=== PATIENT | female | born 1955 | race Caucasian/White ===

== ENCOUNTER 2020-02-10 10:03 | Outpatient (REF) | payer MEDICARE, MEDICAID, SELFPAY ==
--- NOTE | 2020-02-10 10:05 | XR_ITS ---
EXAMINATION: XR SHOULDER, LEFT CLINICAL INFORMATION: Left shoulder pain COMPARISON: None TECHNIQUE: Left shoulder is imaged in 3 views. FINDINGS: There is no fracture or dislocation. The acromioclavicular alignment is normal. No destructive process. Glenohumeral joint shows no narrowing or erosive change. There are small oval calcifications adjacent to the greater tuberosity consistent with calcific tendinosis. XR/XR shoulder LT min 2V IMPRESSION: Calcific tendinosis distal superior rotator cuff.
--- NOTE | 2020-02-10 10:31 | XR_ITS ---
EXAMINATION: XR HAND, LEFT CLINICAL INFORMATION: Injury COMPARISON: None TECHNIQUE: PA, lateral, and oblique views of the left hand. FINDINGS: Bone alignment is normal. No fracture or dislocation is seen. There is arthritis at the IP joints and first SENIOR LIVING joint with joint space narrowing and osteophyte formation. There is ulnar minus variance at the wrist. Soft tissues are unremarkable. XR/XR hand LT min 3V IMPRESSION: Arthritis at the IP joints and first SENIOR LIVING joint.
== END 2020-02-10 10:04 | disposition home or self-care (01) ==
LOC: HO.HOSX 10:03
PROVIDERS: Visit Provider Orthopaedic Surgery
DX: S69.92XA Unspecified injury of left wrist, hand and finger(s), initial encounter (principal); M25.512 Pain in left shoulder; M75.52 Bursitis of left shoulder
CPT/HCPCS: 20610; 73030; 73130; 99212; J1100

== ENCOUNTER → 2020-05-25 10:51 | Outpatient (BNVA) | payer MEDICARE, MEDICAID, SELFPAY | PROVIDERS: Visit Provider Orthopaedic Surgery | DX: Z13.89 Encounter for screening for other disorder (principal) | CPT/HCPCS: 99212 ==

== ENCOUNTER 2020-06-02 09:55 | Outpatient (REF) | payer MEDICARE, MEDICAID, SELFPAY ==
--- NOTE | ~2020-06-02 | MR_ITS ---
EXAMINATION: MRI SHOULDER WITHOUT CONTRAST, LEFT CLINICAL INFORMATION: Pain in left shoulder. Patient reports left shoulder pain radiating down left humerus, decreased range of motion, symptoms for months, history of dislocation 10 years ago. COMPARISON: XR left shoulder 02/10/2020 TECHNIQUE: MRI scanning is performed using a standard protocol on a high-field strength 1.5 Manda magnet. FINDINGS: ROTATOR CUFF: There is a high-grade tear of the mid to distal supraspinatus tendon measuring 17 mm transverse and 12 mm AP which predominantly involves the articular side of the tendon. There is a thin bursal surface remaining. There is a questionable perforation through the bursal surface on the sagittal sequence (series 4, image 20). There is mild distal infraspinatus and subscapularis tendinosis. The teres minor tendon is intact. There is a aewyf-kt-excvktkv subacromial-subdeltoid bursal effusion. No significant muscle atrophy or fatty infiltration. BICEPS: There is mild tendinosis of the intra-articular portion of the long head of the biceps tendon. CORACOACROMIAL ARCH: The undersurface of the acromion is curved with a prominent broad-based subacromial spur. There is mild osteoarthritis of the acromioclavicular joint. LABRUM/CAPSULE: The superior and posterior labrum appear intact. The anterior labrum is attenuated. The capsular structures are unremarkable. GLENOHUMERAL JOINT/MARROW: There are small marginal osteophytes. There are patchy areas of oyzm-lc-bcucidpo cartilage irregularity and thinning in the inferomedial and superior humeral head. There is patchy mild cartilage surface irregularity and some areas of thinning in the glenoid. MR/MR shoulder LT wo con IMPRESSION: 1. High-grade tear of the mid to distal supraspinatus tendon which appears to represent a partial articular surface tear. A tiny perforation through the bursal surface cannot be entirely excluded. 2. Zqqa-dj-tsspoxfu subacromial-subdeltoid bursitis. 3. Mild long head biceps tendinosis. 4. Prominent broad-based subacromial spur and mild osteoarthritis of the acromioclavicular joint. 5. Mbgk-uc-uxymewyl glenohumeral arthrosis.
== END 2020-06-02 09:56 | disposition home or self-care (01) ==
LOC: HO.MRI 09:55
PROVIDERS: PCP Internal Medicine; Visit Provider Orthopaedic Surgery
DX: M25.512 Pain in left shoulder (principal)
CPT/HCPCS: 73221

== ENCOUNTER → 2020-06-04 12:01 | Outpatient (BNVA) | payer MEDICARE, MEDICAID, SELFPAY | PROVIDERS: Visit Provider Orthopaedic Surgery | DX: M75.102 Unspecified rotator cuff tear or rupture of left shoulder, not specified as traumatic (principal) | CPT/HCPCS: 99212 ==

== ENCOUNTER 2020-06-17 08:18 | Day surgery (SDC) | payer MEDICARE, MEDICAID, SELFPAY ==
[2020-06-09 20:02] VITALS: BMI 32.7
--- NOTE | 2020-06-16 09:42 | P.CONAN_ITS ---
Documented by User: Nancy Felder 06/16/20 09:44 HPI - Anesthesia Eval Consult details Narrative: 64yo F for Left Arthroscopic Rotator Cuff Repair Coumadin for PE PMFSH Active Problems Active Problems: All Active Problems (Updated 06/10/20 @ 13:40 by aLshell Olvera) Left shoulder pain (Acute) Finger dislocation (Acute) Bursitis of left shoulder (Acute) Past Medical History Medical History (Updated 06/10/20 @ 13:40 by Lashell Ovlera) Anxiety Arthritis Bursitis of left shoulder COPD (chronic obstructive pulmonary disease) Depression Elevated cholesterol Fatty liver Finger dislocation GERD (gastroesophageal reflux disease) History of pulmonary embolism Lives in assisted living facility Multiple sclerosis Opioid dependence Primary osteoarthritis of hips, bilateral Seizures Family History Family History Father CVD (cardiovascular disease) Mother No problems noted. Surgical History Surgical History (Updated 06/10/20 @ 13:40 by Lashell Olvera) History of toe surgery Hx of colonoscopy Social History Social History Household Members Other:: [facility] Smoking Status: Former smoker Smoked in Last 30 Days: No Smoking Quit Date: 2016 Use of substances other than those prescribed or required for medical reasons: No Advance Directives: No Advance Directives Information Provided: No Advance Directives on File: No Recently lost weight without trying: No Current occupational status: unemployed Current occupation: [employer] Meds Allergies Allergy/AdvReac Type Severity Reaction Status Date / Time Penicillins Allergy Mild RASH Verified 06/04/20 12:12 penicillin V Allergy Unknown rash Verified 06/04/20 12:12 Home Medications Medication Instructions Recorded Confirmed Last Taken Type clonazepam 0.5 mg tablet 1 mg PO TID 02/07/20 06/09/20 06/17/20 History melatonin 3 mg capsule 3 mg PO BEDTIME PRN 02/07/20 06/09/20 Unknown History meloxicam 15 mg PO QPM 05/25/20 06/09/20 Unknown History acetaminophen 1,000 mg PO BID 06/09/20 06/10/20 Unknown History atorvastatin 1 tab PO DAILY 06/09/20 06/09/20 Unknown History citalopram 20 mg PO DAILY 06/09/20 06/10/20 Unknown History clonidine HCl 1 tab PO TID 06/09/20 06/09/20 06/17/20 History dicyclomine 20 mg PO BID 06/09/20 06/09/20 06/17/20 History duloxetine 1 cap PO DAILY 06/09/20 06/09/20 06/17/20 History fluticasone propionate [Flovent 2 puff INHALATION BID 06/09/20 06/09/20 Unknown History HFA] loratadine 1 tab PO DAILY 06/09/20 06/09/20 Unknown History magnesium oxide 1 tab PO DAILY 06/09/20 06/09/20 Unknown History modafinil 1 tab PO BID 06/09/20 06/09/20 06/17/20 History tizanidine 1 tab PO TID 06/09/20 06/09/20 06/17/20 History warfarin 3 mg PO DAILY 06/09/20 06/09/20 06/11/20 History dimethyl fumarate [Tecfidera] 240 mg PO BID 06/10/20 06/10/20 06/17/20 History multivitamin 1 tab PO DAILY 06/10/20 06/10/20 06/17/20 History pantoprazole [Protonix] 20 mg PO DAILY 06/10/20 06/10/20 06/17/20 History quetiapine 1 tab PO BEDTIME 06/10/20 06/10/20 Unknown History warfarin 1 tab PO DAILY 06/10/20 06/10/20 06/10/20 History Exam Exam Date and Time: June 16, 2020 0942 Height,Weight and Vital Signs: Height 5 ft 2 in Weight 81.193 kg Documented by User: Genaro Lara MD 06/17/20 09:58 [facility] Past Medical History Medical History (Updated 06/10/20 @ 13:40 by Lashell Olvera) Anxiety Arthritis Bursitis of left shoulder COPD (chronic obstructive pulmonary disease) Depression Elevated cholesterol Fatty liver Finger dislocation GERD (gastroesophageal reflux disease) History of pulmonary embolism Lives in assisted living facility Multiple sclerosis Opioid dependence Primary osteoarthritis of hips, bilateral Seizures Family History Family History Father CVD (cardiovascular disease) Mother No problems noted. Surgical History Surgical History (Updated 06/10/20 @ 13:40 by Lashell Olvera) History of toe surgery Hx of colonoscopy Social History Social History Household Members Other:: [facility] Smoking Status: Former smoker Smoked in Last 30 Days: No Smoking Quit Date: 2016 Use of substances other than those prescribed or required for medical reasons: No Advance Directives: No Advance Directives Information Provided: No Advance Directives on File: No Recently lost weight without trying: No Current occupational status: unemployed Current occupation: [employer] Meds Allergies Allergy/AdvReac Type Severity Reaction Status Date / Time Penicillins Allergy Mild RASH Verified 06/04/20 12:12 penicillin V Allergy Unknown rash Verified 06/04/20 12:12 Home Medications Medication Instructions Recorded Confirmed Last Taken Type clonazepam 0.5 mg tablet 1 mg PO TID 02/07/20 06/09/20 06/17/20 History melatonin 3 mg capsule 3 mg PO BEDTIME PRN 02/07/20 06/09/20 Unknown History meloxicam 15 mg PO QPM 05/25/20 06/09/20 Unknown History acetaminophen 1,000 mg PO BID 06/09/20 06/10/20 Unknown History atorvastatin 1 tab PO DAILY 06/09/20 06/09/20 Unknown History citalopram 20 mg PO DAILY 06/09/20 06/10/20 Unknown History clonidine HCl 1 tab PO TID 06/09/20 06/09/20 06/17/20 History dicyclomine 20 mg PO BID 06/09/20 06/09/20 06/17/20 History duloxetine 1 cap PO DAILY 06/09/20 06/09/20 06/17/20 History fluticasone propionate [Flovent 2 puff INHALATION BID 06/09/20 06/09/20 Unknown History HFA] loratadine 1 tab PO DAILY 06/09/20 06/09/20 Unknown History magnesium oxide 1 tab PO DAILY 06/09/20 06/09/20 Unknown History modafinil 1 tab PO BID 06/09/20 06/09/20 06/17/20 History tizanidine 1 tab PO TID 06/09/20 06/09/20 06/17/20 History warfarin 3 mg PO DAILY 06/09/20 06/09/20 06/11/20 History dimethyl fumarate [Tecfidera] 240 mg PO BID 06/10/20 06/10/20 06/17/20 History multivitamin 1 tab PO DAILY 06/10/20 06/10/20 06/17/20 History pantoprazole [Protonix] 20 mg PO DAILY 06/10/20 06/10/20 06/17/20 History quetiapine 1 tab PO BEDTIME 06/10/20 06/10/20 Unknown History warfarin 1 tab PO DAILY 06/10/20 06/10/20 06/10/20 History Exam Airway Mallampati Class: III TM Dist: >3cm Denture: Upper and Lower Loose/Missing/Broken Teeth: No Heart: RRR, sinus raúl Assessment and Plan Assessment Anesthesia Assessment: Anesthesia Plan Discussed and Chart Reviewed Final Anesthetic Review NPO: Yes ASA Class: III Final Preanesthetic Review: No Changes in Pt Med Stat, Meds/Allgs Chart Reviewed, Consent Obtained/Reviewed and Anes Risks/Benef Reviewed Patient Risk: Intermediate Procedure Risk: Intermediate Anesthetic Plan Anesthetic Plan: GA and Regional Block Disposition: Standard PACU
[2020-06-17] VITALS (8 sets, daily range): BP systolic 98–138; BP diastolic 38–92; PULSE 56–82; RESP 16–20; TEMP 36.3–36.4; O2SAT 91–98
--- NOTE | 2020-06-17 | ECG_ITS ---
Test Reason : PREOP, COPD Blood Pressure : / mmHG Vent. Rate : 051 BPM Atrial Rate : 051 BPM P-R Int : 170 ms QRS Dur : 090 ms QT Int : 436 ms P-R-T Axes : 043 011 011 degrees QTc Int : 401 ms Sinus bradycardia Otherwise normal ECG When compared with ECG of 03-JUN-2015 22:21, Vent. rate has decreased BY 44 BPM Nonspecific T wave abnormality no longer evident in Anterior leads QT has shortened Referred By: Nancy Felder Electronically Signed By:Paramjit Escamilla
[2020-06-17] MEDS: Lactated Ringers 1,000 ML 100 ML IVCONT (09:13)
--- NOTE | 2020-06-17 09:21 | PC.NURSE ---
Lab draw for patient cancelled per Dr Lara. Patient had INR drawn/resulted 06/16/20. pt 12.1 INR 1.1
--- NOTE | 2020-06-17 09:26 | PC.NURSE ---
Per Dr Lynn, Cefazolin 2 g IV to be given to patient, pt has known PCN allergy w/ rash for rxn. Both Anesthesia & Dr Lynn aware, okay to proceed with Cefazolin 2 g
--- NOTE | 2020-06-18 16:45 | P.BOP_ITS ---
Brief Operative Note Date of Service: 06/17/20 Pre-op diagnosis: left shoulder rtc tear Post-op diagnosis: same Procedure: left shoulder rtc repair Implants: smityh and nephew medial row helacoil doulbe loaded suture anchors and healcoil knotless X2 lateral row Surgeon: Ian Lynn MD Anesthesia: GETA Client Experience Administrator: Rosalie Ramirez Estimated blood loss (mL): 5 IV fluids (mL): 800 Pathology: none sent Condition: stable Disposition: PACU
--- NOTE | 2020-06-18 16:48 | P.OP_ITS ---
Operative Note Operative Note Date of Service: 06/17/20 Narrative: Pre-op diagnosis: left shoulder rtc tear Post-op diagnosis: same Procedure: left shoulder rtc repair Implants: smityh and nephew medial row helacoil doulbe loaded suture anchors and helacoil knotless X2 lateral row Surgeon: Ian Lynn MD Anesthesia: DUANEA Chief Internal Auditor: Rosalie Ramirez Estimated blood loss (mL): 5 IV fluids (mL): 800 Pathology: none sent Condition: stable Disposition: PACU Indications: This is a 64 yo F with at least one year of ongoing left shoulder pain and weakness with a full thickness rtc on MRI consented for operative treatment after extensive conservative management failed Procedure in detail: Patient was brought to the operating room and placed the the beach chair position. All bony prominences were well padded and he was prepped and draped in standard sterile fashion. A time out was called to identify proper site, proper procedure and proper surgeon. IV antibiotics per weight were administered. I began by making a posterolateral stab incision with a 15 blade. A blunt trochar was placed into the glenohumeral joint and insufflated the joint with saline and a 30 degree arthroscope was placed. I established an outside-in anterior portal just distal to the biceps tendon. I then began my inspection of the glenohumeral joint. There was synovitis in the anterior interval. Gutters were clean. Cartilagenous surfaces were intact and subscapularis was intact. Labrum and biceps anchor were intact. I used the ablations wand to remove the synovitis. I then removed the trochar and entered the subacromial space. A direct lateral portal was then established and I performed a bursectomy. The cuff was then examined. There was a full thickness irregular tear of the supraspinatus. There was some intra-substance tearing of the tendon as well. I used a trell to debride the footprint down to bleeding bone. I then placed two medial helacoil and passed one strand from each through the torn cuff. I then brought this to two lateral knotless anchors. Additionally I added one looped suture anteriorly to fully reproduce the footprint and compress the torn cuff. I then removed all instrumentation and took my final pictures. I was satisfied with the repair. The portals were then closed with nylon and the patient was placed in sterile dressing, extubated and brought top the recovery room in stable condition. There were no known complications.
== END 2020-06-17 13:05 | disposition home or self-care (01) ==
PROVIDERS: PCP Internal Medicine; Visit Provider Orthopaedic Surgery
PROC: (CPT 29827; principal; 2020-06-17 10:00)
DX: M75.122 Complete rotator cuff tear or rupture of left shoulder, not specified as traumatic (principal); M65.9 Synovitis and tenosynovitis, unspecified
CPT/HCPCS: 29827; 29826; 93005; C1713; J0171; J0690; J1100; J2250; J2405; J3010

== ENCOUNTER → 2020-06-22 12:18 | Outpatient (BNVA) | payer MEDICARE, MEDICAID, SELFPAY | PROVIDERS: Visit Provider Physician Assistant | DX: Z98.890 Other specified postprocedural states (principal) | CPT/HCPCS: 99212 ==

== ENCOUNTER → 2020-07-02 09:18 | Outpatient (BNVA) | payer MEDICARE, MEDICAID, SELFPAY | PROVIDERS: Visit Provider Physician Assistant | DX: Z98.890 Other specified postprocedural states (principal) | CPT/HCPCS: 99212 ==

== ENCOUNTER → 2020-07-30 09:28 | Outpatient (BNVA) | payer MEDICARE, MEDICAID, SELFPAY | PROVIDERS: Visit Provider Orthopaedic Surgery | DX: Z98.890 Other specified postprocedural states (principal) | CPT/HCPCS: 99212 ==

== ENCOUNTER 2020-08-27 08:34 | Outpatient (REF) | payer MEDICARE, MEDICAID, SELFPAY ==
--- NOTE | ~2020-08-27 | XR_ITS ---
EXAMINATION: XR SHOULDER, LEFT CLINICAL INFORMATION: Left shoulder pain COMPARISON: None TECHNIQUE: AP external rotation, Grashey, scapular Y, and axillary views of the left shoulder. FINDINGS: There is a loss of glenohumeral joint space with periapical spurring. There is evidence of previous left rotator cuff surgery. Loss of left AC joint with inferior acromion spur is noted. No visible acute fracture or dislocation seen. The soft tissues are normal. XR/XR shoulder LT min 2V IMPRESSION: Mild degenerative changes left AC joint and left glenohumeral joint. No visible acute fracture, dislocation or subluxation seen.
== END 2020-08-27 08:35 | disposition home or self-care (01) ==
LOC: HO.HOSX 08:34
PROVIDERS: Visit Provider Orthopaedic Surgery
DX: M25.512 Pain in left shoulder (principal); Z98.890 Other specified postprocedural states
CPT/HCPCS: 73030; 99212

== ENCOUNTER → 2020-10-08 12:34 | Outpatient (BNVA) | payer MEDICARE, MEDICAID, SELFPAY | PROVIDERS: PCP Internal Medicine; Visit Provider Orthopaedic Surgery | DX: Z98.890 Other specified postprocedural states (principal) | CPT/HCPCS: 99212 ==

== ENCOUNTER 2021-01-29 08:58 | Outpatient (REF) | payer MEDICARE, MEDICAID, SELFPAY ==
--- NOTE | ~2021-01-29 | MM_ITS ---
EXAMINATION: MM SCREENING DIGITAL BREAST TOMOSYNTHESIS, BILATERAL CLINICAL INFORMATION: Screening. Asymptomatic. The lifetime risk of breast cancer based on the Tyrer-Cuzick Model is 8%. COMPARISON: Mammography: 10/28/2019, 10/22/2018, 09/16/2016 TECHNIQUE: Digital breast tomosynthesis is performed in both the craniocaudal and mediolateral oblique views along with computer-aided detection (CAD). Synthesized 2D images are generated from the tomosynthesis. FINDINGS: There are scattered areas of fibroglandular density (ACR BI-RADS breast composition Category b). There are no significant masses, abnormal calcifications, or other abnormalities. Parenchymal pattern is similar to prior studies. No developing density. There are some dermal lesions again noted overlying the posterior breasts. MM/MM tomosynthesis screening BI IMPRESSION: No mammographic evidence of malignancy. ASSESSMENT: BI-RADS 2: Benign RECOMMENDATION: Routine annual mammography screening. This patient's information was entered into a reminder system with a target due date for their next mammogram.
== END 2021-01-29 08:59 | disposition home or self-care (01) ==
LOC: HO.MAMMO 08:58
PROVIDERS: Visit Provider Internal Medicine
DX: Z12.31 Encounter for screening mammogram for malignant neoplasm of breast (principal)
CPT/HCPCS: 77063; 77067

== ENCOUNTER 2021-02-23 10:03 | Outpatient (REF) | payer MEDICARE, MEDICAID, SELFPAY ==
--- NOTE | ~2021-02-23 | MR_ITS ---
EXAMINATION: MR BRAIN WITHOUT AND WITH CONTRAST CLINICAL INFORMATION: Follow-up multiple sclerosis. COMPARISON: Multiple prior studies, the most recent from 09/19/2018. TECHNIQUE: Multiplanar, multisequence MRI of the brain was obtained before and after the intravenous administration of 7.5 mL Gadavist. FINDINGS: No diffusion abnormalities are identified to suggest an acute or subacute infarct. No mass effect or midline shift is seen. The ventricles and sulci are slightly commensurately prominent consistent with mild diffuse volume loss. There are a few scattered foci of hyperintense T2 and FLAIR signal in the periventricular subcortical white matter. These appear stable compared to prior imaging and do not demonstrate restricted diffusion or abnormal enhancement to suggest active changes. The corpus callosum is normal volume. The study redemonstrates prominence of the perivascular structures in the basal ganglia and right temporal region. No extra-axial fluid collections are seen. The brainstem appears normal. On postcontrast imaging, there is no abnormal parenchymal or leptomeningeal enhancement. There is a small focus of low gradient signal in the anterior left centrum semiovale body, demonstrated on prior imaging. The cerebellar tonsils have normal contour and position, and the craniocervical junction appears normal. Marrow signal and midline structures are normal. The major intracranial flow-voids at the level of the sleetmute of Childs are preserved. The dural venous sinus flow-voids are maintained. There is trace fluid in the medial left mastoid air cells, unchanged. The paranasal sinuses are well-aerated. MR/MR head/brain wo/w con IMPRESSION: 1. There are no acute bleeds or infarcts. There are no masses or areas of enhancement. 2. There are scattered foci of hyperintense T2 and FLAIR signal as described above, in a distribution consistent with the patient's history of demyelinating disease. None of the foci demonstrate restricted diffusion or enhancement to suggest active plaques.
[2021-02-23 10:37] LABS: Blood Urea Nitrogen 15 mg/dL (9-16); Estimated Glomerular Filt Rate 56
== END 2021-02-23 10:04 | disposition home or self-care (01) ==
LOC: HO.MRI 10:03
PROVIDERS: Visit Provider Physician Assistant Medical
DX: G35 Multiple sclerosis (principal)
CPT/HCPCS: 36415; 70553; 82565; 84520; A9585

== ENCOUNTER → 2021-08-10 09:25 | Outpatient (BNVA) | payer MEDICARE, MEDICAID, SELFPAY | PROVIDERS: PCP Internal Medicine; Visit Provider Nurse Practitioner Family | DX: G35 Multiple sclerosis (principal); M79.18 Myalgia, other site; M47.816 Spondylosis without myelopathy or radiculopathy, lumbar region; M25.551 Pain in right hip; M16.0 Bilateral primary osteoarthritis of hip; G89.29 Other chronic pain | CPT/HCPCS: 99212 ==

== ENCOUNTER → 2021-11-12 10:07 | Outpatient (BNVA) | payer MEDICARE, MEDICAID, SELFPAY | PROVIDERS: PCP Internal Medicine; Visit Provider Orthopaedic Surgery | DX: M75.102 Unspecified rotator cuff tear or rupture of left shoulder, not specified as traumatic (principal); M70.61 Trochanteric bursitis, right hip | CPT/HCPCS: 20610; 99212; J1100 ==

== ENCOUNTER 2022-02-04 07:56 | Outpatient (REF) | payer MEDICARE, MEDICAID, SELFPAY ==
--- NOTE | ~2022-02-04 | MM_ITS ---
EXAMINATION: MM SCREENING DIGITAL BREAST TOMOSYNTHESIS, BILATERAL CLINICAL INFORMATION: Screening. Asymptomatic. The lifetime risk of breast cancer based on the Tyrer-Cuzick Model is 10%. COMPARISON: Mammography: 01/29/2021, 10/28/2019, 10/22/2018 TECHNIQUE: Digital breast tomosynthesis is performed in both the craniocaudal and mediolateral oblique views along with computer-aided detection (CAD). Synthesized 2D images are generated from the tomosynthesis. FINDINGS: There are scattered areas of fibroglandular density (ACR BI-RADS breast composition Category b). There are no significant masses, abnormal calcifications, or other abnormalities. No significant changes in parenchymal pattern. No developing density. There are stable grouped coarse benign calcifications again seen anterior central left breast. Scattered dermal lesions again noted medial breasts. MM/MM tomosynthesis screening BI IMPRESSION: No mammographic evidence of malignancy. ASSESSMENT: BI-RADS 2: Benign RECOMMENDATION: Routine annual mammography screening. This patient's information was entered into a reminder system with a target due date for their next mammogram.
== END 2022-02-04 07:57 | disposition home or self-care (01) ==
LOC: HO.MAMMO 07:56
PROVIDERS: PCP Internal Medicine; Visit Provider Internal Medicine
DX: Z12.31 Encounter for screening mammogram for malignant neoplasm of breast (principal)
CPT/HCPCS: 77063; 77067

== ENCOUNTER → 2022-04-05 09:32 | Outpatient (BNVA) | payer MEDICARE, MEDICAID, SELFPAY | PROVIDERS: PCP Internal Medicine; Visit Provider Nurse Practitioner Family | DX: M16.0 Bilateral primary osteoarthritis of hip (principal); M25.551 Pain in right hip; M47.816 Spondylosis without myelopathy or radiculopathy, lumbar region; M79.18 Myalgia, other site; G89.29 Other chronic pain; Z76.0 Encounter for issue of repeat prescription | CPT/HCPCS: Q3014 ==

== ENCOUNTER 2022-04-22 07:55 | Day surgery (SDC) | payer MEDICARE, MEDICAID, SELFPAY ==
[2022-04-18 11:18] VITALS: BMI 32.0
--- NOTE | ~2022-04-22 | FL_ITS ---
EXAMINATION: XR FLUOROSCOPY WITH IMAGES CLINICAL INFORMATION: Right hip pain. COMPARISON: None. TECHNIQUE: Fluoroscopy Supervised By: Dr. Steven Figueroa. Fluoroscopy Time: 0.1 minute. Cumulative Dose: 7.68 mGy. DAP: 1.32 Gycm2. Images: 2. FINDINGS: There are 2 digital images of right hip revealing needle positioned along the lateral hip joint space with contrast opacifying the hip joint. The joint space is maintained normal. No bony erosive changes or periarticular spurring is seen. FL/FL guidance in OR IMPRESSION: Fluoroscopy was provided to referring physician for pain management.
[2022-04-22 08:01] VITALS: BP 114/52; PULSE 73; RESP 20; TEMP 36.1; O2SAT 96
[2022-04-22] MEDS: Lactated Ringers 1,000 ML 50 ML IVCONT (08:24)
--- NOTE | 2022-04-22 09:28 | MHC.SHP ---
Pre-Procedural Eval Section A Date of Service: 04/22/22 The patient is an INPATIENT: No Changes since office visit: Yes Patient answered all questions The History & Physical has been completed within 30 days and I have reviewed it.: No Section B Chief Complaint: Anjum osteoarthritis of hip,chronic pain right hip Details of Present Illness: as above Relevant Family History (Specify if Yes): No Relevant Social History: None Present Medications: None Medical History: No relevant PMH History of Previous Operations: No relevant previous surgery Allergies: Allergies Allergy/AdvReac Type Severity Reaction Status Date / Time Penicillins Allergy Severe rash,hives Verified 04/18/22 11:09 Review of Systems Sugical H&P ROS: Negative: Constitution, Cardiovascular, Respiratory, Neurological, Psychiatric, Hem-Onc, Allergic/Immunologic, Gastrointestinal, Genitourinary, Integumentary, Endocrine and Eyes/Ears/Nose/Throat and Yes, Specify: Musculoskeletal (generalized osteoarthritis) Exam Surgical H&P Exam: Normal: HEENT, Normal: Heart, Normal: Lungs, Normal: Extremities, Normal: Abdomen, Normal: Skin and Normal: Neurological Plan Diagnosis/Plan: Unchanged I have reviewed the history and physical and performed a pertinent physical examination on my patient. No changes have occurred unless specified. Time Spent With Patient Time: Total time managing care of this patient today ____ minutes.
--- NOTE | 2022-04-22 09:48 | HO.ANESPROP2 ---
HPI - Anesthesia Eval Consult details Narrative: 66 yr olf for right hip IA STRROID UNDER MAC PMFSH Active Problems Active Problems: All Active Problems (Updated 04/18/22 @ 11:25 by Sylvia Joel RN) Left shoulder pain (Acute) Status post left rotator cuff repair (Acute) Lumbar spondylosis (Acute) Myofascial pain (Acute) Chronic right hip pain (Acute) Greater trochanteric bursitis of right hip (Acute) Rotator cuff syndrome of left shoulder (Acute) Primary osteoarthritis of hips, bilateral (Acute) Multiple sclerosis (Acute) Finger dislocation (Acute) Bursitis of left shoulder (Acute) Past Medical History Medical History (Updated 04/18/22 @ 11:25 by Sylvia Joel RN) Anxiety Arthritis Bursitis of left shoulder COPD (chronic obstructive pulmonary disease) Depression Elevated cholesterol Fatty liver Finger dislocation GERD (gastroesophageal reflux disease) History of pulmonary embolism Multiple sclerosis Opioid dependence REBECCA (obstructive sleep apnea) Primary osteoarthritis of hips, bilateral Seizures Wears dentures Family History Family History Father CVD (cardiovascular disease) Mother No problems noted. Family history of problems with anesthesia: No Surgical History Surgical History (Updated 04/18/22 @ 11:09 by Sylvia Joel RN) History of toe surgery Hx of colonoscopy Hx of repair of left rotator cuff History of Problems with Anesthesia: No Social History Social History Household Members Other:: [facility] Are you a primary senior care manager to a significant other at home: No Do you presently have visiting nurse or other home services: No Alcohol intake: never Patient Tobacco Use Status: Former Tobacco user Quit Date: 2016 Tobacco use type: Cigarette Use of substances other than those prescribed or required for medical reasons: No Have you been hit, kicked, punched, or otherwise hurt by someone within the past year? If so, by whom?: No Are you DNR?: No Advance Directives: No Advance Directives Information Provided: Yes Advance Directives on File: No Current occupational status: unemployed Current occupation: Right Handed Meds Allergies Allergy/AdvReac Type Severity Reaction Status Date / Time Penicillins Allergy Severe rash,hives Verified 04/18/22 11:09 Active Medications: Current Medications Lactated Ringer's (Lr) 1,000 mls @ 50 mls/hr IVCONT .Q20H ANGELI Last Admin: 04/22/22 08:24 Dose: 50 mls/hr Home Medications Medication Instructions Recorded Confirmed Last Taken Type melatonin 3 mg capsule 3 mg PO BEDTIME PRN Insomnia 02/07/20 04/18/22 Unknown History acetaminophen 500 mg tablet 1,000 mg PO BID PRN Pain 06/09/20 04/18/22 Unknown History citalopram 20 mg tablet 20 mg PO DAILY 06/09/20 04/18/22 04/22/22 History clonidine HCl 0.1 mg tablet 1 tab PO TID 06/09/20 04/18/22 04/22/22 History duloxetine 60 mg capsule,delayed 1 cap PO DAILY 06/09/20 04/18/22 06/17/20 History release loratadine 10 mg tablet 1 tab PO DAILY 06/09/20 04/18/22 04/22/22 History magnesium oxide 400 mg (241.3 mg 1 tab PO DAILY 06/09/20 04/18/22 Unknown History magnesium) tablet modafinil 200 mg tablet 1 tab PO BID 06/09/20 04/18/22 06/17/20 History tizanidine 2 mg tablet 1 tab PO TID 06/09/20 04/18/22 04/22/22 History dimethyl fumarate 240 mg 240 mg PO BID 06/10/20 04/18/22 06/17/20 History capsule,delayed release (Tecfidera) multivitamin 1 tab PO DAILY 06/10/20 04/18/22 06/17/20 History pantoprazole 20 mg tablet,delayed 20 mg PO DAILY 06/10/20 04/18/22 04/22/22 History release (Protonix) quetiapine 100 mg tablet 1 tab PO BEDTIME 06/10/20 04/18/22 Unknown History clonazepam 1 mg tablet 1 mg PO TID PRN Anxiety 08/27/20 04/18/22 04/22/22 History ergocalciferol (vitamin D2) 1,250 1,250 mcg PO 2XW 08/27/20 04/18/22 Unknown History mcg (50,000 unit) capsule albuterol sulfate 2.5 mg/3 mL mg inhalation PRN Shortness Of 08/10/21 Unknown History (0.083 %) solution for nebulization Breath apixaban 5 mg tablet (Eliquis) 5 mg PO BID 08/10/21 04/18/22 04/19/22 History cholecalciferol (vitamin D3) 50 50 mcg PO DAILY 08/10/21 04/18/22 Unknown History mcg (2,000 unit) tablet amantadine HCl 100 mg capsule 100 mg PO DAILY 04/05/22 04/18/22 Unknown History atorvastatin 20 mg tablet 20 mg PO BEDTIME 04/05/22 04/18/22 Unknown History baclofen 10 mg tablet 10 mg PO TID 04/05/22 04/18/22 Unknown History dicyclomine 20 mg tablet 20 mg PO QID 04/05/22 04/18/22 Unknown History mirabegron 25 mg tablet,extended 25 mg PO DAILY 04/05/22 04/18/22 Unknown History release 24 hr (Myrbetriq) umeclidinium 62.5 mcg-vilanterol 1 ea inhalation DAILY 04/05/22 04/18/22 Unknown History 25 mcg/actuation powdr for inhalation (Anoro Ellipta) Exam Exam Date and Time: April 22, 2022 0948 Height,Weight and Vital Signs: Height 5 ft 2 in Weight 79.379 kg Last Vital Signs Temp 97 F 04/22/22 08:01 Pulse 73 04/22/22 08:01 Resp 20 04/22/22 08:01 BP 114/52 L 04/22/22 08:01 Pulse Ox 96 04/22/22 08:01 O2 Del Method 04/22/22 08:01 Airway Mallampati Class: II TM Dist: >3cm Neck ROM: Full Heart: rrr Lungs: cta Assessment and Plan Assessment Anesthesia Assessment: Anesthesia Plan Discussed and Chart Reviewed Final Anesthetic Review Family History of Problems with Anesthesia: No History of Problems with Anesthesia: No NPO: Yes ASA Class: II Final Preanesthetic Review: No Changes in Pt Med Stat, Meds/Allgs Chart Reviewed and Consent Obtained/Reviewed Patient Risk: Low Procedure Risk: Low Anesthetic Plan Anesthetic Plan: MAC: and Agree w/ Assess. and Plan Disposition: Standard PACU
[2022-04-22 10:00] VITALS: BP 150/81; PULSE 94; RESP 17; TEMP 36.6; O2SAT 100
--- NOTE | 2022-04-22 10:00 | PM.OP ---
Brief Operative Note Date of Service: 04/22/22 Pre-op diagnosis: right hip arthritis Post-op diagnosis: same Procedure: right hip steroid injection Surgeon: Steven Figueroa MD Anesthesia: MAC Was an Account Contact Associate used for this Procedure?: No Estimated blood loss (mL): 1 Pathology: none sent Condition: stable Disposition: PACU
--- NOTE | 2022-04-22 10:03 | W.PM.OPN ---
Operative Note Operative Note Date of Service: 04/22/22 Narrative: Right intra-articular hip steroid injection. ? - Informed consent was explained to the patient. All questions were explained and answered.? The patient was taken inside of the operating room where she was positioned left lateral decubitus on operating table..? ? Time-out was performed delineating patient's name and date of , correct site, side, the nature of the procedure, patient's allergy, preoperative antibiotic if needed, need for VT prophylaxis..? All operating room staff was participating in OR time-out procedure.? ASA monitors were applied and the patient was moderately sedated. ? Right hip area of the patient was prepped with ChloraPrep and draped with sterile towels.? Sterilely draped C-arm was brought over the operating field and picture of left and right lateral views of the bilateral hip joints were delineated on the screen.? The smaller joint silhouette was chosen as the target.? Direction of the femoral neck was noted..? Projection of the right trochanter to the skin was chosen as the initial needle insertion point.? After that the skin and subcutaneous tissues was anesthetized with 2% lidocaine 2.5 mL.? 22 gauge 5 in long needle was inserted through the skin and started to advance to the joint space under anterior posterior view.? When needle entered the capsule of the joint small amount of the contrast was injected delineating intra-articular space.? After that treatment solution containing 4 mls of ropivacaine 0.5% and 40 mg of Kenalog was injected into the joint.? The needle was withdrawn sterile dressing was applied. Patient tolerated the procedure well , taken to PACU for recovery.
[2022-04-22 10:15] VITALS: BP 104/41; PULSE 61; RESP 16; O2SAT 100
[2022-04-22 10:26] VITALS: BP 122/62; PULSE 73; RESP 18; TEMP 36.7; O2SAT 100
== END 2022-04-22 11:00 | disposition home or self-care (01) ==
PROVIDERS: PCP Internal Medicine; Visit Provider Anesthesiology
PROC: (CPT 20610; principal; 2022-04-22 09:10)
DX: M25.551 Pain in right hip (principal); G89.29 Other chronic pain; M16.11 Unilateral primary osteoarthritis, right hip; M47.816 Spondylosis without myelopathy or radiculopathy, lumbar region; M79.18 Myalgia, other site; G35 Multiple sclerosis; G47.33 Obstructive sleep apnea (adult) (pediatric); M75.52 Bursitis of left shoulder; R20.0 Anesthesia of skin; R25.2 Cramp and spasm; F41.1 Generalized anxiety disorder; Z86.711 Personal history of pulmonary embolism; Z79.01 Long term (current) use of anticoagulants; Z79.899 Other long term (current) drug therapy; Z88.0 Allergy status to penicillin; Z79.891 Long term (current) use of opiate analgesic
CPT/HCPCS: 20610; J2795; J3301; Q9965; Q9967

== ENCOUNTER 2022-05-17 16:38 | Outpatient (REF) | payer MEDICARE, MEDICAID, SELFPAY | END 2022-05-17 16:39 | disposition home or self-care (01) | LOC: HO.HOSX 16:38 | PROVIDERS: Visit Provider Physician Assistant | DX: Z13.89 Encounter for screening for other disorder (principal) ==

== ENCOUNTER 2022-05-25 14:17 | Outpatient (REF) | payer MEDICARE, MEDICAID, SELFPAY ==
--- NOTE | ~2022-05-25 | XR_ITS ---
EXAMINATION: XR HAND, LEFT CLINICAL INFORMATION: Pain in left hand. COMPARISON: None TECHNIQUE: PA, lateral, and oblique views of the left hand. FINDINGS: There is loss of PIP and DIP joint space with periarticular spurring. No visible acute fracture, dislocation. The metacarpophalangeal joint is normal. There is moderate periarticular spurring 1st carpometacarpal joint. No visible acute fracture or dislocation. XR/XR hand LT min 3V IMPRESSION: Degenerative arthritic changes PIP and DIP joints. No visible acute fracture or dislocation.
== END 2022-05-25 14:18 | disposition home or self-care (01) ==
LOC: HO.HOSX 14:17
PROVIDERS: Visit Provider Physician Assistant
DX: M19.042 Primary osteoarthritis, left hand (principal)
CPT/HCPCS: 73130; 99202

== ENCOUNTER 2022-06-14 12:22 | Outpatient (REF) | payer MEDICARE, MEDICAID, SELFPAY ==
--- NOTE | ~2022-06-14 | XR_ITS ---
EXAMINATION: XR AP KNEE STANDING, BILATERAL XR KNEE, RIGHT CLINICAL INDICATIONS: Right knee pain. COMPARISON: Right knee 06/28/2015. TECHNIQUE: AP bilateral knee standing 1 view and right knee 2 views. FINDINGS: AP bilateral knee standing reveals the left knee joint is slightly higher than the right knee joint. There is moderate loss of medial compartment joint space both knees. No bony erosive changes seen. There are no loose bodies. No visible acute fracture or dislocation. The soft tissues are normal. XR/XR knee standing BI IMPRESSION: Mild degenerative changes medial compartment both knees. No visible acute fracture, dislocation or subluxation seen. Discrepancy leg length with left knee higher than the right.
--- NOTE | ~2022-06-14 | XR_ITS ---
EXAMINATION: XR AP KNEE STANDING, BILATERAL XR KNEE, RIGHT CLINICAL INDICATIONS: Right knee pain. COMPARISON: Right knee 06/28/2015. TECHNIQUE: AP bilateral knee standing 1 view and right knee 2 views. FINDINGS: AP bilateral knee standing reveals the left knee joint is slightly higher than the right knee joint. There is moderate loss of medial compartment joint space both knees. No bony erosive changes seen. There are no loose bodies. No visible acute fracture or dislocation. The soft tissues are normal. XR/XR knee RT 2V IMPRESSION: Mild degenerative changes medial compartment both knees. No visible acute fracture, dislocation or subluxation seen. Discrepancy leg length with left knee higher than the right.
== END 2022-06-14 12:23 | disposition home or self-care (01) ==
LOC: HO.HOSX 12:22
PROVIDERS: PCP Internal Medicine; Visit Provider Physician Assistant
DX: M17.11 Unilateral primary osteoarthritis, right knee (principal)
CPT/HCPCS: 20610; 73560; 73565; 99212; J1040

== ENCOUNTER 2022-11-01 08:43 | Outpatient (REF) | payer MEDICARE, MEDICAID, SELFPAY ==
--- NOTE | ~2022-11-01 | XR_ITS ---
EXAMINATION: XR HIP, RIGHT CLINICAL INFORMATION: Pain COMPARISON: CT abdomen pelvis December 10, 2018 TECHNIQUE: Two views of the right hip. FINDINGS: Visualized portion of the proximal right femur demonstrate no fracture. Right femoral head is well-seated within the acetabulum. There is only mild narrowing of the right femoral acetabular joint space. Small osteophyte along the superolateral right acetabular margin. Small osteophytes also noted at the right femoral head/neck junction. The pelvic ring is intact. Mild degenerative changes of the left hip. Vascular and soft tissue calcifications noted. XR/XR hip RT w PEL1V IMPRESSION: Mild degenerative changes of the right hip without fracture or dislocation.
== END 2022-11-01 08:44 | disposition home or self-care (01) ==
LOC: HO.HOSX 08:43
PROVIDERS: Visit Provider Physician Assistant
DX: M17.11 Unilateral primary osteoarthritis, right knee (principal); M70.61 Trochanteric bursitis, right hip; M19.042 Primary osteoarthritis, left hand
CPT/HCPCS: 20610; 73502; 99212; J1040

== ENCOUNTER 2022-11-01 12:46 | Outpatient (AMB) | payer MEDICARE, MEDICAID, SELFPAY ==
--- NOTE | 2022-11-01 12:57 | A.OFFVIS_ITS ---
Intake Vital Signs 11/01/22 13:01 Height 5 ft 2 in Weight 170 lb BMI 31.1 Intake Visit Reasons: OV - Rt Hip Pain Intake Note: Kristin is a 67 year old female who presents today for a follow up for her right hip pain. Hx of injections with relief. Patient reports her hip is getting worse when walking. She states that her pain moves down to her leg. Patient has concerns of her right knee is been causing her a lot of pain. Allergies Penicillins Allergy (Severe, Verified 11/01/22 13:01) rash,hives HPI OV - Rt Hip Pain HPI Details 67-year-old female who presents in the office today for a follow up of right hip pain. The patient has a right intra-articular hip steroid injection on 04/22/2022, which gave her relief. She claims her pain increases when she ambulates. She states the pain radiates down her leg. She states is is affecting her daily living. The patient states she has increased pain in the right knee. Patient states she has pain in the fingers and that makes it were she can not wear her rings. Patient denies a history of diabetes mellitus. [facility] Medical History Anxiety Arthritis Bursitis of left shoulder COPD (chronic obstructive pulmonary disease) Depression Elevated cholesterol Fatty liver Finger dislocation GERD (gastroesophageal reflux disease) History of pulmonary embolism Multiple sclerosis Opioid dependence REBECCA (obstructive sleep apnea) Primary osteoarthritis of hips, bilateral Seizures Wears dentures Surgical History History of toe surgery Hx of colonoscopy Hx of repair of left rotator cuff Family History Father CVD (cardiovascular disease) Mother No problems noted. Social History Household Members Other:: [facility] Are you a primary anesthesiologist and critical care to a significant other at home: No Do you presently have visiting nurse or other home services: No Alcohol intake: never Patient Tobacco Use Status: Former Tobacco user Quit Date: 2016 Tobacco use type: Cigarette Current occupational status: unemployed Current occupation: Right Handed Review of Systems Const All systems reviewed & are unremarkable except as noted in HPI and below Physical Exam Vital Signs: BMI result Body Mass Index 31.1 Const General: cooperative, healthy appearing and no acute distress Resp Effort & Inspection: normal respiratory effort and able to speak in complete sentences Cardio Rate: regular rate Peripheral pulses: Peripheral pulses 2+ throughout GI Palpation (GI): Soft to palpation Skin Lesions: no lesions Rashes: no rashes Extrem Other: Right hip: Tenderness to palpation on the lateral aspect of the right hip. Mildly positive impingement. Right knee: Normal to inspection. No ecchymosis, erythema, or joint effusion. No tenderness to palpation to the lateral joint line. Slight tenderness to the medial joint line. Full knee extension and flexion. Negative Sergio's. NVI. Office Procedures Joint Injection/Drain Joint Injection/Drain Primary Site: right knee Prep: site was prepped using aseptic technique, ethochloride spray was applied and injection warnings given Injected: 80 mg of, DepoMedrol, with 8 mL of (2% plain lido ) and in the joint Procedure: The patient tolerated the procedure well, but had some pain with the injection and there was some relief with the local anesthesia Coding 21463 - Large joint Procedure code (CPT) selection complete Assessment & Plan Assessment & Plan (1) Greater trochanteric bursitis of right hip: Code(s): M70.61 - Trochanteric bursitis, right hip (2) Patellofemoral arthritis of right knee: Code(s): M17.11 - Unilateral primary osteoarthritis, right knee (3) Osteoarthritis of left hand: Code(s): M19.042 - Primary osteoarthritis, left hand Plan Ms. Thacker is a 67-year-old female who presents in the office today for a follow up of right hip pain. The patient has a right intra-articular hip steroid injection on 04/22/2022, which gave her relief. She claims her pain increases when she ambulates. She states the pain radiates down her leg. She states is is affecting her daily living. The patient states she has increased pain in the right knee. Patient states she has pain in the fingers and that makes it were she can not wear her rings. Patient denies a history of diabetes mellitus. The patient was offered a cortisone injection in the right knee with 80 mg of DepoMedrol. The patient was explained the risk, benefits, and alternatives to receiving this injection. After receiving consent for the injection, the patient had the procedure done while in office today. The patient tolerated the procedure well with no complications. I educated the patient on non-surgical and surgical intervention. At this the patient is not interested in a right total hip arthroplasty. She would like to move forward with the right intra-articular hip steroid injection. I sent in a refill for diclofenac 75 mg PO BID PRN. Follow up will be PRN, or sooner if needed. X-rays of the right hip which were obtained while in the office today and were reviewed by me, Rosalie Ramirez PA-C, revealed osteoarthritis in the right hip. Orders: Orders XR hip RT w PEL1V Today M25.559 - Pain in unspecified hip FL arthrogram hip RT Today M16.0 - Bilateral primary osteoarthritis of hip Medications: Refilled diclofenac sodium 75 mg PO BID PRN 60 tabs 0RF pain Coding Level of Care Code Est Pt Level 4 (23391) Diagnoses Greater trochanteric bursitis of right hip M70.61 Patellofemoral arthritis of right knee M17.11 Osteoarthritis of left hand M19.042 CPT Codes Coding - 51727 Large joint: 47796 - Large joint ([id number])
[2022-11-01 13:01] VITALS: BMI 31.1
== END 2022-11-01 13:26 | disposition home or self-care (01) ==
PROVIDERS: PCP Internal Medicine; Visit Provider Physician Assistant
DX: M70.61 Trochanteric bursitis, right hip (principal); M17.11 Unilateral primary osteoarthritis, right knee; M19.042 Primary osteoarthritis, left hand
CPT/HCPCS: 20610; 99214

== ENCOUNTER 2023-02-14 14:39 | Outpatient (AMB) | payer MEDICARE, MEDICAID, SELFPAY ==
--- NOTE | 2023-02-14 15:06 | A.OFFVIS_ITS ---
Intake Intake Visit Reasons: ov- osteoarthritis, right knee Intake Note: Kristin is a 67 year old female who presents today for a evaluation of her right knee pain, last injection 06/14/22. Patient reports her last injection gave her a month of relief and she would to try it one more time to see if it gives her relief. Allergies Penicillins Allergy (Severe, Verified 11/01/22 13:01) rash,hives HPI ov- osteoarthritis, right knee HPI Details 67-year-old female who presents in the [facility] today for a follow up of right knee pain. The patient had a cortisone injection in the right knee on 11/01/2022. She reports the injection gave her about one month of relief. She would like to try one more injection to see if it last longer this time. [facility] Medical History Anxiety Arthritis Bursitis of left shoulder COPD (chronic obstructive pulmonary disease) Depression Elevated cholesterol Fatty liver Finger dislocation GERD (gastroesophageal reflux disease) History of pulmonary embolism Multiple sclerosis Opioid dependence REBECCA (obstructive sleep apnea) Primary osteoarthritis of hips, bilateral Seizures Wears dentures Surgical History History of toe surgery Hx of colonoscopy Hx of repair of left rotator cuff Family History Father CVD (cardiovascular disease) Mother No problems noted. Social History Household Members Other:: [facility] Are you a primary critical care specialist to a significant other at home: No Do you presently have visiting nurse or other home services: No Alcohol intake: never Comment: baseline pain Patient Tobacco Use Status: Former Tobacco user Quit Date: 2016 Tobacco use type: Cigarette Current occupational status: unemployed Current occupation: Right Handed Review of Systems Const All systems reviewed & are unremarkable except as noted in HPI and below Physical Exam Const General: cooperative, healthy appearing and no acute distress Resp Effort & Inspection: normal respiratory effort and able to speak in complete sentences Cardio Rate: regular rate Peripheral pulses: Peripheral pulses 2+ throughout GI Palpation (GI): Soft to palpation Skin Lesions: no lesions Rashes: no rashes Extrem Other: Right knee: Normal to inspection. No ecchymosis, erythema, or joint effusion. No tenderness to palpation to the lateral joint line. Slight tenderness to the medial joint line. Full knee extension and flexion. Negative Sergio's. NVI. Office Procedures Joint Injection/Drain Joint Injection/Drain Primary Site: right knee Prep: site was prepped using aseptic technique, ethochloride spray was applied and injection warnings given Injected: 80 mg of, DepoMedrol and with 8 mL of (2% plain lido ) Approach Used: anterolateral Procedure: The patient tolerated the procedure well, but had some pain with the injection and there was some relief with the local anesthesia Coding - Large joint Procedure code (CPT) selection complete Assessment & Plan Assessment & Plan (1) Patellofemoral arthritis of right knee: Code(s): M17.11 - Unilateral primary osteoarthritis, right knee Plan Ms. Thacker is a 67-year-old female who presents in the office today for a follow up of right knee pain. The patient had a cortisone injection in the right knee on 11/01/2022. She reports the injection gave her about one month of relief. She would like to try one more injection to see if it last longer this time. The patient was offered a cortisone injection in the right knee with 80 mg of DepoMedrol. The patient was explained the risk, benefits, and alternatives to receiving this injection. After receiving consent for the injection, the patient had the procedure done while in office today. The patient tolerated the procedure well with no complications. Follow up will be PRN, or sooner if needed. Patient Instructions: Scribed for Rosalie Ramirez PA-C by Reanna Pond family practice medical doctor, on 02/14/2023 at 2:43 pm, EST. Coding Level of Care Code Est Pt Level 4 (43079) Diagnoses Patellofemoral arthritis of right knee M17.11 CPT Codes Coding - Large joint: 87233 - Large joint ([id number])
== END 2023-02-14 16:49 | disposition home or self-care (01) ==
PROVIDERS: PCP Internal Medicine; Visit Provider Physician Assistant
DX: M17.11 Unilateral primary osteoarthritis, right knee (principal)
CPT/HCPCS: 20610; 99213

== ENCOUNTER → 2023-02-14 14:39 | Outpatient (BNVA) | payer MEDICARE, MEDICAID, SELFPAY | PROVIDERS: PCP Internal Medicine; Visit Provider Physician Assistant | DX: M17.11 Unilateral primary osteoarthritis, right knee (principal); M16.0 Bilateral primary osteoarthritis of hip | CPT/HCPCS: 20610; 99212; J1040 ==

== ENCOUNTER 2023-02-17 09:22 | Outpatient (REF) | payer MEDICARE, MEDICAID, SELFPAY ==
--- NOTE | ~2023-02-17 | MM_ITS ---
EXAMINATION: MM SCREENING DIGITAL BREAST TOMOSYNTHESIS, BILATERAL CLINICAL INFORMATION: Screening. Asymptomatic. COMPARISON: Mammography: This study is compared with prior exams dating back to 2017. TECHNIQUE: Digital breast tomosynthesis is performed in both the craniocaudal and mediolateral oblique views along with computer-aided detection (CAD). Synthesized 2D images are generated from the tomosynthesis. FINDINGS: There are scattered areas of fibroglandular density (ACR BI-RADS breast composition Category b). There are no significant masses, abnormal calcifications, or other abnormalities. There are unchanged, benign calcifications retroareolar region left breast. MM/MM tomosynthesis screening BI IMPRESSION: No mammographic evidence of malignancy. ASSESSMENT: BI-RADS BI-RADS 2 - Benign Findings RECOMMENDATION: Routine annual mammography screening. 1 year F/U This examination should not preclude the clinical evaluation of a suspicious palpable abnormality. This patient's information was entered into a reminder system with a target due date for their next mammogram.
== END 2023-02-17 09:23 | disposition home or self-care (01) ==
LOC: HO.MAMMO 09:22
PROVIDERS: PCP Internal Medicine; Visit Provider Internal Medicine
DX: Z12.31 Encounter for screening mammogram for malignant neoplasm of breast (principal)
CPT/HCPCS: 77063; 77067

== ENCOUNTER → 2023-02-17 10:00 | Outpatient (BNV) | payer MEDICARE, MEDICAID, SELFPAY | PROVIDERS: PCP Internal Medicine; Visit Provider Radiology Diagnostic Radiology | DX: Z12.31 Encounter for screening mammogram for malignant neoplasm of breast (principal) | CPT/HCPCS: 77063; 77067 ==

== ENCOUNTER 2023-03-22 12:57 | Outpatient (REF) | payer MEDICARE, MEDICAID, SELFPAY ==
--- NOTE | ~2023-03-22 | FL_ITS ---
Right hip steroid injection Indications: Right hip pain. Orthopedics request intra-articular steroid injection. Procedure: Risks and benefits and possible complications were discussed with the patient and the consent form was signed. The patient was placed supine on the fluoroscopy table. The right hip was prepped and draped in normal sterile fashion. 1% buffered lidocaine was used for anesthesia. A 22-gauge spinal needle was used to access the hip joint. Intra-articular position of the needle within the hip joint was verified using 3 cc of Omnipaque 300. A total of 5 mL of 1% lidocaine and 80 mg Depo-Medrol mixture was then injected into the hip joint. The needle was then removed and a Band-Aid was applied to the injection site. The patient tolerated the procedure well. There were no immediate complications. FL/FL arthrogram hip RT Impression: Fluoroscopic right hip intra-articular steroid injection The procedure was performed by Dirk Ma PA-C, and directly supervised by Dr. Rodriguez.
== END 2023-03-22 12:58 | disposition home or self-care (01) ==
LOC: HO.XRAY 12:57
PROVIDERS: PCP Internal Medicine; Visit Provider Physician Assistant
DX: M16.0 Bilateral primary osteoarthritis of hip (principal)
CPT/HCPCS: 27093; 73525

== ENCOUNTER → 2023-03-22 12:58 | Outpatient (BNV) | payer MEDICARE, MEDICAID, SELFPAY | PROVIDERS: PCP Internal Medicine; Visit Provider Student in an Organized Health Care Education/Training Program | DX: M25.551 Pain in right hip (principal) | CPT/HCPCS: 20610; 77002 ==

== ENCOUNTER 2023-04-11 14:00 | Outpatient (AMB) | payer MEDICARE, MEDICAID, SELFPAY ==
--- NOTE | 2023-04-11 14:08 | A.OFFVIS_ITS ---
Intake Intake Visit Reasons: OV- RT Knee OA f/u Intake Note: Kristin is a 67 year old female who presents today for a follow up of her right knee OA, last injection 02/14/23. Patient reports her last injection didn't kaiako kohanga reo her any relief. She states that she tried and failed 3 + months of c ompound cream. Hx of tried and failed of 3 + months of cortisone injections. Hx of tried and failed 3 + months of NSIADs/Tylenol. Allergies Penicillins Allergy (Severe, Verified 04/11/23 14:15) rash,hives HPI OV- RT Knee OA f/u HPI Details 67-year-old female who presents in the o ice today for a follow up of right knee patellofemoral arthritis. I last saw the patient in the office on 02/14/2023 when she has a cortisone injection in the right knee. The patient reports the last injection did not give her any relief. She states she has also tired compound cream and feels nothing has given her relief from her pain. [facility] Medical History Anxiety Arthritis Bursitis of left shoulder COPD (chronic obstructive pulmonary disease) Depression Elevated cholesterol Fatty liver Finger dislocation GERD (gastroesophageal reflux disease) History of pulmonary embolism Multiple sclerosis Opioid dependence REBECCA (obstructive sleep apnea) Primary osteoarthritis of hips, bilateral Seizures Wears dentures Surgical History History of toe surgery Hx of colonoscopy Hx of repair of left rotator cuff Family History Father CVD (cardiovascular disease) Mother No problems noted. Social History Household Members Other:: [facility] Are you a primary assistant child care teacher to a significant other at home: No Do you presently have visiting nurse or other home services: No Alcohol intake: never Comment: baseline pain Patient Tobacco Use Status: Former Tobacco user Quit Date: 2016 Tobacco use type: Cigarette Current occupational status: unemployed Current occupation: Right Handed Review of Systems Const All systems reviewed & are unremarkable except as noted in HPI and below Physical Exam Const General: cooperative, healthy appearing and no acute distress Resp Effort & Inspection: normal respiratory effort and able to speak in complete sentences Cardio Rate: regular rate Peripheral pulses: Peripheral pulses 2+ throughout GI Palpation (GI): Soft to palpation Skin Lesions: no lesions Rashes: no rashes Extrem Other: Right knee: Normal to inspection. No ecchymosis, erythema, or joint effusion. No tenderness to palpation to the lateral joint line. Slight tenderness to the medial joint line. Full knee extension and flexion. Negative Sergio's. NVI. Assessment & Plan Assessment & Plan (1) Patellofemoral arthritis of right knee: Code(s): M17.11 - Unilateral primary osteoarthritis, right knee Plan Ms. Thacker is a 67-year-old female who presents in the office today for a follow up of right knee patellofemoral arthritis. I last saw the patient in the office on 02/14/2023 when she has a cortisone injection in the right knee. The patient reports the last injection did not give her any relief. She states she has also tired compound cream and feels nothing has given her relief from her pain. We discussed the role of Gel injections, however, the patient would like to defer at this time due to a history of cortisone injections with no relief. We discussed a referral to Pain Management for possible nerve blocks, which she would like to pursue at this time. A referral has been placed for further evaluation of the patient with Pain Management. I have also sent in a prescription for Celebrex 200 mg PO BID for 30 days to the pharmacy. Follow up will be PRN, or sooner if needed. Orders: Referrals Pain Management Referral M17.11 - Unilateral primary osteoarthritis, right knee Medications: New celecoxib (Celebrex) 200 mg PO BID 60 caps 0RF 30 days Discontinued diclofenac sodium Discontinued Reason: Doctor's Order 75 mg PO BID PRN 60 tabs 0RF for pain Patient Instructions: Scribed for Rosalie Ramirez PA-C by Reanna Pond medical records administrator, on 04/11/2023 at 2:02 pm, EST. Coding Level of Care Code Est Pt Level 4 (91529) Diagnoses Patellofemoral arthritis of right knee M17.11
== END 2023-04-11 15:19 | disposition home or self-care (01) ==
PROVIDERS: PCP Internal Medicine; Visit Provider Physician Assistant
DX: M17.11 Unilateral primary osteoarthritis, right knee (principal)
CPT/HCPCS: 99214

== ENCOUNTER → 2023-04-11 14:00 | Outpatient (BNVA) | payer MEDICARE, MEDICAID, SELFPAY | PROVIDERS: PCP Internal Medicine; Visit Provider Physician Assistant | DX: M17.11 Unilateral primary osteoarthritis, right knee (principal) | CPT/HCPCS: 99212 ==

== ENCOUNTER 2023-06-02 14:05 | Outpatient (AMB) | payer MEDICARE, MEDICAID, SELFPAY ==
[2023-06-02 14:21] VITALS: BP 152/67; PULSE 74; RESP 14; O2SAT 93; BMI 32.9
--- NOTE | 2023-06-02 14:21 | A.OFFVIS_ITS ---
Intake Vital Signs 06/02/23 14:21 Height 5 ft 2 in Weight 180 lb BMI 32.9 BP 152/67 H Blood Pressure Location Rt brachial Position Sitting Respiration 14 Pulse 74 Pulse Source Pulse Oximeter Pulse Oximetry (%) 93 Oxygen Delivery Method Room Air Intake Visit Reasons: R Knee Pain Allergies Penicillins Allergy (Severe, Verified 06/02/23 14:23) rash,hives Medication List - Last Reconciled 06/02/23 by Mira Simmons LPN acetaminophen 1,000 mg PO BID PRN albuterol sulfate mg inhalation PRN amantadine HCl 100 mg PO DAILY apixaban (Eliquis) 5 mg PO BID atorvastatin 20 mg PO BEDTIME baclofen 10 mg PO TID celecoxib 200 mg PO BID citalopram 20 mg PO DAILY clonazepam 1 mg PO TID PRN clonidine HCl 1 tab PO TID dicyclomine 20 mg PO QID dimethyl fumarate (Tecfidera) 240 mg PO BID duloxetine 1 cap PO DAILY ergocalciferol (vitamin D2) 1,250 mcg PO 2XW loratadine 1 tab PO DAILY magnesium oxide 1 tab PO DAILY melatonin 3 mg PO BEDTIME PRN mirabegron ER (Myrbetriq) 25 mg PO DAILY modafinil 1 tab PO BID multivitamin 1 tab PO DAILY pantoprazole (Protonix) 20 mg PO DAILY pregabalin 100 mg PO BID 30 days quetiapine 1 tab PO BEDTIME tizanidine 1 tab PO TID HPI HPI Comments History of Present Illness0 Details Patient presents today for follow up for lower back pain with radiation into her right lower extremity. She was referred back to us by Orthopedic prov ider for right knee nerve block. Patient declined any significant right knee pain today and reports back pain has been worsening with most of her daily activities, especially with bending and axial lateral rotations and extends into her right buttock and right lower extremity laterally with paresthesias and intermittent weakness. Back pain is rated at 8/10. She reports chronic right hip pain with temporary pain relief with recent steroid injection. She continues to take Tylenol, NSAIDs, muscle relaxant and pregabalin with continued symptoms. Denies any bladder or bowel dysfunction or saddle anesthesia. Past Procedures: 04/22/23: Right hip intra-articular ster oid injection-moderate but temporary relief PRIOR: Patient presents today via telehealth encounter for follow up regarding right hip pain and refill for Lyrica. She was last seen in this office in Jul, 2021. We were planning right hip steroid injection which patient decided to hold off back then. Patient reports she was following up with orthopedic providers for her shoulder and hip pain and received right greater trochanter and left shoulder steroid injection with minimal pain relief on 11/12/21. Patient is requesting to proceed with right hip steroid injection under sedation. She is not able to tolerate PT due to significant pain or take NSAIDs due to being on Eliquis. Patient reports no side effects with Lyrica and requests refill for it. Patient also reports bilateral anterior knee pain for 3 weeks with swelling due to a fall at [facility]. Patient was advised to make appointment with orthopedic office for urgent evaluation. She denies any fever, malaise, chills, shortness of breaths, knee locking or buckling, abdominal or groin pain, bladder/bowel dysfunction or saddle anesthesia. PRIOR: Patient is a pleasant 66 years old female who presents today for follow up on right hip and lower back pain. She was previously seen in this office by Dr. Figueroa. Patient reports that Lyrica has been working well and she had hard time to obtain refills on it without follow up appointments. She denies any side effects. Patient reports she has chronic right hip pain related to arthritis and has declined right hip replacement surgery. Patient request right hip cortisone injection. She also endorses axial back pain that spreads to her right side with SIJ components but without radiation to her legs. Pain is worsened with any activity, prolong sitting or walking, and weather changes. 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 Kuhn at [facility]. Patient states she has MS and has chronic daily aching, fatigued, spasms with numbness and tingling in her feet. She denies any fever, weight changes, abdominal or groin pain, bladder/bowel dysfunction or saddle anesthesia. Patient reports intermittent weakness, ambulates with mildly antalgic gait without assisting devices. PRIOR Dr. Figueroa 12/09/2019: Kristin returns to the office today for follow-up. I had initially seen her as a referral from for right hip and back pain. Per Dr. Lynn, she has a likely labral tear of the hip. Xray showed mild OA of both hips. She does not want surgery, so there was no clinical reason to obtain an MRI. PT was suggested, however she declined. She was thus referred here for possible contributing factors from her lumbar spine as well as any nonsurgical treatments for her hip pain. Upon evaluation she had positive SI joint testing on the right and also symptoms consistent with a radiculopathy on the right leg. She declined any PT, injections, or SI belt. I started her on gabapentin and over the last few months we titrated dose of this up. Kristin reports she does not notice any significant benefit from gabapentin, and would like to try something different if possible. [facility] Medical History Wears dentures REBECCA (obstructive sleep apnea) Arthritis Seizures Fatty liver GERD (gastroesophageal reflux disease) Anxiety Depression History of pulmonary embolism Elevated cholesterol Finger dislocation Bursitis of left shoulder Opioid dependence COPD (chronic obstructive pulmonary disease) Primary osteoarthritis of hips, bilateral Multiple sclerosis Surgical History Hx of repair of left rotator cuff Hx of colonoscopy History of toe surgery Family History Father CVD (cardiovascular disease) Mother No problems noted. Social History Household Members Other:: [facility] Are you a primary assistant child care teacher to a significant other at home: No Do you presently have visiting nurse or other home services: No Alcohol intake: never Comment: baseline pain Patient Tobacco Use Status: Former Tobacco user Quit Date: 2016 Tobacco use type: Cigarette Current occupational status: unemployed Current occupation: Right Handed Review of Systems Const All systems reviewed & are unremarkable except as noted in HPI and below Physical Exam Vital Signs: Last Vital Signs Pulse 74 06/02/23 14:21 Resp 14 06/02/23 14:21 BP 152/67 H 06/02/23 14:21 Pulse Ox 93 06/02/23 14:21 Oxygen Delivery Method Room Air 06/02/23 14:21 BMI result Body Mass Index 32.9 General: Appears afebrile. Alert and oriented. Mood and affect appropriate. Follows and participates in conversation appropriately. Respiratory effort is unlabored. No cough. No nasal discharge. Able to transition from sit to stand unassisted. Ambulates with bilaterally normal heel strike and toe off, reports imbalance on right. Back/Spine/Pelvis Other: Lumbar flexion, axial lateral rotation and bending down causes moderate to severe pain. Painful facet loading bilaterally. Mild groin pain with right I/E hip rotations. Cervical Spine: cervical ROM normal and No Cervical spine tenderness Thoracic/Lumbar Spine: thoracic and lumbar spine normal to inspection, No T horacic/lumbar spine scar(s), Lasegue's sign negative, straight leg raise negative bilaterally, pain with thoraco-lumbar ROM, paraspinal muscle tenderness, thoraco-lumbar ROM limited, No thoracic spinal tenderness and lumbar spinal tenderness (L3-S1) Pelvis: buttock tenderness on the right and no sciatic notch tenderness Sacroiliac joints: bilaterally (+Nirav's on right) tender to palpation Extrem General: Yes capillary refill normal, Yes no clubbing, cyanosis or edema and Yes no calf tenderness Right lower extremity: knee (Limited ROM due to pain. ) Details: tenderness Location: of the patella, of the medial joint line and of the lateral joint line and crepitus; no swelling, no ecchymosis and no unusual warmth Results Reviewed Results Reviewed: XR PELVIS 03/10/2017 CLINICAL INFORMATION: Right hip pain. FINDINGS: There is mild arthritis at both hip joints with joint space narrowing and osteophyte formation. There is proliferative bone reaction along the iliac crest. Bones of the pelvis are otherwise unremarkable. There is bilateral soft tissue calcification projecting over the inferior medial hip joints bilaterally. When compared with previous CT of the abdomen and pelvis, this corresponds to soft tissue gluteal/buttock calcifications and is unchanged. IMPRESSION: Mild arthritis at both hip joints. XR AP KNEE STANDING, BILATERAL XR KNEE, RIGHT 06/14/22 CLINICAL INDICATIONS: Right knee pain. COMPARISON: Right knee 06/28/2015. FINDINGS: AP bilateral knee standing reveals the left knee joint is slightly higher than the right knee joint. There is moderate loss of medial compartment joint space both knees. No bony erosive changes seen. There are no loose bodies. No visible acute fracture or dislocation. The soft tissues are normal. IMPRESSION: Mild degenerative changes medial compartment both knees. No visible acute fracture, dislocation or subluxation seen. Discrepancy leg length with left knee higher than the right. Assessment & Plan Assessment & Plan (1) Patellofemoral arthritis of right knee: Code(s): M17.11 - Unilateral primary osteoarthritis, right knee (2) Lumbar spondylosis: Code(s): M47.816 - Spondylosis without myelopathy or radiculopathy, lumbar region (3) Chronic right hip pain: Code(s): M25.551 - Pain in right hip; G89.29 - Other chronic pain (4) Myofascial pain: Code(s): M79.18 - Myalgia, other site (5) Lumbar radiculopathy: Code(s): M54.16 - Radiculopathy, lumbar region (6) Vertebrogenic low back pain: Code(s): M54.51 - Vertebrogenic low back pain Plan MRI of the lumbar spine to assess for neural integrity and compression. Oral Ativan will be sent to patient's pharmacy once it's scheduled. Patient declined interventional treatments for right knee pain, which is mild today per patient. Discussed treatments for axial and radicular pain. Continue Tylenol, NSAIDs, gentle stretching, ice and heat therapy, modification and good posture. Patient is aware to call if pain worsens or if she develops any red flag symptoms to seek emergency care. Patient denies any cauda equina syndrome symptoms at this time. All questions and concerns have been answered and patient agreed with the plan. Patient will return to the clinic to discuss results of the MRI findings when it is done and consider interventional therapy as indicated.? Orders: Orders MR lumbar spine wo con Today M54.16 - Radiculopathy, lumbar region, M54.51 - Vertebrogenic low back pain Coding Level of Care Code Est Pt Level 4 (18697) Diagnoses Patellofemoral arthritis of right knee M17.11 Lumbar spondylosis M47.816 Chronic right hip pain M25.551; G89.29 Myofascial pain M79.18 Lumbar radiculopathy M54.16 Vertebrogenic low back pain M54.51
== END 2023-06-02 14:45 | disposition home or self-care (01) ==
PROVIDERS: PCP Internal Medicine; Visit Provider Nurse Practitioner Family
DX: M17.11 Unilateral primary osteoarthritis, right knee (principal); M47.816 Spondylosis without myelopathy or radiculopathy, lumbar region; M25.551 Pain in right hip; G89.29 Other chronic pain; M79.18 Myalgia, other site; M54.16 Radiculopathy, lumbar region; M54.51 Vertebrogenic low back pain
CPT/HCPCS: 99214

== ENCOUNTER → 2023-06-02 14:05 | Outpatient (BNVA) | payer MEDICARE, MEDICAID, SELFPAY | PROVIDERS: PCP Internal Medicine; Visit Provider Nurse Practitioner Family | DX: M54.51 Vertebrogenic low back pain (principal); M47.26 Other spondylosis with radiculopathy, lumbar region; M17.11 Unilateral primary osteoarthritis, right knee; M25.551 Pain in right hip; G89.29 Other chronic pain; M79.18 Myalgia, other site | CPT/HCPCS: 99212 ==

== ENCOUNTER 2023-07-05 15:00 | Outpatient (REF) | payer MEDICARE, MEDICAID, SELFPAY ==
--- NOTE | ~2023-07-05 | MR_ITS ---
EXAMINATION: MR LUMBAR SPINE WITHOUT CONTRAST CLINICAL INFORMATION: Lumbar radiculopathy COMPARISON: None available. TECHNIQUE: MRI of the lumbar spine was obtained using routine sequences without contrast. FINDINGS: Advanced T11-T12 degenerative thoracic disc disease, mild posterior disc protrusion, anterior bridging syndesmophytes are seen. The visualized lumbar vertebrae are intact with normal alignment. No focal bone lesion with abnormal signal can be seen. Evaluation of the intervertebral discs show: T12/L1: Intervertebral disc height is mildly decreased, with mild loss of T2 signal. Mild posterior broad-based disc bulge is seen. Anterior syndesmophytes are present. Bilateral T12/L1 neuroforamina are patent. Bilateral apophyseal joints are intact with normal alignment. L-1/L-2: Intervertebral disc height is normal, with mild loss of T2 signal. No focal disc herniation is seen. Bilateral L1-L2 neuroforamina are patent. Bilateral apophyseal joints are intact with normal alignment. Bilateral apophyseal joints show loss of joint space, sclerosis, facet hypertrophy and osteophytosis. L2/L3: Intervertebral disc height is normal, with mild loss of T2 signal. No focal disc herniation is seen. Bilateral L2-L3 neuroforamina are patent. Bilateral apophyseal joints are intact with normal alignment. Bilateral apophyseal joints show loss of joint space, sclerosis, facet hypertrophy and osteophytosis. L3/L4: Intervertebral disc height is normal, with mild loss of T2 signal. No focal disc herniation is seen. Bilateral L3-L4 neuroforamina are patent. Bilateral apophyseal joints are intact with normal alignment. Bilateral apophyseal joints show loss of joint space, sclerosis, facet hypertrophy and osteophytosis. L4/L5: Intervertebral disc height is normal, with mild loss of T2 signal. No focal disc herniation is seen. Bilateral L4-L5 neuroforamina are patent. Bilateral apophyseal joints are intact with normal alignment. Bilateral apophyseal joints show loss of joint space, sclerosis, facet hypertrophy and osteophytosis. L5/S1: Intervertebral disc height is moderately decreased, with mild loss of T2 signal. Mild posterior and asymmetric left foraminal disc protrusion is seen. There is resulting asymmetric marked left L5-S1 neuroforaminal stenosis. Bilateral apophyseal joints are intact with normal alignment. Bilateral apophyseal joints show loss of joint space, sclerosis, facet hypertrophy and osteophytosis. Conus medullaris is seen normally at L2-L3 junction level. MR/MR lumbar spine wo con IMPRESSION: 1. Mild posterior and asymmetric left foraminal disc protrusion at L5-S1 with resulting asymmetric marked left L5-S1 neuroforaminal stenosis. 2. Mild posterior broad-based disc bulge at T12-L1. 3. Advanced T11-T12 degenerative thoracic disc disease, mild posterior disc protrusion, anterior bridging syndesmophytes.
== END 2023-07-05 15:01 | disposition home or self-care (01) ==
LOC: HO.MRI 15:00
PROVIDERS: PCP Internal Medicine; Visit Provider Nurse Practitioner Family
DX: M54.16 Radiculopathy, lumbar region (principal); M54.51 Vertebrogenic low back pain
CPT/HCPCS: 72148

== ENCOUNTER 2023-07-25 10:56 | Outpatient (AMB) | payer MEDICARE, MEDICAID, SELFPAY ==
--- NOTE | 2023-07-25 11:07 | A.OFFVIS_ITS ---
Vital Signs 07/25/23 11:11 Height 5 ft 2 in Weight 176 lb 6 oz BMI 32.3 BP 130/72 Blood Pressure Location Lt brachial Position Sitting Respiration 16 Pulse 78 Pulse Source Pulse Oximeter Pulse Oximetry (%) 94 Oxygen Delivery Method Room Air Intake Visit Reasons: Discuss MRI Results Allergies Penicillins Allergy (Severe, Verified 07/25/23 11:11) rash,hives HPI Comments Details: Patient presents today to discuss recent lumbar spine MRI results. Patient reports her back pain has been mild for the past few weeks. She does experience increased back pain with prolonged walking. Her main concern today is chronic right knee pain no responsive to Celebrex, previous cortisone injections and i ce/heat therapies. She frequently emphasizes that Celebrex is not working for her. She takes clonazepam 1 mg TID and modafinil 200 mg BID. I have informed patient that most stronger medications, including opioid and non-opioid will cause significant drowsiness and sleepiness. We returned to interventional treatments in greater detail for potential Sprint PNS trial or RFA procedures. Patient reports last seizure activity at age 49. Currently she does not take any anticonvulsants therefore potentially can be candidate for PNS trial. Denies any recent cough, cold, infection, fever, any significant changes in her medical history, medications or recent hospitalizations. PRIOR: Patient presents today for follow up for lower back pain with radiation into her right lower extremity. She was referred back to us by Orthopedic provider for right knee nerve block. Patient declined any significant right knee pain today and reports back pain has been worsening with most of her daily activities, es pecially with bending and axial lateral rotations and extends into her right buttock and right lower extremity laterally with paresthesias and intermittent weakness. Back pain is rated at 8/10. She reports chronic right hip pain with temporary pain relief with recent steroid injection. She continues to take Tylenol, NSAIDs, muscle relaxant and pregabalin with continued symptoms. Denies any bladder or bowel dysfunction or saddle anesthesia. Past Procedures: 04/22/23: Right hip intra-articular steroid injection-moderate but temporary relief PRIOR: Patient presents today via telehealth encounter for follow up regarding right hip pain and refill for Lyrica. She was last seen in this office in Jul, 2021. We were planning right hip steroid injection which patient decided to hold off back then. Patient reports she was following up with orthopedic providers for her shoulder and hip pain and received right greater trochanter and left shoulder steroid injection with minimal pain relief on 11/12/21. Patient is requesting to proceed with right hip steroid injection under sedation. She is not able to tolerate PT due to significant pain or take NSAIDs due to being on Eliquis. Patient reports no side effects with Lyrica and requests refill for it. Patient also reports bilateral anterior knee pain for 3 weeks with swelling due to a fall at [facility]. Patient was advised to make appointment with orthopedic office for urgent evaluation. She denies any fever, malaise, chills, shortness of breaths, knee locking or buckling, abdominal or groin pain, bladder/bowel dysfunction or saddle anesthesia. PRIOR: Patient is a pleasant 66 years old female who presents today for follow up on right hip and lower back pain. She was previously seen in this office by Dr. Nicole caldera. Patient reports that Lyrica has been working well and she had hard time to obtain refills on it without follow up appointments. She denies any side effects. Patient reports she has chronic right hip pain related to arthritis and has declined right hip replacement surgery. Patient request right hip cortisone injection. She also endorses axial back pain that spreads to her right side with SIJ components but without radiation to her legs. Pain is worsened with any activity, prolong sitting or walking, and weather changes. She is on Eliquis with history of PE and sees legal support assistant Dr. Kuhn at [facility]. Patient states she has MS and has chronic daily aching, fatigued, spasms with numbness and tingling in her feet. She denies any fever, weight changes, abdominal or groin pain, bladder/bowel dysfunction or saddle anesthesia. Patient reports intermittent weakness, ambulates with mildly antalgic gait without assisting devices. PRIOR Dr. Figueroa 12/09/2019: Kristin returns to the office today for follow-up. I had initially seen her as a referral from for right hip and back pain. Per Dr. Lynn, she has a likely labral tear of the hip. Xray showed mild OA of both hips. She does not want surgery, so there was no clinical reason to obtain an MRI. PT was suggested, however she declined. She was thus referred here for possible contributing factors from her lumbar spine as well as any nonsurgical treatments for her hip pain. Upon evaluation she had positive SI joint testing on the right and also symptoms consistent with a radiculopathy on the right leg. She declined any PT, injections, or SI belt. I started her on gabapentin and over the last few months we titrated dose of this up. Kristin reports she does not notice any significant benefit from gabapentin, and would like to try something different if possible. REPLACED BY [facility] Medical History Wears dentures REBECCA (obstructive sleep apnea) Arthritis Seizures Fatty liver GERD (gastroesophageal reflux disease) Anxiety Depression History of pulmonary embolism Elevated cholesterol Finger dislocation Bursitis of left shoulder Opioid dependence COPD (chronic obstructive pulmonary disease) Primary osteoarthritis of hips, bilateral Multiple sclerosis Surgical History Hx of repair of left rotator cuff Hx of colonoscopy History of toe surgery Family History Father CVD (cardiovascular disease) Mother No problems noted. Social History Household Members Other:: [facility] Are you a primary patient care provider to a significant other at home: No Do you presently have visiting nurse or other home services: No Alcohol intake: never Comment: baseline pain Patient Tobacco Use Status: Former Tobacco user Quit Date: 2016 Tobacco use type: Cigarette Current occupational status: unemployed Current occupation: Right Handed Review of Systems Const All systems reviewed & are unremarkable except as noted in HPI and below Physical Exam Vital Signs: Last Vital Signs Pulse 78 07/25/23 11:11 Resp 16 07/25/23 11:11 BP 130/72 07/25/23 11:11 Pulse Ox 94 07/25/23 11:11 Oxygen Delivery Method Room Air 07/25/23 11:11 BMI result Body Mass Index 32.3 General: Appears afebrile. Alert and oriented. Mood and affect appropriate. Follows and participates in conversation appropriately. Respiratory effort is unlabored. No cough. No nasal discharge. Able to transition from sit to stand unassisted. Ambulates with bilaterally normal heel strike and toe off, reports imbalance on right. Back/Spine/Pelvis Other: Limited lumbar ROM due to mild pain. Antalgic gait with mild limping, favoring left side. Lumbar flexion, axial lateral rotation and bending down causes mild pain. Positive facet loading bilaterally. Mild groin pain with right I/E hip rotations. TTP to right GTB. Cervical Spine: cervical ROM normal and No Cervical spine tenderness Thoracic/Lumbar Spine: thoracic and lumbar spine normal to inspection, No Thoracic/lumbar spine scar(s), Lasegue's sign negative, straight leg raise nega tive bilaterally, pain with thoraco-lumbar ROM, paraspinal muscle tenderness, thoraco-lumbar ROM limited, No thoracic spinal tenderness and lumbar spinal tenderness (L3-S1) Pelvis: buttock tenderness on the right and no sciatic notch tenderness Sacroiliac joints: bilaterally (+Nirav's on right) tender to palpation Extrem General: Yes capillary refill normal, Yes no clubbing, cyanosis or edema and Yes no calf tenderness Right lower extremity: knee (Limited ROM due to pain. ) Details: tenderness Location: of the medial joint line and of the lateral joint line and crepitus; no swelling, no ecchymosis, no deformity and no unusual warmth Results Reviewed Results Reviewed: XR PELVIS 03/10/2017 CLINICAL INFORMATION: Right hip pain. FINDINGS: There is mild arthritis at both hip joints with joint space narrowing and osteophyte formation. There is proliferative bone reaction along the iliac crest. Bones of the pelvis are otherwise unremarkable. There is bilateral soft tissue calcification projecting over the inferior medial hip joints bilaterally. When compared with previous CT of the abdomen and pelvis, this corresponds to soft tissue gluteal/buttock calcifications and is unchanged. IMPRESSION: Mild arthritis at both hip joints. XR AP KNEE STANDING, BILATERAL XR KNEE, RIGHT 06/14/22 CLINICAL INDICATIONS: Right knee pain. COMPARISON: Right knee 06/28/2015. FINDINGS: AP bilateral knee standing reveals the left knee joint is slightly higher than the right knee joint. There is moderate loss of medial compartment joint space both knees. No bony erosive changes seen. There are no loose bodies. No visible acute fracture or dislocation. The soft tissues are normal. IMPRESSION: Mild degenerative changes medial compartment both knees. No visible acute fracture, dislocation or subluxation seen. Discrepancy leg length with left knee higher than the right. MR LUMBAR SPINE WITHOUT CONTRAST 07/05/23 CLINICAL INFORMATION: Lumbar radiculopathy FINDINGS: Advanced T11-T12 degenerative thoracic disc disease, mild posterior disc protrusion, anterior bridging syndesmophytes are seen. The visualized lumbar vertebrae are intact with normal alignment. No focal bone lesion with abnormal signal can be seen. Evaluation of the intervertebral discs show: T12/L1: Intervertebral disc height is mildly decreased, with mild loss of T2 signal. Mild posterior broad-based disc bulge is seen. Anterior syndesmophytes are present. Bilateral T12/L1 neuroforamina are patent. Bilateral apophyseal joints are intact with normal alignment. L-1/L-2: Intervertebral disc height is normal, with mild loss of T2 signal. No focal disc herniation is seen. Bilateral L1-L2 neuroforamina are patent. Bilateral apophyseal joints are intact with normal alignment. Bilateral apophyseal joints show loss of joint space, sclerosis, facet hypertrophy and osteophytosis. L2/L3: Intervertebral disc height is normal, with mild loss of T2 signal. No focal disc herniation is seen. Bilateral L2-L3 neuroforamina are patent. Bilateral apophyseal joints are intact with normal alignment. Bilateral apophyseal joints show loss of joint space, sclerosis, facet hypertrophy and osteophytosis. L3/L4: Intervertebral disc height is normal, with mild loss of T2 signal. No focal disc herniation is seen. Bilateral L3-L4 neuroforamina are patent. Bilateral apophyseal joints are intact with normal alignment. Bilateral apophyseal joints show loss of joint space, sclerosis, facet hypertrophy and osteophytosis. L4/L5: Intervertebral disc height is normal, with mild loss of T2 signal. No focal disc herniation is seen. Bilateral L4-L5 neuroforamina are patent. Bilateral apophyseal joints are intact with normal alignment. Bilateral apophyseal joints show loss of joint space, sclerosis, facet hypertrophy and osteophytosis. L5/S1: Intervertebral disc height is moderately decreased, with mild loss of T2 signal. Mild posterior and asymmetric left foraminal disc protrusion is seen. There is resulting asymmetric marked left L5-S1 neuroforaminal stenosis. Bilateral apophyseal joints are intact with normal alignment. Bilateral apophyseal joints show loss of joint space, sclerosis, facet hypertrophy and osteophytosis. Conus medullaris is seen normally at L2-L3 junction level. IMPRESSION: 1. Mild posterior and asymmetric left foraminal disc protrusion at L5-S1 with resulting asymmetric marked left L5-S1 neuroforaminal stenosis. 2. Mild posterior broad-based disc bulge at T12-L1. 3. Advanced T11-T12 degenerative thoracic disc disease, mild posterior disc protrusion, anterior bridging syndesmophytes. Assessment & Plan Assessment & Plan (1) Patellofemoral arthritis of right knee: Code(s): M17.11 - Unilateral primary osteoarthritis, right knee Category: Medical (2) Lumbar spondylosis: Code(s): M47.816 - Spondylosis without myelopathy or radiculopathy, lumbar region Category: Medical (3) Lumbar radiculopathy: Code(s): M54.16 - Radiculopathy, lumbar region Category: Medical (4) Vertebrogenic low back pain: Code(s): M54.51 - Vertebrogenic low back pain Category: Medical (5) Sacroiliac joint pain: Code(s): M53.3 - Sacrococcygeal disorders, not elsewhere classified Category: Medical (6) Right knee pain: Code(s): M25.561 - Pain in right knee Category: Medical Plan MRI of the lumbar spine discussed with patient in greater detail. Patient declined interventional treatments for low back pain, which is mild today per patient. Continue Tylenol, NSAIDs, pregabalin, gentle stretching, ice and heat therapy, modification and good posture. Refill provided for pregabalin at patient's request. Schedule Right Diagnostic Saphenous Nerve Block with local and US guidance for potential Sprint PNS trial. We also discussed genicular RFA as back up option. Informational pamphlets were provided to patient. Expectations, risks and benefits were reviewed. Patient is aware she will be contacted to schedule this procedure. All questions and concerns have been answered and patient agreed with the plan. Follow up after injections and sooner as needed. Medications: Refilled pregabalin 100 mg PO BID 30 days 60 caps 1RF pain G35 - Multiple sclerosis, M47.816 - Spondylosis without myelopathy or radiculopathy, lumbar region, M79.18 - Myalgia, other site Coding Level of Care Code Est Pt Level 4 (72004) Diagnoses Patellofemoral arthritis of right knee M17.11 Lumbar spondylosis M47.816 Lumbar radiculopathy M54.16 Vertebrogenic low back pain M54.51 Sacroiliac joint pain M53.3 Right knee pain M25.561
[2023-07-25 11:11] VITALS: BP 130/72; PULSE 78; RESP 16; O2SAT 94; BMI 32.3
== END 2023-07-25 11:39 | disposition home or self-care (01) ==
PROVIDERS: PCP Internal Medicine; Visit Provider Nurse Practitioner Family
DX: M17.11 Unilateral primary osteoarthritis, right knee (principal); M47.816 Spondylosis without myelopathy or radiculopathy, lumbar region; M54.16 Radiculopathy, lumbar region; M54.51 Vertebrogenic low back pain; M53.3 Sacrococcygeal disorders, not elsewhere classified; M25.561 Pain in right knee
CPT/HCPCS: 99214

== ENCOUNTER → 2023-07-25 10:56 | Outpatient (BNVA) | payer MEDICARE, MEDICAID, SELFPAY | PROVIDERS: PCP Internal Medicine; Visit Provider Nurse Practitioner Family | DX: M17.11 Unilateral primary osteoarthritis, right knee (principal); M47.26 Other spondylosis with radiculopathy, lumbar region; M54.51 Vertebrogenic low back pain; M53.3 Sacrococcygeal disorders, not elsewhere classified; G35 Multiple sclerosis | CPT/HCPCS: 99212 ==

== ENCOUNTER 2023-10-23 09:23 | Outpatient (REF) | payer MEDICARE, MEDICAID, SELFPAY ==
--- NOTE | ~2023-10-23 | XR_ITS ---
EXAMINATION: XR HAND, RIGHT CLINICAL INFORMATION: Pain status-post fall. COMPARISON: None available. TECHNIQUE: PA, lateral, and oblique views of the right hand are submitted. FINDINGS: Bony alignment and mineralization are normal. There is a mild ulnar positive variance. There is moderate osteoarthritic change of the interphalangeal joint of the thumb. There is mild osteoarthritic change of the second through fourth distal interphalangeal joints and of the second, third and fifth proximal interphalangeal joints. There is mild osteoarthritic change of the first and second metacarpophalangeal joints and at the first carpometacarpal joint. No fracture or dislocation is seen. There is no abnormal bone erosion. The proximal and distal carpal rows are intact. No focal soft tissue swelling, gas or foreign body is seen. XR/XR hand RT min 3V IMPRESSION: There is multi-level osteoarthritic change of the right hand or wrist. No fracture or dislocation is seen. There is no abnormal bone erosion. Electronically signed by: Aleksey Barrios MD 11/16/2023 02:30 PM EDT
--- NOTE | ~2023-10-23 | XR_ITS ---
EXAMINATION: XR HIP, RIGHT CLINICAL INFORMATION: History of falls. COMPARISON: Radiograph dated 10/23/2023; CT abdomen and pelvis dated 12/10/2018. TECHNIQUE: AP and frog-leg lateral views of the right hip are submitted, together with a frontal view of the pelvis. FINDINGS: There is bony mineralization. The bilateral acetabular joint spaces are symmetric and well-maintained. There is mild subchondral sclerosis and very mild peripheral osteophyte formation of the right acetabular roof. The femoral heads are smooth. There is no fracture or dislocation. The sacroiliac joints are symmetrical and maintained. The pubic synthesis is intact. Pelvic phleboliths and calcified buttock granulomas are again noted. XR/XR hip RT w PEL1V IMPRESSION: There is mild osteoarthritic change of the right hip, and no unusual degenerative change is seen of the left hip. No fracture is seen. Electronically signed by: Aleksey Barrios MD 11/16/2023 02:25 PM EDT
--- NOTE | ~2023-10-23 | XR_ITS ---
EXAMINATION: XR KNEE, RIGHT CLINICAL INFORMATION: Patient status-post fall. COMPARISON: Radiographs dated 06/06/2022. TECHNIQUE: Frontal, lateral and axial views of the right knee are submitted. FINDINGS: Bony alignment and mineralization are normal. The lateral, medial and patellofemoral joint space compartments are well-maintained. There is minimal peripheral osteophyte formation of the upper and lower articular surfaces of the patella. A small enthesophyte arises from the upper pole of the patella at the quadriceps tendon insertion. No fracture or dislocation is seen. There is a moderate joint effusion. No foreign body is seen. XR/XR knee RT 3V IMPRESSION: 1. There is minimal osteoarthritic change of the right patellofemoral compartment. 2. There is a moderate right knee joint effusion. Electronically signed by: Aleksey Barrios MD 11/16/2023 02:21 PM EDT
== END 2023-10-23 09:24 | disposition home or self-care (01) ==
LOC: HO.XRAY 09:23
PROVIDERS: PCP Internal Medicine; Visit Provider Nurse Practitioner Family
DX: M16.0 Bilateral primary osteoarthritis of hip (principal); M17.11 Unilateral primary osteoarthritis, right knee; M79.644 Pain in right finger(s); G89.29 Other chronic pain; Z91.81 History of falling
CPT/HCPCS: 73130; 73502; 73562; 99212

== ENCOUNTER 2023-10-23 09:23 | Outpatient (AMB) | payer MEDICARE, MEDICAID, SELFPAY ==
--- NOTE | 2023-10-23 09:29 | A.OFFVIS_ITS ---
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 She was last seen in our office in July with plans for right diagnostic saphenous nerve block for chronic right knee pain due to osteoarthritis. Patient reports her pain symptoms improved with Lyrica and Tylenol and she postponed interventional treatments. Today patient reports she was recently visiting her son and stayed in her son's house to watch after dogs and fell twice within 2 weeks, last fall on Monday. First time, she reports she missed few steps on concrete steps while going to get mail and last week she fell in the basement on her right side and her back. Patient reports she is not used to her son's house. Denies loss of consciousness or injuring her head. Patient is on Eliquis. Reports bruising to right posterior arm and significant pain in her right knee and right buttock and hip and left thumb. Patient denies going to ER, Urgent Care or notifying her PCP. She has been applying ice packs, taking Tylenol and Lyrica to control symptoms. Denies any fever, chills, chest pain, shortness of breath, abdominal or groin pain, weakness, bleeding, bladder or bowel dysf unction or saddle anesthesia. PRIOR: Patient presents today to discuss recent lumbar spine MRI results. Patient reports her back pain has been mild for the past few weeks. She does experience increased back pain with prolonged walking. Her main concern today is chronic right knee pain no responsive to Celebrex, previous cortisone injections and ice/heat therapies. She frequently emphasizes that Celebrex is not working for her. She takes clonazepam 1 mg TID and modafinil 200 mg BID. I have informed patient that most stronger medications, including opioid and non-opioid will cause significant drowsiness and sleepiness. We returned to interventional treatments in greater detail for potential Sprint PNS trial or RFA procedures. Patient reports last seizure activity at age 49. Currently she does not take any anticonvulsants therefore potentially can be candidate for PNS trial. Denies any recent cough, cold, infection, fever, any significant changes in her medical history, medications or recent hospitalizations. PRIOR: Patient presents today for follow up for lower back pain with radiation into her right lower extremity. She was referred back to us by Orthopedic provider for right knee nerve block. Patient declined any significant right knee pain today and reports back pain has been worsening with most of her daily activities, especially with bending and axial lateral rotations and extends into her right buttock and right lower extremity laterally with paresthesias and intermittent weakness. Back pain is rated at 8/10. She reports chronic right hip pain with temporary pain relief with recent steroid injection. She continues to take Tylenol, NSAIDs, muscle relaxant and pregabalin with continued symptoms. Denies any bladder or bowel dysfunction or saddle anesthesia. Past Procedures: 04/22/23: Right hip intra-articular steroid injection-moderate but temporary relief PRIOR: Patient presents today via telehealth encounter for follow up regarding right hip pain and refill for Lyrica. She was last seen in this office in Jul, 2021. We were planning right hip steroid injection which patient decided to hold off back then. Patient reports she was following up with orthopedic providers for her shoulder and hip pain and received right greater trochanter and left shoulder steroid injection with minimal pain relief on 11/12/21. Patient is requesting to proceed with right hip steroid injection under sedation. She is not able to tolerate PT due to significant pain or take NSAIDs due to being on Eliquis. Patient reports no side effects with Lyrica and requests refill for it. Patient also reports bilateral anterior knee pain for 3 weeks with swelling due to a fall at [facility]. Patient was advised to make appointment with orthopedic office for urgent evaluation. She denies any fever, malaise, chills, shortness of breaths, knee locking or buckling, abdominal or groin pain, bladder/bowel dysfunction or saddle anesthesia. PRIOR: Patient is a pleasant 66 years old female who presents today for follow up on right hip and lower back pain. She was previously seen in this office by Dr. Figueroa. Patient reports that Lyrica has been working well and she had hard time to obtain refills on it without follow up appointments. She denies any side effects. Patient reports she has chronic right hip pain related to arthritis and has declined right hip replacement surgery. Patient request right hip cortisone injection. She also endorses axial back pain that spreads to her right side with SIJ components but without radiation to her legs. Pain is worsened with any activity, prolong sitting or walking, and weather changes. She is on Eliquis with history of PE and sees svp operations Dr. Kuhn at [facility]. Patient states she has MS and has chronic daily aching, fatigued, spasms with numbness and tingling in her feet. She denies any fever, weight changes, abdominal or groin pain, bladder/bowel dysfunction or saddle anesthesia. Patient reports intermittent weakness, ambulates with mildly antalgic gait without assisting devices. PRIOR Dr. Figueroa 12/09/2019: Kristin returns to the office today for follow-up. I had initially seen her as a referral from for right hip and back pain. Per Dr. Lynn, she has a likely labral tear of the hip. Xray showed mild OA of both hips. She does not want surgery, so there was no clinical reason to obtain an MRI. PT was suggested, however she declined. She was thus referred here for possible contributing factors from her lumbar spine as well as any nonsurgical treatments for her hip pain. Upon evaluation she had positive SI joint testing on the right and also symptoms consistent with a radiculopathy on the right leg. She declined any PT, injections, or SI belt. I started her on gabapentin and over the last few months we titrated dose of this up. Kristin reports she does not notice any significant benefit from gabapentin, and would like to try something different if possible. [facility] Medical History Wears dentures REBECCA (obstructive sleep apnea) Arthritis Seizures Fatty liver GERD (gastroesophageal reflux disease) Anxiety Depression History of pulmonary embolism Elevated cholesterol Finger dislocation Bursitis of left shoulder Opioid dependence COPD (chronic obstructive pulmonary disease) Primary osteoarthritis of hips, bilateral Multiple sclerosis Surgical History Hx of repair of left rotator cuff Hx of colonoscopy History of toe surgery Family History Father CVD (cardiovascular disease) Mother No problems noted. Social History Household Members Other:: [facility] Are you a primary health care law specialist to a significant other at home: No Do you presently have visiting nurse or other home services: No Alcohol intake: never Comment: baseline pain Patient Tobacco Use Status: Former Tobacco user Tobacco use type: Cigarette Current occupational status: unemployed Current occupation: Right Handed Review of Systems Const All systems reviewed & are unremarkable except as noted in HPI and below Physical Exam Vital Signs: Last Vital Signs Pulse 79 10/23/23 09:34 BP 137/63 10/23/23 09:34 Pulse Ox 98 10/23/23 09:34 Oxygen Delivery Method Room Air 10/23/23 09:34 BMI result Body Mass Index 31.8 General: Appears afebrile. Alert and oriented. Mood and affect appropriate. Follows and participates in conversation appropriately. Respiratory effort is unlabored. No cough. Able to transition from sit to stand unassisted. No assisting devices utilized today. Reports using a cane at home. Ambulates with bilaterally normal heel strike and toe off, reports imbalance on right. HEENT Head: Yes normal to inspection, Yes No palpable skull fracture present, Yes normocephalic, Yes atraumatic, No occipital foramen tenderness, No raccoon eyes, No scalp tenderness, No Temporal artery tenderness present and No periorbital ecchymosis Eyes General: appearance normal, both eyes and all related structures Resp Effort & Inspection: normal respiratory effort, able to speak in complete sentences, no cough and no respiratory distress General: Yes no CVA tenderness Back/Spine/Pelvis Other: Limited lumbar ROM due to moderate pain. Antalgic gait with mild limping, favoring left side. Lumbar flexion, axial lateral rotation and forward flexion mild pain. Positive facet loading bilaterally. Mild groin pain with right I/E hip rotations. TTP to right GTB. Back: no CVA tenderness Cervical Spine: cervical ROM normal, cervical muscular tenderness and No Cervical spine tenderness Thoracic/Lumbar Spine: thoracic and lumbar spine normal to inspection, No Thoracic/lumbar spine scar(s), Lasegue's sign negative, straight leg raise negative bilaterally, pain with thoraco-lumbar ROM, paraspinal muscle tenderness, thoraco-lumbar ROM limited, No thoracic spinal tenderness and lumbar spinal tenderness (L3-S1) Pelvis: buttock tenderness on the right and no sciatic notch tenderness Sacroiliac joints: bilaterally (+Nirav's on right) tender to palpation Skin General skin exam: no rashes or lesions noted and ecchymosis (healing bruising right posterior forearm) Extrem General: Yes capillary refill normal, Yes no clubbing, cyanosis or edema and Yes no calf tenderness Right upper extremity: Extremity exam: right hand Details: normal to inspection, normal capillary refill, neuromotor exam normal, tenderness Location: of the thumb Location: involving the entire digit and no swelling; no unusual warmth and no ecchymosis Right lower extremity: hip/thigh Details: normal to inspection and tenderness Location: of the hip Location: laterally and over the greater trochanter; no swelling, no abrasions, no ecchymosis and no unusual warmth and knee (Limited ROM due to pain. ) Details: tenderness Location: of the patella, of the po pliteal fossa, of the medial joint line and of the lateral joint line, swelling (global anterior knee) and crepitus; no abrasions, no lacerations, no ecchymosis, no deformity and no unusual warmth Results Reviewed Results Reviewed: XR PELVIS 03/10/2017 CLINICAL INFORMATION: Right hip pain. FINDINGS: There is mild arthritis at both hip joints with joint space narrowing and osteophyte formation. There is proliferative bone reaction along the iliac crest. Bones of the pelvis are otherwise unremarkable. There is bilateral soft tissue calcification projecting over the inferior medial hip joints bilaterally. When compared with previous CT of the abdomen and pelvis, this corresponds to soft tissue gluteal/buttock calcifications and is unchanged. IMPRESSION: Mild arthritis at both hip joints. XR AP KNEE STANDING, BILATERAL XR KNEE, RIGHT 06/14/22 CLINICAL INDICATIONS: Right knee pain. COMPARISON: Right knee 06/28/2015. FINDINGS: AP bilateral knee standing reveals the left knee joint is slightly higher than the right knee joint. There is moderate loss of medial compartment joint space both knees. No bony erosive changes seen. There are no loose bodies. No visible acute fracture or dislocation. The soft tissues are normal. IMPRESSION: Mild degenerative changes medial compartment both knees. No visible acute fracture, dislocation or subluxation seen. Discrepancy leg length with left knee higher than the right. MR LUMBAR SPINE WITHOUT CONTRAST 07/05/23 CLINICAL INFORMATION: Lumbar radiculopathy FINDINGS: Advanced T11-T12 degenerative thoracic disc disease, mild posterior disc protrusion, anterior bridging syndesmophytes are seen. The visualized lumbar vertebrae are intact with normal alignment. No focal bone lesion with abnormal signal can be seen. Evaluation of the intervertebral discs show: T12/L1: Intervertebral disc height is mildly decreased, with mild loss of T2 signal. Mild posterior broad-based disc bulge is seen. Anterior syndesmophytes are present. Bilateral T12/L1 neuroforamina are patent. Bilateral apophyseal joints are intact with normal alignment. L-1/L-2: Intervertebral disc height is normal, with mild loss of T2 signal. No focal disc herniation is seen. Bilateral L1-L2 neuroforamina are patent. Bilateral apophyseal joints are intact with normal alignment. Bilateral apophyseal joints show loss of joint space, sclerosis, facet hypertrophy and osteophytosis. L2/L3: Intervertebral disc height is normal, with mild loss of T2 signal. No focal disc herniation is seen. Bilateral L2-L3 neuroforamina are patent. Bilateral apophyseal joints are intact with normal alignment. Bilateral apophyseal joints show loss of joint space, sclerosis, facet hypertrophy and osteophytosis. L3/L4: Intervertebral disc height is normal, with mild loss of T2 signal. No focal disc herniation is seen. Bilateral L3-L4 neuroforamina are patent. Bilateral apophyseal joints are intact with normal alignment. Bilateral apophyseal joints show loss of joint space, sclerosis, facet hypertrophy and osteophytosis. L4/L5: Intervertebral disc height is normal, with mild loss of T2 signal. No focal disc herniation is seen. Bilateral L4-L5 neuroforamina are patent. Bilateral apophyseal joints are intact with normal alignment. Bilateral apophyseal joints show loss of joint space, sclerosis, facet hypertrophy and osteophytosis. L5/S1: Intervertebral disc height is moderately decreased, with mild loss of T2 signal. Mild posterior and asymmetric left foraminal disc protrusion is seen. There is resulting asymmetric marked left L5-S1 neuroforaminal stenosis. Bilateral apophyseal joints are intact with normal alignment. Bilateral apophyseal joints show loss of joint space, sclerosis, facet hypertrophy and osteophytosis. Conus medullaris is seen normally at L2-L3 junction level. IMPRESSION: 1. Mild posterior and asymmetric left foraminal disc protrusion at L5-S1 with resulting asymmetric marked left L5-S1 neuroforaminal stenosis. 2. Mild posterior broad-based disc bulge at T12-L1. 3. Advanced T11-T12 degenerative thoracic disc disease, mild posterior disc protrusion, anterior bridging syndesmophytes. Assessment & Plan Assessment & Plan (1) Pain of right thumb: Code(s): M79.644 - Pain in right finger(s) Category: Medical (2) History of recent fall: Code(s): Z91.81 - History of falling Category: Medical (3) Primary osteoarthritis of hips, bilateral: Code(s): M16.0 - Bilateral primary osteoarthritis of hip Category: Medical (4) Chronic right hip pain: Code(s): M25.551 - Pain in right hip; G89.29 - Other chronic pain Category: Medical (5) History of recent fall: Code(s): Z91.81 - History of falling Category: Medical (6) Patellofemoral arthritis of right knee: Code(s): M17.11 - Unilateral primary osteoarthritis, right knee Category: Medical (7) Right knee pain: Code(s): M25.561 - Pain in right knee Category: Medical (8) Pain of right thumb: Code(s): M79.644 - Pain in right finger(s) Category: Medical (9) Lumbar spondylosis: Code(s): M47.816 - Spondylosis without myelopathy or radiculopathy, lumbar region Category: Medical Plan Patient is status post mechanical fall x2 vision past 2 weeks. She was recommended to seek medical evaluation in ER and follow up with PCP, patient declined it. We will proceed with obtaining imaging of her acute pain generators as well as refer for Orthopedic evaluation of right thumb pain. Continue Tylenol, pregabalin, gentle stretching, ice and heat therapy, modification and good posture. Previously discussed Right Diagnostic Saphenous Nerve Block with local and US guidance for potential Sprint PNS trial. We also discussed genicular RFA as back up option. Patient stated today she was able to control her right knee pain since last visit but reports increased RLE pain since fall. All questions and concerns have been answered and patient agreed with the plan. Follow up for xrays results and sooner as needed. Orders: Orders XR knee RT 3V Today M17.11 - Unilateral primary osteoarthritis, right knee, M25.561 - Pain in right knee, Z91.81 - History of falling XR hand RT min 3V Today M79.644 - Pain in right finger(s), Z91.81 - History of falling XR hip RT w PEL1V Today G89.29 - Other chronic pain, M16.0 - Bilateral primary osteoarthritis of hip, M25.551 - Pain in right hip, Z91.81 - History of falling Referrals Orthopedics Referral M79.644 - Pain in right finger(s), Z91.81 - History of falling Coding Level of Care Code Est Pt Level 4 (89677) Diagnoses Pain of right thumb M79.644 History of recent fall Z91.81 Primary osteoarthritis of hips, bilateral M16.0 Chronic right hip pain M25.551; G89.29 Patellofemoral arthritis of right knee M17.11 Right knee pain M25.561 Lumbar spondylosis M47.816
[2023-10-23 09:34] VITALS: BP 137/63; PULSE 79; O2SAT 98; BMI 31.8
== END 2023-10-23 09:58 | disposition home or self-care (01) ==
PROVIDERS: PCP Internal Medicine; Visit Provider Nurse Practitioner Family
DX: M79.644 Pain in right finger(s) (principal); Z91.81 History of falling; M16.0 Bilateral primary osteoarthritis of hip; M25.551 Pain in right hip; G89.29 Other chronic pain; M17.11 Unilateral primary osteoarthritis, right knee; M25.561 Pain in right knee; M47.816 Spondylosis without myelopathy or radiculopathy, lumbar region
CPT/HCPCS: 99214

== ENCOUNTER 2023-11-07 12:46 | Outpatient (AMB) | payer MEDICARE, MEDICAID, SELFPAY ==
--- NOTE | 2023-11-07 12:50 | A.OFFVIS_ITS ---
Intake Visit Reasons: Newprob-B/L hand pain TF thumb and pointer Intake Note: Kristin a 68 year old female who presents today for a new problem evaluation of bilateral hand pain. Patient reports having a fall twice in one day, once on the pavement and another in the basement of her sons house. Her pain in her left hand is located at her CMC, as well as her IF, and SF, stating noticeable lump on 5th digit. She has stiffness in bilateral hands in the morning as well as numbness and tingling at night. Finds no relief with icing or Tylenol arthritis strength. States being prescribed celebrex however she is unable to take due to being on eliquis. She also complains of right knee pain, hip pain and left shoulder pain that presented after her fall. Hx of left shoulder surgery. Allergies Penicillins Allergy (Severe, Verified 11/07/23 13:08) rash,hives HPI HPI Newprob-B/L hand pain TF thumb and pointer: Details: 68-year-old female who presents in the office today for an evaluation of bilateral hand pain. The patient was last seen in the office for left hand pain by Luc Ibarra PA-C on 05/25/2022 status post a fall two to three months prior. At that time, she was diagnosis with left hand OA and encouraged to work with occupational therapy. She declined at that time to work on exercises on her own. ? ? While in the office today, the patient reports she fell twice in one day; once hitting pavement and the second time in her son?s basement. She also claims to have pain in other body parts status post the falls. She reports the pain in the left hand is located along the CMC, index, and little fingers. She states she has noticed a lump on the left little digit. ? ? The patient reports stiffness in the bilateral hands in the morning. She also reports bilateral hand numbness and tingling at night. She claims to have no relief with icing or Tylenol (arthritis strength). ? ? Patient has a surgical history of left shoulder surgery.? [facility] Medical History Wears dentures REBECCA (obstructive sleep apnea) Arthritis Seizures Fatty liver GERD (gastroesophageal reflux disease) Anxiety Depression History of pulmonary embolism Elevated cholesterol Finger dislocation Bursitis of left shoulder Opioid dependence COPD (chronic obstructive pulmonary disease) Primary osteoarthritis of hips, bilateral Multiple sclerosis Surgical History Hx of repair of left rotator cuff Hx of colonoscopy History of toe surgery Family History Father CVD (cardiovascular disease) Mother No problems noted. Social History Household Members Other:: [facility] Are you a primary care management assistant to a significant other at home: No Do you presently have visiting nurse or other home services: No Alcohol intake: never Comment: baseline pain Patient Tobacco Use Status: Former Tobacco user Tobacco use type: Cigarette Current occupational status: unemployed Current occupation: Right Handed Review of Systems Const All systems reviewed & are unremarkable except as noted in HPI and below Physical Exam Const General: cooperative, healthy appearing and no acute distress Resp Effort & Inspection: normal respiratory effort and able to speak in complete sentences Cardio Rate: regular rate Peripheral pulses: Peripheral pulses 2+ throughout GI Palpation (GI): Soft to palpation Skin Lesions: no lesions Rashes: no rashes Extrem Other: Bilateral hands: Arthritic deformity in the bilateral hands at the IP joint in all digits. No ecchymosis, erythema, or edema. Able to perform full finger flexion, extension, abduction, adduction, finger cross, okay sign, and thumbs up without deficit. Able to make a closed fist. Sensation intact. Capillary refill is brisk. Radial pulse intact.? Assessment & Plan Assessment & Plan (1) Arthritis of right hand: Code(s): M19.041 - Primary osteoarthritis, right hand Category: Medical (2) Arthritis of hand, left: Code(s): M19.042 - Primary osteoarthritis, left hand Category: Medical Plan Ms. Thacker is a 68-year-old female who presents in the office today for an evaluation of bilateral hand pain. The patient was last seen in the office for left hand pain by Luc Ibarra PA-C on 05/25/2022 status post a fall two to three months prior. At that time, she was diagnosis with left hand OA and encouraged to work with occupational therapy. She declined at that time to work on exercises on her own. ? ? While in the office today, the patient reports she fell twice in one day; once hitting pavement and the second time in her son?s basement. She also claims to have pain in other body parts status post the falls. She reports the pain in the left hand is located along the CMC, index, and little fingers. She states she has noticed a lump on the left little digit. ? ? The patient reports stiffness in the bilateral hands in the morning. She also reports bilateral hand numbness and tingling at night. She claims to have no relief with icing or Tylenol (arthritis strength). ? ? Patient has a surgical history of left shoulder surgery. ? The patient will be referred to Rheumatology for further investigation of the possibility of RA. She is currently taking Eliquis and cannot take any NSAIDs, therefore, I recommended the use of Tylenol PRN. We discussed the role of cortisone injections or possible surgical intervention, and if she wishes to proceed with any of these options, she will be scheduled for evaluation with Dr. Mejia. Follow-up will be PRN, or sooner if needed. ? ? X-rays of the left hand which were obtained while in the office today and were reviewed by me, Rosalie Ramirez PA-C, revealed defuse arthritic changes. ? ? X-rays of the right hand, obtained on 10/23/23, revealed: defuse arthritic changes.? Orders: Orders XR hand LT min 3V Today M79.643 - Pain in unspecified hand Referrals Rheumatology Referral M19.041 - Primary osteoarthritis, right hand, M19.042 - Primary osteoarthritis, left hand Patient Instructions: Scribed by Reanna Pond, medical staff coordinator, for Rosalie Ramirez PA-C on 11/07/2023 at 12:49 pm, EST.? Coding Level of Care Code Est Pt Level 3 (48247) Diagnoses Arthritis of right hand M19.041 Arthritis of hand, left M19.042
== END 2023-11-07 13:48 | disposition home or self-care (01) ==
LOC: HO.HOS 12:46
PROVIDERS: PCP Internal Medicine; Visit Provider Physician Assistant
DX: M19.041 Primary osteoarthritis, right hand (principal); M19.042 Primary osteoarthritis, left hand
CPT/HCPCS: 99213

== ENCOUNTER 2023-11-07 12:46 | Outpatient (REF) | payer MEDICARE, MEDICAID, SELFPAY ==
--- NOTE | ~2023-11-07 | XR_ITS ---
EXAMINATION: XR HAND, LEFT CLINICAL INFORMATION: Pain. COMPARISON: Radiograph left hand 05/25/2022. TECHNIQUE: PA, lateral, and oblique views of the left hand. FINDINGS: No acute fracture or subluxation. Moderate to severe degenerative osteoarthritis of the first carpometacarpal joint with space narrowing, subcortical sclerosis and marginal osteophytes. Moderate multifocal degenerative osteoarthritis of the distal interphalangeal joints with space narrowing and marginal osteophytes. No osseous erosions. No abnormal soft tissue calcifications. XR/XR hand LT min 3V IMPRESSION: 1. No acute fracture or subluxation. 2. Moderate to severe degenerative osteoarthritis of the first carpometacarpal joint and moderate degenerative osteoarthritis of the distal interphalangeal joints. Electronically signed by: Mirta Nance MD 11/14/2023 01:02 PM EDT
== END 2023-11-07 12:47 | disposition home or self-care (01) ==
LOC: HO.HOSX 12:46
PROVIDERS: PCP Internal Medicine; Visit Provider Physician Assistant
DX: M19.041 Primary osteoarthritis, right hand (principal); M19.042 Primary osteoarthritis, left hand
CPT/HCPCS: 73130; 99212

== ENCOUNTER 2023-11-13 09:51 | Outpatient (AMB) | payer MEDICARE, MEDICAID, SELFPAY ==
--- NOTE | 2023-11-13 10:09 | MHC.OFFVIS ---
Vital Signs 11/13/23 10:10 Height 5 ft 2 in Weight 168 lb BMI 30.7 BP 136/62 Blood Pressure Location Rt brachial Position Sitting Pulse 72 Pulse Source Pulse Oximeter Pulse Oximetry (%) 98 Oxygen Delivery Method Room Air Intake Visit Reasons: PROCEDURE DISCUSSION Intake Note: Pain today 10/27. Title Searcher Required: No Accompanied by: Self / Same As Patient Allergies Penicillins Allergy (Severe, Verified 11/13/23 10:10) rash,hives HPI Comments Details: Patient presents today for follow up for chronic right hip and right knee pain. At previous visit, she reported mechanical fall and was advised to seek treatment in ER. Patient reports she did not go to ER but completed hip, left hand and knee xrays on 10/23/23 with pending results. She was recently seen by Orthopedics for bilateral hand pain consistent with diffuse arthritis and has been referred to Rheumatology. Patient reports right knee pain has been most disturbing. She is interested to proceed with right diagnostic genicular nerve blocks for potential RFA procedure as previously discussed and again reviewed today. We also reviewed therapeutic injections and Sprint PNS trial. Denies any fever, chills, chest pain, shortness of breath, abdominal or groin pain, weakness, bladder or bowel dysfunction or saddle anesthesia. PRIOR: Patient presents today to discuss recent lumbar spine MRI results. Patient reports her back pain has been mild for the past few weeks. She does experience increased back pain with prolonged walking. Her main concern today is chronic right knee pain no responsive to Celebrex, previous cortisone injections and ice/heat therapies. She frequently emphasizes that Celebrex is not working for her. She takes clonazepam 1 mg TID and modafinil 200 mg BID. I have informed patient that most stronger medications, including opioid and non-opioid will cause significant drowsiness and sleepiness. We returned to interventional treatments in greater detail for potential Sprint PNS trial or RFA procedures. Patient reports last seizure activity at age 49. Currently she does not take any anticonvulsants therefore potentially can be candidate for PNS trial. Denies any recent cough, cold, infection, fever, any significant changes in her medical history, medications or recent hospitalizations. PRIOR: Patient presents today for follow up for lower back pain with radiation into her right lower extremity. She was referred back to us by Orthopedic provider for right knee nerve block. Patient declined any significant right knee pain today and reports back pain has been worsening with most of her daily activities, especially with bending and axial lateral rotations and extends into her right buttock and right lower extremity laterally with paresthesias and intermittent weakness. Back pain is rated at 8/10. She reports chronic right hip pain with temporary pain relief with recent steroid injection. She continues to take Tylenol, NSAIDs, muscle relaxant and pregabalin with continued symptoms. Denies any bladder or bowel dysfunction or saddle anesthesia. Past Procedures: 04/22/23: Right hip intra-articular steroid injection-moderate but temporary relief PRIOR: Patient presents today via telehealth encounter for follow up regarding right hip pain and refill for Lyrica. She was last seen in this office in Jul, 2021. We were planning right hip steroid injection which patient decided to hold off back then. Patient reports she was following up with orthopedic providers for her shoulder and hip pain and received right greater trochanter and left shoulder steroid injection with minimal pain relief on 11/12/21. Patient is requesting to proceed with right hip steroid injection under sedation. She is not able to tolerate PT due to significant pain or take NSAIDs due to being on Eliquis. Patient reports no side effects with Lyrica and requests refill for it. Patient also reports bilateral anterior knee pain for 3 weeks with swelling due to a fall at [facility]. Patient was advised to make appointment with orthopedic office for urgent evaluation. She denies any fever, malaise, chills, shortness of breaths, knee locking or buckling, abdominal or groin pain, bladder/bowel dysfunction or saddle anesthesia. PRIOR: Patient is a pleasant 66 years old female who presents today for follow up on right hip and lower back pain. She was previously seen in this office by Dr. Figueroa. Patient reports that Lyrica has been working well and she had hard time to obtain refills on it without follow up appointments. She denies any side effects. Patient reports she has chronic right hip pain related to arthritis and has declined right hip replacement surgery. Patient request right hip cortisone injection. She also endorses axial back pain that spreads to her right side with SIJ components but without radiation to her legs. Pain is worsened with any activity, prolong sitting or walking, and weather changes. She is on Eliquis with history of PE and sees sanitation associate Dr. Kuhn at [facility]. Patient states she has MS and has chronic daily aching, fatigued, spasms with numbness and tingling in her feet. She denies any fever, weight changes, abdominal or groin pain, bladder/bowel dysfunction or saddle anesthesia. Patient reports intermittent weakness, ambulates with mildly antalgic gait without assisting devices. PRIOR Dr. Figueroa 12/09/2019: Kristin returns to the office today for follow-up. I had initially seen her as a referral from for right hip and back pain. Per Dr. Lynn, she has a likely labral tear of the hip. Xray showed mild OA of both hips. She does not want surgery, so there was no clinical reason to obtain an MRI. PT was suggested, however she declined. She was thus referred here for possible contributing factors from her lumbar spine as well as any nonsurgical treatments for her hip pain. Upon evaluation she had positive SI joint testing on the right and also symptoms consistent with a radiculopathy on the right leg. She declined any PT, injections, or SI belt. I started her on gabapentin and over the last few months we titrated dose of this up. Kristin reports she does not notice any significant benefit from gabapentin, and would like to try something different if possible. [facility] Medical History Wears dentures REBECCA (obstructive sleep apnea) Arthritis Seizures Fatty liver GERD (gastroesophageal reflux disease) Anxiety Depression History of pulmonary embolism Elevated cholesterol Finger dislocation Bursitis of left shoulder Opioid dependence COPD (chronic obstructive pulmonary disease) Primary osteoarthritis of hips, bilateral Multiple sclerosis Surgical History Hx of repair of left rotator cuff Hx of colonoscopy History of toe surgery Family History Father CVD (cardiovascular disease) Mother No problems noted. Social History Household Members Other:: [facility] Are you a primary customer care manager to a significant other at home: No Do you presently have visiting nurse or other home services: No Alcohol intake: never Comment: baseline pain Patient Tobacco Use Status: Former Tobacco user Tobacco use type: Cigarette Current occupational status: unemployed Current occupation: Right Handed Review of Systems Const All systems reviewed & are unremarkable except as noted in HPI and below Physical Exam Vital Signs: Last Vital Signs Pulse 72 11/13/23 10:10 BP 136/62 11/13/23 10:10 Pulse Ox 98 11/13/23 10:10 Oxygen Delivery Method Room Air 11/13/23 10:10 BMI result Body Mass Index 30.7 General: Appears afebrile. Alert and oriented. Mood and affect appropriate. Follows and participates in conversation appropriately. Respiratory effort is unlabored. No cough. Able to transition from sit to stand unassisted. No assisting devices utilized today. Reports using a cane at home. Ambulates with bilaterally normal heel strike and toe off, reports imbalance on right. General: Yes no CVA tenderness Back/Spine/Pelvis Other: Limited lumbar ROM due to significant pain. Antalgic gait with mild limping, favoring left side. Lumbar flexion, axial lateral rotation and forward flexion mild pain. Positive facet loading bilaterally. Mild groin pain with right I/E hip rotations. TTP to right GTB. Back: no CVA tenderness Cervical Spine: cervical ROM normal, cervical muscular tenderness and No Cervical spine tenderness Thoracic/Lumbar Spine: thoracic and lumbar spine normal to inspection, No Thoracic/lumbar spine scar(s), Lasegue's sign negative, straight leg raise negative bilaterally, pain with thoraco-lumbar ROM, paraspinal muscle tenderness, thoraco-lumbar ROM limited, No thoracic spinal tenderness and lumbar spinal tenderness (L3-S1) Sacroiliac joints: bilaterally tender to palpation Extrem General: Yes capillary refill normal, Yes no clubbing, cyanosis or edema and Yes no calf tenderness Right lower extremity: hip/thigh Details: normal to inspection and tenderness Location: of the hip Location: laterally and over the greater trochanter; no swelling, no ecchymosis and no unusual warmth and knee (Limited ROM due to pain. ) Details: tenderness Location: of the patella, of the popliteal fossa, of the medial joint line and of the lateral joint line and crepitus; no swelling, no ecchymosis, no deformity and no unusual warmth Results Reviewed Results Reviewed: XR PELVIS 03/10/2017 CLINICAL INFORMATION: Right hip pain. FINDINGS: There is mild arthritis at both hip joints with joint space narrowing and osteophyte formation. There is proliferative bone reaction along the iliac crest. Bones of the pelvis are otherwise unremarkable. There is bilateral soft tissue calcification projecting over the inferior medial hip joints bilaterally. When compared with previous CT of the abdomen and pelvis, this corresponds to soft tissue gluteal/buttock calcifications and is unchanged. IMPRESSION: Mild arthritis at both hip joints. XR AP KNEE STANDING, BILATERAL XR KNEE, RIGHT 06/14/22 CLINICAL INDICATIONS: Right knee pain. COMPARISON: Right knee 06/28/2015. FINDINGS: AP bilateral knee standing reveals the left knee joint is slightly higher than the right knee joint. There is moderate loss of medial compartment joint space both knees. No bony erosive changes seen. There are no loose bodies. No visible acute fracture or dislocation. The soft tissues are normal. IMPRESSION: Mild degenerative changes medial compartment both knees. No visible acute fracture, dislocation or subluxation seen. Discrepancy leg length with left knee higher than the right. MR LUMBAR SPINE WITHOUT CONTRAST 07/05/23 CLINICAL INFORMATION: Lumbar radiculopathy FINDINGS: Advanced T11-T12 degenerative thoracic disc disease, mild posterior disc protrusion, anterior bridging syndesmophytes are seen. The visualized lumbar vertebrae are intact with normal alignment. No focal bone lesion with abnormal signal can be seen. Evaluation of the intervertebral discs show: T12/L1: Intervertebral disc height is mildly decreased, with mild loss of T2 signal. Mild posterior broad-based disc bulge is seen. Anterior syndesmophytes are present. Bilateral T12/L1 neuroforamina are patent. Bilateral apophyseal joints are intact with normal alignment. L-1/L-2: Intervertebral disc height is normal, with mild loss of T2 signal. No focal disc herniation is seen. Bilateral L1-L2 neuroforamina are patent. Bilateral apophyseal joints are intact with normal alignment. Bilateral apophyseal joints show loss of joint space, sclerosis, facet hypertrophy and osteophytosis. L2/L3: Intervertebral disc height is normal, with mild loss of T2 signal. No focal disc herniation is seen. Bilateral L2-L3 neuroforamina are patent. Bilateral apophyseal joints are intact with normal alignment. Bilateral apophyseal joints show loss of joint space, sclerosis, facet hypertrophy and osteophytosis. L3/L4: Intervertebral disc height is normal, with mild loss of T2 signal. No focal disc herniation is seen. Bilateral L3-L4 neuroforamina are patent. Bilateral apophyseal joints are intact with normal alignment. Bilateral apophyseal joints show loss of joint space, sclerosis, facet hypertrophy and osteophytosis. L4/L5: Intervertebral disc height is normal, with mild loss of T2 signal. No focal disc herniation is seen. Bilateral L4-L5 neuroforamina are patent. Bilateral apophyseal joints are intact with normal alignment. Bilateral apophyseal joints show loss of joint space, sclerosis, facet hypertrophy and osteophytosis. L5/S1: Intervertebral disc height is moderately decreased, with mild loss of T2 signal. Mild posterior and asymmetric left foraminal disc protrusion is seen. There is resulting asymmetric marked left L5-S1 neuroforaminal stenosis. Bilateral apophyseal joints are intact with normal alignment. Bilateral apophyseal joints show loss of joint space, sclerosis, facet hypertrophy and osteophytosis. Conus medullaris is seen normally at L2-L3 junction level. IMPRESSION: 1. Mild posterior and asymmetric left foraminal disc protrusion at L5-S1 with resulting asymmetric marked left L5-S1 neuroforaminal stenosis. 2. Mild posterior broad-based disc bulge at T12-L1. 3. Advanced T11-T12 degenerative thoracic disc disease, mild posterior disc protrusion, anterior bridging syndesmophytes. Assessment & Plan Assessment & Plan (1) Primary osteoarthritis of hips, bilateral: Code(s): M16.0 - Bilateral primary osteoarthritis of hip Category: Medical (2) Chronic right hip pain: Code(s): M25.551 - Pain in right hip; G89.29 - Other chronic pain Category: Medical (3) Patellofemoral arthritis of right knee: Code(s): M17.11 - Unilateral primary osteoarthritis, right knee Category: Medical (4) Right knee pain: Code(s): M25.561 - Pain in right knee Category: Medical (5) Lumbar spondylosis: Code(s): M47.816 - Spondylosis without myelopathy or radiculopathy, lumbar region Category: Medical Plan Schedule Right Diagnostic Genicular Nerve Block with local and fluoroscopy for potential RFA procedure. Expectations, risks and benefits were reviewed. She is on Eliquis and has been avoiding NSAIDs, including Celebrex. Patient is aware she will be contacted to schedule this procedure. We also reviewed Sprint PNS and therapeutic injections. All questions and concerns have been answered and patient agreed with the plan. Follow up after injections and sooner as needed. Medications: Discontinued celecoxib Discontinued Reason: Patient no longer taking 200 mg PO BID 60 caps 0RF Coding Level of Care Code Est Pt Level 4 (13210) Diagnoses Primary osteoarthritis of hips, bilateral M16.0 Chronic right hip pain M25.551; G89.29 Patellofemoral arthritis of right knee M17.11 Right knee pain M25.561 Lumbar spondylosis M47.816
[2023-11-13 10:10] VITALS: BP 136/62; PULSE 72; O2SAT 98; BMI 30.7
== END 2023-11-13 11:00 | disposition home or self-care (01) ==
PROVIDERS: PCP Internal Medicine; Visit Provider Nurse Practitioner Family
DX: M16.0 Bilateral primary osteoarthritis of hip (principal); M25.551 Pain in right hip; G89.29 Other chronic pain; M17.11 Unilateral primary osteoarthritis, right knee; M25.561 Pain in right knee; M47.816 Spondylosis without myelopathy or radiculopathy, lumbar region
CPT/HCPCS: 99214

== ENCOUNTER → 2023-11-13 09:51 | Outpatient (BNVA) | payer MEDICARE, MEDICAID, SELFPAY | PROVIDERS: PCP Internal Medicine; Visit Provider Nurse Practitioner Family | DX: M16.0 Bilateral primary osteoarthritis of hip (principal); M25.551 Pain in right hip; M17.11 Unilateral primary osteoarthritis, right knee; M25.561 Pain in right knee; M47.816 Spondylosis without myelopathy or radiculopathy, lumbar region; G89.29 Other chronic pain | CPT/HCPCS: 99212 ==

== ENCOUNTER 2023-12-12 13:14 | Outpatient (AMB) | payer MEDICARE, MEDICAID, SELFPAY ==
[2023-12-12 13:13] VITALS: BMI 30.7
--- NOTE | 2023-12-12 13:13 | MHC.OFFVIS ---
Vital Signs 12/12/23 13:13 Height 5 ft 2 in Weight 168 lb BMI 30.7 Intake Visit Reasons: OV - B/L hand pain TF thumb and pointer Intake Note: Kristin a 68 year old right hand dominant female who presents today for evaluation of bilateral hand pain, left worse than the right. 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 Patient reports about 6 years ago she had a left small finger dislocation, treated non-operatively. Patient is scheduled to see [facility] on 12/15/23 for bilateral hand OA. Allergies Penicillins Allergy (Severe, Verified 12/12/23 13:13) rash,hives HPI HPI OV - B/L hand pain TF thumb and pointer: Details: Kristin is a 68 year old right hand dominant woman who presents with complaints of bilateral hand numbness, L>R. She was seen by TRAM Wiggins on 11/07/23 for generalized hand pain & OA, and referred to Rheumatology for assessment of possible RA. Her appointment is on 12/15/23 with Rheumatology. She complains of numbness almost daily in her left hand, and less frequently in her right hand. Symptoms intermittent, but daily, worse at night. She says this causes difficulty with gripping or holding objects. She complains of pain in all of her fingers which causes her difficulty with daily activities. She is frustrated that she cannot open jars or other things at home, and needs to ask for help with this. She has a hx of multiple falls in the past, which causes her increased pain in multiple areas of her body. She denies any prior treatment options. She finds minimal relief from icing & Tylenol. She has a Hx of MS. [facility] Medical History Wears dentures REBECCA (obstructive sleep apnea) Arthritis Seizures Fatty liver GERD (gastroesophageal reflux disease) Anxiety Depression History of pulmonary embolism Elevated cholesterol Finger dislocation Bursitis of left shoulder Opioid dependence COPD (chronic obstructive pulmonary disease) Primary osteoarthritis of hips, bilateral Multiple sclerosis Surgical History Hx of repair of left rotator cuff Hx of colonoscopy History of toe surgery Family History Father CVD (cardiovascular disease) Mother No problems noted. Social History Household Members Other:: [facility] Are you a primary career placement services counselor to a significant other at home: No Do you presently have visiting nurse or other home services: No Alcohol intake: never Comment: baseline pain Patient Tobacco Use Status: Former Tobacco user Tobacco use type: Cigarette Current occupational status: unemployed Current occupation: Right Handed Review of Systems Const All systems reviewed & are unremarkable except as noted in HPI and below Physical Exam Vital Signs: BMI result Body Mass Index 30.7 Const General: cooperative, healthy appearing and no acute distress Orientation/consciousness: patient oriented x3 HEENT Head: Yes normocephalic and Yes atraumatic Eyes EOM: EOMs intact bilaterally Resp Effort & Inspection: normal respiratory effort and able to speak in complete sentences Cardio Jugular venous distension: no JVD Skin General skin exam: turgor normal Rashes: no rashes Neuro General: patient oriented x3 Extrem Other: Evaluation of Bilateral Upper Extremity: The patient is alert, oriented, and in no acute distress Neuro: Median, Ulnar, Radial nerves motor and sensory intact and sensation is normal to the tips of all digits No thenar or intrinsic wasting Good APB muscle belly firing and good finger cross Vascular: Cap refill brisk ROM: With encouragement, she can make a fist and extend all her digits Mild stiffness in her digits Skin: No lacerations or abrasions. General: No Ecchymosis. No Erythema or evidence of infection. Mild tenderness over the left basal joint Patient demonstrated pain in all of her MCP, PIP, and DIP joints bilaterally, L>R. Radiographs: 3 views of the left hand from 11/07/23 were reviewed by me today in clinic. There is some basal joint arthritis , and arthritic changes in multiple DIP & PIP joints. Psych Appearance: grossly normal Affect: normal affect Attitude: cooperative Assessment & Plan Assessment & Plan (1) Numbness and tingling in both hands: Code(s): R20.0 - Anesthesia of skin; R20.2 - Paresthesia of skin Category: Medical (2) Multiple sclerosis: Code(s): G35 - Multiple sclerosis Category: Medical Plan Assessment & Plan: 1. Bilateral hand numbness, L>R Symptoms intermittent, but daily, worse at night I educated her about carpal & cubital tunnel syndrome I ordered a NCS to assess for peripheral nerve compression She will follow up when completed for review. 2. Bilateral hand pain & arthritis In multiple DIP & PIP joints Causing stiffness secondary to disuse Generlized, non-focal I educated her about this condition She is scheduled to be seen by Rheumatology on 12/15/23 to be assess for possible Rheumatologic conditions I discussed activity modification, she should work on gentle ROM exercises at home, 20x daily. She should discontinue using any resistance tools or squeeze balls at home Consider OT in the future Scribed for Chanel Mejia MD by Dung Butler, medical representative, on 12/12/23 at 1:45 PM, EST. Orders: Orders NE nerve conduction velocity Today R20.0 - Anesthesia of skin, R20.2 - Paresthesia of skin Coding Level of Care Code Est Pt Level 3 (93029) Diagnoses Numbness and tingling in both hands R20.0; R20.2 Multiple sclerosis G35
== END 2023-12-12 14:02 | disposition home or self-care (01) ==
LOC: HO.HOS 13:14
PROVIDERS: PCP Internal Medicine; Visit Provider Orthopaedic Surgery
DX: R20.0 Anesthesia of skin (principal); R20.2 Paresthesia of skin; G35 Multiple sclerosis
CPT/HCPCS: 99213

== ENCOUNTER → 2023-12-12 13:14 | Outpatient (BNVA) | payer MEDICARE, MEDICAID, SELFPAY | PROVIDERS: PCP Internal Medicine; Visit Provider Orthopaedic Surgery | DX: R20.0 Anesthesia of skin (principal); R20.2 Paresthesia of skin; G35 Multiple sclerosis | CPT/HCPCS: 99212 ==

== ENCOUNTER 2023-12-15 14:12 | Outpatient (AMB) | payer MEDICARE, MEDICAID, SELFPAY ==
[2023-12-15 14:15] VITALS: BP 140/82; PULSE 91; O2SAT 97; BMI 30.6
--- NOTE | 2023-12-15 14:15 | A.OFFVIS_ITS ---
Vital Signs 12/15/23 14:15 Height 5 ft 2 in Weight 167 lb 8.821 oz BMI 30.6 BP 140/82 H Blood Pressure Location Lt brachial Position Sitting Pulse 91 Pulse Source Pulse Oximeter Pulse Oximetry (%) 97 Oxygen Delivery Method Room Air Intake Visit Reasons: Bl hand OA Allergies Penicillins Allergy (Severe, Verified 12/15/23 14:19) rash,hives Medication List - Last Reconciled 12/15/23 by Navya Sy MD acetaminophen 1,000 mg PO BID PRN albuterol sulfate mg inhalation PRN apixaban (Eliquis) 5 mg PO BID atorvastatin 20 mg PO BEDTIME baclofen 10 mg PO TID citalopram 20 mg PO DAILY clonazepam 1 mg PO TID PRN clonidine HCl 1 tab PO TID dicyclomine 20 mg PO QID dimethyl fumarate (Tecfidera) 240 mg PO BID ergocalciferol (vitamin D2) 1,250 mcg PO 2XW magnesium oxide 1 tab PO DAILY melatonin 3 mg PO BEDTIME PRN modafinil 1 tab PO BID multivitamin 1 tab PO DAILY pantoprazole (Protonix) 20 mg PO DAILY prednisone 10 mg (2 x 5 mg) PO DAILY 14 days quetiapine 1 tab PO BEDTIME tizanidine 1 tab PO TID vibegron (Gemtesa) 75 mg PO DAILY HPI Comments Details: Patient is a 68-year-old female with relapsing and remitting multiple sclerosis who presents for evaluation of bilateral hand pain Patient states that she has multiple locations for her joint pain but she notes that her hands are the most painful. Has morning stiffness that lasts throughout the day but does note that her pain is worse at nights No rashes, oral/nasal ulcers, alopecia. 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 No known workup of her thromboembolic disease COUNTS INCLUDE 234 BEDS AT THE [facility] Medical History Wears dentures REBECCA (obstructive sleep apnea) Arthritis Seizures Fatty liver GERD (gastroesophageal reflux disease) Anxiety Depression History of pulmonary embolism Elevated cholesterol Finger dislocation Bursitis of left shoulder Opioid dependence COPD (chronic obstructive pulmonary disease) Primary osteoarthritis of hips, bilateral Multiple sclerosis Surgical History Hx of repair of left rotator cuff Hx of colonoscopy History of toe surgery Family History Father CVD (cardiovascular disease) Mother No problems noted. Social History Household Members Other:: [facility] Are you a primary long term acute care registered nurse to a significant other at home: No Do you presently have visiting nurse or other home services: No Alcohol intake: never Comment: baseline pain Patient Tobacco Use Status: Former Tobacco user Tobacco use type: Cigarette Current occupational status: unemployed Current occupation: Right Handed Review of Systems Const Details: Review of Systems Constitutional: Denies fever, chills, weight loss ENT: Denies vision changes, eye pain or eye redness, dental caries, dry mouth GI: Denies nausea, vomiting, diarrhea, abdominal pain, change in BM Pulm: Denies SOB, GUY, hemoptysis, wheezing Cards: Denies chest pain, palpitations Skin: Denies Raynaud's, rash, nail changes, photosensitivity, COMMODITY DIRECTOR: Denies headaches, weakness, paresthesias. Positive for recurrent falls MSK: Complains of joint pain and joint stiffness. Denies joint swelling, muscle weakness, bone pain All other systems reviewed and are unremarkable except noted above Physical Exam Vital Signs: Last Vital Signs Pulse 91 12/15/23 14:15 BP 140/82 H 12/15/23 14:15 Pulse Ox 97 12/15/23 14:15 Oxygen Delivery Method Room Air 12/15/23 14:15 BMI result Body Mass Index 30.6 Const Other: Physical Examination Patient well appearing and in no apparent painful distress Able to rise from chair without support. ?Gait normal. Constitutional: ?Mucous membranes pink and moist patient alert and cooperative HEENT: ?Conjunctiva and sclera clear. ?Pupils equal round and reactive to light. ?No lymphadenopathy. ?Normal dentition. Resp: ?Normal respiratory effort and able to speak in complete sentences. ?Clear to auscultation bilaterally. ?No crackles, rales, rhonchi, wheezes heard. Cards: ?Regular rate and rhythm. ?S1 and S2 heard no murmurs. ?Radial pulses intact bilaterally MSK: ?Patient has swelling to her PIP knees and DIPs. With tenderness to palpation of PIPs and DIPs throughout the right and left hand. No tenderness to palpation of the MCPs. No other joints are involved. Able to have full range of motion of her knees, hips, ankles. Results Reviewed Results Reviewed: Imaging personally reviewed. No evidence of involvement of the carpal bones or the MCPs. However patient does have osteoarthritic changes to the DIPs as well as the 1st CMC joints bilaterally. Relevant labs reviewed Assessment & Plan Assessment & Plan (1) Polyarthralgia: Code(s): M25.50 - Pain in unspecified joint Plan: Patient with polyarthralgia but specifically bilateral hand pain. While the involved joints are less likely to be related to rheumatoid arthritis I can not deny that she is having some inflammatory arthritis at this time. There was no evidence of erosive arthritis on her x-rays. We will still check RF and CCP given that she does have a sister with rheumatoid arthritis and she also herself has multiple sclerosis. We will also give her a trial of steroids prednisone 10 mg for 14 days and will review her in 2 weeks (2) Osteoarthritis: Code(s): M19.90 - Unspecified osteoarthritis, unspecified site Plan: Patient has OA involving multiple joints has tried several treatment plans including physical therapy, topical diclofenac gel, gabapentin. Patient is unable to take any NSAIDs since she is on Eliquis. Recommended arthritis cup or gloves for her to wear at night. Plan I spent 45 minutes reviewing the record and labs, seeing the patient, discussing the treatment plan and documenting in the medical record Orders: Orders Rheumatoid Factor Today M19.90 - Unspecified osteoarthritis, unspecified site, M25.50 - Pain in unspecified joint C Reactive Protein Today M19.041 - Primary osteoarthritis, right hand, M19.042 - Primary osteoarthritis, left hand Cyclic Citrullinated Peptide Today M19.90 - Unspecified osteoarthritis, unspecified site, M25.50 - Pain in unspecified joint Erythrocyte Sedimentation Rate Today M19.041 - Primary osteoarthritis, right hand, M19.042 - Primary osteoarthritis, left hand Medications: New prednisone 10 mg (2 x 5 mg) PO DAILY 14 days 28 tabs 0RF Coding Level of Care Code New Pt Level 4 (51494) Diagnoses Polyarthralgia M25.50 Osteoarthritis M19.90
== END 2023-12-15 15:36 | disposition home or self-care (01) ==
PROVIDERS: PCP Internal Medicine; Visit Provider Student in an Organized Health Care Education/Training Program
DX: M25.50 Pain in unspecified joint (principal); M19.90 Unspecified osteoarthritis, unspecified site
CPT/HCPCS: 99204

== ENCOUNTER 2023-12-15 14:12 | Outpatient (REF) | payer MEDICARE, MEDICAID, SELFPAY ==
[2023-12-15 16:23] LABS: C Reactive Protein 0.99 mg/dL (< or = 0.50)
[2023-12-15 16:28] LABS: Rheumatoid Factor < 13.0 IU/mL (<15.0)
[2023-12-15 17:22] LABS: Erythrocyte Sedimentation Rate 5 MM/HR (0-20)
[2023-12-19 13:09] LABS: Cyclic Citrullinated Peptide <16 UNITS
== END 2023-12-15 14:13 | disposition home or self-care (01) ==
LOC: HO.LAB 14:12
PROVIDERS: PCP Internal Medicine; Visit Provider Student in an Organized Health Care Education/Training Program
DX: M25.50 Pain in unspecified joint (principal); M19.90 Unspecified osteoarthritis, unspecified site; M19.042 Primary osteoarthritis, left hand; M19.041 Primary osteoarthritis, right hand
CPT/HCPCS: 36415; 85652; 86140; 86200; 86431; 99202

== ENCOUNTER 2023-12-29 13:49 | Outpatient (REF) | payer MEDICARE, MEDICAID, SELFPAY ==
--- NOTE | 2023-12-29 13:55 | EMG_ITS ---
Chief complaint: History of MS, on Eliquis for pulmonary embolism. Chronic numbness on both hands, specifically 5th digits, left worse than right. Reason for referral: Evaluate for ulnar neuropathy or Carpal Tunnel Syndrome Referred by: Dr. Mejia Procedure done: Bilateral upper extremities NCS/EMG Precautions and/or limitations: On Eliquis The limb temperature was monitored continuously and remained between 32-36 degrees C during the performance of the NCS. Ulnar motor NCS was performed with moderate elbow flexion between 70-90 degrees, with across-elbow distance of 10 cm. Nerve Conduction Studies Anti Sensory Summary Table ?Stim Site NR Onset (ms) Norm Onset (ms) Peak (ms) Norm Peak (ms) O-P Amp (?V) Norm O-P Amp Site1 Site2 Delta-0 (ms) Dist (cm) Shane (m/s) Norm Shane (m/s) Left Median Anti Sensory (2nd Digit) Wrist ? 2.4 3.0 <3.6 43.2 >10 Wrist 2nd Digit 2.4 14.0 58 Right Median Anti Sensory (2nd Digit) Wrist ? 2.6 3.3 <3.6 47.5 >10 Wrist 2nd Digit 2.6 14.0 54 Right Radial Anti Sensory (Thumb) Forearm ? 1.8 2.4 <3.1 60.6 Forearm Thumb 1.8 0.0 Left Ulnar Anti Sensory (5th Digit) Wrist NR <3.7 >15.0 Wrist 5th Digit 14.0 Right Ulnar Anti Sensory (5th Digit) Wrist ? 2.6 3.6 <3.7 10.2 >15.0 Wrist 5th Digit 2.6 14.0 54 Motor Summary Table ?Stim Site NR Onset (ms) Norm Onset (ms) O-P Amp (mV) Norm O-P Amp iAmp (mV) Amp (1st) (%) Site1 Site2 Delta-0 (ms) Dist (cm) Shane (m/s) Norm Shane (m/s) Left Median Motor (Abd Poll Brev) Wrist ? 3.0 <3.9 14.3 >4.5 16.4 100.0 Elbow Wrist 3.5 19.0 54 >45 Elbow ? 6.5 14.6 17.3 102.1 Right Median Motor (Abd Poll Brev) Wrist ? 3.7 <3.9 13.7 >4.5 16.6 100.0 Elbow Wrist 3.2 17.0 53 >45 Elbow ? 6.9 13.6 16.4 99.3 Left Ulnar Motor (Abd Dig Minimi) Wrist ? 2.7 <3.0 11.5 >5 13.0 100.0 B Elbow Wrist 3.1 15.5 50 >45 B Elbow ? 5.8 9.2 10.5 80.0 A Elbow B Elbow 1.7 10.0 59 >45 A Elbow ? 7.5 11.0 12.4 95.7 Right Ulnar Motor (Abd Dig Minimi) Wrist ? 3.4 <3.0 10.1 >5 13.8 100.0 B Elbow Wrist 2.9 17.0 59 >45 B Elbow ? 6.3 10.3 14.1 102.0 A Elbow B Elbow 1.7 10.0 59 >45 A Elbow ? 8.0 10.9 14.9 107.9 EMG ?Side Muscle Nerve Root Ins Act Fibs Psw Amp Dur Poly Recrt Int Pat Comment Right 1stDorInt Ulnar C8-T1 Nml Nml Nml Nml Nml 0 Nml Complete Right FlexCarRad Median C6-7 Nml Nml Nml Nml Nml 0 Nml Complete Right Biceps Musculocut C5-6 Nml Nml Nml Nml Nml 0 Nml Complete Right Triceps Radial C6-7-8 Nml Nml Nml Nml Nml 0 Nml Complete Right Deltoid Axillary C5-6 Nml Nml Nml Nml Nml 0 Nml Complete Left 1stDorInt Ulnar C8-T1 Nml Nml Nml Nml Nml 0 Nml Complete Left FlexCarRad Median C6-7 Nml Nml Nml Nml Nml 0 Nml Complete Left Biceps Musculocut C5-6 Nml Nml Nml Nml Nml 0 Nml Complete Left Triceps Radial C6-7-8 Nml Nml Nml Nml Nml 0 Nml Complete Left Deltoid Axillary C5-6 Nml Nml Nml Nml Nml 0 Nml Complete FINDINGS: Right ulnar motor nerve showed prolonged distal latency, normal amplitude and normal conduction velocity. Right ulnar sensory nerve showed small amplitude. Left ulnar sensory nerve absent response. All other nerves tested were within normal. Concentric needle EMG was performed in selected muscles of the upper extremity. Study did not reveal signs of electric abnormalities as shown in the table above. IMPRESSION: 1. This is an abnormal study. 2. There is electrodiagnostic findings suggestive that she has chronic bilateral ulnar neuropathy, however poorly localizable. 3. There is no electrodiagnostic evidence for median neuropathy, brachial plexopathy, or cervical radiculopathy. Thank you for your kind referral. Linette Cobb MD, HENNY Board Certified, [place] Board of Physical Medicine and Rehabilitation (ABPMR) Board Certified, [place] Board of Electrodiagnostic Medicine (ABEM) CODIN [phone] MTDD
== END 2023-12-29 13:50 | disposition home or self-care (01) ==
LOC: HO.NEURO 13:49
PROVIDERS: PCP Internal Medicine; Visit Provider Orthopaedic Surgery
DX: R20.0 Anesthesia of skin (principal); R20.2 Paresthesia of skin
CPT/HCPCS: 95886; 95911

== ENCOUNTER → 2023-12-29 13:55 | Outpatient (BNV) | payer MEDICARE, MEDICAID, SELFPAY | PROVIDERS: PCP Internal Medicine; Visit Provider Physical Medicine & Rehabilitation | DX: G56.23 Lesion of ulnar nerve, bilateral upper limbs (principal) | CPT/HCPCS: 95886; 95911 ==

== ENCOUNTER 2024-01-02 12:03 | Outpatient (AMB) | payer MEDICARE, MEDICAID, SELFPAY ==
[2024-01-02 12:13] VITALS: BP 138/82; PULSE 79; O2SAT 99; BMI 30.2
--- NOTE | 2024-01-02 12:13 | A.OFFVIS_ITS ---
Vital Signs 01/02/24 12:13 Height 5 ft 2 in Weight 165 lb BMI 30.2 BP 138/82 Blood Pressure Location Lt brachial Position Sitting Pulse 79 Pulse Source Pulse Oximeter Pulse Oximetry (%) 99 Oxygen Delivery Method Room Air Intake Visit Reasons: Labs Follow up Intake Note: Patient presents today for lab review. She was last seen in the office by Dr. Sy for osteoarthritis. Allergies Penicillins Allergy (Severe, Verified 01/02/24 12:17) rash,hives Medication List - Last Reconciled 01/02/24 by Navya Sy MD acetaminophen 1,000 mg PO BID PRN albuterol sulfate mg inhalation PRN apixaban (Eliquis) 5 mg PO BID baclofen 10 mg PO TID citalopram 20 mg PO DAILY clonazepam 1 mg PO TID PRN clonidine HCl 1 tab PO TID dicyclomine 20 mg PO QID dimethyl fumarate (Tecfidera) 240 mg PO BID ergocalciferol (vitamin D2) 1,250 mcg PO 2XW magnesium oxide 1 tab PO DAILY melatonin 3 mg PO BEDTIME PRN modafinil 1 tab PO BID multivitamin 1 tab PO DAILY pantoprazole (Protonix) 20 mg PO DAILY quetiapine 1 tab PO BEDTIME tizanidine 1 tab PO TID vibegron (Gemtesa) 75 mg PO DAILY HPI Comments Details: Patient is a 68-year-old female with relapsing and remitting multiple sclerosis who presents for evaluation of bilateral hand pain Interval History: Patient last seen 12/15/2023 by me. At that time there was concern that patient may be having a component of inflammatory arthritis based on tender to palpation PIPs and DIPs. With some notable swelling. She was given a trial of prednisone and inflammatory markers as well as RF and CCP were checked. RF and CCP negative ESR normal and CRP mildly elevated. Today patient does report that the prednisone did help her pain however she ran out and so she felt that she had rebound pain. Otherwise patient is pretty much the same as she was in the past. Recently had EMG which showed bilateral ulnar neuropathy which she confirms as having medial numbness and tingling to the medial 2 fingers. Rheumatologic History: Establish care 12/15/2023 for evaluation of polyarthralgias OA versus inflammatory arthritis RF and CCP negative, responds to prednisone. Current Rheumatology Medication(s): Prednisone taper (completed) [facility] Medical History (Updated 10/15/24 @ 13:34 by Navya Sy MD) Seronegative rheumatoid arthritis Wears dentures REBECCA (obstructive sleep apnea) Arthritis Seizures Fatty liver GERD (gastroesophageal reflux disease) Anxiety Depression History of pulmonary embolism Elevated cholesterol Finger dislocation Bursitis of left shoulder Opioid dependence COPD (chronic obstructive pulmonary disease) Primary osteoarthritis of hips, bilateral Multiple sclerosis Surgical History Hx of repair of left rotator cuff Hx of colonoscopy History of toe surgery Family History Father CVD (cardiovascular disease) Mother No problems noted. Social History Household Members Other:: [facility] Are you a primary care consultant to a significant other at home: No Do you presently have visiting nurse or other home services: No Alcohol intake: never Comment: baseline pain Patient Tobacco Use Status: Former Tobacco user Tobacco use type: Cigarette Current occupational status: unemployed Current occupation: Right Handed Review of Systems Const Details: Review of Systems Constitutional: Denies fever, chills, weight loss ENT: Denies vision changes, eye pain or eye redness, dental caries, dry mouth GI: Denies nausea, vomiting, diarrhea, abdominal pain, change in BM Pulm: Denies SOB, GUY, hemoptysis, wheezing Cards: Denies chest pain, palpitations Skin: Denies Raynaud's, rash, nail changes, photosensitivity, BANK 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 ?Gait normal. Constitutional: ?Mucous membranes pink and moist patient alert and cooperative HEENT: ?Conjunctiva and sclera clear. ?Pupils equal round and reactive to light. ?No lymphadenopathy. ?Normal dentition. Resp: ?Normal respiratory effort and able to speak in complete sentences. ?Clear to auscultation bilaterally. ?No crackles, rales, rhonchi, wheezes heard. Cards: ?Regular rate and rhythm. ?S1 and S2 heard no murmurs. ?Radial pulses intact bilaterally MSK: ?Improved swelling to her PIP knees and DIPs. Still with tenderness to palpation of PIPs and DIPs throughout the right and left hand. No tenderness to palpation of the MCPs. No other joints are involved. Able to have full range of motion of her knees, hips, ankles. Results Reviewed Results Reviewed: Laboratory Tests 12/15/23 15:50 ESR 5 C-Reactive Protein 0.99 H Rheumatoid Factor < 13.0 Cycl Citrul Peptide IgG <16 Assessment & Plan Assessment & Plan (1) Seronegative rheumatoid arthritis: Code(s): M06.00 - Rheumatoid arthritis without rheumatoid factor, unspecified site Category: Medical Plan: #Seronegative RA Patient with still the typical features of inflammatory arthritis involving the PIPs. Responsive to prednisone. However her RF and CCP are negative. She did have response to prednisone. Ideally I would like to try her on Plaquenil but she is currently on quetiapine which she states this to help her sleep. I had a discussion with her and she is willing to discontinue this. We will check an EKG to ensure no QT prolongation and then trial her on Plaquenil for 90 days. Plan I spent 25 minutes reviewing the record and labs, seeing the patient, discussing the treatment plan and documenting in the medical record Orders: Orders ECG 12 lead EKG Today R94.31 - Abnormal electrocardiogram [ECG] [EKG] Medications: Discontinued prednisone Discontinued Reason: Patient Completed Course 10 mg (2 x 5 mg) PO DAILY 14 days 28 tabs 0RF Coding Level of Care Code Est Pt Level 3 (54188) Diagnoses Seronegative rheumatoid arthritis M06.00
== END 2024-01-02 12:54 | disposition home or self-care (01) ==
PROVIDERS: PCP Internal Medicine; Visit Provider Student in an Organized Health Care Education/Training Program
DX: M06.00 Rheumatoid arthritis without rheumatoid factor, unspecified site (principal)
CPT/HCPCS: 99213

== ENCOUNTER → 2024-01-02 12:03 | Outpatient (REF) | payer MEDICARE, MEDICAID, SELFPAY ==
--- NOTE | 2024-01-02 13:11 | ECG_ITS ---
Test Reason : ABN EKG Blood Pressure : / mmHG Vent. Rate : 076 BPM Atrial Rate : 076 BPM P-R Int : 162 ms QRS Dur : 090 ms QT Int : 378 ms P-R-T Axes : 036 -01 023 degrees QTc Int : 425 ms Normal sinus rhythm Inferior infarct , age undetermined Abnormal ECG When compared with ECG of 17-JUN-2020 08:58, Vent. rate has increased BY 25 BPM Referred By: Navya Sy Electronically Signed By:COLLEEN BORGES
== END ==
LOC: HO.CARD 12:03
PROVIDERS: PCP Internal Medicine; Visit Provider Student in an Organized Health Care Education/Training Program
DX: R94.31 Abnormal electrocardiogram [ECG] [EKG] (principal); M06.00 Rheumatoid arthritis without rheumatoid factor, unspecified site
CPT/HCPCS: 93005; 99212

== ENCOUNTER → 2024-01-02 13:11 | Outpatient (BNV) | payer MEDICARE, MEDICAID, SELFPAY | PROVIDERS: PCP Internal Medicine; Visit Provider Internal Medicine | DX: R94.31 Abnormal electrocardiogram [ECG] [EKG] (principal) | CPT/HCPCS: 93010 ==

== ENCOUNTER 2024-01-11 09:48 | Outpatient (REF) | payer MEDICARE, MEDICAID, SELFPAY | END 2024-01-11 09:49 | disposition home or self-care (01) | LOC: HO.HOSX 09:48 | PROVIDERS: Visit Provider Physician Assistant | DX: M25.512 Pain in left shoulder (principal); M19.012 Primary osteoarthritis, left shoulder; Z79.01 Long term (current) use of anticoagulants; Z98.890 Other specified postprocedural states | CPT/HCPCS: 20610; 73030; 99212; J1010; J2003 ==

== ENCOUNTER 2024-01-11 13:45 | Outpatient (AMB) | payer MEDICARE, MEDICAID, SELFPAY ==
--- NOTE | 2024-01-11 14:04 | MHC.OFFVIS ---
Intake Visit Reasons: OV- Left shoulder pain Intake Note: Kristin a 68 year old right hand dominant female who presents today for a follow up of her left shoulder pain. Hx of Left RTC REPAIR 06/17/20. Patient reports she had a couple falls about 2 - 3 months ago. She feels like her pain starting from her shoulder down to her elbow. Hx of injections with no relief. Allergies Penicillins Allergy (Severe, Verified 01/11/24 14:09) rash,hives HPI HPI OV- Left shoulder pain: Details: 68-year-old right hand dominant female who presents in the office today for a follow-up of the left shoulder pain. I last saw the patient in the office on 11/07/23 for evaluation of bilateral hand pain when she was referred to Rheumatology for further investigation of rheumatoid arthritis. She was seen by Dr. Chanel Mejia on 12/12/23 for bilateral hand pain and numbness, and arthritis. She was educated about her conditions and discussed activity modification, and gentle ROM exercises at home. She was instructed to discontinue using any resistance tools or squeeze balls at home. She is currently following up with Rheumatology. She was prescribed prednisone 10 mg PO daily with benefit. She had rebound pain when she ran out of prednisone. They are planning to have her on a trial of Plaquenil for 90 days. While in the office today, the patient had multiple falls about 2-3 months ago. She mentions that she feels her pain develop from her left shoulder that radiates down to her left elbow. She has received injections in the past without any relief. The patient is currently on Eliquis 5 mg PO BID. She has a surgical history of left RTC repair on 06/17/20. [facility]LY [facility] Medical History (Updated 01/11/24 @ 15:19 by Eileen Lorenzo) Seronegative rheumatoid arthritis Wears dentures REBECCA (obstructive sleep apnea) Arthritis Seizures Fatty liver GERD (gastroesophageal reflux disease) Anxiety Depression History of pulmonary embolism Elevated cholesterol Finger dislocation Bursitis of left shoulder Opioid dependence COPD (chronic obstructive pulmonary disease) Primary osteoarthritis of hips, bilateral Multiple sclerosis Surgical History (Updated 01/11/24 @ 15:21 by Eileen Lorenzo) Hx of repair of left rotator cuff Hx of colonoscopy History of toe surgery Family History Father CVD (cardiovascular disease) Mother No problems noted. Social History Household Members Other:: [facility] Are you a primary child care giver to a significant other at home: No Do you presently have visiting nurse or other home services: No Alcohol intake: never Comment: baseline pain Patient Tobacco Use Status: Former Tobacco user Tobacco use type: Cigarette Current occupational status: unemployed Current occupation: Right Handed Review of Systems Const All systems reviewed & are unremarkable except as noted in HPI and below Physical Exam Const General: cooperative, healthy appearing and no acute distress Resp Effort & Inspection: normal respiratory effort and able to speak in complete sentences Cardio Rate: regular rate Peripheral pulses: Peripheral pulses 2+ throughout GI Palpation (GI): Soft to palpation Skin Lesions: no lesions Rashes: no rashes Extrem Other: Left shoulder: Normal to inspection. No ecchymosis, erythema, or edema. forward flexion and abduction lacking about 30 degrees. External rotation to neutral. 4/5 strength with an empty can. Negative drop arm. NVI. Office Procedures Joint Injection/Aspiration Joint Injection/Aspiration Primary Site: left shoulder Prep: site was prepped using aseptic technique, ethochloride spray was applied and injection warnings given Injected: 80 mg of, DepoMedrol, with 8 mL of (2% plain lido ) and in the subcromial space Approach Used: posterolateral Procedure: The patient tolerated the procedure well, but had some pain with the injection and there was some relief with the local anesthesia Coding 48693 - Large joint Procedure code (CPT) selection complete Assessment & Plan Assessment & Plan (1) Osteoarthritis of left shoulder: Code(s): M19.012 - Primary osteoarthritis, left shoulder Category: Medical (2) Status post left rotator cuff repair: Comment: on 06/17/20 Code(s): Z98.890 - Other specified postprocedural states Category: Surgical Plan Ms. Thacker is a 68-year-old right hand dominant female who presents in the office today for a follow-up of the left shoulder pain. I last saw the patient in the office on 11/07/23 for evaluation of bilateral hand pain when she was referred to Rheumatology for further investigation of rheumatoid arthritis. She was seen by Dr. Chanel Mejia on 09/24/24 for bilateral hand pain and numbness, and arthritis. She was educated about her conditions and discussed activity modification, and gentle ROM exercises at home. She was instructed to discontinue using any resistance tools or squeeze balls at home. She is currently following up with Rheumatology. She was prescribed prednisone 10 mg PO daily with benefit. She had rebound pain when she ran out of prednisone. They are planning to have her on a trial of Plaquenil for 90 days. While in the office today, the patient had multiple falls about 2-3 months ago. She mentions that she feels her pain develop from her left shoulder that radiates down to her left elbow. She has received injections in the past without any relief. The patient is currently on Eliquis 5 mg PO BID. She has a surgical history of left RTC repair on 06/17/20. The patient was offered a cortisone injection in the left shoulder with 80 mg of Depo-Medrol. The patient was explained the risks, benefits, and alternatives to receiving this injection. After receiving consent for the injection, the patient had the procedure done while in the office today. The patient tolerated the procedure well with no complication. Follow up will be PRN, or sooner if needed. X-rays of the left shoulder, which were obtained while in the office today and were reviewed by me, Rosalie Ramirez PA-C, revealed: Prior rotator cuff anchors are located within the humeral head position that appears to be the same in comparison to the x-rays from 08/27/2020. There has been progression in the osteoarthritis of glenohumeral joint and AC joint. Orders: Orders XR shoulder LT min 2V Today M25.519 - Pain in unspecified shoulder Patient Instructions: Scribed by Eileen Lorenzo, adjunct faculty for medical terminology, for Rosalie Ramirez PA-C on 01/11/24 at 2:40 pm EST. Coding Level of Care Code Est Pt Level 3 (02460) Diagnoses Osteoarthritis of left shoulder M19.012 Status post left rotator cuff repair Z98.890 CPT Codes Coding - 54143 Large joint: 43506 - Large joint ([id number])
== END 2024-01-11 15:46 | disposition home or self-care (01) ==
PROVIDERS: PCP Internal Medicine; Visit Provider Physician Assistant
DX: M19.012 Primary osteoarthritis, left shoulder (principal)
CPT/HCPCS: 20610; 99213

== ENCOUNTER 2024-02-12 11:12 | Outpatient (AMB) | payer MEDICARE, MEDICAID, SELFPAY ==
[2024-02-12 11:19] VITALS: BP 182/86; PULSE 94; O2SAT 98; BMI 30.2
--- NOTE | 2024-02-12 11:19 | MHC.OFFVIS ---
Vital Signs 02/12/24 11:19 Height 5 ft 2 in Weight 165 lb BMI 30.2 BP 182/86 H Blood Pressure Location Rt brachial Position Sitting Pulse 94 Pulse Source Pulse Oximeter Pulse Oximetry (%) 98 Oxygen Delivery Method Room Air Intake Visit Reasons: follow up xray results Allergies Penicillins Allergy (Severe, Verified 02/12/24 11:20) rash,hives HPI Comments Details: Patient presents today for follow up and to discuss recent right knee and hip xrays status post mechanical fall in early October. We were also planning to do right diagnostic GNB for potential but patient forgot to pause Eliquis and was cancelled for procedure. She presents today with significant right knee pain with walking, climbing stairs or cold weather changes. Patient underwent cortisone injection through Orthopedic office with no improvement. She requests to reschedule diagnostic right knee injection today. Patient is also concerned about elevated BP lately with intermittent headaches, sweating during the day, and increased pain due to polyarthralgia and OA. She sees Rheumatology for bilateral hand pain with significant diffise OA and has been started on Plaquenil. Her RF and CCP markers were negative. We reviewed her recent EKG which showed normal sinus rhythm and inferior infarct , age undetermined. Patient requests Cardiology referral to further manage her HTN. She denies any fever or chills, visual disturbances, shortness of breath, chest pain at rest or activity, chest pressure, cold, cough or exposure to known sick contacts. Patient reports she is scheduled for brain MRI next week to rule out headaches with pulsating sensations in her head and MS follow up. PRIOR: Patient presents today to discuss recent lumbar spine MRI results. Patient reports her back pain has been mild for the past few weeks. She does experience increased back pain with prolonged walking. Her main concern today is chronic right knee pain no responsive to Celebrex, previous cortisone injections and ice/heat therapies. She frequently emphasizes that Celebrex is not working for her. She takes clonazepam 1 mg TID and modafinil 200 mg BID. I have informed patient that most stronger medications, including opioid and non-opioid will cause significant drowsiness and sleepiness. We returned to interventional treatments in greater detail for potential Sprint PNS trial or RFA procedures. Patient reports last seizure activity at age 49. Currently she does not take any anticonvulsants therefore potentially can be candidate for PNS trial. Denies any recent cough, cold, infection, fever, any significant changes in her medical history, medications or recent hospitalizations. PRIOR: Patient presents today for follow up for lower back pain with radiation into her right lower extremity. She was referred back to us by Orthopedic provider for right knee nerve block. Patient declined any significant right knee pain today and reports back pain has been worsening with most of her daily activities, especially with bending and axial lateral rotations and extends into her right buttock and right lower extremity laterally with paresthesias and intermittent weakness. Back pain is rated at 8/10. She reports chronic right hip pain with temporary pain relief with recent steroid injection. She continues to take Tylenol, NSAIDs, muscle relaxant and pregabalin with continued symptoms. Denies any bladder or bowel dysfunction or saddle anesthesia. Past Procedures: 04/22/23: Right hip intra-articular steroid injection-moderate but temporary relief PRIOR: Patient presents today via telehealth encounter for follow up regarding right hip pain and refill for Lyrica. She was last seen in this office in Jul, 2021. We were planning right hip steroid injection which patient decided to hold off back then. Patient reports she was following up with orthopedic providers for her shoulder and hip pain and received right greater trochanter and left shoulder steroid injection with minimal pain relief on 11/12/21. Patient is requesting to proceed with right hip steroid injection under sedation. She is not able to tolerate PT due to significant pain or take NSAIDs due to being on Eliquis. Patient reports no side effects with Lyrica and requests refill for it. Patient also reports bilateral anterior knee pain for 3 weeks with swelling due to a fall at [facility]. Patient was advised to make appointment with orthopedic office for urgent evaluation. She denies any fever, malaise, chills, shortness of breaths, knee locking or buckling, abdominal or groin pain, bladder/bowel dysfunction or saddle anesthesia. PRIOR: Patient is a pleasant 66 years old female who presents today for follow up on right hip and lower back pain. She was previously seen in this office by Dr. Figueroa. Patient reports that Lyrica has been working well and she had hard time to obtain refills on it without follow up appointments. She denies any side effects. Patient reports she has chronic right hip pain related to arthritis and has declined right hip replacement surgery. Patient request right hip cortisone injection. She also endorses axial back pain that spreads to her right side with SIJ components but without radiation to her legs. Pain is worsened with any activity, prolong sitting or walking, and weather changes. 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 Patient states she has MS and has chronic daily aching, fatigued, spasms with numbness and tingling in her feet. She denies any fever, weight changes, abdominal or groin pain, bladder/bowel dysfunction or saddle anesthesia. Patient reports intermittent weakness, ambulates with mildly antalgic gait without assisting devices. PRIOR Dr. Figueroa 12/09/2019: Kristin returns to the office today for follow-up. I had initially seen her as a referral from for right hip and back pain. Per Dr. Lynn, she has a likely labral tear of the hip. Xray showed mild OA of both hips. She does not want surgery, so there was no clinical reason to obtain an MRI. PT was suggested, however she declined. She was thus referred here for possible contributing factors from her lumbar spine as well as any nonsurgical treatments for her hip pain. Upon evaluation she had positive SI joint testing on the right and also symptoms consistent with a radiculopathy on the right leg. She declined any PT, injections, or SI belt. I started her on gabapentin and over the last few months we titrated dose of this up. Kristin reports she does not notice any significant benefit from gabapentin, and would like to try something different if possible. [facility] Medical History (Updated 02/12/24 @ 11:34 by DEMETRIO Walker) Seronegative rheumatoid arthritis Wears dentures REBECCA (obstructive sleep apnea) Arthritis Seizures Fatty liver GERD (gastroesophageal reflux disease) Anxiety Depression History of pulmonary embolism Elevated cholesterol Finger dislocation Bursitis of left shoulder Opioid dependence COPD (chronic obstructive pulmonary disease) Primary osteoarthritis of hips, bilateral Multiple sclerosis Surgical History (Updated 01/11/24 @ 15:21 by Eileen Lorenzo) Hx of repair of left rotator cuff Hx of colonoscopy History of toe surgery Family History Father CVD (cardiovascular disease) Mother No problems noted. Social History Household Members Other:: [facility] Are you a primary progressive care unit registered nurse to a significant other at home: No Do you presently have visiting nurse or other home services: No Alcohol intake: never Comment: baseline pain Patient Tobacco Use Status: Former Tobacco user Tobacco use type: Cigarette Current occupational status: unemployed Current occupation: Right Handed Review of Systems Const All systems reviewed & are unremarkable except as noted in HPI and below Reports as per HPI, Denies body aches, Denies chills, Reports difficulty sleeping, Reports excessive sweating, Reports fatigue, Denies fever(s), Denies frequent falls, Reports headache(s), Denies malaise, Denies night sweats, Denies weight gain and Denies weight loss ENT Reports headache(s) Card Denies chest pain with activity, Denies irregular heart rhythm, Denies palpitations and Denies dyspnea on exertion Resp Denies dyspnea on exertion Neuro Denies frequent falls and Reports headache(s) Endo Reports excessive sweating, Reports fatigue and Denies palpitations Physical Exam Vital Signs: Last Vital Signs Pulse 94 02/12/24 11:19 BP 182/86 H 02/12/24 11:19 Pulse Ox 98 02/12/24 11:19 Oxygen Delivery Method Room Air 02/12/24 11:19 BMI result Body Mass Index 30.2 General: Appears afebrile. Alert and oriented. Mood and affect appropriate. Follows and participates in conversation appropriately. Respiratory effort is unlabored. No cough. Able to transition from sit to stand unassisted. No assisting devices utilized today. Reports using a cane at home. Ambulates with bilaterally normal heel strike and toe off, reports occasional imbalance on right. General: Yes no CVA tenderness Back/Spine/Pelvis Other: Limited lumbar ROM due to significant pain. Antalgic gait with mild limping, favoring left side. Lumbar flexion, axial lateral rotation and forward flexion mild pain. Positive facet loading bilaterally. Mild groin pain with right I/E hip rotations. TTP to right GTB. Back: no CVA tenderness Cervical Spine: cervical ROM normal, cervical muscular tenderness and No Cervical spine tenderness Thoracic/Lumbar Spine: thoracic and lumbar spine normal to inspection, No Thoracic/lumbar spine scar(s), Lasegue's sign negative, straight leg raise negative bilaterally, pain with thoraco-lumbar ROM, paraspinal muscle tenderness, thoraco-lumbar ROM limited, No thoracic spinal tenderness and lumbar spinal tenderness (L3-S1) Sacroiliac joints: bilaterally tender to palpation Extrem General: Yes capillary refill normal, Yes no clubbing, cyanosis or edema and Yes no calf tenderness Right lower extremity: hip/thigh Details: normal to inspection and tenderness Location: of the hip Location: laterally and over the greater trochanter; no swelling, no ecchymosis and no unusual warmth and knee (Limited ROM due to pain. ) Details: normal to inspection, tenderness Location: of the patella, of the popliteal fossa, of the medial joint line and of the lateral joint line and crepitus Location: at the patella; no swelling, no ecchymosis, no deformity and no unusual warmth Results Reviewed Results Reviewed: XR KNEE, RIGHT 10/23/23 CLINICAL INFORMATION: Patient status-post fall. COMPARISON: Radiographs dated 06/06/2022. FINDINGS: Bony alignment and mineralization are normal. The lateral, medial and patellofemoral joint space compartments are well-maintained. There is minimal peripheral osteophyte formation of the upper and lower articular surfaces of the patella. A small enthesophyte arises from the upper pole of the patella at the quadriceps tendon insertion. No fracture or dislocation is seen. There is a moderate joint effusion. No foreign body is seen. IMPRESSION: 1. There is minimal osteoarthritic change of the right patellofemoral compartment. 2. There is a moderate right knee joint effusion. XR HIP, RIGHT 10/23/23 CLINICAL INFORMATION: History of falls. COMPARISON: Radiograph dated 10/23/2023; CT abdomen and pelvis dated 12/10/2018. FINDINGS: There is bony mineralization. The bilateral acetabular joint spaces are symmetric and well-maintained. There is mild subchondral sclerosis and very mild peripheral osteophyte formation of the right acetabular roof. The femoral heads are smooth. There is no fracture or dislocation. The sacroiliac joints are symmetrical and maintained. The pubic synthesis is intact. Pelvic phleboliths and calcified buttock granulomas are again noted. IMPRESSION: There is mild osteoarthritic change of the right hip, and no unusual degenerative change is seen of the left hip. No fracture is seen. Assessment & Plan Assessment & Plan (1) HTN (hypertension): Code(s): I10 - Essential (primary) hypertension Category: Medical (2) Primary osteoarthritis of hips, bilateral: Code(s): M16.0 - Bilateral primary osteoarthritis of hip Category: Medical (3) Chronic right hip pain: Code(s): M25.551 - Pain in right hip; G89.29 - Other chronic pain Category: Medical (4) Patellofemoral arthritis of right knee: Code(s): M17.11 - Unilateral primary osteoarthritis, right knee Category: Medical (5) Right knee pain: Code(s): M25.561 - Pain in right knee Category: Medical (6) Lumbar spondylosis: Code(s): M47.816 - Spondylosis without myelopathy or radiculopathy, lumbar region Category: Medical Plan Proceed with Right Diagnostic Genicular Nerve Block with local and fluoroscopy for potential RFA procedure as previously planned. Expectations, risks and benefits were reviewed. She is on Eliquis and has been avoiding NSAIDs, including Celebrex. Patient is aware she will be contacted to schedule this procedure. Patient declined Sprint PNS trial and reports no relief with previous cortisone injections. We will obtain permission to hold Eliquis for 3 days from prescribing physician. Right knee and hip xrays results were discussed with patient today and are noted above. Cardiology Referral for further management of HTN. Patient states she has BP machine at home on this encouraged to monitor and record BP readings and notify her PCP provider if it is consistently >140/90. She attributes elevated BP to increased right knee pain and declined ER/Urgent clinic/PCP follow up for this. All questions and concerns have been answered and patient agreed with the plan. Follow up after injections and sooner as needed. Orders: Referrals Cardiology Referral I10 - Essential (primary) hypertension Coding Level of Care Code Est Pt Level 4 (71348) Complex EM visit Add On G2211 Diagnoses HTN (hypertension) I10 Primary osteoarthritis of hips, bilateral M16.0 Chronic right hip pain M25.551; G89.29 Patellofemoral arthritis of right knee M17.11 Right knee pain M25.561 Lumbar spondylosis M47.816
== END 2024-02-12 11:44 | disposition home or self-care (01) ==
PROVIDERS: PCP Internal Medicine; Visit Provider Nurse Practitioner Family
DX: I10 Essential (primary) hypertension (principal); M16.0 Bilateral primary osteoarthritis of hip; M25.551 Pain in right hip; G89.29 Other chronic pain; M17.11 Unilateral primary osteoarthritis, right knee; M25.561 Pain in right knee; M47.816 Spondylosis without myelopathy or radiculopathy, lumbar region
CPT/HCPCS: 99214; G2211

== ENCOUNTER → 2024-02-12 11:12 | Outpatient (BNVA) | payer MEDICARE, MEDICAID, SELFPAY | PROVIDERS: PCP Internal Medicine; Visit Provider Nurse Practitioner Family | DX: M16.0 Bilateral primary osteoarthritis of hip (principal); M25.561 Pain in right knee; M17.11 Unilateral primary osteoarthritis, right knee; M47.816 Spondylosis without myelopathy or radiculopathy, lumbar region; G89.29 Other chronic pain; I10 Essential (primary) hypertension | CPT/HCPCS: 99212 ==

== ENCOUNTER 2024-02-26 12:50 | Outpatient (REF) | payer MEDICARE, MEDICAID, SELFPAY | END 2024-02-26 12:51 | disposition home or self-care (01) | LOC: HO.MRI 12:50 | PROVIDERS: PCP Internal Medicine; Visit Provider Physician Assistant | DX: G35 Multiple sclerosis (principal) | CPT/HCPCS: 70551 ==

== ENCOUNTER 2024-03-07 14:43 | Outpatient (REF) | payer MEDICARE, MEDICAID, SELFPAY | END 2024-03-07 14:44 | disposition home or self-care (01) | LOC: HO.MAMMO 14:43 | PROVIDERS: PCP Internal Medicine; Visit Provider Internal Medicine | DX: Z12.31 Encounter for screening mammogram for malignant neoplasm of breast (principal) | CPT/HCPCS: 77063; 77067 ==

== ENCOUNTER → 2024-03-07 15:00 | Outpatient (BNV) | payer MEDICARE, MEDICAID, SELFPAY | PROVIDERS: PCP Internal Medicine; Visit Provider Internal Medicine | DX: Z12.31 Encounter for screening mammogram for malignant neoplasm of breast (principal) | CPT/HCPCS: 77063; 77067 ==

== ENCOUNTER 2024-04-03 12:00 | Outpatient (AMB) | payer MEDICARE, MEDICAID, SELFPAY ==
--- NOTE | 2024-04-03 12:45 | A.OFFVIS_ITS ---
Vital Signs 04/03/24 12:48 Height 5 ft 2 in Weight 160 lb 7.944 oz BMI 29.4 BP 115/64 Blood Pressure Location Lt brachial Position Sitting Pulse 68 Pulse Source Pulse Oximeter Pulse Oximetry (%) 98 Oxygen Delivery Method Room Air Intake Visit Reasons: follow up Intake Note: Patient for follow up. Allergies Penicillins Allergy (Severe, Verified 04/03/24 12:48) rash,hives Medication List - Last Reconciled 04/03/24 by Navya Sy MD acetaminophen 1,000 mg PO BID PRN albuterol sulfate mg inhalation PRN apixaban (Eliquis) 5 mg PO BID baclofen 10 mg PO TID citalopram 20 mg PO DAILY clonazepam 1 mg PO TID PRN clonidine HCl 1 tab PO TID dicyclomine 20 mg PO QID dimethyl fumarate (Tecfidera) 240 mg PO BID ergocalciferol (vitamin D2) 1,250 mcg PO 2XW hydroxychloroquine 400 mg (2 x 200 mg) PO DAILY magnesium oxide 1 tab PO DAILY melatonin 3 mg PO BEDTIME PRN modafinil 1 tab PO BID multivitamin 1 tab PO DAILY pantoprazole (Protonix) 20 mg PO DAILY tizanidine 1 tab PO TID vibegron (Gemtesa) 75 mg PO DAILY HPI Comments Details: Patient is a 68-year-old female with relapsing and remitting multiple sclerosis who presents for evaluation of bilateral hand pain Interval History: Patient last seen 12/2023 by me. At that time patient reported good response to prednisone and so was started on plaquenil. Today, Feels slightly better on the plaquenil but still notes aching joints and swelling to PIPs (difficult to remove rings) Rheumatologic History: Establish care 12/15/2023 for evaluation of polyarthralgias OA versus inflammatory arthritis RF and CCP negative, responds to prednisone. Plaquenil 12/2023 Current Rheumatology Medication(s): HCQ 200mg bid [facility] Medical History (Updated 04/03/24 @ 13:03 by Navya Sy MD) On methotrexate therapy Long-term use of hydroxychloroquine Seronegative rheumatoid arthritis Wears dentures REBECCA (obstructive sleep apnea) Arthritis Seizures Fatty liver GERD (gastroesophageal reflux disease) Anxiety Depression History of pulmonary embolism Elevated cholesterol Finger dislocation Bursitis of left shoulder Opioid dependence COPD (chronic obstructive pulmonary disease) Primary osteoarthritis of hips, bilateral Multiple sclerosis Surgical History (Updated 01/11/24 @ 15:21 by Eileen Lorenzo) Hx of repair of left rotator cuff Hx of colonoscopy History of toe surgery Family History Father CVD (cardiovascular disease) Mother No problems noted. Social History Household Members Other:: [facility] Are you a primary health care attorney to a significant other at home: No Do you presently have visiting nurse or other home services: No Alcohol intake: never Comment: baseline pain Patient Tobacco Use Status: Former Tobacco user Tobacco use type: Cigarette Current occupational status: unemployed Current occupation: Right Handed Review of Systems Const Details: Review of Systems Constitutional: Denies fever, chills, weight loss ENT: Denies vision changes, eye pain or eye redness, dental caries, dry mouth GI: Denies nausea, vomiting, diarrhea, abdominal pain, change in BM Pulm: Denies SOB, GUY, hemoptysis, wheezing Cards: Denies chest pain, palpitations Skin: Denies Raynaud's, rash, nail changes, photosensitivity, 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 Well appearing and in no apparent painful distress Chronic right sided facial hemiparesis HEENT Conjunctiva and sclera clear. ?Pupils equal round and reactive to light. ?No lymphadenopathy. ? CHEST/RESPIRATORY SYSTEM Normal respiratory effort and able to speak in complete sentences. ?Clear to auscultation bilaterally. ?No crackles, rales, rhonchi, wheezes heard. CARDIAC SYSTEM Regular rate and rhythm. ?S1 and S2 heard no murmurs. 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 Swelling to her PIPs throughout. mild TTP. ring unable to come off the finger Wrists: ?Full range of motion at the wrists without pain. ?No tenderness to palpation or synovitis noted to the wrists. Elbows: Full range of motion without pain. No tenderness, weakness, swelling, increased warmth or erythema. Shoulders: Full range of motion without pain. No tenderness, weakness, swelling, increased warmth or erythema. Hips: Full range of motion without pain. Hip bursa: No tenderness to palpation Knees: ?Full range of motion. ?No tenderness, swelling, increased warmth or erythema.?No effusion or crepitations Ankles: Full range of motion. ?No tenderness, swelling, increased warmth or erythema.? Feet: ?Negative squeeze test. ?No tenderness to palpation or swelling of the MTPs. Tender points:?No tenderness to palpation of the bilateral trapezius, supraspinatus, greater trochanters, anterior costochondral junctions, bilateral gluteal areas, bilateral suboccipital muscle insertions SKIN Skin intact without rashes. Results Reviewed Results Reviewed: Laboratory Tests 12/15/23 15:50 ESR 5 C-Reactive Protein 0.99 H Rheumatoid Factor < 13.0 Cycl Citrul Peptide IgG <16 Assessment & Plan Assessment & Plan (1) Seronegative rheumatoid arthritis: Code(s): M06.00 - Rheumatoid arthritis without rheumatoid factor, unspecified site Category: Medical Plan: #Seronegative RA Patient with still the typical features of inflammatory arthritis involving the PIPs. Responsive to prednisone. However her RF and CCP are negative. Has some efficacy on Plaquenil but still with swelling. We will add methotrexate Plan - CBC, CMP, ESR, CRP, Hepatitis panel, Tb - Plaquenil 200mg bid - Methotrexate 15mg weekly - Folic Acid 1 mg daily - RTC 3 months - Labs before next visit: CBC, CMP, ESR, CRP (2) Long-term use of hydroxychloroquine: Code(s): Z79.899 - Other oil heaterman (current) drug therapy Category: Medical Plan: #Long-term Use of Hydroxychloroquine Discussed with patient the risks and benefits of hydroxychloroquine in managing the rheumatic condition Benefits include: - Reduced pain, reduce mortality, maintenance of remission and reduction of flares Risks include: - GI upset, skin hyperpigmentation, retinal toxicity (especially after more than 5 years of use), myopathy Advised yearly ophthalmology visits (3) On methotrexate therapy: Code(s): Z79.631 - oil heaterman (current) use of antimetabolite agent Category: Medical Plan: #Long-term Current Use of Methotrexate Discussed with patient the benefits and risks of methotrexate for managing their rheumatic condition Benefits include reduced pain, reduced mortality, maintenance of remission and reduction of flares Risks include oral ulcers, photosensitivity, hepatotoxicity, hematologic toxicity, pneumonitis, flu-like symptoms (especially day after administration), nodulosis, lymphomas ? Limit alcohol and avoid Bactrim ? Monitoring: ?CBC, BMP, LFTs every 3-4 months and hepatitis serologies as needed Plan I spent 30 minutes reviewing the record and labs, seeing the patient, discussing the treatment plan and documenting in the medical record Orders: Orders Complete Blood Count Auto Diff 4 Months M06.00 - Rheumatoid arthritis without rheumatoid factor, unspecified site C Reactive Protein Today M06.00 - Rheumatoid arthritis without rheumatoid factor, unspecified site Hepatitis A,B,C Profile Today M06.00 - Rheumatoid arthritis without rheumatoid factor, unspecified site T Spot TB Today M06.00 - Rheumatoid arthritis without rheumatoid factor, unspecified site Vitamin D 25-OH (D2 and D3) Today M06.00 - Rheumatoid arthritis without rheumatoid factor, unspecified site Comprehensive Met. Panel 4 Months M06.00 - Rheumatoid arthritis without rheu matoid factor, unspecified site C Reactive Protein 4 Months M06.00 - Rheumatoid arthritis without rheumatoid factor, unspecified site Erythrocyte Sedimentation Rate 4 Months M06.00 - Rheumatoid arthritis without rheumatoid factor, unspecified site Complete Blood Count Auto Diff Today M06.00 - Rheumatoid arthritis without rheumatoid factor, unspecified site Comprehensive Met. Panel Today M06.00 - Rheumatoid arthritis without rheumatoid factor, unspecified site Erythrocyte Sedimentation Rate Today M06.00 - Rheumatoid arthritis without rheumatoid factor, unspecified site Medications: New methotrexate sodium 15 mg (6 x 2.5 mg) PO QWEEK 90 days 78 tabs 1RF M06.00 - Rheumatoid arthritis without rheumatoid factor, unspecified site folic acid 1 mg PO DAILY 90 tabs 1RF M06.00 - Rheumatoid arthritis without rheumatoid factor, unspecified site, Z79.631 - correction (current) use of antimetabolite agent, Z79.899 - Other chcf (current) drug therapy Changed From hydroxychloroquine 400 mg (2 x 200 mg) PO DAILY 180 tabs 1RF M06.00 - Rheumatoid arthritis without rheumatoid factor, unspecified site To hydroxychloroquine 400 mg (2 x 200 mg) PO DAILY 90 days 180 tabs 1RF M06.00 - Rheumatoid arthritis without rheumatoid factor, unspecified site Coding Level of Care Code Est Pt Level 4 (35480) Complex EM visit Add On G2211 Diagnoses Seronegative rheumatoid arthritis M06.00 Long-term use of hydroxychloroquine Z79.899 On methotrexate therapy Z79.631
[2024-04-03 12:48] VITALS: BP 115/64; PULSE 68; O2SAT 98; BMI 29.4
== END 2024-04-03 13:09 | disposition home or self-care (01) ==
PROVIDERS: PCP Internal Medicine; Visit Provider Student in an Organized Health Care Education/Training Program
DX: M06.00 Rheumatoid arthritis without rheumatoid factor, unspecified site (principal); Z79.899 Other long term (current) drug therapy; Z79.631 Long term (current) use of antimetabolite agent
CPT/HCPCS: 99214; G2211

== ENCOUNTER → 2024-04-03 12:00 | Outpatient (BNVA) | payer MEDICARE, MEDICAID, SELFPAY | PROVIDERS: PCP Internal Medicine; Visit Provider Student in an Organized Health Care Education/Training Program | DX: M06.00 Rheumatoid arthritis without rheumatoid factor, unspecified site (principal); Z79.631 Long term (current) use of antimetabolite agent; Z79.899 Other long term (current) drug therapy | CPT/HCPCS: 99212 ==

== ENCOUNTER 2024-05-21 06:41 | Outpatient (REF) | payer MEDICARE, MEDICAID, SELFPAY ==
--- OUTSIDE RECORDS SUMMARY | 2024-05-21 06:44 | XMS_ITS | Encounter Summary ---
Author Organization [facility] Address [address] [place] [phone] Care Team Providers Care Durable Medical Equipment Technician Name Role Phone Meliton Jones MD Primary Care Provider [phone] Encounter Details Date Type Department Care Team (Late st Contact Info) Description 01/16/2024 11:20 AM EDT Hospital Encounter TH HISTORIC ENCOUNTERS EASTERN CONVERSION ONLY Tatiana Rome PA [address] [place] [address] [place] [address] Social History Tobacco Use Types Packs/Day Years [...] TRAM Oates - 01/16/2024 11:[address] [facility] HPI: Patient [...] to communicate, the services of a qualified sign language interpreter will be provided during the visit. Patients Location: Patient's home ([place]) Total Time: 30 minutes Disease Summary Date [...] Disp: , Rfl: ??? Cholecalciferol 1.25 MG (80585 UT) capsule, , Disp: , Rfl: ??? [...] 30 minutes. The majority of the actual [id number] visit was spent counseling the patient with respect to the current neurological picture. Tatiana Rome PA-C documented in this encounter Plan of Treatment Upcoming Encounters Date Type Department Care Team (Late st Contact Info) Description 07/17/2024 3:00 PM EDT Office Visit [facility] [address] [address] Kasandra Rueda MD [address] [phone] documented as of this encounter Visit Diagnoses Not on filedocumented in this encounter Care Teams Durable Medical Equipment Technician Relationship Specialty Start Date End Date Meliton Jones MD [address] [place] [address] PCP - General 04/26/23 documented as of this encounter
--- OUTSIDE RECORDS SUMMARY | 2024-05-21 06:44 | XMS_ITS | Encounter Summary ---
Author Organization [facility] Address [address] [place] [address] Care Team Providers Care Dado Operator Name Role Phone Meliton Jones MD Primary Care Provider [phone] Reason for Visit * Reason Onset Date Comments MEDICATION PRIOR AUTH 04/26/2024 Encounter Details Date Type Department Care Team (Late st Contact Info) Description 04/26/2024 Telephone [facility] [place] [facility] 175 [facility] [address] [place] [address] Tatiana Rome, TRAM [address] [facility] [place] [address] MEDICATION PRIOR AUTH Social History Tobacco Use Types Packs/Day Years [...] on file documented as of this encounter Progress Notes * Kezia Teague MA - 04/26/2024 4:13 PM EST PA submitted. * Mila Ogden - 04/26/2024 1:39 PM EST Patient called saying she was told by her Insurance company that she needs a Prior Auth done for her TECFIDERA. Patient uses [facility] documented in this encounter Plan of Treatment Upcoming Encounters Date Type Department Care Team (Late st Contact Info) Description 07/17/2024 3:00 PM EDT Office Visit [facility] 175 [facility] [address] [place] [phone] Kasandra Rueda MD 175 [facility] [address] [place] [phone] documented as of this encounter Visit Diagnoses Not on filedocumented in this encounter Care Teams Dado Operator Relationship Specialty Start Date End Date Meliton Jones MD [address] [place] [address] PCP - General 04/26/23 documented as of this encounter
--- OUTSIDE RECORDS SUMMARY | 2024-05-21 06:44 | XMS_ITS | Encounter Summary ---
Author Organization [facility] Address [address] [place] [address] Care Team Providers Care Patient Assistant Name Role Phone Meliton Jones MD Primary Care Provider [phone] Encounter Details Date Type Department Care Team (Late st Contact Info) Description 01/26/2024 Lab Requisition [facility] [address] [facility] [place] [phone] Alice Hemphill, PA [address] [place] [address] Other abnormal findings in urine Social History Tobacco Use Types Packs/Day Years [...] on file documented as of this encounter Plan of Treatment Upcoming Encounters Date Type Department Care Team (Late st Contact Info) Description 07/17/2024 3:00 PM EDT Office Visit [facility] 175 [facility] [address] [place] [address] Kasandra Rueda MD 175 [facility] [address] [place] [address] documented as of this encounter Procedures Procedure Name Priority Date/Time Associated Diagnosis Comments BACTERIAL IDENTIFICATION AND SUSCEPTIBILITY, AEROBIC Routine 01/25/2024 1:59 PM EST Other abnormal findings in urine documented in this encounter Results * (ABNORMAL) Bacterial identification and susceptibility, aerobic (01/25/2024 1:59 PM EST) Culture, Bacterial ID and Sensitivity Escherichia coli(A) MARY JO 01/27/2024 11:03 AM EST [facility] Comment: This is an edited result. Previous organism was Gram negative bacilli on 01/26/2024 at 1503 EST. Other Urine specimen from urethra / Unknown 01/25/2024 1:59 PM EST 01/26/2024 1:59 PM EST Narrative Organism Antibiotic Method Susceptibility Escherichia coli Amoxicillin/Clavulanate MARY JO 8 ug/ml: Susceptible Escherichia coli Ampicillin/Sulbactam MARY JO 8 ug/ml: Susceptible Escherichia coli Piperacillin/Tazobactam MARY JO <=4 ug/ml: Susceptible Escherichia coli Cefazolin (Urine) MARY JO 8 ug/ml: Susceptible Escherichia coli Cefoxitin MARY JO <=4 ug/ml: Susceptible Escherichia coli Ceftazidime MARY JO <=0.5 ug/ml: Susceptible Escherichia coli Ceftriaxone MARY JO <=0.25 ug/ml: Susceptible Escherichia coli Cefepime MARY JO <=0.12 ug/ml: Susceptible Escherichia coli Meropenem MARY JO <=0.25 ug/ml: Susceptible Escherichia coli Amikacin MARY JO 2 ug/ml: Susceptible Escherichia coli Gentamicin MARY JO <=1 ug/ml: Susceptible Escherichia coli Ciprofloxacin MARY JO >=4 ug/ml: Resistant Escherichia coli Levofloxacin MARY JO >=8 ug/ml: Resistant Escherichia coli Nitrofurantoin MARY JO <=16 ug/ml: Susceptible Escherichia coli Trimethoprim/Sulfamethoxazole MARY JO <=20 ug/ml: Susceptible us Alice [facility] MICROBIOLOGY - GENERAL ORDER RAYMUNDO Final Result [facility] [address] [place] [address], documented in this encounter Visit Diagnoses Diagnosis Other abnormal findings in urine documented in this encounter Care Teams Patient Assistant Relationship Specialty Start Date End Date Meliton Jones MD [address] [place] [address] PCP - General 04/26/23 documented as of this encounter
--- OUTSIDE RECORDS SUMMARY | 2024-05-21 06:44 | XMS_ITS | Encounter Summary ---
Author Organization [facility], Address [address] [place] [address] Phone Care Team Providers Care Locomotive Switch Operator Name Role Phone Meliton Jones MD Primary Care Provider [phone] Encounter Details Date Type Department Care Team (Late st Contact Info) Description 12/07/2022 Documentation Only [facility] Stacy [address] [place] [phone] Scottie Hill MD [address] [place] [address] [place] [address] [place] [phone] Social History Tobacco Use Types Packs/Day Years Used Date Smoking Tobacco: Former Cigarettes Comments Unknown Sex and Gender Information Value Date Recorded Sex Assigned at Not on file Legal Sex Female 10:07 AM EDT Gender Identity Not on file Sexual Orientation Not on file documented as of this encounter Plan of Treatment Not on file documented as of this encounter Visit Diagnoses Not on filedocumented in this encounter Care Teams Locomotive Switch Operator Relationship Specialty Start Date End Date Meliton Jones MD [address] [place] [address], [address] [place] [address] PCP - General Internal Medicine 12/05/22 documented as of this encounter
--- OUTSIDE RECORDS SUMMARY | 2024-05-21 06:44 | XMS_ITS | Encounter Summary ---
Author Organization [facility], Address [address] [place] [address] Phone Care Team Providers Care Support Teacher Name Role Phone Meliton Jones MD Primary Care Provider [phone] Encounter Details Date Type Department Care Team (Late st Contact Info) Description 12/07/2022 Documentation Only [facility] [place] [address] [place] [phone] Scottie Hill MD [address] [place] [address] [address] [place] [phone] Social History Tobacco Use Types Packs/Day Years [...] on filedocumented in this encounter Care Teams Support Teacher Relationship Specialty Start Date End Date Meliton Jones MD [address] [place] [address], [address] [place] [address] PCP - General Internal Medicine 12/05/22 documented as of this encounter
--- OUTSIDE RECORDS SUMMARY | 2024-05-21 06:45 | XMS_ITS ---
Author Name [facility] Organization Unknown History of Medication Use Medication Directions Dispensed Refills Start Date End Date Stat us citalopram (CeleXA) 20 MG tablet Take 1 tablet (20 mg total) by mouth. 06/02/2021 active pantoprazole (PROTONIX) 20 MG tablet Take 1 tablet (20 mg total) by mouth. 11/28/2022 active Problems Problem Status Onset Date Problem Type Date of Resoluti on Source Multiple sclerosis (HCC) active EncounterDiagnosisAct CTTHNE MG Vitamin D deficiency active EncounterDiagnosisAct CTTHNE MG
--- OUTSIDE RECORDS SUMMARY | 2024-05-21 06:45 | XMS_ITS | Encounter Summary ---
Author Organization [facility], Address [address] [place] [address] Phone Care Team Providers Care Transport Assistant Name Role Phone Meliton Jones MD Primary Care Provider [phone] Encounter Details Date Type Department Care Team (Late st Contact Info) Description 12/29/2022 Documentation Only [facility], [facility] [place] [address] [place] [phone] Scottie Hill MD [address] [place] [address] [place] [address] [place] [phone] Social History Tobacco Use Types Packs/Day Years [...] on filedocumented in this encounter Care Teams Transport Assistant Relationship Specialty Start Date End Date Meliton Jones MD [address] [place] [address], [address] [place] [address] PCP - General Internal Medicine 12/05/22 documented as of this encounter
--- OUTSIDE RECORDS SUMMARY | 2024-05-21 06:45 | XMS_ITS | Clinical Summary ---
Author Organization [facility], Address [address] [place] [phone] Phone Care Team Providers Care Records Management Director Name Role Phone Meliton Jones MD Primary Care Provider [phone] Allergies Active Allergy Reactions Criticality Noted Date Comments Penicillins 12/07/2022 Medications amantadine (SYMMETREL) 100 MG capsule 11/25/2022 Active Eliquis 5 MG tablet 11/25/2022 Active atorvastatin (LIPITOR) 20 MG tablet 10/07/2022 Active Cholecalciferol (Vitamin D3) 1.25 MG (98884 UT) capsule 11/25/2022 Active citalopram (CeleXA) 20 MG tablet 12/05/2022 Active clonazePAM (KlonoPIN) 1 MG tablet 12/05/2022 Active cloNIDine (CATAPRES) 0.1 MG tablet 12/05/2022 Active dicyclomine (BENTYL) 20 MG tablet 11/29/2022 Active donepezil (ARICEPT) 5 MG tablet 10/14/2022 Active DULoxetine (CYMBALTA) [address] capsule 11/25/2022 Active Trelegy Ellipta 100-62.5-25 MCG/ACT aerosol powder 11/28/2022 Active loratadine (CLARITIN) 10 MG tablet 11/01/2022 Active magnesium oxide 400 (240 Mg) MG tablet 11/25/2022 Active melatonin 3 MG tablet 11/01/2022 Active Myrbetriq 25 MG tablet sustained-releas e 24 hour 10/07/2022 Active modafinil (PROVIGIL) 200 MG tablet 11/10/2022 Active oxybutynin XL (DITROPAN-XL) 10 MG 24 hr tablet Take 10 mg by mouth 02/15/2021 Active pantoprazole (PROTONIX) 20 MG EC tablet 11/28/2022 Active pregabalin (LYRICA) 100 MG capsule 11/25/2022 Active QUEtiapine (SEROquel) 100 MG tablet 12/05/2022 Active tiZANidine (ZANAFLEX) 2 MG tablet 12/01/2022 Active Active Problems Problem Noted Date Diagnosed Date Hyponatremia 12/07/2022 Hypertension 12/07/2022 Hyperlipidemia 12/07/2022 Immunizations Name Administration Dates Next Due Influenza Split High Dose Pr eservative Free IM 11/11/2019 Influenza, Unspecified 12/29/2020,2019,12/04/2017,12/01 Pfizer SARS-COV-2 12/31/2020 Pneumococcal Polysaccharide 05/13/2015, 3 Shingrix 01/08/2021,10/31/2020 Social History Tobacco Use Types Packs/Day Years Used Date Smoking Tobacco: Former Cigarettes Tobacco Cessation:Counseling Given: Not Answered Comments Unknown Sex and Gender Information Value Date Recorded Sex Assigned at Not on file Legal Sex Female 10:07 AM EDT Gender Identity Not on file Sexual Orientation Not on file Plan of Treatment Health Maintenance Due Date Last Done Comments Breast Cancer Screening 1955 Colorectal Cancer Screening: Annual FOBT 06/28/2003 Colorectal Cancer Screening: Colonoscopy 06/28/2003 Colorectal Cancer Screening: Sigmoidoscopy 06/28/2003 Pneumococcal Vaccine: 65+ Years (3 of 3 - PCV) 05/13/2016 05/13/2015, 11/21/2012 Influenza Vaccine (#1) 2023 , 11/11/2019, 11/11/2019, Additional history exists Hepatitis B Vaccine Aged Out No longe r eligible based on patient's age to complete this topic Insurance MEDICARE MEDICAID [place] Care Teams Records Management Director Relationship Specialty Start Date End Date Meliton Jones MD [address] [place] [address], [address] [place] [address] PCP - General Internal Medicine 12/05/22
--- OUTSIDE RECORDS SUMMARY | 2024-05-21 06:45 | XMS_ITS | Encounter Summary ---
Author Organization [facility], Address [address] [place] [address] Phone Care Team Providers Care Engineering Aid Name Role Phone Meliton Jones MD Primary Care Provider [phone] Encounter Details Date Type Department Care Team (Late st Contact Info) Description 12/07/2022 Office Communication [facility], [facility] Huan Aguirre [address] [place] [phone] Scottie Hill MD [address] [place] [address] [place] [address] [place] [phone] Social History Tobacco Use Types Packs/Day Years [...] on filedocumented in this encounter Care Teams Engineering Aid Relationship Specialty Start Date End Date Meliton Jones MD [address] [place] [address], [address] [place] [address] PCP - General Internal Medicine 12/05/22 documented as of this encounter
--- OUTSIDE RECORDS SUMMARY | 2024-05-21 06:45 | XMS_ITS | Encounter Summary ---
Author Organization [facility], Address [address] [place] [address] Phone Care Team Providers Care Compliance Lead Name Role Phone Meliton Jones MD Primary Care Provider [phone] Encounter Details Date Type Department Care Team (Late st Contact Info) Description 12/07/2022 Documentation Only [facility] [place] [address] [place] [phone] Scottie Hill MD [address] [place] [address] [place] [address] [place] [phone] Social History Tobacco Use Types Packs/Day Years [...] on filedocumented in this encounter Care Teams Compliance Lead Relationship Specialty Start Date End Date Meliton Jones MD [address] [place] [address], [address] [place] [address] PCP - General Internal Medicine 12/05/22 documented as of this encounter
--- OUTSIDE RECORDS SUMMARY | 2024-05-21 06:45 | XMS_ITS | Clinical Summary ---
Author Organization [facility] Address [address] [place] [address] Care Team Providers Care Nut Grader Name Role Phone Meliton Jones MD Primary Care Provider [phone] Allergies Active Allergy Reactions Criticality Noted Date Comments Penicillins 07/15/2017 Seasonal 09/15/2023 Other reaction(s): runny nose, itch seasonal allergy-pollen Medications Medication Sig Dispensed Refills Start Date End Date Status Magnesium 100 MG CAPS Take 400 mg by mouth. 0 06/02/2021 Active amantadine (SYMMETREL) 100 MG capsule 0 05/20/2021 Active atorvastatin (LIPITOR) tablet 20 mg 0 05/12/2023 Active Cholecalciferol 1.25 MG (76166 UT) capsule 0 11/25/2022 Active clonazePAM (KlonoPIN) 1 MG tablet Take 1 tablet (1 mg total) by mouth. 0 04/17/2021 Active cloNIDine (CATAPRES) tablet 0.1 mg Take 1 tablet (0.1 mg total) by mouth. 0 04/17/2021 Active dicyclomine (BENTYL) 10 MG capsule Take 2 capsules (20 mg total) by mouth. 0 06/02/2021 Active baclofen (LIORESAL) 20 MG tablet 0 05/12/2023 Active citalopram (CeleXA) 20 MG tablet Take 1 tablet (20 mg total) by mouth. 0 06/02/2021 Active pantoprazole (PROTONIX) 20 MG tablet Take 1 tablet (20 mg total) by mouth. 0 11/28/2022 Active pregabalin (LYRICA) capsule 100 mg Take 1 capsule (100 mg total) by mouth. 0 04/29/2021 Active QUEtiapine (SEROquel) 100 MG tablet Take 1 tablet (100 mg total) by mouth. 0 02/15/2021 Active tiZANidine (ZANAFLEX) 2 MG tablet 0 02/15/2021 Active Dimethyl Fumarate 120 MG CPDR Take 240 mg by mouth 2 (two) times a day. 60 capsule 5 07/27/2023 Active LORazepam (ATIVAN) 0.5 MG tablet 1 p.o. 1 hour prior to MRI, may repeat 1 at time of MRI if needed 5 tablet 0 01/16/2024 Active Social History Tobacco Use Types Packs/Day Years Used Date Smoking Tobacco: Former Cigarettes Smokeless Tobacco: Never Tobacco Cessation:Counseling Given: Not Answered Alcohol Use Standard Drinks/Week Comments Never 0 (1 standard drink = 0.6 oz pur e alcohol) Sex and Gender Information Value Date Recorded Sex Assigned at Female 04/26/2023 2:36 PM EST Gender Identity Female 04/26/2023 2:36 PM EST Sexual Orientation Not on file Job Start Date Occupation Industry Not on file Not on file Not on file Last Filed Vital Signs Vital Sign Reading Time Taken Comments Blood Pressure 117/72 09/15/2023 10:07 AM EDT Pulse 79 09/15/2023 10:07 AM EDT Temperature 35.9 ??C (96.7 ??F) 09/15/2023 10:07 AM E DT Respiratory Rate - - Oxygen Saturation 93% 09/15/2023 10:07 AM EDT Inhaled Oxygen Concentration - - Weight 80.5 kg (177 lb 6.4 oz) 09/15/2023 10:07 AM EDT Height 157.5 cm (5' 2 ) 09/15/2023 10:07 AM EDT Body Mass Index 32.45 09/15/2023 10:07 AM EDT Plan of Treatment Health Maintenance Due Date Last Done Comments Hepatitis C Screening 1955 Depression Screening 1966 BMI Counseling 1972 Preventative Health Evaluation 1972 DTap / Tdap / Td (1 - Tdap) 1973 Colon Cancer Screening (Colonoscopy) 06/28/1999 Breast Cancer Screening (Mammogram) 2004 Fall Risk Assessment 06/28/2019 Osteoporosis Screening (DEXA Scan) 06/28/2019 Pneumococcal Vaccine (2 of 2 - PCV) 06/28/2019 05/13/2015, 11/21/2012 COVID-19 Vaccine ( season) 2023 12/31/2020 Influenza Vaccine (#1) 2023 , 11/11/2019, 11/11/2019, Additional history exists RSV Adult > 60+ Yrs or (1 - 1-dose 75+ series) 2029 Shingrix-Zoster Vaccine Completed 01/08/2021, 10/31 Hepatitis B Vaccines Aged Out No long er eligible based on patient's age to complete this topic RSV Ped < 20 months Aged Out No longe r eligible based on patient's age to complete this topic Care Teams Nut Grader Relationship Specialty Start Date End Date Meliton Jones MD [address] [place] [address] [address] [place] [address] PCP - General Internal Medicine 04/26/23
--- OUTSIDE RECORDS SUMMARY | 2024-05-21 06:45 | XMS_ITS | Clinical Summary ---
Author Organization 175 [facility] Address [address] [place] [address] Phone Care Team Providers Care Application Software Engineer Name Role Phone Meliton Jones MD Primary Care Provider [phone] Allergies Active Allergy Reactions Criticality Noted Date Comments Penicillins Rash 07/15/2017 Medications atorvastatin (LIPITOR) 10 mg tablet Take 1 tablet (10 mg total) by mouth at bedtime. Active cholecalciferol (VITAMIN D-3) 10 mcg (400 unit) tablet Take 1 tablet (400 Units total) by mouth 1 (one) time each day. Active citalopram (CeleXA) 10 mg tablet Take 1 tablet (10 mg total) by mouth 1 (one) time each day. Active clonazePAM (KlonoPIN) 0.5 mg tablet Take 1 tablet (0.5 mg total) by mouth 2 (two) times a day. Max Daily Amount: 1 mg Active cloNIDine (CATAPRES) 0.1 mg tablet Take 1 tablet (0.1 mg total) by mouth 2 (two) times a day. Active dicyclomine (BENTYL) 10 mg capsule Take 1 capsule (10 mg total) by mouth 4 (four) times a day (before meals and nightly). Active DULoxetine (CYMBALTA) [address] capsule Take 1 capsule (20 mg total) by mouth 1 (one) time each day. Do not crush or chew. Active magnesium, amino acid chelate, 133 mg tablet Take 1 tablet (133 mg total) by mouth 2 (two) times a day. Active pantoprazole (PROTONIX) 20 mg EC tablet Take 1 tablet (20 mg total) by mouth 1 (one) time each day before breakfast. Do not crush, chew, or split. Active pregabalin (LYRICA) 25 mg capsule Take 1 capsule (25 mg total) by mouth 2 (two) times a day. Max Daily Amount: 50 mg Active QUEtiapine (SEROquel) 25 mg tablet Take 1 tablet (25 mg total) by mouth at bedtime. Active dimethyl fumarate (Tecfidera) 240 mg capsule,delayed release(DR/EC) Take 240 mg by mouth 2 (two) times a day. 60 capsule 5 4 Active modafiniL (PROVIGIL) 200 mg tabletIndicatio ns:Other fatigue,Multipl e sclerosis (CMS/HCC) Take 1 tablet (200 mg total) by mouth 1 (one) time each day. Max Daily Amount: 200 mg 30 each 4 Active baclofen (LIORESAL) 10 mg tablet Take 1 tablet (10 mg total) by mouth 3 (three) times a day. 90 each 5 4 09/15/19 25 Active tiZANidine (ZANAFLEX) 2 mg capsule Take 1 capsule (2 mg total) by mouth at bedtime. 30 capsule 3 5 Active amantadine (SYMMETREL) 100 mg capsule Take 1 capsule (100 mg total) by mouth 2 (two) times a day. 05/09/19 25 Discontinu ed(Therapy completed) mirabegron (MYRBETRIQ ORAL) Take by mouth. 05/09/19 25 Discontinu ed(Therapy completed) tiZANidine (ZANAFLEX) 2 mg capsule Take 1 capsule (2 mg total) by mouth 3 (three) times a day. 05/09/19 25 Discontinu ed(Reorder ) Tecfidera 240 mg capsule,delayed release(DR/EC) 4 05/09/19 25 Discontinu ed(Duplica te order) Encounters Date Type Department Care Team Description 05/09/2024 10:30 AM EST Office Visit [facility] [address] [address] Kasandra Rueda MD Multiple sclerosis (CMS/HCC) (Primary Dx); Vitamin D deficiency; Fall, sequela; Spasm 04/26/2024 Telephone [facility] [address] [facility] [address] [place] [address] Tatiana Rome PA MEDICATION PRIOR AUTH from Last 3 Months Surgical History Surgery Date Site/Laterality Comments OTHER SURGICAL HISTORY Left Posterior PROCEDURE:left shoulder rotator OTHER SURGICAL HISTORY Anterior PROCEDURE:left toe Medical History Medical History Date Comments MS (multiple sclerosis) (CMS/HCC) DX:MS (multiple sclerosis) (HCC) Bronchitis Social History Tobacco Use Types Packs/Day Years Used Date Smoking Tobacco: Former Smokeless Tobacco: Never Alcohol Use Standard Drinks/Week Comments Never 0 (1 standard drink = 0.6 oz pur e alcohol) Comments Unknown Sex and Gender Information Value Date Recorded Sex Assigned at Not on file Legal Sex Female 10:10 PM EST Gender Identity Not on file Sexual Orientation Not on file Obstetrics History Last Filed Vital Signs Vital Sign Reading Time Taken Comments Blood Pressure 124/73 05/09/2024 10:52 AM EST Pulse 78 05/09/2024 10:52 AM EST Temperature 36.1 ??C (97 ??F) 05/09/2024 10:52 AM EST Respiratory Rate - - Oxygen Saturation 98% 05/09/2024 10:52 AM EST Inhaled Oxygen Concentration - - Weight 68.9 kg (152 lb) 05/09/2024 10:52 AM EST Height 157.5 cm (5' 2 ) 05/09/2024 10:52 AM EST Body Mass Index 27.8 05/09/2024 10:52 AM EST Plan of Treatment Upcoming Encounters Date Type Department Care Team (Late st Contact Info) Description 07/17/2024 3:00 PM EDT Office Visit [facility] [address] [address] Kasandra Rueda MD [address] [id number] Health Maintenance Due Date Last Done Comments Breast Cancer Screening 1955 DTaP,Tdap,and Td Vaccines (1 - Tdap) 1973 RSV Immunization Patients 60+ Years Old (1 - Risk 60-74 years 1-dose series) 2014 Pneumococcal Vaccine: 50+ Years (2 of 2 - PCV) 05/13/2016 05/13/2015, 11/21/2012 Colorectal Cancer Screening: Colonoscopy 02/19/2022 Depression Screening 02/19/2022 Falls Risk Assessment 02/19/2022 Hepatitis C Screening 02/19/2022 Medicare Annual Wellness Visit 02/19/2022 Osteoporosis Screening (Bone Density Screening) 02/19/2022 Social Influencers of Health Screening 02/19/2022 COVID-19 Vaccine (2 - season) 2023 12/31/2020 Influenza Vaccine (#1) 2023 , 11/11/2019, 12/04/2017, Additional history exists Hypertension/CHF/CAD Annual BMP Blood Test 05/09/2025 05/09/2024, 06/01/2021, 10/11/2019 Cholesterol Screening (Lipid Panel) 06/01/2026 06/01/2021 Zoster Vaccines Completed 01/08/2021, 10/31/2020 HIB Vaccines Aged Out No longer eligi ble based on patient's age to complete this topic HPV Vaccines Aged Out No longer eligi ble based on patient's age to complete this topic Hepatitis A Vaccines Aged Out No long er eligible based on patient's age to complete this topic Hepatitis B Vaccines Aged Out No long er eligible based on patient's age to complete this topic IPV Vaccines Aged Out No longer eligi ble based on patient's age to complete this topic MMR Vaccines Aged Out No longer eligi ble based on patient's age to complete this topic Meningococcal ACWY Vaccine Aged Out N o longer eligible based on patient's age to complete this topic Meningococcal B Vacine Aged Out No lo nger eligible based on patient's age to complete this topic RSV Immunization Patients Under 20 months Aged Out No longer eligible based on patient's age to complete this topic Varicella Vaccines Aged Out No longer eligible based on patient's age to complete this topic Procedures Procedure Name Priority Date/Time Associated Diagnosis Comments CBC WITH AUTO DIFFERENTIAL Routine 05/09/2024 12:06 PM EST Multiple sclerosis (CMS/HCC) HEPATIC FUNCTION PANEL Routine 12:06 PM EST Multiple sclerosis (CMS/HCC) CBC AND DIFFERENTIAL Routine 05/09/2024 12:06 PM EST Multiple sclerosis (CMS/HCC) CREATININE, SERUM Routine 05/09/2024 12: 06 PM EST Multiple sclerosis (CMS/HCC) VITAMIN D 25 HYDROXY Routine 05/09/2024 12:06 PM EST Multiple sclerosis (CMS/HCC) Vitamin D deficiency BUN Routine 05/09/2024 12:06 PM EST Multiple sclerosis (CMS/HCC) VITAMIN B12 Routine 05/09/2024 12:06 PM EST Multiple sclerosis (CMS/HCC) SEDIMENTATION RATE Routine 05/09/2024 12 :06 PM EST Multiple sclerosis (CMS/HCC) from Last 3 Months Results * (ABNORMAL) CBC auto differential (05/09/2024 12:06 PM EST) WBC 9.8 4.8 - 10.8 K/mcL LAB HEMETOLOGY METHOD 05/09/2024 2:33 PM [facility] RBC 4.60 3.80 - 4.80 M/mcL LAB HEMETOLOGY METHOD 05/09/2024 2:33 PM [facility] Hemoglobin 13.3 11.5 - 16.0 g/dL LAB HEMETOLOGY METHOD 05/09/2024 2:33 PM [facility] Hematocrit 41.6 35.0 - 47.0 % LAB HEMETOLOGY METHOD 05/09/2024 2:33 PM [facility] MCV 90.0 79.0 - 98.0 FL LAB HEMETOLOGY METHOD 05/09/2024 2:33 PM [facility] MCH 28.8 27.0 - 32.0 pcg LAB HEMETOLOGY METHOD 05/09/2024 2:33 PM [facility] MCHC 32.0 32.0 - 37.0 g/dL LAB HEMETOLOGY METHOD 05/09/2024 2:33 PM [facility] RDW 13.6 11.0 - 15.0 % LAB HEMETOLOGY METHOD 05/09/2024 2:33 PM [facility] Platelets 359 130 - 400 K/mcL LAB HEMETOLOGY METHOD 05/09/2024 2:33 PM [facility] MPV 8.9 7.0 - 11.0 FL LAB HEMETOLOGY METHOD 05/09/2024 2:33 PM [facility] NRBC 0.0 <1.0 % LAB HEMETOLOGY METHOD 05/09/2024 2:33 PM [facility] NRBC Absolute 0.00 <0.10 K/mcL LAB HEMETOLOGY METHOD 05/09/2024 2:33 PM [facility] Neutrophils Relative 59.5 % LAB HEMETOLOGY METHOD 05/09/2024 2:33 PM [facility] Lymphocytes Relative 29.2 % LAB HEMETOLOGY METHOD 05/09/2024 2:33 PM [facility] Monocytes Relative 7.7 % LAB HEMETOLOGY METHOD 05/09/2024 2:33 PM [facility] Eosinophils Relative 2.5 % LAB HEMETOLOGY METHOD 05/09/2024 2:33 PM [facility] Basophils Relative 0.3 % LAB HEMETOLOGY METHOD 05/09/2024 2:33 PM [facility] Immature Granulocytes Relative 0.8 % LAB HEMETOLOGY METHOD 05/09/2024 2:33 PM [facility] Neutrophils Absolute 5.83 1.50 - 7.00 K/mcL LAB HEMETOLOGY METHOD 05/09/2024 2:33 PM [facility] Lymphocytes Absolute 2.86 1.00 - 5.00 K/mcL LAB HEMETOLOGY METHOD 05/09/2024 2:33 PM EST [facility] Monocytes Absolute 0.75 0.20 - 1.00 K/[facility] LAB HEMETOLOGY METHOD 05/09/2024 2:33 PM EST [facility] Eosinophils Absolute 0.24 0.00 - 0.50 K/[facility] LAB HEMETOLOGY METHOD 05/09/2024 2:33 PM EST [facility] Basophils Absolute 0.03 0.00 - 0.20 K/[facility] LAB HEMETOLOGY METHOD 05/09/2024 2:33 PM EST [facility] Immature Granulocytes Absolute 0.08(H) 0.00 - 0.03 K/[facility] LAB HEMETOLOGY METHOD 05/09/2024 2:33 PM EST [facility] Blood Venous blood specimen / Unknown Venipuncture / Unknown 05/09/2024 12:06 PM EST 05/09/2024 12:06 PM EST Kasandra Rueda MD LAB BLOOD ORDERABLES Fin al Result [facility] [address] [place] [address], * Creatinine (05/09/2024 12:06 PM EST) Creatinine 0.69 0.50 - 1.10 mg/dL LAB CHEMISTRY METHOD 05/09/2024 2:55 PM EST [facility] eGFR 94 >=60 mL/min/1. 73m2 LAB CHEMISTRY METHOD 05/09/2024 2:55 PM EST [facility] Comment:Calculation based on the??Chronic Kidney Disease Epidemiology Collaboration (CKD-EPI) equation refit??without adjustment for race. Blood Venous blood specimen / Unknown Venipuncture / Unknown 05/09/2024 12:06 PM EST 05/09/2024 12:06 PM EST us Kasandra Rueda MD LAB BLOOD ORDERABLES Fin al Result Performing Organization Address City/[facility]/ZIP Co de Phone Number [facility] [address] [place] [address], [place] [phone] * Vitamin D 25 hydroxy (05/09/2024 12:06 PM EST) Pathologist [facility] Vit D, 25-Hydroxy 50.9 30.0 - 80.0 ng/mL LAB CHEMISTRY METHOD 05/09/2024 3:01 PM EST [facility] Blood Venous blood specimen / Unknown Venipuncture / Unknown 05/09/2024 12:06 PM EST 05/09/2024 12:06 PM EST us Kasandra Rueda MD LAB BLOOD ORDERABLES Fin al Result Performing Organization Address [facility] Co de Phone Number [facility] [address] [place] [address], [place] [phone] * Sedimentation rate (05/09/2024 12:06 PM EST) [facility] Sed Rate 5 0 - 30 mm/hr LAB HEMETOLOGY METHOD 05/09/2024 2:41 PM EST [facility] Blood Venous blood specimen / Unknown Venipuncture / Unknown 05/09/2024 12:06 PM EST 05/09/2024 12:06 PM EST Kasandra Rueda MD LAB BLOOD ORDERABLES Fin al Result Performing Organization Address City/[facility]/ZIP Co de Phone Number [facility] [address] [place] [address], [place] [phone] * BUN (05/09/2024 12:06 PM EST) [facility] BUN 8 5 - 25 mg/dL LAB CHEMISTRY METHOD 05/09/2024 2:55 PM EST [facility] Blood Venous blood specimen / Unknown Venipuncture / Unknown 05/09/2024 12:06 PM EST 05/09/2024 12:06 PM EST us Kasandra Rueda MD LAB BLOOD ORDERABLES Fin al Result Performing Organization Address City/[facility]/ZIP Co de Phone Number [facility] [address] [place] [address], [place] [phone] * (ABNORMAL) Vitamin B12 (05/09/2024 12:06 PM EST) [facility] Vitamin B-12 955(H) 250 - 900 pcg/mL LAB CHEMISTRY METHOD 05/09/2024 3:37 PM [facility] Blood Venous blood specimen / Unknown Venipuncture / Unknown 05/09/2024 12:06 PM EST 05/09/2024 12:06 PM EST us Kasandra Rueda MD LAB BLOOD ORDERABLES Fin al Result Performing Organization Address City/[facility]/ZIP Co de Phone Number [facility] [address] [place] [address], [place] [phone] * Hepatic function panel (05/09/2024 12:06 PM EST) [facility] Total Protein 7.0 6.0 - 8.0 g/dL LAB CHEMISTRY METHOD 05/09/2024 3:37 PM EST [facility] Albumin 4.0 3.2 - 5.0 g/dL LAB CHEMISTRY METHOD 05/09/2024 3:37 PM EST [facility] Total Bilirubin 0.4 0.0 - 1.4 mg/dL LAB CHEMISTRY METHOD 05/09/2024 3:37 PM [facility] Bilirubin, Direct 0.1 0.0 - 0.3 mg/dL LAB CHEMISTRY METHOD 05/09/2024 3:37 PM EST [facility] Bilirubin, Indirect 0.3 0.0 - 1.1 mg/dL LAB CHEMISTRY METHOD 05/09/2024 3:37 PM EST [facility] ALT (SGPT) 28 10 - 60 unit/L LAB CHEMISTRY METHOD 05/09/2024 3:37 PM EST [facility] AST (SGOT) 19 10 - 42 unit/L LAB CHEMISTRY METHOD 05/09/2024 3:37 PM EST [facility] Alkaline Phosphatase 114 42 - 121 unit/L LAB CHEMISTRY METHOD 05/09/2024 3:37 PM EST [facility] Blood Venous blood specimen / Unknown Venipuncture / Unknown 05/09/2024 12:06 PM EST 05/09/2024 12:06 PM EST Kasandra Rueda MD LAB BLOOD ORDERABLES Fin al Result [facility] [address] [place] [address], [place] [phone] from Last 3 Months Insurance MEDICAID - [place] MEDICARE Care Teams Application Software Engineer Relationship Specialty Start Date End Date Meliton Jones MD [address] [place] [id number] PCP - General 04/26/23
--- OUTSIDE RECORDS SUMMARY | 2024-05-21 06:45 | XMS_ITS | Encounter Summary ---
Author Organization [facility] Address [address] [place] [address] Care Team Providers Care Composition Professor Name Role Phone Meliton Jones MD Primary Care Provider [phone] Reason for Referral * Consultation (Routine) - Authorized Specialty Diagnoses / Procedures Referred By Krystina varghese Referred To Contact Occupational Therapy Diagnoses Multiple sclerosis (CMS/HCC) Kasandra Rueda MD [address] [address] Phone: tel: fax: Referral ID Status Reason Start Date Expiration Date Visits Requested Visits Authorized [id number] Authorized Specialty Services Required 05/09/2024 05/09/2025 1 1 * Consultation (Routine) - Authorized Specialty Diagnoses / Procedures Referred By Krystina varghese Referred To Contact Physical Therapy Diagnoses Multiple sclerosis (CMS/HCC) Kasandra Rueda MD [address] [address] Phone: tel: fax: Referral ID Status Reason Start Date Expiration Date Visits Requested Visits Authorized [id number] Authorized Specialty Services Required 05/09/2024 05/09/2025 1 1 Encounter Details Date Type Department Care Team (Late st Contact Info) Description 05/09/2024 10:30 AM EST Office Visit [facility] for [facility] [address] [address] Kasandra Rueda MD [address] [place] [address] Multiple sclerosis (CMS/HCC) (Primary Dx); Vitamin D deficiency; Fall, sequela; Spasm Social History Tobacco Use Types Packs/Day Years [...] Mass Index 27.8 05/09/2024 10:52 AM EST documented in this encounter Ordered Prescriptions Prescription Sig Dispense Quantity Refills Last Filled Start Date End Date tiZANidine (ZANAFLEX) 2 mg capsule Take 1 capsule (2 mg total) by mouth at bedtime. 30 capsule 3 05/09/2024 documented in this encounter Progress Notes * Kasandra Rueda MD - 05/09/2024 10:30 AM EST 1- stop amantadine 2- decrease Tizanidine to once a night * Kasandra Rueda MD - 05/09/2024 10:[address] [facility] MULTIPLE SCLEROSIS HPI: Patient is a 68 y.o. year old female who presents for telehealth follow-up visit regarding ongoing management of multiple sclerosis. Disease Summary Date of onset/Initial symptom presentation: [...] SSA /SSB negative , Interval history Patient is here for follow up No new neurological symptom concerning for demyelination since last visit Patient still on Tecfidera tolerating it well , Last Since last visit she did have another fall recently she slipped on the ice with her Rt foot drop , she had another fall in yard , she has not been to physical therapy will place a referral She has been feeling hot /warm without a fever She is scheduled to have a She has been having UTI , She is seeing Dr Colvin , she was self catheterizing and was getting UTI , she was evaluated with a different urologist in the practice due to frequent UTIs she was instructedto stop catheterizing, she was gemetsa and stopped it by herself and is urinating better now She had her MRI brain from [facility] will obtain results for review In March 14 she had severe pain on Lt side/flank pain , she went to [facility] was found to have She is still experiencing fatigue she is still taking Modafinil 200mg twice She is on baclofen 10mg x 3 times a day , Tizandine 2 mg 3 times a day discussed with the patient all this medication is needed mainly she is experiencing worsening fatigue will start we can work on weaning b them off as tolerated Neuropathic pain Lyrica 25mg two times a day Last visit history reviewed: Patient presents for telehealth follow-up visit. She [...] got. She denies light or noise sensitivity. Current Outpatient Medications: Current Outpatient Medications on File Prior to Visit Medication Sig Dispense Refill atorvastatin (LIPITOR) 10 mg tablet Take 1 tablet (10 mg total) by mouth at bedtime. baclofen (LIORESAL) 10 mg tablet Take 1 tablet (10 mg total) by mouth 3 (three) times a day. 90 each 5 cholecalciferol (VITAMIN D-3) 10 mcg (400 unit) tablet Take 1 tablet (400 Units total) by mouth 1 (one) time each day. citalopram (CeleXA) 10 mg tablet Take 1 tablet (10 mg total) by mouth 1 (one) time each day. clonazePAM (KlonoPIN) 0.5 mg tablet Take 1 tablet (0.5 mg total) by mouth 2 (two) times a day. Max Daily Amount: 1 mg cloNIDine (CATAPRES) 0.1 mg tablet Take 1 tablet (0.1 mg total) by mouth 2 (two) times a day. dicyclomine (BENTYL) 10 mg capsule Take 1 capsule (10 mg total) by mouth 4 (four) times a day (before meals and nightly). dimethyl fumarate (Tecfidera) 240 mg capsule,delayed release(DR/EC) Take 240 mg by mouth 2 (two) times a day. 60 capsule 5 DULoxetine (CYMBALTA) [address] capsule Take 1 capsule (20 mg total) by mouth 1 (one) time each day.Do not crush or chew. magnesium, amino acid chelate, 133 mg tablet Take 1 tablet (133 mg total) by mouth 2 (two) times a day. modafiniL (PROVIGIL) 200 mg tablet Take 1 tablet (200 mg total) by mouth 1 (one) time each day. MaxDaily Amount: 200 mg 30 each 0 pantoprazole (PROTONIX) 20 mg EC tablet Take 1 tablet (20 mg total) by mouth 1 (one) time each day before breakfast. Do not crush, chew, or split. pregabalin (LYRICA) 25 mg capsule Take 1 capsule (25 mg total) by mouth 2 (two) times a day. Max Daily Amount: 50 mg QUEtiapine (SEROquel) 25 mg tablet Take 1 tablet (25 mg total) by mouth at bedtime. [DISCONTINUED] amantadine (SYMMETREL) 100 mg capsule Take 1 capsule (100 mg total) by mouth 2 (two)times a day. [DISCONTINUED] mirabegron (MYRBETRIQ ORAL) Take by mouth. [DISCONTINUED] Tecfidera 240 mg capsule,delayed release(DR/EC) (Patient not taking: Reported on 05/09/2024) [DISCONTINUED] tiZANidine (ZANAFLEX) 2 mg capsule Take 1 capsule (2 mg total) by mouth 3 (three) times a day. No current facility-administered medications on file prior to visit. Physical Exam: Gen: Well appearing and in no acute distress Vitals: 05/09/24 1052 BP: 124/73 Pulse: 78 Temp: 36.1 ??C (97 ??F) SpO2: 98% MS: AOx3 CN: perrla, V1-3 intact to LT, face symmetric, bilateral SCM/trapezius 5/5, tongue/uvula/palate midline Motor: 5/5 in all extremities Sensation: Intact to light touch, temperature, and vibration in all extremities Reflexes: 2+ in bilateral biceps and patellae, toes downgoing bilaterally Cerebellar: FNF intact bilaterally, FFM intact bilaterally, ROSHAN intact bilaterally, tandem gait normal, romberg negative 25 ft walk 7.2/7.5 A/P: Multiple Sclerosis: Kristin Thacker is a 68 y.o. year old female with presumed relapsing remitting MS currently on Tecfidera. She is due for MRI of brain to assess for radiologic stability and this was ordered last visit we will obtain we will obtain results We had a prolonged discussions about fall precautions refer patient to PT [facility] Trejo. Disease modifying therapy plan: -Continue Tecfidera -Check CBC, LFTs every 6 months -MRI brain without contrast done at [place] will obtain the records MRI cervical spine if not done in [place] will order to ensure stability B symptomatic treatment plan: Fatigue: States that she is taking modafinil 200 mg twice a day will discontinue amantadine incomplete emptying of bladder/frequent UTIs: Continue follow-up with Dr. Colvin- having stopped self-catheterization stop Gemtesa feels better right-sided eye pain/headache: Will obtain ESR with labs for Spasms: Continue baclofen 10mg x3 times , will decrease tizanidine to 2 mg nightly neuropathic pain: Lyrica 25 mg twice a day It abnormality/fall: Referral to PT OT Follow-up in 3 to 4 months or [...] 30 minutes. The majority of the actual [id number] visit was spent counseling the patient with respect to the current neurological picture. documented in this encounter Plan of Treatment Upcoming Encounters Date Type Department Care Team (Late st Contact Info) Description 07/17/2024 3:00 PM EDT Office Visit [facility] 175 [facility] [address] [place] [phone] Kasandra Rueda MD 175 [facility] 150 [place] [phone] Scheduled Referrals Name Type Priority Associated Diagnoses Order Schedule Ambulatory referral to Physical Therapy and Athletic Training Outpatient Referral Routine Multiple sclerosis ([facility]/HCC) 1 Occurrences starting 05/09/2024 until 05/09/2025 Ambulatory referral to Occupational Therapy Outpatient Referral Routine Multiple sclerosis ([facility]/HCC) 1 Occurrences starting 05/09/2024 until 05/09/2025 documented as of this encounter Results * Hepatic function panel (05/09/2024 12:06 PM EST) Total Protein 7.0 6.0 - 8.0 g/dL LAB CHEMISTRY METHOD 05/09/2024 3:37 PM [facility] Albumin 4.0 3.2 - 5.0 g/dL LAB CHEMISTRY METHOD 05/09/2024 3:37 PM [facility] Total Bilirubin 0.4 0.0 - 1.4 mg/dL LAB CHEMISTRY METHOD 05/09/2024 3:37 PM [facility] Bilirubin, Direct 0.1 0.0 - 0.3 mg/dL LAB CHEMISTRY METHOD 05/09/2024 3:37 PM [facility] Bilirubin, Indirect 0.3 0.0 - 1.1 mg/dL LAB CHEMISTRY METHOD 05/09/2024 3:37 PM [facility] ALT (SGPT) 28 10 - 60 unit/L LAB CHEMISTRY METHOD 05/09/2024 3:37 PM [facility] AST (SGOT) 19 10 - 42 unit/L LAB CHEMISTRY METHOD 05/09/2024 3:37 PM [facility] Alkaline Phosphatase 114 42 - 121 unit/L LAB CHEMISTRY METHOD 05/09/2024 3:37 PM [facility] Blood Venous blood specimen / Unknown Venipuncture / Unknown 05/09/2024 12:06 PM EST 05/09/2024 12:06 PM EST Kasandra Rueda MD LAB BLOOD ORDERABLES Fin al Result [facility] [address] [place] [address], * Creatinine (05/09/2024 12:06 PM EST) Creatinine 0.69 0.50 - 1.10 mg/dL LAB CHEMISTRY METHOD 05/09/2024 2:55 PM [facility] eGFR 94 >=60 mL/min/1. 73m2 LAB CHEMISTRY METHOD 05/09/2024 2:55 PM EST [facility] Comment:Calculation based on the??Chronic Kidney Disease Epidemiology Collaboration (CKD-EPI) equation refit??without adjustment for race. Blood Venous blood specimen / Unknown Venipuncture / Unknown 05/09/2024 12:06 PM EST 05/09/2024 12:06 PM EST us Kasandra Rueda MD LAB BLOOD ORDERABLES Fin al Result Performing Organization Address [facility] Co de Phone Number [facility] [address] [place] [address], [place] [phone] * Vitamin D 25 hydroxy (05/09/2024 12:06 PM EST) Vit D, 25-Hydroxy 50.9 30.0 - 80.0 ng/mL LAB CHEMISTRY METHOD 05/09/2024 3:01 PM EST [facility] Blood Venous blood specimen / Unknown Venipuncture / Unknown 05/09/2024 12:06 PM EST 05/09/2024 12:06 PM EST us Kasandra Rueda MD LAB BLOOD ORDERABLES Fin al Result Performing Organization Address [facility] de Phone Number [facility] [address] [place] [address], [place] [phone] * BUN (05/09/2024 12:06 PM EST) BUN 8 5 - 25 mg/dL LAB CHEMISTRY METHOD 05/09/2024 2:55 PM EST [facility] Blood Venous blood specimen / Unknown Venipuncture / Unknown 05/09/2024 12:06 PM EST 05/09/2024 12:06 PM EST us Kasandra Rueda MD LAB BLOOD ORDERABLES Fin al Result [facility] [address] [place] [address], [place] [phone] * (ABNORMAL) Vitamin B12 (05/09/2024 12:06 PM EST) [facility] Vitamin B-12 955(H) 250 - 900 pcg/mL LAB CHEMISTRY METHOD 05/09/2024 3:37 PM EST [facility] Blood Venous blood specimen / Unknown Venipuncture / Unknown 05/09/2024 12:06 PM EST 05/09/2024 12:06 PM EST us Kasandra Rueda MD LAB BLOOD ORDERABLES Fin al Result Performing Organization Address [facility] Co de Phone Number [facility] [address] [place] [address], [place] [phone] * Sedimentation rate (05/09/2024 12:06 PM EST) [facility] Sed Rate 5 0 - 30 mm/hr LAB HEMETOLOGY METHOD 05/09/2024 2:41 PM EST [facility] Blood Venous blood specimen / Unknown Venipuncture / Unknown 05/09/2024 12:06 PM EST 05/09/2024 12:06 PM EST us Kasandra Rueda MD LAB BLOOD ORDERABLES Fin al Result Performing Organization Address City/[facility]/ZIP Co de Phone Number [facility] [address] [place] [address], [place] [phone] documented in this encounter Visit Diagnoses Diagnosis Multiple sclerosis (CMS/HCC)- Primary Multiple sclerosis Vitamin D deficiency Fall, sequela Spasm Abnormal involuntary movements documented in this encounter Discontinued Medications Medication Sig Discontinue Reason Start Date End Da te Tecfidera 240 mg capsule,delayed release(DR/EC) Duplicate order 01/23/2024 05/09/2024 mirabegron (MYRBETRIQ ORAL) Take by mouth. Therapy completed 05/09/2024 amantadine (SYMMETREL) 100 mg capsule Take 1 capsule (100 mg total) by mouth 2 (two) times a day. Therapy completed 05/09/2024 tiZANidine (ZANAFLEX) 2 mg capsule Take 1 capsule (2 mg total) by mouth 3 (three) times a day. Reorder 05/09/2024 documented as of this encounter Care Teams Composition Professor Relationship Specialty Start Date End Date Meliton Jones MD [address] [place] [address] PCP - General 04/26/23 documented as of this encounter
--- OUTSIDE RECORDS SUMMARY | 2024-05-21 06:45 | XMS_ITS | Encounter Summary ---
Author Organization [facility], Address [address] [place] [address] Phone Care Team Providers Care Casing Operator Name Role Phone Meliton Jones MD Primary Care Provider [phone] Encounter Details Date Type Department Care Team (Late st Contact Info) Description 12/29/2022 Documentation Only [facility], [facility] [place] [address] [place] [phone] Scottie Hill MD [address] [place] [address] [place] [address] [place] [phone] Social History Tobacco Use Types Packs/Day Years [...] on filedocumented in this encounter Care Teams Casing Operator Relationship Specialty Start Date End Date Meliton Jones MD [address] [place] [address], [address] [place] [address] PCP - General Internal Medicine 12/05/22 documented as of this encounter
== END 2024-05-21 06:42 | disposition home or self-care (01) ==
LOC: CF 06:41
PROVIDERS: Visit Provider Anesthesiology
DX: Z13.89 Encounter for screening for other disorder (principal)

== ENCOUNTER 2024-05-27 14:42 | Outpatient (AMB) | payer MEDICARE, MEDICAID, SELFPAY ==
[2024-05-27 14:44] VITALS: BP 116/58; PULSE 86; BMI 27.9
--- NOTE | 2024-05-27 14:44 | MHC.OFFVIS ---
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/Hx of minor heart attack,CAD risk Allergies Penicillins Allergy (Severe, Verified 04/03/24 12:48) rash,hives Medication List - Last Reconciled 05/27/24 by Humberto Vaughan MD acetaminophen 1,000 mg PO BID PRN albuterol sulfate mg inhalation PRN apixaban (Eliquis) 5 mg PO BID baclofen 10 mg PO TID citalopram 20 mg PO DAILY clonazepam 1 mg PO TID PRN clonidine HCl 1 tab PO TID dicyclomine 20 mg PO QID dimethyl fumarate (Tecfidera) 240 mg PO BID ergocalciferol (vitamin D2) 1,250 mcg PO 2XW folic acid 1 mg PO DAILY hydroxychloroquine 400 mg (2 x 200 mg) PO DAILY 90 days magnesium oxide 1 tab PO DAILY melatonin 3 mg PO BEDTIME PRN methotrexate sodium 15 mg (6 x 2.5 mg) PO QWEEK 90 days modafinil 1 tab PO BID multivitamin 1 tab PO DAILY pantoprazole (Protonix) 20 mg PO DAILY tizanidine 1 tab PO TID HPI Comments Details: Kristin is here for cardiac consultation. Apparently, she was told that she had heart attack at some point based on EKG. Hence she is concerned. Patient herself does not recall any history of coronary disease or myocardial infarction or cardiomyopathy or in fact any other cardiac issues. Within limits of her activity, she does not get any clear-cut anginal-type symptoms. She has a history of multiple sclerosis as well as rheumatoid arthritis. Many comorbidities. [facility] Medical History (Updated 05/27/24 @ 15:27 by Humberto Vaughan MD) On methotrexate therapy Long-term use of hydroxychloroquine Seronegative rheumatoid arthritis Wears dentures REBECCA (obstructive sleep apnea) Arthritis Seizures Fatty liver GERD (gastroesophageal reflux disease) Anxiety Depression History of pulmonary embolism Elevated cholesterol Finger dislocation Bursitis of left shoulder Opioid dependence COPD (chronic obstructive pulmonary disease) Primary osteoarthritis of hips, bilateral Multiple sclerosis Surgical History Hx of repair of left rotator cuff Hx of colonoscopy History of toe surgery Family History Father CVD (cardiovascular disease) Mother No problems noted. Social History Household Members Other:: [facility] Are you a primary career information specialist to a significant other at home: No Do you presently have visiting nurse or other home services: No Alcohol intake: never Comment: baseline pain Patient Tobacco Use Status: Former Tobacco user Tobacco use type: Cigarette Current occupational status: unemployed Current occupation: Right Handed Review of Systems Const Denies weakness ENT Denies dizziness Card Denies chest pain, Denies chest pain with activity, Denies syncope, Denies rapid heart rate, Denies pedal edema, Denies edema, Denies leg edema, Denies lightheadedness, Denies palpitations, Denies dyspnea, Denies dyspnea on exertion and Denies orthopnea Resp Denies cough, Denies dyspnea and Denies dyspnea on exertion GI Denies hematochezia and Denies change in stool character Musc Denies abnormal gait, Denies muscle cramps, Denies muscle weakness, Denies numbness, Denies radiating pain into limb and Denies tingling Neuro Denies abnormal gait, Denies dizziness, Denies syncope, Denies numbness, Denies tingling and Denies weakness Endo Denies palpitations Physical Exam Vital Signs: Last Vital Signs Pulse 86 05/27/24 14:44 BP 116/58 L 05/27/24 14:44 BMI result Body Mass Index 27.9 Const General: comfortable and no acute distress Orientation/consciousness: patient oriented x3 HEENT Other: Unremarkable Head: Yes normal to inspection Neck Neck: Yes normal visual inspection Chest Chest palpation & inspection: normal inspection of the chest Resp Auscultation: clear to auscultation bilaterally Cardio Palpation: normal PMI Heart sounds: S1 normal heart sound present, S2 normal heart sound present, no gallops, no murmurs and no rubs GI Palpation (GI): Soft to palpation Back/Spine/Pelvis Other: unremarkable Skin General skin exam: no rashes or lesions noted Neuro General: patient oriented x3 Extrem General: Yes normal to inspection Psych Mental Status: mental status grossly normal Office Procedures EKG Details: EKG with underlying sinus rhythm at 86/Min; cannot exclude old inferior infarct or anterior infarct; [place] [address]-[id number], Complete Assessment & Plan Assessment & Plan (1) Abnormal EKG: Code(s): R94.31 - Abnormal electrocardiogram [ECG] [EKG] Category: Medical Plan On review of previous EKGs, the inferior wall findings go back many years. Could be a nonspecific finding and less likely true prior infarct. With regard to anterior wall, seen in today's EKG but not in the prior. Could be related to lead position. Again less likely a prior infarct. Clinically, she has got no overt symptoms. We will get an echocardiogram and stress perfusion imaging study for further evaluation. If able to walk, exercise preferable. If not, Lexiscan. Orders: Orders CA echo transthoracic complete Today R94.31 - Abnormal electrocardiogram [ECG] [EKG] NM cardiolite stress test Today R07.2 - Precordial pain, R94.31 - Abnormal electrocardiogram [ECG] [EKG] CA stress test Today R07.2 - Precordial pain, R94.31 - Abnormal electrocardiogram [ECG] [EKG] Coding Level of Care Code New Pt Level 4 (45909) Diagnoses Abnormal EKG R94.31 CPT Codes EKG - CPT: 46808-[id number], Complete ([id number])
--- OUTSIDE RECORDS SUMMARY | 2024-05-27 16:49 | XMS_ITS | Encounter Summary ---
Author Organization [facility], Address [address] [place] [address] Phone Care Team Providers Care Broomcorn Seeder Name Role Phone Meliton Jones MD Primary Care Provider [phone] Encounter Details Date Type Department Care Team (Late st Contact Info) Description 12/07/2022 Documentation Only [facility] [address] [place] [phone] Scottie Hill MD [address] [place] [address] [place] [id number] Social History Tobacco Use Types Packs/Day Years [...] on filedocumented in this encounter Care Teams Broomcorn Seeder Relationship Specialty Start Date End Date Meliton Jones MD [address] [place] [address], [address] [place] [address] PCP - General Internal Medicine 12/05/22 documented as of this encounter
--- OUTSIDE RECORDS SUMMARY | 2024-05-27 16:49 | XMS_ITS | Clinical Summary ---
Author Organization [facility] Address [address] [place] [address] Care Team Providers Care Coldfusion Name Role Phone Meliton Jones MD Primary Care Provider [phone] Allergies Active Allergy Reactions Criticality Noted Date Comments Penicillins 07/15/2017 Seasonal 09/15/2023 Other reaction(s): runny nose, itch seasonal allergy-pollen Medications Medication Sig Dispensed Refills Start Date End Date Status Magnesium 100 MG CAPS Take 400 mg by mouth. 0 06/02/2021 Active amantadine (SYMMETREL) 100 MG capsule 0 05/20/2021 Active atorvastatin (LIPITOR) tablet 20 mg 0 05/12/2023 Active Cholecalciferol 1.25 MG (78248 UT) capsule 0 11/25/2022 Active clonazePAM (KlonoPIN) [...] age to complete this topic Care Teams Coldfusion Relationship Specialty Start Date End Date Meliton Jones MD [address] [place] [address] [address] [place] [address] PCP - General Internal Medicine 04/26/23
--- OUTSIDE RECORDS SUMMARY | 2024-05-27 16:49 | XMS_ITS | Encounter Summary ---
Author Organization [facility], Address [address] [place] [address] Phone Care Team Providers Care Biofuels Technology Development Manager Name Role Phone Meliton Jones MD Primary Care Provider [phone] Encounter Details Date Type Department Care Team (Late st Contact Info) Description 12/29/2022 Documentation Only [facility], [facility] [address] [place] [phone] Scottie Hill MD [address] [place] [address] [place] [phone] Social History Tobacco Use Types Packs/Day Years [...] on filedocumented in this encounter Care Teams Biofuels Technology Development Manager Relationship Specialty Start Date End Date Meliton Jones MD [address] [place] [address], [address] [place] [address] PCP - General Internal Medicine 12/05/22 documented as of this encounter
--- OUTSIDE RECORDS SUMMARY | 2024-05-27 16:49 | XMS_ITS | Encounter Summary ---
Author Organization [facility], Address [address] [place] [address] Phone Care Team Providers Care Make Ready Worker Name Role Phone Meliton Jones MD Primary Care Provider [phone] Encounter Details Date Type Department Care Team (Late st Contact Info) Description 12/07/2022 Documentation Only [facility] [address] [place] [phone] Scottie Hill MD [address] [place] [address] [place] [address] [place] [phone] Social History Tobacco Use Types Packs/Day Years [...] on filedocumented in this encounter Care Teams Make Ready Worker Relationship Specialty Start Date End Date Meliton Jones MD [address] [place] [address], [address] [place] [address] PCP - General Internal Medicine 12/05/22 documented as of this encounter
--- OUTSIDE RECORDS SUMMARY | 2024-05-27 16:49 | XMS_ITS | Encounter Summary ---
Author Organization [facility] Address [address] [place] [address] Care Team Providers Care Sales Representative Jewelry Name Role Phone Meliton Jones MD Primary Care Provider [phone] Encounter Details Date Type Department Care Team (Late st Contact Info) Description 01/16/2024 11:20 AM EDT Hospital Encounter TH HISTORIC ENCOUNTERS EASTERN CONVERSION ONLY Tatiana Rome PA [address] [place] [address] [place] [address] Social History Tobacco Use Types Packs/Day Years [...] TRAM Oates - 01/16/2024 11:00 AM EDT [facility] FOR MULTIPLE SCLEROSIS HPI: Patient is a [...] to communicate, the services of a qualified record clerk will be provided during the visit. Patients [...] Disp: , Rfl: ??? Cholecalciferol 1.25 MG (51164 UT) capsule, , Disp: , Rfl: ??? [...] 30 minutes. The majority of the actual hxls-up-heag visit was spent counseling the patient with respect to the current neurological picture. Tatiana Rome PA-C documented in this encounter Plan of Treatment Upcoming Encounters Date Type Department Care Team (Late st Contact Info) Description 07/17/2024 3:00 PM EDT Office Visit [facility] [address] [address] Kasandra Rueda MD [address] [phone] documented as of this encounter Visit Diagnoses Not on filedocumented in this encounter Care Teams Sales Representative Jewelry Relationship Specialty Start Date End Date Meliton Jones MD [address] [place] [address] PCP - General 04/26/23 documented as of this encounter
--- OUTSIDE RECORDS SUMMARY | 2024-05-27 16:49 | XMS_ITS | Encounter Summary ---
Author Organization [facility], Address [address] [place] [address] Phone Care Team Providers Care Wall Attendant Name Role Phone Meliton Jones MD Primary Care Provider Encounter Details Date Type Department Care Team (Late st Contact Info) Description 12/29/2022 Documentation Only [facility], [facility] Huan [address] [place] [phone] Scottie Hill MD [address] [place] [address] [place] [address] [place] [phone] Social History Tobacco Use Types Packs/Day Years [...] on filedocumented in this encounter Care Teams Wall Attendant Relationship Specialty Start Date End Date Meliton Jones MD [address] [place] [address], [address] [place] [address] PCP - General Internal Medicine 12/05/22 documented as of this encounter
--- OUTSIDE RECORDS SUMMARY | 2024-05-27 16:49 | XMS_ITS | Encounter Summary ---
Author Organization [facility], Address [address] [place] [address] Phone Care Team Providers Care Front Office Secretary Name Role Phone Meliton Jones MD Primary Care Provider Encounter Details Date Type Department Care Team (Late st Contact Info) Description 12/07/2022 Documentation Only [facility] Huan [address] [place] [phone] Scottie Hill MD [address] [place] [address] [place] [address] [place] [phone] Social History Tobacco Use Types Packs/Day Years [...] on filedocumented in this encounter Care Teams Front Office Secretary Relationship Specialty Start Date End Date Meliton Jones MD [address] [place] [address], [address] [place] [address] PCP - General Internal Medicine 12/05/22 documented as of this encounter
--- OUTSIDE RECORDS SUMMARY | 2024-05-27 16:49 | XMS_ITS | Clinical Summary ---
Author Organization 175 [facility] Address 175 [place] [address] Phone Care Team Providers Care Forensic Economist Name Role Phone Meliton Jones MD Primary Care Provider Allergies Active Allergy Reactions Criticality Noted Date [...] Description 05/09/2024 10:30 AM EST Office Visit [facility] for [place] [address] [address] Kasandra Rueda MD Multiple sclerosis (CMS/HCC) (Primary Dx); Vitamin D deficiency; Fall, sequela; Spasm 04/26/2024 Telephone [facility] 175 [facility] [address] [place] [address] Tatiana Rome PA MEDICATION PRIOR [...] Description 07/17/2024 3:00 PM EDT Office Visit [facility] [address] [address] Kasandra Rueda MD [address] [phone] Health Maintenance Due Date Last Done Comments [...] LAB HEMETOLOGY METHOD 05/09/2024 2:33 PM [facility] RBC 4.60 3.80 - 4.80 M/mcL LAB HEMETOLOGY METHOD 05/09/2024 2:33 PM [facility] Hemoglobin 13.3 11.5 - 16.0 g/dL LAB HEMETOLOGY METHOD 05/09/2024 2:33 PM [facility] Hematocrit 41.6 35.0 - 47.0 % LAB HEMETOLOGY METHOD 05/09/2024 2:33 PM [facility] MCV 90.0 79.0 - 98.0 FL LAB HEMETOLOGY METHOD 05/09/2024 2:33 PM [facility] MCH 28.8 27.0 - 32.0 pcg LAB HEMETOLOGY METHOD 05/09/2024 2:33 PM [facility] MCHC 32.0 32.0 - 37.0 g/dL LAB HEMETOLOGY METHOD 05/09/2024 2:33 PM [facility] RDW 13.6 11.0 - 15.0 % LAB HEMETOLOGY METHOD 05/09/2024 2:33 PM [facility] Platelets 359 130 - 400 K/mcL LAB HEMETOLOGY METHOD 05/09/2024 2:33 PM [facility] MPV 8.9 7.0 - 11.0 FL LAB HEMETOLOGY METHOD 05/09/2024 2:33 PM [facility] NRBC 0.0 <1.0 % LAB HEMETOLOGY METHOD 05/09/2024 2:33 PM [facility] NRBC Absolute 0.00 <0.10 K/mcL LAB HEMETOLOGY METHOD 05/09/2024 2:33 PM [facility] Neutrophils Relative 59.5 % LAB HEMETOLOGY METHOD 05/09/2024 2:33 PM [facility] Lymphocytes Relative 29.2 % LAB HEMETOLOGY METHOD 05/09/2024 2:33 PM [facility] Monocytes Relative 7.7 % LAB HEMETOLOGY METHOD 05/09/2024 2:33 PM [facility] Eosinophils Relative 2.5 % LAB HEMETOLOGY METHOD 05/09/2024 2:33 PM [facility] Basophils Relative 0.3 % LAB HEMETOLOGY METHOD 05/09/2024 2:33 PM [facility] Immature Granulocytes Relative 0.8 % LAB HEMETOLOGY METHOD 05/09/2024 2:33 PM [facility] Neutrophils Absolute 5.83 1.50 - 7.00 K/mcL LAB HEMETOLOGY METHOD 05/09/2024 2:33 PM [facility] Lymphocytes Absolute 2.86 1.00 - 5.00 K/mcL LAB HEMETOLOGY METHOD 05/09/2024 2:[address] [facility] Monocytes Absolute 0.75 0.20 - 1.00 K/[facility] LAB HEMETOLOGY METHOD 05/09/2024 2:[address] [facility] Eosinophils Absolute 0.24 0.00 - 0.50 K/[facility] LAB HEMETOLOGY METHOD 05/09/2024 2:[address] [facility] Basophils Absolute 0.03 0.00 - 0.20 K/[facility] LAB HEMETOLOGY METHOD 05/09/2024 2:[address] [facility] Immature Granulocytes Absolute 0.08(H) 0.00 - 0.03 K/[facility] LAB HEMETOLOGY METHOD 05/09/2024 2:[address] [facility] Blood Venous blood specimen / Unknown Venipuncture / Unknown 05/09/2024 12:06 PM EST 05/09/2024 12:06 PM EST Kasandra Rueda MD LAB BLOOD ORDERABLES Fin al Result [facility] [address] [place] [address], * Creatinine (05/09/2024 12:06 PM EST) Creatinine 0.69 0.50 - 1.10 mg/dL LAB CHEMISTRY METHOD 05/09/2024 2:[address] [facility] eGFR 94 >=60 mL/min/1. 73m2 LAB CHEMISTRY METHOD 05/09/2024 2:[address] [facility] Comment:Calculation based on the??Chronic Kidney Disease Epidemiology Collaboration (CKD-EPI) equation refit??without adjustment for race. Blood Venous blood specimen / Unknown Venipuncture / Unknown 05/09/2024 12:06 PM EST 05/09/2024 12:06 PM EST us Kasandra Rueda MD LAB BLOOD ORDERABLES Fin al Result Performing Organization Address City/[facility]/ZIP Co de Phone Number [facility] [address] [place] [address], [place] [phone] * Vitamin D 25 hydroxy (05/09/2024 12:06 PM EST) Pathologist [facility] Vit D, 25-Hydroxy 50.9 30.0 - 80.0 ng/mL LAB CHEMISTRY METHOD 05/09/2024 3:[address] [facility] Blood Venous blood specimen / Unknown Venipuncture / Unknown 05/09/2024 12:06 PM EST 05/09/2024 12:06 PM EST us Kasandra Rueda MD LAB BLOOD ORDERABLES Fin al Result Performing Organization Address [facility] Co de Phone Number [facility] [address] [place] [address], [place] [phone] * Sedimentation rate (05/09/2024 12:06 PM EST) [facility] Sed Rate 5 0 - 30 mm/hr LAB HEMETOLOGY METHOD 05/09/2024 2:[address] [facility] Blood Venous blood specimen / Unknown Venipuncture / Unknown 05/09/2024 12:06 PM EST 05/09/2024 12:06 PM EST Kasandra Rueda MD LAB BLOOD ORDERABLES Fin al Result Performing Organization Address City/[facility]/ZIP Co de Phone Number [facility] [address] [place] [address], [place] [phone] * BUN (05/09/2024 12:06 PM EST) [facility] BUN 8 5 - 25 mg/dL LAB CHEMISTRY METHOD 05/09/2024 2:[address] [facility] Blood Venous blood specimen / Unknown Venipuncture / Unknown 05/09/2024 12:06 PM EST 05/09/2024 12:06 PM EST us Kasandra Rueda MD LAB BLOOD ORDERABLES Fin al Result Performing Organization Address City/[facility]/ZIP Co de Phone Number [facility] [address] [place] [address], [place] [phone] * (ABNORMAL) Vitamin B12 (05/09/2024 12:06 PM EST) [facility] Vitamin B-12 955(H) 250 - 900 pcg/mL LAB CHEMISTRY METHOD 05/09/2024 3:37 PM [facility] Blood Venous blood specimen / Unknown Venipuncture / Unknown 05/09/2024 12:06 PM EST 05/09/2024 12:06 PM EST us Kasandra Rueda MD LAB BLOOD ORDERABLES Fin al Result Performing Organization Address City/[facility]/ZIP Co de Phone Number [facility] [address] [place] [address], [place] [phone] * Hepatic function panel (05/09/2024 12:06 PM EST) [facility] Total Protein 7.0 6.0 - 8.0 g/dL LAB CHEMISTRY METHOD 05/09/2024 3:[address] [facility] Albumin 4.0 3.2 - 5.0 g/dL LAB CHEMISTRY METHOD 05/09/2024 3:[address] [facility] Total Bilirubin 0.4 0.0 - 1.4 mg/dL LAB CHEMISTRY METHOD 05/09/2024 3:37 PM [facility] Bilirubin, Direct 0.1 0.0 - 0.3 mg/dL LAB CHEMISTRY METHOD 05/09/2024 3:[address] [facility] Bilirubin, Indirect 0.3 0.0 - 1.1 mg/dL LAB CHEMISTRY METHOD 05/09/2024 3:[address] [facility] ALT (SGPT) 28 10 - 60 unit/L LAB CHEMISTRY METHOD 05/09/2024 3:[address] [facility] AST (SGOT) 19 10 - 42 unit/L LAB CHEMISTRY METHOD 05/09/2024 3:[address] [facility] Alkaline Phosphatase 114 42 - 121 unit/L LAB CHEMISTRY METHOD 05/09/2024 3:[address] [facility] Blood Venous blood specimen / Unknown Venipuncture / Unknown 05/09/2024 12:06 PM EST 05/09/2024 12:06 PM EST Kasandra Rueda MD LAB BLOOD ORDERABLES Fin al Result [facility] [address] [place] [address], [place] [phone] from Last 3 Months Insurance MEDICAID - [place] MEDICARE Care Teams Forensic Economist Relationship Specialty Start Date End Date Meliton Jones MD [address] [place] [address] PCP - General 04/26/23
--- OUTSIDE RECORDS SUMMARY | 2024-05-27 16:49 | XMS_ITS | Encounter Summary ---
Author Organization [facility], Address [address] [place] [address] Phone Care Team Providers Care Gamemaster Name Role Phone Meliton Jones MD Primary Care Provider [phone] Encounter Details Date Type Department Care Team (Late st Contact Info) Description 12/07/2022 Office Communication [facility], [facility] [address]uan [address] [place] [phone] Scottie Hill MD [address] [place] [address] [place] [address] [place] [phone] Social History Tobacco Use Types Packs/Day Years [...] on filedocumented in this encounter Care Teams Gamemaster Relationship Specialty Start Date End Date Meliton Jones MD [address] [place] [address], [address] [place] [address] PCP - General Internal Medicine 12/05/22 documented as of this encounter
--- OUTSIDE RECORDS SUMMARY | 2024-05-27 16:49 | XMS_ITS | Encounter Summary ---
Author Organization [facility] Address [address] [place] [address] Care Team Providers Care Steel Fixer Name Role Phone Meliton Jones MD Primary Care Provider [phone] Encounter Details Date Type Department Care Team (Late st Contact Info) Description 01/26/2024 Lab Requisition [facility] - Main Lab [address] [facility] [place] [phone] Alice Hemphill, PA [address] [place] [address] Other abnormal findings in urine Social History [...] Description 07/17/2024 3:00 PM EDT Office Visit [facility] 175 [facility] [address] [place] [phone] Kasandra Rueda MD 175 [facility] [address] [place] [address] documented as of this encounter Procedures Procedure Name Priority Date/Time Associated Diagnosis Comments BACTERIAL IDENTIFICATION AND SUSCEPTIBILITY, AEROBIC Routine 01/25/2024 1:59 PM EST Other abnormal findings in urine documented in this encounter Results * (ABNORMAL) Bacterial identification and susceptibility, aerobic (01/25/2024 1:59 PM EST) Culture, Bacterial ID and Sensitivity Escherichia coli(A) MARY JO 01/27/2024 11:03 AM EST [facility] Comment: This is an edited result. [...] MICROBIOLOGY - GENERAL ORDER RAYMUNDO Final Result [facility] [address] [place] [address], documented in this encounter Visit Diagnoses Diagnosis Other abnormal findings in urine documented in this encounter Care Teams Steel Fixer Relationship Specialty Start Date End Date Meliton Jones MD [address] [place] [address] PCP - General 04/26/23 documented as of this encounter
--- OUTSIDE RECORDS SUMMARY | 2024-05-27 16:49 | XMS_ITS | Clinical Summary ---
Author Organization [facility], Address [address] [place] [phone] Phone Care Team Providers Care Lettuce Trimmer Name Role Phone Meliton Jones MD Primary Care Provider [phone] Allergies Active Allergy Reactions Criticality Noted Date Comments Penicillins 12/07/2022 Medications amantadine (SYMMETREL) 100 MG capsule 11/25/2022 Active Eliquis 5 MG tablet 11/25/2022 Active atorvastatin (LIPITOR) 20 MG tablet 10/07/2022 Active Cholecalciferol (Vitamin D3) 1.25 MG (33632 UT) capsule 11/25/2022 Active citalopram (CeleXA) 20 [...] topic Insurance MEDICARE MEDICAID [place] Care Teams Lettuce Trimmer Relationship Specialty Start Date End Date Meliton Jones MD [address] [place] [address], [address] [place] [address] PCP - General Internal Medicine 12/05/22
--- OUTSIDE RECORDS SUMMARY | 2024-05-27 16:50 | XMS_ITS | Encounter Summary ---
Author Organization [facility] Address [address] [place] [address] Care Team Providers Care Headwaiter/Headwaitress Name Role Phone Meliton Jones MD Primary Care Provider [phone] Reason for Referral * Consultation (Routine) - Authorized Specialty Diagnoses / Procedures Referred By Krystina varghese Referred To Contact Occupational Therapy Diagnoses Multiple sclerosis (CMS/HCC) Kasandra Rueda MD [address] [address] Phone: tel: fax: Referral ID Status Reason Start Date Expiration Date Visits Requested Visits Authorized [id number] Authorized Specialty Services Required 05/09/2024 05/09/2025 1 1 * Consultation (Routine) - Authorized Specialty Diagnoses / Procedures Referred By Krystina varghese Referred To Contact Physical Therapy Diagnoses Multiple sclerosis (CMS/HCC) Kasandra Rueda MD [address] [address] Phone: tel: fax: Referral ID Status Reason Start Date Expiration Date Visits Requested Visits Authorized [id number] Authorized Specialty Services Required 05/09/2024 05/09/2025 1 1 Encounter Details Date Type Department Care Team (Late st Contact Info) Description 05/09/2024 10:30 AM EST Office Visit [facility] for [facility] [address] [address] Kasandra Rueda MD [address] [place] [address] Multiple sclerosis (CMS/HCC) (Primary Dx); [...] Rueda MD - 05/09/2024 10:30 AM EST [facility] MULTIPLE SCLEROSIS HPI: Patient is a 68 [...] now She had her MRI brain from [facility] will obtain results for review In March 14 she had severe pain on Lt side/flank pain , she went to [facility] was found to have She is [...] months -MRI brain without contrast done at [place] will obtain the records MRI cervical spine if not done in [place] will order to ensure stability B symptomatic [...] 30 minutes. The majority of the actual ufhd-id-zbad visit was spent counseling the patient with respect to the current neurological picture. documented in this encounter Plan of Treatment Upcoming Encounters Date Type Department Care Team (Late st Contact Info) Description 07/17/2024 3:00 PM EDT Office Visit [facility] 175 [facility] [address] [place] [phone] Kasandra Rueda MD 175 [facility] [address] [place] [phone] Scheduled Referrals Name Type Priority Associated Diagnoses Order Schedule Ambulatory referral to Physical Therapy and Athletic Training Outpatient Referral Routine Multiple sclerosis ([facility]/HCC) 1 Occurrences starting 05/09/2024 until 05/09/2025 Ambulatory referral to Occupational Therapy Outpatient Referral Routine Multiple sclerosis ([facility]/HCC) 1 Occurrences starting 05/09/2024 until 05/09/2025 documented as of this encounter Results * Hepatic function panel (05/09/2024 12:06 PM EST) Total Protein 7.0 6.0 - 8.0 g/dL LAB CHEMISTRY METHOD 05/09/2024 3:37 PM [facility] Albumin 4.0 3.2 - 5.0 g/dL LAB CHEMISTRY METHOD 05/09/2024 3:37 PM [facility] Total Bilirubin 0.4 0.0 - 1.4 mg/dL LAB CHEMISTRY METHOD 05/09/2024 3:37 PM [facility] Bilirubin, Direct 0.1 0.0 - 0.3 mg/dL LAB CHEMISTRY METHOD 05/09/2024 3:37 PM [facility] Bilirubin, Indirect 0.3 0.0 - 1.1 mg/dL LAB CHEMISTRY METHOD 05/09/2024 3:37 PM [facility] ALT (SGPT) 28 10 - 60 unit/L LAB CHEMISTRY METHOD 05/09/2024 3:37 PM [facility] AST (SGOT) 19 10 - 42 unit/L LAB CHEMISTRY METHOD 05/09/2024 3:37 PM [facility] Alkaline Phosphatase 114 42 - 121 unit/L LAB CHEMISTRY METHOD 05/09/2024 3:37 PM [facility] Blood Venous blood specimen / Unknown Venipuncture / Unknown 05/09/2024 12:06 PM EST 05/09/2024 12:06 PM EST Kasandra Rueda MD LAB BLOOD ORDERABLES Fin al Result [facility] [address] [place] [address], * Creatinine (05/09/2024 12:06 PM EST) Creatinine 0.69 0.50 - 1.10 mg/dL LAB CHEMISTRY METHOD 05/09/2024 2:55 PM [facility] eGFR 94 >=60 mL/min/1. 73m2 LAB CHEMISTRY METHOD 05/09/2024 2:55 PM EST [facility] Comment:Calculation based on the??Chronic Kidney Disease Epidemiology Collaboration (CKD-EPI) equation refit??without adjustment for race. Blood Venous blood specimen / Unknown Venipuncture / Unknown 05/09/2024 12:06 PM EST 05/09/2024 12:06 PM EST us Kasandra Rueda MD LAB BLOOD ORDERABLES Fin al Result Performing Organization Address [facility] Co de Phone Number [facility] [address] [place] [address], [place] [phone] * Vitamin D 25 hydroxy (05/09/2024 12:06 PM EST) Vit D, 25-Hydroxy 50.9 30.0 - 80.0 ng/mL LAB CHEMISTRY METHOD 05/09/2024 3:01 PM EST [facility] Blood Venous blood specimen / Unknown Venipuncture / Unknown 05/09/2024 12:06 PM EST 05/09/2024 12:06 PM EST us Kasandra Rueda MD LAB BLOOD ORDERABLES Fin al Result Performing Organization Address [facility] de Phone Number [facility] [address] [place] [address], [place] [phone] * BUN (05/09/2024 12:06 PM EST) BUN 8 5 - 25 mg/dL LAB CHEMISTRY METHOD 05/09/2024 2:55 PM EST [facility] Blood Venous blood specimen / Unknown Venipuncture / Unknown 05/09/2024 12:06 PM EST 05/09/2024 12:06 PM EST us Kasandra Rueda MD LAB BLOOD ORDERABLES Fin al Result [facility] [address] [place] [address], [place] [phone] * (ABNORMAL) Vitamin B12 (05/09/2024 12:06 PM EST) [facility] Vitamin B-12 955(H) 250 - 900 pcg/mL LAB CHEMISTRY METHOD 05/09/2024 3:37 PM EST [facility] Blood Venous blood specimen / Unknown Venipuncture / Unknown 05/09/2024 12:06 PM EST 05/09/2024 12:06 PM EST us Kasandra Rueda MD LAB BLOOD ORDERABLES Fin al Result Performing Organization Address [facility] Co de Phone Number [facility] [address] [place] [address], [place] [phone] * Sedimentation rate (05/09/2024 12:06 PM EST) [facility] Sed Rate 5 0 - 30 mm/hr LAB HEMETOLOGY METHOD 05/09/2024 2:41 PM EST [facility] Blood Venous blood specimen / Unknown Venipuncture / Unknown 05/09/2024 12:06 PM EST 05/09/2024 12:06 PM EST us Kasandra Rueda MD LAB BLOOD ORDERABLES Fin al Result Performing Organization Address City/[facility]/ZIP Co de Phone Number [facility] [address] [place] [address], [place] [phone] documented in this encounter Visit Diagnoses Diagnosis [...] documented as of this encounter Care Teams Headwaiter/Headwaitress Relationship Specialty Start Date End Date Meliton Jones MD [address] [place] [address] PCP - General 04/26/23 documented as of this encounter
== END 2024-05-27 15:24 | disposition home or self-care (01) ==
PROVIDERS: PCP Internal Medicine; Visit Provider Internal Medicine
DX: R94.31 Abnormal electrocardiogram [ECG] [EKG] (principal)
CPT/HCPCS: 93010; 99214

== ENCOUNTER → 2024-05-27 14:42 | Outpatient (BNVA) | payer MEDICARE, MEDICAID, SELFPAY | PROVIDERS: PCP Internal Medicine; Visit Provider Internal Medicine | DX: R94.31 Abnormal electrocardiogram [ECG] [EKG] (principal) | CPT/HCPCS: 93005; 99212 ==

== ENCOUNTER 2024-06-21 10:07 | Outpatient (AMB) | payer MEDICARE, MEDICAID, SELFPAY ==
--- NOTE | 2024-06-21 10:19 | A.OFFVIS_ITS ---
Vital Signs 06/21/24 10:26 Height 5 ft 2 in Weight 143 lb 1.28 oz BMI 26.2 BP 122/70 Blood Pressure Location Lt brachial Position Sitting Pulse 92 Pulse Source Pulse Oximeter Pulse Oximetry (%) 96 Oxygen Delivery Method Room Air Intake Visit Reasons: finger pain Intake Note: Patient presents today finger pain. Allergies Penicillins Allergy (Severe, Verified 06/21/24 10:24) rash,hives Medication List - Last Reconciled 06/21/24 by Navya Sy MD acetaminophen 1,000 mg PO BID PRN albuterol sulfate mg inhalation PRN apixaban (Eliquis) 5 mg PO BID baclofen 10 mg PO TID citalopram 20 mg PO DAILY clonazepam 1 mg PO TID PRN clonidine HCl 1 tab PO TID dicyclomine 20 mg PO QID dimethyl fumarate (Tecfidera) 240 mg PO BID ergocalciferol (vitamin D2) 1,250 mcg PO 2XW folic acid 1 mg PO DAILY hydroxychloroquine 400 mg (2 x 200 mg) PO DAILY 90 days magnesium oxide 1 tab PO DAILY melatonin 3 mg PO BEDTIME PRN methotrexate sodium 15 mg (6 x 2.5 mg) PO QWEEK 90 days modafinil 1 tab PO BID multivitamin 1 tab PO DAILY pantoprazole (Protonix) 20 mg PO DAILY tizanidine 1 tab PO TID HPI Comments Details: Patient is a 68-year-old female with multiple sclerosis (relapsing and remitting type), hypertension, polyarticular osteoarthritis and seronegative rheumatoid arthritis here today for follow up Interval History: Patient last seen 04/03/2024 with me. At that time she was having some efficacy with the Plaquenil however still with features of inflammatory arthritis involving the PIPs and so methotrexate was added. Today, Started the methotrexate but has noticed improvement Still complaining of hand pain Rheumatologic History: Establish care 12/15/2023 for evaluation of polyarthralgias OA versus inflammatory arthritis RF and CCP negative, responds to prednisone. Plaquenil 12/2023 Methotrexate added to plaquenil 03/2024 Current Rheumatology Medication(s): HCQ 200mg bid Methotrexate 15 mg weekly Folic acid 1 mg daily [facility] Medical History (Updated 06/21/24 @ 10:44 by Navya Sy MD) Polyarticular osteoarthritis Numbness and tingling in both hands Lumbar radiculopathy Rotator cuff syndrome of left shoulder On methotrexate therapy Long-term use of hydroxychloroquine Seronegative rheumatoid arthritis Wears dentures REBECCA (obstructive sleep apnea) Arthritis Seizures Fatty liver GERD (gastroesophageal reflux disease) Anxiety Depression History of pulmonary embolism Elevated cholesterol Finger dislocation Bursitis of left shoulder Opioid dependence COPD (chronic obstructive pulmonary disease) Multiple sclerosis Surgical History Hx of repair of left rotator cuff Hx of colonoscopy History of toe surgery Family History Father CVD (cardiovascular disease) Mother No problems noted. Social History Household Members Other:: [facility] Are you a primary healthcare corporate account director to a significant other at home: No Do you presently have visiting nurse or other home services: No Alcohol intake: never Comment: baseline pain Patient Tobacco Use Status: Former Tobacco user Tobacco use type: Cigarette Current occupational status: unemployed Current occupation: Right Handed Review of Systems Const Details: Review of Systems Constitutional: Denies fever, chills, weight loss ENT: Denies vision changes, eye pain or eye redness, dental caries, dry mouth GI: Denies nausea, vomiting, diarrhea, abdominal pain, change in BM Pulm: Denies SOB, GUY, hemoptysis, wheezing Cards: Denies chest pain, palpitations Skin: Denies Raynaud's, rash, nail changes, photosensitivity, PETROL TANKER DRIVER: Denies headaches, weakness, paresthesias, recurrent falls MSK: as per HPI All other systems reviewed and are unremarkable except noted above Physical Exam Vital signs reviewed Physical Examination CONSTITUITIONAL Patient alert and cooperative. Well appearing and in no apparent painful distress Chronic right sided facial hemiparesis HEENT Conjunctiva and sclera clear. ?Pupils equal round and reactive to light. ?No lymphadenopathy. ? CHEST/RESPIRATORY SYSTEM Normal respiratory effort and able to speak in complete sentences. ?Clear to auscultation bilaterally. ?No crackles, rales, rhonchi, wheezes heard. CARDIAC SYSTEM Regular rate and rhythm. ?S1 and S2 heard no murmurs. ?Radial pulses intact bilaterally MSK Hands: ?Able to make fist. right thumb PIP swollen and tender to palpation. TTP of scattered MCPs Wrists: ?Full range of motion. TTP bilaterally Elbows: Full range of motion without pain. No tenderness, weakness, swelling, increased warmth or erythema. Shoulders: Full range of motion without pain. No tenderness, weakness, swelling, increased warmth or erythema. Hips: Full range of motion without pain. Hip bursa: No tenderness to palpation Knees: ?Full range of motion. ?Right knee with tenderness to palpation of the joint line. Left knee without any tenderness to palpation Ankles: Full range of motion. ?No tenderness, swelling, increased warmth or erythema.? Feet: ?Negative squeeze test. ?No tenderness to palpation or swelling of the MTPs. Tender points:?No tenderness to palpation of the bilateral trapezius, supraspinatus, greater trochanters, anterior costochondral junctions, bilateral gluteal areas, bilateral suboccipital muscle insertions SKIN Skin intact without rashes. Results Reviewed Results Reviewed: Laboratory Tests 12/15/23 15:50 ESR 5 C-Reactive Protein 0.99 H Rheumatoid Factor < 13.0 Cycl Citrul Peptide IgG <16 Assessment & Plan Assessment & Plan (1) Seronegative rheumatoid arthritis: Code(s): M06.00 - Rheumatoid arthritis without rheumatoid factor, unspecified site Category: Medical Plan: #Seronegative RA Patient is a 68-year-old female with seronegative rheumatoid arthritis here today for follow up. Currently on methotrexate and Plaquenil. Her examination to me has gotten better however patient is still complaining of joint pain which seems to be osteoarthritic related. We will try topical diclofenac and continued the Plaquenil and the methotrexate and review her in 3 months to see if this helps. Plan - Methotrexate 15mg weekly - Folic acid 1mg daily - Plaquenil 200mg bid - Topical diclofenac 1% to hands and right knee 4 times a day - Labs today: CBC, CMP, ESR, CRP, hepatitis panel, T spot - RTC 3 months - Labs before visit: CBC, CMP, ESR, CRP (2) Polyarticular osteoarthritis: Code(s): M15.9 - Polyosteoarthritis, unspecified Category: Medical Plan: #Polyarticular OA Patient with polyarticular osteoarthritis complicating her rheumatoid arthritis. We will trial at topical diclofenac to see if we can remove the osteoarthritic pain from the picture. (3) Long-term use of hydroxychloroquine: Code(s): Z79.899 - Other longterm (current) drug therapy Category: Medical Plan: #Long-term Use of Hydroxychloroquine Discussed with patient the risks and benefits of hydroxychloroquine in managing the rheumatic condition Benefits include: - Reduced pain, reduce mortality, maintenance of remission and reduction of flares Risks include: - GI upset, skin hyperpigmentation, retinal toxicity (especially after more than 5 years of use), myopathy Advised yearly ophthalmology visits (4) On methotrexate therapy: Code(s): Z79.631 - retirement (current) use of antimetabolite agent Category: Medical Plan: #Long-term Current Use of Methotrexate Discussed with patient the benefits and risks of methotrexate for managing their rheumatic condition Benefits include reduced pain, reduced mortality, maintenance of remission and reduction of flares Risks include oral ulcers, photosensitivity, hepatotoxicity, hematologic toxicity, pneumonitis, flu-like symptoms (especially day after administration), nodulosis, lymphomas ? Limit alcohol and avoid Bactrim ? Monitoring: ?CBC, BMP, LFTs every 3-4 months and hepatitis serologies as needed Plan I spent 32 minutes reviewing the record and labs, taking a history, examining the patient, discussing the treatment plan, ordering diagnostic work up and documenting in the medical record Orders: Orders Comprehensive Met. Panel Today E55.9 - Vitamin D deficiency, unspecified, M06.00 - Rheumatoid arthritis without rheumatoid factor, unspecified site C Reactive Protein Today E55.9 - Vitamin D deficiency, unspecified, M06.00 - Rheumatoid arthritis without rheumatoid factor, unspecified site Erythrocyte Sedimentation Rate Today E55.9 - Vitamin D deficiency, unspecified, M06.00 - Rheumatoid arthritis without rheumatoid factor, unspecified site T Spot TB Today E55.9 - Vitamin D deficiency, unspecified, M06.00 - Rheumatoid arthritis without rheumatoid factor, unspecified site Complete Blood Count Auto Diff 3 Months M06.00 - Rheumatoid arthritis without rheumatoid factor, unspecified site Comprehensive Met. Panel 3 Months M06.00 - Rheumatoid arthritis without rheumatoid factor, unspecified site Erythrocyte Sedimentation Rate 3 Months M06.00 - Rheumatoid arthritis without rheumatoid factor, unspecified site Complete Blood Count Auto Diff Today E55.9 - Vitamin D deficiency, unspecified, M06.00 - Rheumatoid arthritis without rheumatoid factor, unspecified site Hepatitis A,B,C Profile Today E55.9 - Vitamin D deficiency, unspecified, M06.00 - Rheumatoid arthritis without rheumatoid factor, unspecified site Vitamin D 25-OH (D2 and D3) Today E55.9 - Vitamin D deficiency, unspecified, M06.00 - Rheumatoid arthritis without rheumatoid factor, unspecified site C Reactive Protein 3 Months M06.00 - Rheumatoid arthritis without rheumatoid factor, unspecified site Medications: New diclofenac sodium 1% apply to bilateral hands and right knee 4 times a day 4 grams topical QID 100 grams 4RF M15.9 - Polyosteoarthritis, unspecified Coding Level of Care Code Est Pt Level 4 (23415) Complex EM visit Add On G2211 Diagnoses Seronegative rheumatoid arthritis M06.00 Polyarticular osteoarthritis M15.9 Long-term use of hydroxychloroquine Z79.899 On methotrexate therapy Z79.631
[2024-06-21 10:26] VITALS: BP 122/70; PULSE 92; O2SAT 96; BMI 26.2
--- OUTSIDE RECORDS SUMMARY | 2024-06-21 11:31 | XMS_ITS | Encounter Summary ---
Author Organization [facility], Address [address] [place] [address] Phone Care Team Providers Care Glass Curvature Gauger Name Role Phone Meliton Jones MD Primary Care Provider [phone] Encounter Details Date Type Department Care Team (Late st Contact Info) Description 12/29/2022 Documentation Only [facility], [facility] Orange [address] [place] [phone] Scottie Hill MD [address] [place] [address] [place] [address] [place] [phone] Social History Tobacco Use Types Packs/Day Years [...] on filedocumented in this encounter Care Teams Glass Curvature Gauger Relationship Specialty Start Date End Date Meliton Jones MD [address] [place] [address], [address] [place] [address] PCP - General Internal Medicine 12/05/22 documented as of this encounter
--- OUTSIDE RECORDS SUMMARY | 2024-06-21 11:31 | XMS_ITS | Encounter Summary ---
Author Organization [facility], Address [address] [place] [address] Phone Care Team Providers Care Reinforcing Bar Setter Name Role Phone Meliton Jones MD Primary Care Provider [phone] Encounter Details Date Type Department Care Team (Late st Contact Info) Description 12/07/2022 Documentation Only [facility] Ider [address] [place] [phone] Socttie Hill MD [address] [place] [address] [place] [address] [place] [phone] Social History Tobacco Use Types Packs/Day Years [...] on filedocumented in this encounter Care Teams Reinforcing Bar Setter Relationship Specialty Start Date End Date Meliton Jones MD [address] [place] [address], [address] [place] [address] PCP - General Internal Medicine 12/05/22 documented as of this encounter
--- OUTSIDE RECORDS SUMMARY | 2024-06-21 11:31 | XMS_ITS | Encounter Summary ---
Author Organization [facility], Address [address] [place] [address] Phone Care Team Providers Care Investigations Director Name Role Phone Meliton Jones MD Primary Care Provider [phone] Encounter Details Date Type Department Care Team (Late st Contact Info) Description 12/07/2022 Office Communication [facility], [facility] Huan Aguirre [address] [place] [phone] Scottie Hill MD [address] [place] [address] [place] [address] [place] [phone] Social History Tobacco Use Types Packs/Day Years [...] on filedocumented in this encounter Care Teams Investigations Director Relationship Specialty Start Date End Date Meliton Jones MD [address] [place] [address], [address] [place] [address] PCP - General Internal Medicine 12/05/22 documented as of this encounter
--- OUTSIDE RECORDS SUMMARY | 2024-06-21 11:31 | XMS_ITS | Clinical Summary ---
Author Organization [facility] Address [address] [place] [address] Phone Care Team Providers Care Director Of Field Service Name Role Phone Meliton Jones MD Primary Care Provider [phone] Allergies Active Allergy Reactions Criticality Noted Date [...] (two) times a day. 60 capsule 5 02/28/2024 Active modafiniL (PROVIGIL) 200 mg tabletIndicatio ns:Other fatigue,Multipl e sclerosis (CMS/HCC) Take 1 tablet (200 mg total) by mouth 1 (one) time each day. Max Daily Amount: 200 mg 30 each 03/18/2024 Active baclofen (LIORESAL) 10 mg tablet Take 1 tablet (10 mg total) by mouth 3 (three) times a day. 90 each 5 03/18/2024 Active tiZANidine (ZANAFLEX) 2 mg capsule Take 1 capsule (2 mg total) by mouth at bedtime. 30 capsule 3 05/09/2024 Active Encounters Date Type Department Care Team Description 05/09/2024 10:30 AM EST Office Visit [address] [address] Kasandra Rueda MD Multiple sclerosis (CMS/[facility]) (Primary Dx); Vitamin D deficiency; Fall, sequela; Spasm 04/26/[address] [address] Tatiana Rome PA MEDICATION PRIOR AUTH from Last 3 Months Surgical History Surgery Date Site/Laterality Comments OTHER SURGICAL HISTORY Left Posterior PROCEDURE:left shoulder rotator OTHER SURGICAL HISTORY Anterior PROCEDURE:left toe Medical History Medical History Date Comments MS (multiple sclerosis) (CMS/HCC) DX:MS (multiple sclerosis) ([facility]) Bronchitis Social History Tobacco Use Types Packs/Day [...] Description 07/17/2024 3:00 PM EDT Office Visit [facility] [address] [place] [address] Kasandra Rueda MD [address] [place] [address] Health Maintenance Due Date Last Done Comments Breast Cancer Screening 1955 DTaP,Tdap,and Td Vaccines (1 - Tdap) 1973 RSV Immunization Adult Patients (1 - Risk 60-74 years 1-dose series) [...] K/mcL LAB HEMETOLOGY METHOD 05/09/2024 2:33 PM [facility] RBC 4.60 3.80 - 4.80 M/mcL LAB HEMETOLOGY METHOD 05/09/2024 2:33 PM [facility] Hemoglobin 13.3 11.5 - 16.0 g/dL LAB HEMETOLOGY METHOD 05/09/2024 2:33 PM [facility] Hematocrit 41.6 35.0 - 47.0 % LAB HEMETOLOGY METHOD 05/09/2024 2:33 PM [facility] MCV 90.0 79.0 - 98.0 FL LAB HEMETOLOGY METHOD 05/09/2024 2:33 PM [facility] MCH 28.8 27.0 - 32.0 pcg LAB HEMETOLOGY METHOD 05/09/2024 2:33 PM [facility] MCHC 32.0 32.0 - 37.0 g/dL LAB HEMETOLOGY METHOD 05/09/2024 2:33 PM [facility] RDW 13.6 11.0 - 15.0 % LAB HEMETOLOGY METHOD 05/09/2024 2:33 PM [facility] Platelets 359 130 - 400 K/mcL LAB HEMETOLOGY METHOD 05/09/2024 2:33 PM [facility] MPV 8.9 7.0 - 11.0 FL LAB HEMETOLOGY METHOD 05/09/2024 2:33 PM [facility] NRBC 0.0 <1.0 % LAB HEMETOLOGY METHOD 05/09/2024 2:33 PM [facility] NRBC Absolute 0.00 <0.10 K/mcL LAB HEMETOLOGY METHOD 05/09/2024 2:33 PM [facility] Neutrophils Relative 59.5 % LAB HEMETOLOGY METHOD 05/09/2024 2:33 PM [facility] Lymphocytes Relative 29.2 % LAB HEMETOLOGY METHOD 05/09/2024 2:33 PM [facility] Monocytes Relative 7.7 % LAB HEMETOLOGY METHOD 05/09/2024 2:33 PM [facility] Eosinophils Relative 2.5 % LAB HEMETOLOGY METHOD 05/09/2024 2:33 PM [facility] Basophils Relative 0.3 % LAB HEMETOLOGY METHOD 05/09/2024 2:33 PM [facility] Immature Granulocytes Relative 0.8 % LAB HEMETOLOGY METHOD 05/09/2024 2:33 PM [facility] Neutrophils Absolute 5.83 1.50 - 7.00 K/mcL LAB HEMETOLOGY METHOD 05/09/2024 2:33 PM [facility] Lymphocytes Absolute 2.86 1.00 - 5.00 K/mcL LAB HEMETOLOGY METHOD 05/09/2024 2:33 PM [facility] Monocytes Absolute 0.75 0.20 - 1.00 K/mcL LAB HEMETOLOGY METHOD 05/09/2024 2:33 PM [facility] Eosinophils Absolute 0.24 0.00 - 0.50 K/mcL LAB HEMETOLOGY METHOD 05/09/2024 2:33 PM [facility] Basophils Absolute 0.03 0.00 - 0.20 K/mcL LAB HEMETOLOGY METHOD 05/09/2024 2:33 PM [facility] Immature Granulocytes Absolute 0.08(H) 0.00 - 0.03 K/mcL LAB HEMETOLOGY METHOD 05/09/2024 2:33 PM EST [facility] Blood Venous blood specimen / Unknown Venipuncture / Unknown 05/09/2024 12:06 PM EST 05/09/2024 12:06 PM EST Kasandra Rueda MD LAB BLOOD ORDERABLES Fin al Result Performing Organization Address [facility]/ZIP Co de Phone Number [facility] [address] [place] [address], * Creatinine (05/09/2024 12:06 PM EST) Creatinine 0.69 0.50 - 1.10 mg/dL LAB CHEMISTRY METHOD 05/09/2024 2:55 PM EST [facility] eGFR 94 >=60 [...] al Result [facility] [address] [place] [address], * Vitamin D 25 hydroxy (05/09/2024 12:06 PM EST) Vit D, 25-Hydroxy 50.9 30.0 - 80.0 ng/mL LAB CHEMISTRY METHOD 05/09/2024 3:01 PM EST [facility] Blood Venous blood specimen / Unknown Venipuncture / Unknown 05/09/2024 12:06 PM EST 05/09/2024 12:06 PM EST us Kasandra Rueda MD LAB BLOOD ORDERABLES Fin al Result Performing Organization Address City/[facility]/ZIP Co de Phone Number [facility] [address] [place] [address], [place] [phone] * Sedimentation rate (05/09/2024 12:06 PM EST) [facility] Sed Rate 5 0 - 30 mm/hr LAB HEMETOLOGY METHOD 05/09/2024 2:41 PM EST [facility] Blood Venous blood specimen / Unknown Venipuncture / Unknown 05/09/2024 12:06 PM EST 05/09/2024 12:06 PM EST us Kasandra Rueda MD LAB BLOOD ORDERABLES Fin al Result Performing Organization Address [facility]/ZIP Co de Phone Number [facility] [address] [place] [address], [place] [phone] * BUN (05/09/2024 12:06 PM EST) [facility] BUN 8 5 - 25 mg/dL LAB CHEMISTRY METHOD 05/09/2024 2:55 PM EST [facility] Blood Venous blood specimen / Unknown Venipuncture / Unknown 05/09/2024 12:06 PM EST 05/09/2024 12:06 PM EST us Kasandra Rueda MD LAB BLOOD ORDERABLES Fin al Result [facility] [address] [place] [address], [place] [phone] * (ABNORMAL) Vitamin B12 (05/09/2024 12:06 PM EST) [facility] Vitamin B-12 955(H) 250 - 900 pcg/mL LAB CHEMISTRY METHOD 05/09/2024 3:37 PM [facility] Blood Venous blood specimen / Unknown Venipuncture / Unknown 05/09/2024 12:06 PM EST 05/09/2024 12:06 PM EST Kasandra Rueda MD LAB BLOOD ORDERABLES Fin al Result [facility] [address] [place] [address], [place] [phone] * Hepatic function panel (05/09/2024 12:06 PM EST) [facility] Total Protein 7.0 6.0 - 8.0 g/dL LAB CHEMISTRY METHOD 05/09/2024 3:37 PM [facility] Albumin 4.0 3.2 - 5.0 g/dL LAB CHEMISTRY METHOD 05/09/2024 3:37 PM [facility] Total Bilirubin 0.4 0.0 - 1.4 mg/dL LAB CHEMISTRY METHOD 05/09/2024 3:37 PM [facility] Bilirubin, Direct 0.1 0.0 - 0.3 mg/dL LAB CHEMISTRY METHOD 05/09/2024 3:37 PM [facility] Bilirubin, Indirect 0.3 0.0 - 1.1 mg/dL LAB CHEMISTRY METHOD 05/09/2024 3:37 PM [facility] ALT (SGPT) 28 10 - 60 unit/L LAB CHEMISTRY METHOD 05/09/2024 3:37 PM [facility] AST (SGOT) 19 10 - 42 unit/L LAB CHEMISTRY METHOD 05/09/2024 3:37 PM [facility] Alkaline Phosphatase 114 42 - 121 unit/L LAB CHEMISTRY METHOD 05/09/2024 3:37 PM EST [facility] Blood Venous blood specimen / Unknown Venipuncture / Unknown 05/09/2024 12:06 PM EST 05/09/2024 12:06 PM EST Kasandra Rueda MD LAB BLOOD ORDERABLES Fin al Result [facility] [address] [place] [address], from Last 3 Months Insurance MEDICAID - [place] MEDICARE Care Teams Director Of Field Service Relationship Specialty Start Date End Date Meliton Jones MD [address] [place] [id number] PCP - General 04/26/23
--- OUTSIDE RECORDS SUMMARY | 2024-06-21 11:31 | XMS_ITS | Clinical Summary ---
Author Organization [facility], Address [address] [place] [address] [place] [phone] Phone Care Team Providers Care Maintenance Plumber Name Role Phone Meliton Jones MD Primary Care Provider [phone] Allergies Active Allergy Reactions Criticality Noted Date Comments Penicillins 12/07/2022 Medications amantadine (SYMMETREL) 100 MG capsule 11/25/2022 Active Eliquis 5 MG tablet 11/25/2022 Active atorvastatin (LIPITOR) 20 MG tablet 10/07/2022 Active Cholecalciferol (Vitamin D3) 1.25 MG (36857 UT) capsule 11/25/2022 Active citalopram (CeleXA) 20 [...] - PCV) 05/13/2016 05/13/2015, 11/21/2012 Influenza Vaccine (Season Ended) 2024 12/29/2020, 11/11/2019, 11/11/2019, Additional history exists Hepatitis B Vaccine Aged Out No longe r eligible based on patient's age to complete this topic Insurance MEDICARE MEDICAID [place] Care Teams Maintenance Plumber Relationship Specialty Start Date End Date Meliton Jones MD [address] [place] [address], [address] [place] [address] PCP - General Internal Medicine 12/05/22
--- OUTSIDE RECORDS SUMMARY | 2024-06-21 11:31 | XMS_ITS | Encounter Summary ---
Author Organization [facility], Address [address] [place] [address] Phone Care Team Providers Care Stile Ripsaw Operator Name Role Phone Meliton Jones MD Primary Care Provider [phone] Encounter Details Date Type Department Care Team (Late st Contact Info) Description 12/07/2022 Documentation Only [facility] [place] [address] [place] [phone] Scottie Hill MD [address] [place] [address] [place] [address] [place] [phone] Social History Tobacco Use Types Packs/Day Years [...] on filedocumented in this encounter Care Teams Stile Ripsaw Operator Relationship Specialty Start Date End Date Meliton Jones MD [address] [place] [address], [address] [place] [address] PCP - General Internal Medicine 12/05/22 documented as of this encounter
--- OUTSIDE RECORDS SUMMARY | 2024-06-21 11:31 | XMS_ITS | Encounter Summary ---
Author Organization [facility] Address [address] [place] [address] Care Team Providers Care Line Lead Name Role Phone Meliton Jones MD Primary Care Provider [phone] Encounter Details Date Type Department Care Team (Late st Contact Info) Description 01/16/2024 11:20 AM EDT Hospital Encounter TH HISTORIC ENCOUNTERS [facility] ONLY Tatiana Rome PA 175 [facility] [address] [place] [address] Social History Tobacco Use Types Packs/Day Years [...] TRAM Oates - 01/16/2024 11:00 AM EDT [facility] MULTIPLE SCLEROSIS HPI: Patient is a [...] deductible charges. Additionally, if the patient is Limited Belarusian Proficient, deaf, or hard of hearing, speech impaired, or has another disability which impairs their ability to communicate, the services of a qualified nutrition services aide will be provided during the visit. Patients Location: Patient's home ([place]) Total Time: 30 minutes Disease Summary Date [...] Disp: , Rfl: ??? Cholecalciferol 1.25 MG (08553 UT) capsule, , Disp: , Rfl: ??? [...] 30 minutes. The majority of the actual ljbb-cw-aadb visit was spent counseling the patient with respect to the current neurological picture. Tatiana Rome PA-C documented in this encounter Plan of Treatment Upcoming Encounters Date Type Department Care Team (Late st Contact Info) Description 07/17/2024 3:00 PM EDT Office Visit [facility] [address] [facility] [address] [place] [phone] Kasandra Rueda MD [address] [facility] [address] [phone] documented as of this encounter Visit Diagnoses Not on filedocumented in this encounter Care Teams Line Lead Relationship Specialty Start Date End Date Meliton Jones MD [address] [place] [id number] PCP - General 04/26/23 documented as of this encounter
--- OUTSIDE RECORDS SUMMARY | 2024-06-21 11:31 | XMS_ITS | Encounter Summary ---
Author Organization [facility], Address [address] [place] [address] Phone Care Team Providers Care Supervisor Research Kennel Name Role Phone Meliton Jones MD Primary Care Provider [phone] Encounter Details Date Type Department Care Team (Late st Contact Info) Description 12/29/2022 Documentation Only [facility], [facility] [place] [address] [place] [phone] Scottie Hill MD [address] [place] [address] [place] [address] [place] [phone] Social History Tobacco Use Types Packs/Day Years [...] on filedocumented in this encounter Care Teams Supervisor Research Kennel Relationship Specialty Start Date End Date Meliton Jones MD [address] [place] [address], [address] [place] [address] PCP - General Internal Medicine 12/05/22 documented as of this encounter
--- OUTSIDE RECORDS SUMMARY | 2024-06-21 11:31 | XMS_ITS | Encounter Summary ---
Author Organization [facility] Address [address] [place] [phone] Care Team Providers Care Child Psychologist Name Role Phone Meliton Jones MD Primary Care Provider [phone] Encounter Details Date Type Department Care Team (Late st Contact Info) Description 01/26/2024 Lab Requisition [facility] - Main Lab [address] [facility] [place] [phone] Alice Hemphill, PA [address] [facility] [address] [place] [address] Other abnormal findings in urine Social History [...] Description 07/17/2024 3:00 PM EDT Office Visit [facility] 175 [facility] 150 [place] [address] Kasandra Rueda MD 175 [facility] [address] [place] [address] documented as of this encounter Procedures Procedure Name Priority Date/Time Associated Diagnosis Comments BACTERIAL IDENTIFICATION AND SUSCEPTIBILITY, AEROBIC Routine 01/25/2024 1:59 PM EST Other abnormal findings in urine documented in this encounter Results * (ABNORMAL) Bacterial identification and susceptibility, aerobic (01/25/2024 1:59 PM EST) Culture, Bacterial ID and Sensitivity Escherichia coli(A) MARY JO 01/27/2024 11:03 AM EST [facility] Comment: This is an edited result. [...] Trimethoprim/Sulfamethoxazole MARY JO <=20 ug/ml: Susceptible us Alie[facility] MICROBIOLOGY - GENERAL ORDER RAYMUNDO Final Result [facility] ([facility] [address] [place] [address], documented in this encounter Visit Diagnoses Diagnosis Other abnormal findings in urine documented in this encounter Care Teams Child Psychologist Relationship Specialty Start Date End Date Meliton Jones MD [address] [place] [address] PCP - General 04/26/23 documented as of this encounter
--- OUTSIDE RECORDS SUMMARY | 2024-06-21 11:31 | XMS_ITS | Encounter Summary ---
Author Organization [facility] [place], Address [address] [place] [address] Phone Care Team Providers Care Commercial Credit Lead Name Role Phone Meliton Jones MD Primary Care Provider Encounter Details Date Type Department Care Team (Late st Contact Info) Description 12/07/2022 Documentation Only [facility] [place] [address] [place] [phone] Scottie Hill MD [address] [place] [address] [place] [address] [place] [phone] Social History Tobacco Use Types Packs/Day Years [...] on filedocumented in this encounter Care Teams Commercial Credit Lead Relationship Specialty Start Date End Date Meliton Jones MD [address] [place] [address], [address] [place] [address] PCP - General Internal Medicine 12/05/22 documented as of this encounter
--- OUTSIDE RECORDS SUMMARY | 2024-06-21 11:31 | XMS_ITS | Clinical Summary ---
Author Organization [facility] Address [address] [place] [address] Care Team Providers Care Contracts Analyst Name Role Phone Meliton Jones MD Primary Care Provider [phone] Allergies Active Allergy Reactions Criticality Noted Date Comments Penicillins 07/15/2017 Seasonal 09/15/2023 Other reaction(s): runny nose, itch seasonal allergy-pollen Medications Medication Sig Dispensed Refills Start Date End Date Status Magnesium 100 MG CAPS Take 400 mg by mouth. 0 06/02/2021 Active amantadine (SYMMETREL) 100 MG capsule 0 05/20/2021 Active atorvastatin (LIPITOR) tablet 20 mg 0 05/12/2023 Active Cholecalciferol 1.25 MG (46887 UT) capsule 0 11/25/2022 Active clonazePAM (KlonoPIN) [...] age to complete this topic Care Teams Contracts Analyst Relationship Specialty Start Date End Date Meliton Jones MD [address] [place] [address] 2 [place] [address] PCP - General Internal Medicine 04/26/23
== END 2024-06-21 10:50 | disposition home or self-care (01) ==
LOC: HO.RHE 10:08
PROVIDERS: PCP Internal Medicine; Visit Provider Student in an Organized Health Care Education/Training Program
DX: M06.00 Rheumatoid arthritis without rheumatoid factor, unspecified site (principal); M15.9 Polyosteoarthritis, unspecified; Z79.899 Other long term (current) drug therapy; Z79.631 Long term (current) use of antimetabolite agent
CPT/HCPCS: 99214; G2211

== ENCOUNTER 2024-06-21 10:53 | Outpatient (REF) | payer MEDICARE, MEDICAID, SELFPAY ==
--- OUTSIDE RECORDS SUMMARY | 2024-06-21 12:37 | XMS_ITS | Encounter Summary ---
Author Organization [facility] Address [address] [place] [address] Care Team Providers Care Life Support Technician Name Role Phone Meliton Jones MD Primary Care Provider [phone] Encounter Details Date Type Department Care Team (Late st Contact Info) Description 01/26/2024 Lab Requisition [facility] - Main Lab [address] [facility] [place] [phone] Alice Hemphill, PA [address] [facility] [address] [place] [address] Other abnormal findings in urine Social History [...] Description 07/17/2024 3:00 PM EDT Office Visit [facility] 175 [facility] 150 [place] [address] Kasandra Rueda MD 175 [facility] [address] [place] [address] documented as of this encounter Procedures Procedure Name Priority Date/Time Associated Diagnosis Comments BACTERIAL IDENTIFICATION AND SUSCEPTIBILITY, AEROBIC Routine 01/25/2024 1:59 PM EST Other abnormal findings in urine documented in this encounter Results * (ABNORMAL) Bacterial identification and susceptibility, aerobic (01/25/2024 1:59 PM EST) Culture, Bacterial ID and Sensitivity Escherichia coli(A) MARY JO 01/27/2024 11:03 AM EST [facility] Comment: This is an edited [...] MICROBIOLOGY - GENERAL ORDER RAYMUNDO Final Result [facility] [address] [place] [address], documented in this encounter Visit Diagnoses Diagnosis Other abnormal findings in urine documented in this encounter Care Teams Life Support Technician Relationship Specialty Start Date End Date Meliton Jones MD [address] [place] [address] PCP - General 04/26/23 documented as of this encounter
--- OUTSIDE RECORDS SUMMARY | 2024-06-21 12:37 | XMS_ITS | Clinical Summary ---
Author Organization [facility] Address [address] [place] [address] Care Team Providers Care Utility Arborist Name Role Phone Meliton Jones MD Primary Care Provider [phone] Allergies Active Allergy Reactions Criticality Noted Date Comments Penicillins 07/15/2017 Seasonal 09/15/2023 Other reaction(s): runny nose, itch seasonal allergy-pollen Medications Medication Sig Dispensed Refills Start Date End Date Status Magnesium 100 MG CAPS Take 400 mg by mouth. 0 06/02/2021 Active amantadine (SYMMETREL) 100 MG capsule 0 05/20/2021 Active atorvastatin (LIPITOR) tablet 20 mg 0 05/12/2023 Active Cholecalciferol 1.25 MG (40838 UT) capsule 0 11/25/2022 Active clonazePAM (KlonoPIN) [...] age to complete this topic Care Teams Utility Arborist Relationship Specialty Start Date End Date Meliton Jones MD [address] [place] [address] 2 [place] [address] PCP - General Internal Medicine 04/26/23
--- OUTSIDE RECORDS SUMMARY | 2024-06-21 12:37 | XMS_ITS | Encounter Summary ---
Author Organization [facility], Address [address] [place] [address] Phone Care Team Providers Care Quality Improvement Analyst Name Role Phone Meliton Jones MD Primary Care Provider [phone] Encounter Details Date Type Department Care Team (Late st Contact Info) Description 12/07/2022 Documentation Only [facility] [address] [place] [phone] Scottie Hill MD [address] [place] [address] [place] [address] [place] [phone] Social History Tobacco Use Types Packs/Day Years [...] on filedocumented in this encounter Care Teams Quality Improvement Analyst Relationship Specialty Start Date End Date Meliton Jones MD [address] [place] [address], [address] [place] [address] PCP - General Internal Medicine 12/05/22 documented as of this encounter
--- OUTSIDE RECORDS SUMMARY | 2024-06-21 12:37 | XMS_ITS | Encounter Summary ---
Author Organization [facility] Address [address] [place] [address] Care Team Providers Care Home Companion Name Role Phone Meliton Jones MD Primary Care Provider [phone] Encounter Details Date Type Department Care Team (Late st Contact Info) Description 01/16/2024 11:20 AM EDT Hospital Encounter TH HISTORIC ENCOUNTERS [facility] ONLY Tatiana Rome PA 175 [facility] 150 [place] [address] Social History Tobacco Use Types Packs/Day Years [...] TRAM Oates - 01/16/2024 11:[address] [facility] MULTIPLE SCLEROSIS HPI: Patient is [...] charges. Additionally, if the patient is Limited Sami Proficient, deaf, or hard of hearing, speech impaired, or has another disability which impairs their ability to communicate, the services of a qualified access spec will be provided during the visit. Patients Location: Patient's home ([place]) Total Time: 30 minutes Disease Summary Date [...] Disp: , Rfl: ??? Cholecalciferol 1.25 MG (11482 UT) capsule, , Disp: , Rfl: ??? [...] 30 minutes. The majority of the actual uzfy-ms-isdp visit was spent counseling the patient with respect to the current neurological picture. Tatiana Rome PA-C documented in this encounter Plan of Treatment Upcoming Encounters Date Type Department Care Team (Late st Contact Info) Description 07/17/2024 3:00 PM EDT Office Visit [facility] [address] [facility] [address] [place] [phone] Kasandra Rueda MD [address] [phone] documented as of this encounter Visit Diagnoses Not on filedocumented in this encounter Care Teams Home Companion Relationship Specialty Start Date End Date Meliton Jones MD [address] [place] [address] PCP - General 04/26/23 documented as of this encounter
--- OUTSIDE RECORDS SUMMARY | 2024-06-21 12:37 | XMS_ITS | Encounter Summary ---
Author Organization [facility] [place], Address [address] [place] [address] Phone Care Team Providers Care Operations Assistant Name Role Phone Meliton Jones MD Primary Care Provider [phone] Encounter Details Date Type Department Care Team (Late st Contact Info) Description 12/07/2022 Documentation Only [facility] [place] [address] [place] [phone] Scottie Hill MD [address] [place] [address] [place] [phone] Social History Tobacco Use Types Packs/Day Years [...] on filedocumented in this encounter Care Teams Operations Assistant Relationship Specialty Start Date End Date Meliton Jones MD [address] [place] [address], [address] [place] [address] PCP - General Internal Medicine 12/05/22 documented as of this encounter
--- OUTSIDE RECORDS SUMMARY | 2024-06-21 12:37 | XMS_ITS | Encounter Summary ---
Author Organization [facility] [place], Address [address] [place] [address] Phone Care Team Providers Care Para Professional Name Role Phone Meliton Jones MD Primary Care Provider [phone] Encounter Details Date Type Department Care Team (Late st Contact Info) Description 12/07/2022 Documentation Only [facility] [address] [place] [phone] Scottie Hill MD [address] [place] [address] [place] [phone] Social History Tobacco Use Types Packs/Day Years [...] on filedocumented in this encounter Care Teams Para Professional Relationship Specialty Start Date End Date Meliton Jones MD [address] [place] [address], [address] [place] [address] PCP - General Internal Medicine 12/05/22 documented as of this encounter
--- OUTSIDE RECORDS SUMMARY | 2024-06-21 12:38 | XMS_ITS | Encounter Summary ---
Author Organization [facility] [place], Address [address] [place] [address] Phone Care Team Providers Care Cancer Program Coordinator Name Role Phone Meliton Jones MD Primary Care Provider [phone] Encounter Details Date Type Department Care Team (Late st Contact Info) Description 12/29/2022 Documentation Only [facility], [facility] [place] [address] [place] [phone] Scottie Hill MD [address] [place] [address] [place] [address] [place] [phone] Social History Tobacco Use Types Packs/Day Years [...] on filedocumented in this encounter Care Teams Cancer Program Coordinator Relationship Specialty Start Date End Date Meliton Jones MD [address] [place] [address], [address] [place] [address] PCP - General Internal Medicine 12/05/22 documented as of this encounter
--- OUTSIDE RECORDS SUMMARY | 2024-06-21 12:38 | XMS_ITS | Clinical Summary ---
Author Organization 175 [facility] Address 175 [place] [address] Phone Care Team Providers Care Side Seam Envelope Machine Operator Name Role Phone Meliton Jones MD Primary Care Provider [phone] Allergies Active Allergy Reactions Criticality Noted Date [...] Description 05/09/2024 10:30 AM EST Office Visit [address] [address] Kasandra Rueda MD Multiple sclerosis (CMS/[facility]) (Primary Dx); Vitamin D deficiency; Fall, sequela; Spasm 04/26/[address] [address] Tatiana Rome PA MEDICATION PRIOR AUTH from Last 3 Months Surgical History Surgery Date Site/Laterality Comments OTHER SURGICAL HISTORY Left Posterior PROCEDURE:left shoulder rotator OTHER SURGICAL HISTORY Anterior PROCEDURE:left toe Medical History Medical History Date Comments MS (multiple sclerosis) (CMS/HCC) DX:MS (multiple sclerosis) ([facility]) Bronchitis Social History Tobacco Use [...] Description 07/17/2024 3:00 PM EDT Office Visit [facility] [address] [place] [address] Kasandra Rueda MD [address] [place] [address] Health Maintenance Due Date Last [...] K/mcL LAB HEMETOLOGY METHOD 05/09/2024 2:33 PM [facility] RBC 4.60 3.80 - 4.80 M/mcL LAB HEMETOLOGY METHOD 05/09/2024 2:33 PM [facility] Hemoglobin 13.3 11.5 - 16.0 g/dL LAB HEMETOLOGY METHOD 05/09/2024 2:33 PM [facility] Hematocrit 41.6 35.0 - 47.0 % LAB HEMETOLOGY METHOD 05/09/2024 2:33 PM [facility] MCV 90.0 79.0 - 98.0 [place] LAB HEMETOLOGY METHOD 05/09/2024 2:33 PM [facility] MCH 28.8 27.0 - 32.0 pcg LAB HEMETOLOGY METHOD 05/09/2024 2:33 PM [facility] MCHC 32.0 32.0 - 37.0 g/dL LAB HEMETOLOGY METHOD 05/09/2024 2:33 PM [facility] RDW 13.6 11.0 - 15.0 % LAB HEMETOLOGY METHOD 05/09/2024 2:33 PM [facility] Platelets 359 130 - 400 K/mcL LAB HEMETOLOGY METHOD 05/09/2024 2:33 PM [facility] MPV 8.9 7.0 - 11.0 FL LAB HEMETOLOGY METHOD 05/09/2024 2:33 PM [facility] NRBC 0.0 <1.0 % LAB HEMETOLOGY METHOD 05/09/2024 2:33 PM [facility] NRBC Absolute 0.00 <0.10 K/mcL LAB HEMETOLOGY METHOD 05/09/2024 2:33 PM [facility] Neutrophils Relative 59.5 % LAB HEMETOLOGY METHOD 05/09/2024 2:33 PM [facility] Lymphocytes Relative 29.2 % LAB HEMETOLOGY METHOD 05/09/2024 2:33 PM [facility] Monocytes Relative 7.7 % LAB HEMETOLOGY METHOD 05/09/2024 2:33 PM [facility] Eosinophils Relative 2.5 % LAB HEMETOLOGY METHOD 05/09/2024 2:33 PM [facility] Basophils Relative 0.3 % LAB HEMETOLOGY METHOD 05/09/2024 2:33 PM [facility] Immature Granulocytes Relative 0.8 % LAB HEMETOLOGY METHOD 05/09/2024 2:33 PM [facility] Neutrophils Absolute 5.83 1.50 - 7.00 K/mcL LAB HEMETOLOGY METHOD 05/09/2024 2:33 PM [facility] Lymphocytes Absolute 2.86 1.00 - 5.00 K/mcL LAB HEMETOLOGY METHOD 05/09/2024 2:33 PM [facility] Monocytes Absolute 0.75 0.20 - 1.00 K/mcL LAB HEMETOLOGY METHOD 05/09/2024 2:33 PM [facility] Eosinophils Absolute 0.24 0.00 - 0.50 K/mcL LAB HEMETOLOGY METHOD 05/09/2024 2:33 PM [facility] Basophils Absolute 0.03 0.00 - 0.20 K/mcL LAB HEMETOLOGY METHOD 05/09/2024 2:33 PM [facility] Immature Granulocytes Absolute 0.08(H) 0.00 - 0.03 K/mcL LAB HEMETOLOGY METHOD 05/09/2024 2:33 PM EST [facility] Blood Venous blood specimen / Unknown Venipuncture / Unknown 05/09/2024 12:06 PM EST 05/09/2024 12:06 PM EST Kasandra Rueda MD LAB BLOOD ORDERABLES Fin al Result Performing Organization Address [facility]/ZIP Co de Phone Number [facility] [address] [place] [address], * Creatinine (05/09/2024 12:06 PM EST) Creatinine 0.69 0.50 - 1.10 mg/dL LAB CHEMISTRY METHOD 05/09/2024 2:55 PM EST [facility] eGFR 94 >=60 mL/min/1. 73m2 LAB CHEMISTRY METHOD 05/09/2024 2:55 PM EST [facility] Comment:Calculation based on the??Chronic Kidney Disease Epidemiology Collaboration (CKD-EPI) equation refit??without adjustment for race. Blood Venous blood specimen / Unknown Venipuncture / Unknown 05/09/2024 12:06 PM EST 05/09/2024 12:06 PM EST Kasandra Rueda MD LAB BLOOD ORDERABLES Fin al Result [facility] [address] [place] [address], * Vitamin D 25 hydroxy (05/09/2024 12:06 PM EST) Vit D, 25-Hydroxy 50.9 30.0 - 80.0 ng/mL LAB CHEMISTRY METHOD 05/09/2024 3:01 PM EST [facility] Blood Venous blood specimen / Unknown Venipuncture / Unknown 05/09/2024 12:06 PM EST 05/09/2024 12:06 PM EST us Kasandra Rueda MD LAB BLOOD ORDERABLES Fin al Result Performing Organization Address City/[facility]/ZIP Co de Phone Number [facility] [address] [place] [address], [place] [phone] * Sedimentation rate (05/09/2024 12:06 PM EST) [facility] Sed Rate 5 0 - 30 mm/hr LAB HEMETOLOGY METHOD 05/09/2024 2:41 PM EST [facility] Blood Venous blood specimen / Unknown Venipuncture / Unknown 05/09/2024 12:06 PM EST 05/09/2024 12:06 PM EST us Kasandra Rueda MD LAB BLOOD ORDERABLES Fin al Result Performing Organization Address [facility]/ZIP Co de Phone Number [facility] [address] [place] [address], [place] [phone] * BUN (05/09/2024 12:06 PM EST) [facility] BUN 8 5 - 25 mg/dL LAB CHEMISTRY METHOD 05/09/2024 2:55 PM EST [facility] Blood Venous blood specimen / Unknown Venipuncture / Unknown 05/09/2024 12:06 PM EST 05/09/2024 12:06 PM EST us Kasandra Rueda MD LAB BLOOD ORDERABLES Fin al Result [facility] [address] [place] [address], [place] [phone] * (ABNORMAL) Vitamin B12 (05/09/2024 12:06 PM EST) [facility] Vitamin B-12 955(H) 250 - 900 pcg/mL LAB CHEMISTRY METHOD 05/09/2024 3:37 PM [facility] Blood Venous blood specimen / Unknown Venipuncture / Unknown 05/09/2024 12:06 PM EST 05/09/2024 12:06 PM EST Kasandra Rueda MD LAB BLOOD ORDERABLES Fin al Result [facility] [address] [place] [address], [place] [phone] * Hepatic function panel (05/09/2024 12:06 PM EST) [facility] Total Protein 7.0 6.0 - 8.0 g/dL LAB CHEMISTRY METHOD 05/09/2024 3:37 PM [facility] Albumin 4.0 3.2 - 5.0 g/dL LAB CHEMISTRY METHOD 05/09/2024 3:37 PM [facility] Total Bilirubin 0.4 0.0 - 1.4 mg/dL LAB CHEMISTRY METHOD 05/09/2024 3:37 PM [facility] Bilirubin, Direct 0.1 0.0 - 0.3 mg/dL LAB CHEMISTRY METHOD 05/09/2024 3:37 PM [facility] Bilirubin, Indirect 0.3 0.0 - 1.1 mg/dL LAB CHEMISTRY METHOD 05/09/2024 3:37 PM [facility] ALT (SGPT) 28 10 - 60 unit/L LAB CHEMISTRY METHOD 05/09/2024 3:37 PM [facility] AST (SGOT) 19 10 - 42 unit/L LAB CHEMISTRY METHOD 05/09/2024 3:37 PM [facility] Alkaline Phosphatase 114 42 - 121 unit/L LAB CHEMISTRY METHOD 05/09/2024 3:37 PM EST [facility] Blood Venous blood specimen / Unknown Venipuncture / Unknown 05/09/2024 12:06 PM EST 05/09/2024 12:06 PM EST Kasandra Rueda MD LAB BLOOD ORDERABLES Fin al Result [facility] [address] [place] [address], from Last 3 Months Insurance MEDICAID - [place] MEDICARE Care Teams Side Seam Envelope Machine Operator Relationship Specialty Start Date End Date Meliton Jones MD [address] [place] [id number] PCP - General 04/26/23
--- OUTSIDE RECORDS SUMMARY | 2024-06-21 12:38 | XMS_ITS | Clinical Summary ---
Author Organization [facility], Address [address] [place] [phone] Phone Care Team Providers Care Dip Stand Loader Name Role Phone Meliton Jones MD Primary Care Provider [phone] Allergies Active Allergy Reactions Criticality Noted Date Comments Penicillins 12/07/2022 Medications amantadine (SYMMETREL) 100 MG capsule 11/25/2022 Active Eliquis 5 MG tablet 11/25/2022 Active atorvastatin (LIPITOR) 20 MG tablet 10/07/2022 Active Cholecalciferol (Vitamin D3) 1.25 MG (55216 UT) capsule 11/25/2022 Active citalopram (CeleXA) 20 [...] topic Insurance MEDICARE MEDICAID [place] Care Teams Dip Stand Loader Relationship Specialty Start Date End Date Meliton Jones MD [address] [place] [address], [address] [place] [address] PCP - General Internal Medicine 12/05/22
--- OUTSIDE RECORDS SUMMARY | 2024-06-21 12:38 | XMS_ITS | Encounter Summary ---
Author Organization [facility] [place], Address [address] [place] [address] Phone Care Team Providers Care Cash Van Salesperson Name Role Phone Meliton Jones MD Primary Care Provider [phone] Encounter Details Date Type Department Care Team (Late st Contact Info) Description 12/07/2022 Office Communication [facility], [facility] Huan Aguirre [address] [place] [phone] Scottie Hill MD [address] [place] [address] [place] [address] [place] [phone] Social History Tobacco Use Types Packs/Day Years [...] on filedocumented in this encounter Care Teams Cash Van Salesperson Relationship Specialty Start Date End Date Meliton Jones MD [address] [place] [address], [address] [place] [address] PCP - General Internal Medicine 12/05/22 documented as of this encounter
--- OUTSIDE RECORDS SUMMARY | 2024-06-21 12:38 | XMS_ITS | Encounter Summary ---
Author Organization [facility] [place], Address [address] [place] [address] Phone Care Team Providers Care National Sales Executive Name Role Phone Meliton Jones MD Primary Care Provider Encounter Details Date Type Department Care Team (Late st Contact Info) Description 12/29/2022 Documentation Only [facility] [place], [facility] [place] [address] [place] [phone] Scottie Hill MD [address] [place] [address] [place] [phone] Social History Tobacco Use Types Packs/Day Years [...] on filedocumented in this encounter Care Teams National Sales Executive Relationship Specialty Start Date End Date Meliton Jones MD [address] [place] [address], [address] [place] [address] PCP - General Internal Medicine 12/05/22 documented as of this encounter
[2024-06-21 13:41] LABS: MANUAL DIFF FLAG NO
[2024-06-21 13:45] LABS: Basophils Absolute Auto 0.1 X10*3/uL (0.0-0.2); Basophils Percent Auto 0.7 % (0-2); Eosinophils Absolute Auto 0.1 X10*3/uL (0.0-0.4); Eosinophils Percent Auto 1.2 % (0-4); Hematocrit 41.8 % (37.0-47.0); Hemoglobin 13.6 g/dl (12.0-16.0); Imm Gran Abs Auto 0.03 X10*3/uL (0.00-0.03); Imm Gran Pct Auto 0.4 % (0.0-0.4); Lymphocytes Absolute Auto 1.6 X10*3/uL (1.2-4.9); Lymphocytes Percent Auto 20.1 % (20-40); Mean Corpuscular HGB Conc 32.5 g/dl (31.0-35.0); Mean Corpuscular Hemoglobin 28.5 pg (27.0-33.0); Mean Corpuscular Volume 87.4 fL (80.0-98.0); Mean Platelet Volume 9.9 fL (9.4-12.3); Monocytes Absolute Auto 0.4 X10*3/uL (0.1-1.2); Monocytes Percent Auto 5.1 % (2-11); Neutrophils Absolute Auto 5.8 x10*3/uL (2.0-8.3); Neutrophils Percent Auto 72.5 % (45-73); Platelet Count 303 X10*3/uL (160-400); Red Blood Count 4.78 X10*6/uL (4.20-5.50); Red Cell Distribution Width 13.8 % (11.0-16.0)
[2024-06-21 14:10] LABS: Alanine Aminotransferase 11 U/L (0-31); Anion Gap 13 (12-20); Aspartate Amino Transferase 19 U/L (5-31); Bilirubin Total 0.5 mg/dL (0.0-1.0); Blood Urea Nitrogen 8 mg/dL (9-16); C Reactive Protein 0.86 mg/dL (< or = 0.50); Calcium 9.9 mg/dL (8.4-10.2); Carbon Dioxide 29 mmol/L (22-29); Chloride 103 mmol/L (96-108); Estimated Glomerular Filt Rate > 60; Glucose Random 102 mg/dL (60-115); Potassium 4.1 mmol/L (3.3-5.1); Sodium 141 mmol/L (135-145)
[2024-06-21 14:11] LABS: Albumin Level 4.2 g/dL (3.5-5.0); Alkaline Phosphatase 114 U/L (39-117); Total Protein 7.2 g/dL (6.5-8.0)
[2024-06-21 14:27] LABS: Erythrocyte Sedimentation Rate 9 MM/HR (0-20)
[2024-06-22 07:21] LABS: HBc Num1 0.08 S/CO (0.00-0.79); HBsAGNum1 0.32 S/CO (0.00-0.99); Hepatitis A Antibody IgM 0.12 Index (0-0.79); Hepatitis B Core Antibody Nonreactive (Nonreactive); Hepatitis B Surface Antigen Negative (Negative); ~HepC Num1 0.13 S/CO (0.00-0.79); ~Hepatitis A Antibody IgM Nonreactive (Nonreactive); ~Hepatitis B Surface Antibody NONREACTIVE (Nonreactive); ~Hepatitis C Antibody Nonreactive (Nonreactive)
[2024-06-24 12:59] LABS: TS Negative Control Passed; TS Panel A 0; TS Panel B 0; TS Positive Control Passed; TSpotTB Negative (Negative)
[2024-06-27 13:39] LABS: Vitamin D 25-OH, D2 <4 ng/mL; Vitamin D 25-OH, D3 58 ng/mL; Vitamin D 25-OH, Total 58 ng/mL (30-100)
== END 2024-06-21 10:54 | disposition home or self-care (01) ==
LOC: HO.10HDL 10:53
PROVIDERS: Visit Provider Student in an Organized Health Care Education/Training Program
DX: M06.00 Rheumatoid arthritis without rheumatoid factor, unspecified site (principal); E55.9 Vitamin D deficiency, unspecified
CPT/HCPCS: 36415; 80053; 82306; 85025; 85652; 86140; 86481; 86704; 86706; 86709; 86803; 87340; 99212

== ENCOUNTER → 2024-06-25 09:45 | Outpatient (REF) | payer MEDICARE, MEDICAID, SELFPAY ==
--- NOTE | ~2024-06-25 | NM_ITS ---
EXERCISE MYOCARDIAL PERFUSION STUDY INDICATION: Abnormal EKG TECHNIQUE: The patient was brought in for an exercise perfusion study on 06/25/2024. Patient performed exercise as per [facility] protocol and was injected 25 mCi of sestamibi once target heart rate was achieved. Images were obtained using the SPECT gamma camera interlaced with the gating device. Images were obtained in supine position. Resting perfusion study was performed on 06/26/2024. Patient was administered 25 mCi of sestamibi intravenously at rest. Images were then obtained in supine position. Total DLP 117 mGy-cm. Images were processed with the software and compared side to side in short axis, horizontal long axis and vertical long axis views. FINDINGS: Raw aquisition reviewed. Arms by the patient's side. The stress perfusion study showed decreased tracer uptake in the apical part of inferolateral wall. Some improvement with CT attenuation correction which could indicate components of diaphragmatic attenuation artifact. The gated study shows low normal LV systolic function with calculated LVEF of 51%. LV cavity is normal in size. The gated study shows normal wall thickening and contraction of segments. Resting study shows no significant perfusion abnormality. Gating at rest reveals normal wall motion with ejection fraction at 49%. The findings are consistent with reversible distal inferolateral defect which could be related to diaphragmatic attenuation artifact. Less likely ischemia. NM/NM cardiolite stress test IMPRESSION: 1. Myocardial perfusion imaging study shows probably normal myocardial perfusion. Reversible distal inferolateral defect could be related to diaphragmatic attenuation artifact and less likely to represent true ischemia. 2. Gated LVEF is 51% during stress and 49% during rest. Correlate with echocardiogram. 3. Transient ischemic dilatation not present. EKG component of the test reported separately. Electronically signed by: Humberto Vaughan MD 06/27/2024 04:19 PM EDT
--- NOTE | 2024-06-25 09:48 | CA_ITS ---
Acquisition Time: 2024-06-25 10:15:20 Total Exercise Time: 00:05:30 Test Indications: Abnormal ECG Medications: SEE H&P Protocol: GREY Max HR: 133 BPM 88% of Pred: 151 BPM Max BP: 144/84 mmHG Max Work Load: 7.0 METS Exercise Stress Test with exercise 5 mins 30 secs of Grey Protocol, achieving 88% MPHR, with reports of feeling fatigued, no chest pain, without any arrythmias, with normotensive response to exercise. Without EKG changes meeting criteria for ischemia. In recovery, pt feeling back to baseline. Nuclear images pending. Test reviewed with Dr. Escamilla. Referred By: Humberto Vaughan Electronically Signed By: Rajendra Chaves
--- OUTSIDE RECORDS SUMMARY | 2024-06-25 11:11 | XMS_ITS | Encounter Summary ---
Author Organization [facility] Address [id number] [place] [address] Care Team Providers Care Diamond Cleaver Name Role Phone Meliton Jones MD Primary Care Provider [phone] Encounter Details Date Type Department Care Team (Late st Contact Info) Description 01/26/2024 Lab Requisition [facility] Main Lab [address] [facility] [place] [phone] Alice Hemphill, [place] [address] [place] [address] Other abnormal findings in urine Social History [...] Description 07/17/2024 3:00 PM EDT Office Visit [facility] [address] [facility] [address] [place] [address] Kasandra Rueda MD 175 [facility] [address] [place] [address] documented as of this encounter Procedures Procedure Name Priority Date/Time Associated Diagnosis Comments BACTERIAL IDENTIFICATION AND SUSCEPTIBILITY, AEROBIC Routine 01/25/2024 1:59 PM EST Other abnormal findings in urine documented in this encounter Results * (ABNORMAL) Bacterial identification and susceptibility, aerobic (01/25/2024 1:59 PM EST) Culture, Bacterial ID and Sensitivity Escherichia coli(A) MARY JO 01/27/2024 11:03 AM EST [facility] Comment: This is an edited [...] JO 2 ug/ml: Susceptible Escherichia coli Gentamicin MAYR JO <=1 ug/ml: Susceptible Escherichia coli Ciprofloxacin MARY JO >=4 ug/ml: Resistant Escherichia coli Levofloxacin MARY JO >=8 ug/ml: Resistant Escherichia coli Nitrofurantoin MARY JO <=16 ug/ml: Susceptible Escherichia coli Trimethoprim/Sulfamethoxazole MARY JO <=20 ug/ml: Susceptible us Alice [facility] MICROBIOLOGY - GENERAL ORDER RAYMUNDO Final Result [facility] [address] [place] [address], documented in this encounter Visit Diagnoses Diagnosis Other abnormal findings in urine documented in this encounter Care Teams Diamond Cleaver Relationship Specialty Start Date End Date Meliton Jones MD [address] [place] [address] PCP - General 04/26/23 documented as of this encounter
--- OUTSIDE RECORDS SUMMARY | 2024-06-25 11:11 | XMS_ITS | Clinical Summary ---
Author Organization [facility] [place], Address [address] [place] [phone] Phone Care Team Providers Care Oceanography Teacher Name Role Phone Meliton Jones MD Primary Care Provider Allergies Active Allergy Reactions Criticality Noted Date Comments Penicillins 12/07/2022 Medications amantadine (SYMMETREL) 100 MG capsule 11/25/2022 Active Eliquis 5 MG tablet 11/25/2022 Active atorvastatin (LIPITOR) 20 MG tablet 10/07/2022 Active Cholecalciferol (Vitamin D3) 1.25 MG (38058 UT) capsule 11/25/2022 Active citalopram (CeleXA) 20 [...] topic Insurance MEDICARE MEDICAID [place] Care Teams Oceanography Teacher Relationship Specialty Start Date End Date Meliton Jones MD [address] [place] [address], [address] [place] [address] PCP - General Internal Medicine 12/05/22
--- OUTSIDE RECORDS SUMMARY | 2024-06-25 11:11 | XMS_ITS | Clinical Summary ---
Author Organization [address] [facility] Address [address] [place] [address] Phone Care Team Providers Care Golf Club Weighter Name Role Phone Meliton Jones MD Primary Care Provider [phone] Allergies Active Allergy Reactions Criticality Noted Date [...] Description 05/09/2024 10:30 AM EST Office Visit [address] [address] Kasandra Rueda MD Multiple sclerosis (CMS/[facility]) (Primary Dx); Vitamin D deficiency; Fall, sequela; Spasm 04/26/[address] [address] Tatiana Rome PA MEDICATION PRIOR AUTH from Last 3 Months Surgical History Surgery Date Site/Laterality Comments OTHER SURGICAL HISTORY Left Posterior PROCEDURE:left shoulder rotator OTHER SURGICAL HISTORY Anterior PROCEDURE:left toe Medical History Medical History Date Comments MS (multiple sclerosis) (CMS/HCC) DX:MS (multiple sclerosis) ([facility]) Bronchitis Social History Tobacco Use Types Packs/Day [...] Description 07/17/2024 3:00 PM EDT Office Visit [facility] [address] [place] [address] Kasandra Rueda MD [address] [place] [address] Health Maintenance Due Date Last [...] (2 - season) 2023 12/31/2020 Influenza Vaccine (Season Ended) 2024 12/29/2020, 11/11/2019, 12/04/2017, Additional history exists Hypertension/CHF/CAD Annual [...] age to complete this topic Meningococcal B Vaccine Aged Out No l onger eligible based on patient's age to complete [...] K/mcL LAB HEMETOLOGY METHOD 05/09/2024 2:33 PM [facility] RBC 4.60 3.80 - 4.80 M/mcL LAB HEMETOLOGY METHOD 05/09/2024 2:33 PM [facility] Hemoglobin 13.3 11.5 - 16.0 g/dL LAB HEMETOLOGY METHOD 05/09/2024 2:33 PM [facility] Hematocrit 41.6 35.0 - 47.0 % LAB HEMETOLOGY METHOD 05/09/2024 2:33 PM [facility] MCV 90.0 79.0 - 98.0 FL LAB HEMETOLOGY METHOD 05/09/2024 2:33 PM [facility] MCH 28.8 27.0 - 32.0 pcg LAB HEMETOLOGY METHOD 05/09/2024 2:33 PM [facility] MCHC 32.0 32.0 - 37.0 g/dL LAB HEMETOLOGY METHOD 05/09/2024 2:33 PM [facility] RDW 13.6 11.0 - 15.0 % LAB HEMETOLOGY METHOD 05/09/2024 2:33 PM [facility] Platelets 359 130 - 400 K/mcL LAB HEMETOLOGY METHOD 05/09/2024 2:33 PM [facility] MPV 8.9 7.0 - 11.0 FL LAB HEMETOLOGY METHOD 05/09/2024 2:33 PM [facility] NRBC 0.0 <1.0 % LAB HEMETOLOGY METHOD 05/09/2024 2:33 PM [facility] NRBC Absolute 0.00 <0.10 K/mcL LAB HEMETOLOGY METHOD 05/09/2024 2:33 PM [facility] Neutrophils Relative 59.5 % LAB HEMETOLOGY METHOD 05/09/2024 2:33 PM [facility] Lymphocytes Relative 29.2 % LAB HEMETOLOGY METHOD 05/09/2024 2:33 PM [facility] Monocytes Relative 7.7 % LAB HEMETOLOGY METHOD 05/09/2024 2:33 PM [facility] Eosinophils Relative 2.5 % LAB HEMETOLOGY METHOD 05/09/2024 2:33 PM [facility] Basophils Relative 0.3 % LAB HEMETOLOGY METHOD 05/09/2024 2:33 PM [facility] Immature Granulocytes Relative 0.8 % LAB HEMETOLOGY METHOD 05/09/2024 2:33 PM [facility] Neutrophils Absolute 5.83 1.50 - 7.00 K/mcL LAB HEMETOLOGY METHOD 05/09/2024 2:33 PM [facility] Lymphocytes Absolute 2.86 1.00 - 5.00 K/mcL LAB HEMETOLOGY METHOD 05/09/2024 2:33 PM [facility] Monocytes Absolute 0.75 0.20 - 1.00 K/mcL LAB HEMETOLOGY METHOD 05/09/2024 2:33 PM [facility] Eosinophils Absolute 0.24 0.00 - 0.50 K/mcL LAB HEMETOLOGY METHOD 05/09/2024 2:33 PM [facility] Basophils Absolute 0.03 0.00 - 0.20 K/mcL LAB HEMETOLOGY METHOD 05/09/2024 2:33 PM [facility] Immature Granulocytes Absolute 0.08(H) 0.00 - 0.03 K/mcL LAB HEMETOLOGY METHOD 05/09/2024 2:33 PM EST [facility] Blood Venous blood specimen / Unknown Venipuncture / Unknown 05/09/2024 12:06 PM EST 05/09/2024 12:06 PM EST Kasandra Rueda MD LAB BLOOD ORDERABLES Fin al Result Performing Organization Address [facility]/ZIP Co de Phone Number [facility] [address] [place] [address], * Creatinine (05/09/2024 12:06 PM EST) Creatinine 0.69 0.50 - 1.10 mg/dL LAB CHEMISTRY METHOD 05/09/2024 2:55 PM EST [facility] eGFR 94 >=60 mL/min/1. 73m2 LAB CHEMISTRY METHOD 05/09/2024 2:55 PM EST [facility] Comment:Calculation based on the??Chronic Kidney Disease Epidemiology Collaboration (CKD-EPI) equation refit??without adjustment for race. Blood Venous blood specimen / Unknown Venipuncture / Unknown 05/09/2024 12:06 PM EST 05/09/2024 12:06 PM EST Kasandra Rueda MD LAB BLOOD ORDERABLES Fin al Result Performing Organization Address [facility]/State/ZIP Co de Phone Number [facility] [address] [place] [address], [place] [phone] * Vitamin D 25 hydroxy (05/09/2024 12:06 PM EST) Vit D, 25-Hydroxy 50.9 30.0 - 80.0 ng/mL LAB CHEMISTRY METHOD 05/09/2024 3:01 PM EST [facility] Blood Venous blood specimen / Unknown Venipuncture / Unknown 05/09/2024 12:06 PM EST 05/09/2024 12:06 PM EST us Kasandra Rueda MD LAB BLOOD ORDERABLES Fin al Result Performing Organization Address [facility]/ZIP Co de Phone Number [facility] [address] [place] [address], [place] [phone] * Sedimentation rate (05/09/2024 12:06 PM EST) [facility] Sed Rate 5 0 - 30 mm/hr LAB HEMETOLOGY METHOD 05/09/2024 2:41 PM EST [facility] Blood Venous blood specimen / Unknown Venipuncture / Unknown 05/09/2024 12:06 PM EST 05/09/2024 12:06 PM EST us Kasandra Rueda MD LAB BLOOD ORDERABLES Fin al Result Performing Organization Address [facility]/ZIP Co de Phone Number [facility] [address] [place] [address], [place] [phone] * BUN (05/09/2024 12:06 PM EST) [facility] BUN 8 5 - 25 mg/dL LAB CHEMISTRY METHOD 05/09/2024 2:55 PM EST [facility] Blood Venous blood specimen / Unknown Venipuncture / Unknown 05/09/2024 12:06 PM EST 05/09/2024 12:06 PM EST us Kasandra Rueda MD LAB BLOOD ORDERABLES Fin al Result [facility] [address] [place] [address], [place] [phone] * (ABNORMAL) Vitamin B12 (05/09/2024 12:06 PM EST) [facility] Vitamin B-12 955(H) 250 - 900 pcg/mL LAB CHEMISTRY METHOD 05/09/2024 3:37 PM [facility] Blood Venous blood specimen / Unknown Venipuncture / Unknown 05/09/2024 12:06 PM EST 05/09/2024 12:06 PM EST Kasandra Rueda MD LAB BLOOD ORDERABLES Fin al Result [facility] [address] [place] [address], [place] [phone] * Hepatic function panel (05/09/2024 12:06 PM EST) [facility] Total Protein 7.0 6.0 - 8.0 g/dL LAB CHEMISTRY METHOD 05/09/2024 3:37 PM [facility] Albumin 4.0 3.2 - 5.0 g/dL LAB CHEMISTRY METHOD 05/09/2024 3:37 PM [facility] Total Bilirubin 0.4 0.0 - 1.4 mg/dL LAB CHEMISTRY METHOD 05/09/2024 3:37 PM [facility] Bilirubin, Direct 0.1 0.0 - 0.3 mg/dL LAB CHEMISTRY METHOD 05/09/2024 3:37 PM [facility] Bilirubin, Indirect 0.3 0.0 - 1.1 mg/dL LAB CHEMISTRY METHOD 05/09/2024 3:37 PM [facility] ALT (SGPT) 28 10 - 60 unit/L LAB CHEMISTRY METHOD 05/09/2024 3:37 PM [facility] AST (SGOT) 19 10 - 42 unit/L LAB CHEMISTRY METHOD 05/09/2024 3:37 PM [facility] Alkaline Phosphatase 114 42 - 121 unit/L LAB CHEMISTRY METHOD 05/09/2024 3:37 PM EST [facility] Blood Venous blood specimen / Unknown Venipuncture / Unknown 05/09/2024 12:06 PM EST 05/09/2024 12:06 PM EST Kasandra Rueda MD LAB BLOOD ORDERABLES Fin al Result [facility] HOSPITAL LAB [address] [place] [address], from Last 3 Months Insurance MEDICAID - [place] MEDICARE Care Teams Golf Club Weighter Relationship Specialty Start Date End Date Meliton Jones MD [address] [place] [address] PCP - General 04/26/23
--- OUTSIDE RECORDS SUMMARY | 2024-06-25 11:11 | XMS_ITS | Encounter Summary ---
Author Organization [facility] [place], Address [address] [place] [address] Phone Care Team Providers Care Auxiliary Operator Name Role Phone Meliton Jones MD Primary Care Provider [phone] Encounter Details Date Type Department Care Team (Late st Contact Info) Description 12/07/2022 Documentation Only [facility] [address] [place] [phone] Scottie Hill MD [address] [place] [address] [place] [address] [place] [phone] Social History Tobacco Use Types Packs/Day Years [...] on filedocumented in this encounter Care Teams Auxiliary Operator Relationship Specialty Start Date End Date Meliton Jones MD [address] [place] [address], [address] [place] [address] PCP - General Internal Medicine 12/05/22 documented as of this encounter
--- OUTSIDE RECORDS SUMMARY | 2024-06-25 11:11 | XMS_ITS | Encounter Summary ---
Author Organization [facility] [place], Address [address] [place] [address] Phone Care Team Providers Care Window Shade Cutter Name Role Phone Meliton Jones MD Primary Care Provider [phone] Encounter Details Date Type Department Care Team (Late st Contact Info) Description 12/29/2022 Documentation Only [facility] [place], [facility] [place] [address] [place] [phone] Scottie Hill MD [address] [place] [address] [place] [address] [place] [phone] Social History Tobacco Use Types Packs/Day Years [...] on filedocumented in this encounter Care Teams Window Shade Cutter Relationship Specialty Start Date End Date Meliton Jones MD [address] [place] [address], [address] [place] [address] PCP - General Internal Medicine 12/05/22 documented as of this encounter
--- OUTSIDE RECORDS SUMMARY | 2024-06-25 11:11 | XMS_ITS | Encounter Summary ---
Author Organization [facility] [place], Address [address] [place] [address] Phone Care Team Providers Care Fiberglass Product Tester Name Role Phone Meliton Jones MD Primary Care Provider [phone] Encounter Details Date Type Department Care Team (Late st Contact Info) Description 12/29/2022 Documentation Only [facility] [place], [facility] [place] [address] [place] [phone] Scottie Hill MD [address] [place] [address] [place] [phone] Social History Tobacco Use Types Packs/Day Years [...] on filedocumented in this encounter Care Teams Fiberglass Product Tester Relationship Specialty Start Date End Date Meliton Jones MD [address] [place] [address], [address] [place] [address] PCP - General Internal Medicine 12/05/22 documented as of this encounter
--- OUTSIDE RECORDS SUMMARY | 2024-06-25 11:11 | XMS_ITS | Encounter Summary ---
Author Organization [facility] Address [address] [place] [address] Care Team Providers Care Wireworker Supervisor Name Role Phone Meliton Jones MD Primary Care Provider [phone] Encounter Details Date Type Department Care Team (Late st Contact Info) Description 01/16/2024 11:20 AM EDT Hospital Encounter TH HISTORIC ENCOUNTERS [facility] ONLY Tatiana Rome PA [address] [facility] [address] [place] [address] Social History Tobacco Use Types Packs/Day Years [...] TRAM Oates - 01/16/2024 11:00 AM EDT [facility] HPI: Patient is a [...] to communicate, the services of a qualified healthcare interpreter will be provided during the visit. Patients Location: Patient's home ([place]) Total Time: 30 minutes Disease Summary Date [...] Disp: , Rfl: ??? Cholecalciferol 1.25 MG (63707 UT) capsule, , Disp: , Rfl: ??? [...] 30 minutes. The majority of the actual [id number] visit was spent counseling the patient with respect to the current neurological picture. Tatiana Rome PA-C documented in this encounter Plan of Treatment Upcoming Encounters Date Type Department Care Team (Late st Contact Info) Description 07/17/2024 3:00 PM EDT Office Visit [facility] [address] [address] Kasandra Rueda MD [address] [phone] documented as of this encounter Visit Diagnoses Not on filedocumented in this encounter Care Teams Wireworker Supervisor Relationship Specialty Start Date End Date Meliton Jones MD [address] [place] [address] PCP - General 04/26/23 documented as of this encounter
--- OUTSIDE RECORDS SUMMARY | 2024-06-25 11:11 | XMS_ITS | Encounter Summary ---
Author Organization [facility] [place], Address [address] [place] [address] Phone Care Team Providers Care Slip Dumper Name Role Phone Meliton Jones MD Primary Care Provider [phone] Encounter Details Date Type Department Care Team (Late st Contact Info) Description 12/07/2022 Office Communication [facility], [facility] Huan Aguirre [address] [place] [phone] Scottie Hill MD [address] [place] [address] [place] [address] [place] [phone] Social History Tobacco Use Types Packs/Day Years [...] on filedocumented in this encounter Care Teams Slip Dumper Relationship Specialty Start Date End Date Meliton Jones MD [address] [place] [address], [address] [place] [address] PCP - General Internal Medicine 12/05/22 documented as of this encounter
--- OUTSIDE RECORDS SUMMARY | 2024-06-25 11:11 | XMS_ITS | Clinical Summary ---
Author Organization [facility] Address [address] [place] [address] Care Team Providers Care Claims Analyst Name Role Phone Meliton Jones MD [...] mg 0 05/12/2023 Active Cholecalciferol 1.25 MG (46565 UT) capsule 0 11/25/2022 Active clonazePAM (KlonoPIN) [...] age to complete this topic Care Teams Claims Analyst Relationship Specialty Start Date End Date Meliton Jones MD [address] [place] [address] [address] [place] [address] PCP - General Internal Medicine 04/26/23
--- OUTSIDE RECORDS SUMMARY | 2024-06-25 11:11 | XMS_ITS | Encounter Summary ---
Author Organization [facility] [place], Address [address] [place] [address] Phone Care Team Providers Care Molding Machine Operator Name Role Phone Meliton Jonse MD Primary Care Provider [phone] Encounter Details Date Type Department Care Team (Late st Contact Info) Description 12/07/2022 Documentation Only [facility] [place] [address] [place] [phone] Scottie Hill MD [address] [place] [address] [place] [address] [place] [phone] Social History Tobacco Use Types Packs/Day Years [...] on filedocumented in this encounter Care Teams Molding Machine Operator Relationship Specialty Start Date End Date Meliton Jones MD [address] [place] [address], [address] [place] [address] PCP - General Internal Medicine 12/05/22 documented as of this encounter
--- OUTSIDE RECORDS SUMMARY | 2024-06-25 11:11 | XMS_ITS | Encounter Summary ---
Author Organization [facility] [place], Address [address] [place] [address] Phone Care Team Providers Care Tap And Die Maker Technician Name Role Phone Meliton Jones MD Primary Care Provider [phone] Encounter Details Date Type Department Care Team (Late st Contact Info) Description 12/07/2022 Documentation Only [facility] [place] [address] [place] [phone] Scottie Hill MD [address] [place] [address] [address] [place] [phone] Social History Tobacco Use Types Packs/Day Years [...] on filedocumented in this encounter Care Teams Tap And Die Maker Technician Relationship Specialty Start Date End Date Meliton Jones MD [address] [place] [address], [address] [place] [address] PCP - General Internal Medicine 12/05/22 documented as of this encounter
== END ==
LOC: HO.CARD 09:45
PROVIDERS: PCP Internal Medicine; Visit Provider Internal Medicine
DX: R07.2 Precordial pain (principal); R94.31 Abnormal electrocardiogram [ECG] [EKG]
CPT/HCPCS: 78452; 93017; A9500; J0280; J2785

== ENCOUNTER → 2024-06-25 09:48 | Outpatient (BNV) | payer MEDICARE, MEDICAID, SELFPAY | PROVIDERS: PCP Internal Medicine | DX: R94.31 Abnormal electrocardiogram [ECG] [EKG] (principal) | CPT/HCPCS: 78452; 93016; 93018 ==

== ENCOUNTER 2024-06-27 09:58 | Outpatient (AMB) | payer MEDICARE, MEDICAID, SELFPAY ==
--- NOTE | 2024-06-27 10:12 | MHC.OFFVIS ---
Vital Signs 06/27/24 10:19 Height 5 ft 2 in Weight 151 lb 2 oz BMI 27.6 BP 155/65 H Blood Pressure Location Rt brachial Position Sitting Pulse 63 Pulse Source Pulse Oximeter Pulse Oximetry (%) 97 Oxygen Delivery Method Room Air Intake Visit Reasons: Injection Discussion Intake Note: Pain today 10/27 Kettle Hand Required: No Accompanied by: Self / Same As Patient Allergies Penicillins Allergy (Severe, Verified 06/27/24 10:19) rash,hives HPI Comments Details: The patient is a 69-year-old female presenting with right knee pain related to a recent fall. Approximately two weeks ago, the patient fell at her daughter's residence, impacting her right knee significantly. Since the fall, severe pain has been reported in the knee, with descriptions indicating sensations of potential instability or breakage with knee flexion, having developed immediately post-trauma. She delayed Orthopedic assessment and sought consultation here for management. She also reports ongoing chronic right hip pain and per previous recommendations, the patient sought cortisone injections. However, since recent fall, she would like to address right knee pain. Her insurance issues impeded earlier genicular nerve block interventions for potential RFA which patient declined due to incomplete coverage and high out of pocket costs. Alternatives such as a diagnostic saphenous nerve injection were deemed viable. The patient also discusses arthritis diagnoses, including seronegative rheumatoid arthritis and polyarticular arthritis, impacting her finger joints with recent exacerbations resulting in swelling challenging her wearing rings. She follows with [facility] Rheumatologic care. The patient avoids Voltaren, prescribed for arthritic pain, given her nonalcoholic fatty liver disease and concurrent Eliquis usage, highlighting concern over hepatic effects. - Onset: Acute on chronic right knee pain started approximately two weeks ago following a fall. - Quality: Described as broken-like sensation upon bending the knee. - Location: Primarily localized to the right knee in the medial and anterior aspects. - Radiation: Non-radiating. - Aggravating factors: Weight bearing and flexion of the knee. - Alleviating factors: Rest, ice pack, gabapentin, Tylenol-partial relief - Interference: Impacts functional ability such as bending, walking, or climbing stairs. - Current treatments: Awaiting insurance approval for right diagnostic saphenous nerve block for potential Sprint PNS trial. - Chronic Pain: Persistent hip pain and arthritis-related polyarticular pain, including the fingers. - Affect: Pain impacts functional activities and potentially psychological wellbeing. - Analgesia: Previously considered cortisone and genicular nerve blocks; however, alternatives such as saphenous nerve injections are now contemplated. - Adverse Effects: Noted avoidance of Voltaren due to potential liver side effects actionable with nonalcoholic fatty liver disease. - Activities of Daily Living: Pain reportedly affects normal bending and walking functionality. - Aberrant Drug Related Behaviors: No indications reported or discussed. PRIOR 02/12/24: Patient presents today for follow up and to discuss recent right knee and hip x-rays status post mechanical fall in early October. We were also planning to do right diagnostic GNB for potential but patient forgot to pause Eliquis and was cancelled for procedure. She presents today with significant right knee pain with walking, climbing stairs or cold weather changes. Patient underwent cortisone injection through Orthopedic office with no improvement. She requests to reschedule diagnostic right knee injection today. Patient is also concerned about elevated BP lately with intermittent headaches, sweating during the day, and increased pain due to polyarthralgia and OA. She sees Rheumatology for bilateral hand pain with significant diffuse OA and has been started on Plaquenil. Her RF and CCP markers were negative. We reviewed her recent EKG which showed normal sinus rhythm and inferior infarct , age undetermined. Patient requests Cardiology referral to further manage her HTN. She denies any fever or chills, visual disturbances, shortness of breath, chest pain at rest or activity, chest pressure, cold, cough or exposure to known sick contacts. Patient reports she is scheduled for brain MRI next week to rule out headaches with pulsating sensations in her head and MS follow up. PRIOR: Patient presents today to discuss recent lumbar spine MRI results. Patient reports her back pain has been mild for the past few weeks. She does experience increased back pain with prolonged walking. Her main concern today is chronic right knee pain no responsive to Celebrex, previous cortisone injections and ice/heat therapies. She frequently emphasizes that Celebrex is not working for her. She takes clonazepam 1 mg TID and modafinil 200 mg BID. I have informed patient that most stronger medications, including opioid and non-opioid will cause significant drowsiness and sleepiness. We returned to interventional treatments in greater detail for potential Sprint PNS trial or RFA procedures. Patient reports last seizure activity at age 49. Currently she does not take any anticonvulsants therefore potentially can be candidate for PNS trial. Denies any recent cough, cold, infection, fever, any significant changes in her medical history, medications or recent hospitalizations. PRIOR: Patient presents today for follow up for lower back pain with radiation into her right lower extremity. She was referred back to us by Orthopedic provider for right knee nerve block. Patient declined any significant right knee pain today and reports back pain has been worsening with most of her daily activities, especially with bending and axial lateral rotations and extends into her right buttock and right lower extremity laterally with paresthesias and intermittent weakness. Back pain is rated at 8/10. She reports chronic right hip pain with temporary pain relief with recent steroid injection. She continues to take Tylenol, NSAIDs, muscle relaxant and pregabalin with continued symptoms. Denies any bladder or bowel dysfunction or saddle anesthesia. Past Procedures: 04/22/23: Right hip intra-articular steroid injection-moderate but temporary relief PRIOR: Patient presents today via telehealth encounter for follow up regarding right hip pain and refill for Lyrica. She was last seen in this office in Jul, 2021. We were planning right hip steroid injection which patient decided to hold off back then. Patient reports she was following up with orthopedic providers for her shoulder and hip pain and received right greater trochanter and left shoulder steroid injection with minimal pain relief on 11/12/21. Patient is requesting to proceed with right hip steroid injection under sedation. She is not able to tolerate PT due to significant pain or take NSAIDs due to being on Eliquis. Patient reports no side effects with Lyrica and requests refill for it. Patient also reports bilateral anterior knee pain for 3 weeks with swelling due to a fall at [facility]. Patient was advised to make appointment with orthopedic office for urgent evaluation. She denies any fever, malaise, chills, shortness of breaths, knee locking or buckling, abdominal or groin pain, bladder/bowel dysfunction or saddle anesthesia. PRIOR: Patient is a pleasant 66 years old female who presents today for follow up on right hip and lower back pain. She was previously seen in this office by Dr. Figueroa. Patient reports that Lyrica has been working well and she had hard time to obtain refills on it without follow up appointments. She denies any side effects. Patient reports she has chronic right hip pain related to arthritis and has declined right hip replacement surgery. Patient request right hip cortisone injection. She also endorses axial back pain that spreads to her right side with SIJ components but without radiation to her legs. Pain is worsened with any activity, prolong sitting or walking, and weather changes. She is on Eliquis with history of PE and sees senior private client advisor Dr. Kuhn at [facility]. Patient states she has MS and has chronic daily aching, fatigued, spasms with numbness and tingling in her feet. She denies any fever, weight changes, abdominal or groin pain, bladder/bowel dysfunction or saddle anesthesia. Patient reports intermittent weakness, ambulates with mildly antalgic gait without assisting devices. PRIOR Dr. Figueroa 12/09/2019: Kristin returns to the office today for follow-up. I had initially seen her as a referral from for right hip and back pain. Per Dr. Lynn, she has a likely labral tear of the hip. Xray showed mild OA of both hips. She does not want surgery, so there was no clinical reason to obtain an MRI. PT was suggested, however she declined. She was thus referred here for possible contributing factors from her lumbar spine as well as any nonsurgical treatments for her hip pain. Upon evaluation she had positive SI joint testing on the right and also symptoms consistent with a radiculopathy on the right leg. She declined any PT, injections, or SI belt. I started her on gabapentin and over the last few months we titrated dose of this up. Kristin reports she does not notice any significant benefit from gabapentin, and would like to try something different if possible. [facility] Medical History Polyarticular osteoarthritis Numbness and tingling in both hands Lumbar radiculopathy Rotator cuff syndrome of left shoulder On methotrexate therapy Long-term use of hydroxychloroquine Seronegative rheumatoid arthritis Wears dentures REBECCA (obstructive sleep apnea) Arthritis Seizures Fatty liver GERD (gastroesophageal reflux disease) Anxiety Depression History of pulmonary embolism Elevated cholesterol Finger dislocation Bursitis of left shoulder Opioid dependence COPD (chronic obstructive pulmonary disease) Multiple sclerosis Surgical History Hx of repair of left rotator cuff Hx of colonoscopy History of toe surgery Family History Father CVD (cardiovascular disease) Mother No problems noted. Social History Household Members Other:: [employer] Are you a primary director career to a significant other at home: No Do you presently have visiting nurse or other home services: No Alcohol intake: never Comment: baseline pain Patient Tobacco Use Status: Former Tobacco user Tobacco use type: Cigarette Current occupational status: unemployed Current occupation: Right Handed Review of Systems Const Details: - Musculoskeletal: Reports knee pain, chronic hip pain, polyarticular arthritis, and swollen fingers. - Neurological: Reports multiple sclerosis. - Gastrointestinal: Reports nonalcoholic fatty liver disease. All systems reviewed & are unremarkable except as noted in HPI and below Physical Exam Vital Signs: Last Vital Signs Pulse 63 06/27/24 10:19 BP 155/65 H 06/27/24 10:19 Pulse Ox 97 06/27/24 10:19 Oxygen Delivery Method Room Air 06/27/24 10:19 BMI result Body Mass Index 27.6 General: Appears afebrile. Alert and oriented. Mood and affect appropriate. Follows and participates in conversation appropriately. Respiratory effort is unlabored. No cough. Able to transition from sit to stand unassisted. No assisting devices utilized today. Reports using a cane at home. Ambulates with bilaterally normal heel strike and toe off, reports occasional imbalance on right due to pain. General: Yes no CVA tenderness Back/Spine/Pelvis Other: Limited lumbar ROM due to significant pain. Mildly antalgic gait with mild limping. Lumbar flexion, axial lateral rotation and forward flexion mild to moderate pain. Positive facet loading bilaterally. Mild groin pain with right I/E hip rotations. Mild to moderate TTP to right GTB. Back: no CVA tenderness Cervical Spine: cervical ROM normal, cervical muscular tenderness, pain with cervical ROM and No Cervical spine tenderness Thoracic/Lumbar Spine: thoracic and lumbar spine normal to inspection, No Thoracic/lumbar spine scar(s), Lasegue's sign negative, straight leg raise negative bilaterally, pain with thoraco-lumbar ROM, paraspinal muscle tenderness, thoraco-lumbar ROM limited, No thoracic spinal tenderness and lumbar spinal tenderness (L3-S1) Sacroiliac joints: bilaterally tender to palpation Extrem General: Yes capillary refill normal, Yes no clubbing, cyanosis or edema and Yes no calf tenderness Right lower extremity: knee (Limited ROM due to pain. ) Details: normal to inspection, tenderness Location: of the patella, of the popliteal fossa, of the medial joint line and of the lateral joint line and crepitus Location: at the patella; no swelling, no abrasions, no ecchymosis, no deformity and no unusual warmth Results Reviewed Results Reviewed: XR KNEE, RIGHT 10/23/23 CLINICAL INFORMATION: Patient status-post fall. COMPARISON: Radiographs dated 06/06/2022. FINDINGS: Bony alignment and mineralization are normal. The lateral, medial and patellofemoral joint space compartments are well-maintained. There is minimal peripheral osteophyte formation of the upper and lower articular surfaces of the patella. A small enthesophyte arises from the upper pole of the patella at the quadriceps tendon insertion. No fracture or dislocation is seen. There is a moderate joint effusion. No foreign body is seen. IMPRESSION: 1. There is minimal osteoarthritic change of the right patellofemoral compartment. 2. There is a moderate right knee joint effusion. XR HIP, RIGHT 10/23/23 CLINICAL INFORMATION: History of falls. COMPARISON: Radiograph dated 10/23/2023; CT abdomen and pelvis dated 12/10/2018. FINDINGS: There is bony mineralization. The bilateral acetabular joint spaces are symmetric and well-maintained. There is mild subchondral sclerosis and very mild peripheral osteophyte formation of the right acetabular roof. The femoral heads are smooth. There is no fracture or dislocation. The sacroiliac joints are symmetrical and maintained. The pubic synthesis is intact. Pelvic phleboliths and calcified buttock granulomas are again noted. IMPRESSION: There is mild osteoarthritic change of the right hip, and no unusual degenerative change is seen of the left hip. No fracture is seen. Assessment & Plan Assessment & Plan (1) Right knee pain: Code(s): M25.561 - Pain in right knee Category: Medical (2) Status post fall: Code(s): Z91.81 - History of falling Category: Medical (3) Osteoarthritis of right knee: Code(s): M17.11 - Unilateral primary osteoarthritis, right knee Category: Medical (4) Primary osteoarthritis of hips, bilateral: Code(s): M16.0 - Bilateral primary osteoarthritis of hip Category: Medical (5) Chronic right hip pain: Code(s): M25.551 - Pain in right hip; G89.29 - Other chronic pain Category: Medical (6) Lumbar spondylosis: Code(s): M47.816 - Spondylosis without myelopathy or radiculopathy, lumbar region Category: Medical Plan The patient will first have a knee X-ray to ascertain any structural issues following her recent fall, aiming to confirm the integrity of her knee before considering nerve block interventions. Insurance barriers necessitate substituting the originally planned genicular nerve block with an alternative diagnostic saphenous nerve injection. Coordination with Orthopedic and Rheumatology management will continue given polyarticular involvement, especially concerning her fingers. Proceed with Right Diagnostic Saphenous Nerve Block with local and US guidance for potential Sprint PNS trial. Expectations, risks and benefits were reviewed. She is on Eliquis and has been avoiding NSAIDs, including Celebrex. Patient is aware she will be contacted to schedule this procedure. We will obtain permission to hold Eliquis for 3 days from prescribing physician. All questions and concerns have been answered and patient agreed with the plan. Follow up after injections and sooner as needed. Patient was informed and verbally consented to the use of an ambient scribe for clinic note documentation during this visit. Orders: Orders XR knee RT 3V 06/27/24 M15.9 - Polyosteoarthritis, unspecified, M25.561 - Pain in right knee, Z91.81 - History of falling Coding Level of Care Code Est Pt Level 4 (34645) Complex EM visit Add On G2211 Diagnoses Right knee pain M25.561 Status post fall Z91.81 Osteoarthritis of right knee M17.11 Primary osteoarthritis of hips, bilateral M16.0 Chronic right hip pain M25.551; G89.29 Lumbar spondylosis M47.816
[2024-06-27 10:19] VITALS: BP 155/65; PULSE 63; O2SAT 97; BMI 27.6
--- OUTSIDE RECORDS SUMMARY | 2024-06-27 11:32 | XMS_ITS | Clinical Summary ---
Author Organization [facility], Address [address] [address] [place] [id number] Phone Care Team Providers Care Fusing Line Inspector Name Role Phone Meliton Jones MD Primary Care Provider [phone] Allergies Active Allergy Reactions Criticality Noted Date Comments Penicillins 12/07/2022 Medications amantadine (SYMMETREL) 100 MG capsule 11/25/2022 Active Eliquis 5 MG tablet 11/25/2022 Active atorvastatin (LIPITOR) 20 MG tablet 10/07/2022 Active Cholecalciferol (Vitamin D3) 1.25 MG (35007 UT) capsule 11/25/2022 Active citalopram (CeleXA) 20 [...] Hyponatremia 12/07/2022 Hypertension 12/07/2022 Hyperlipidemia 12/07/2022 Immunizations Immunization Administration Dates Next Due Influenza Split High [...] Colorectal Cancer Screening: Sigmoidoscopy 06/28/2003 Pneumococcal Vaccine: 50+ Years (3 of 3 - PCV) 05/13/2016 05/13/2015, 11/21/2012 Influenza Vaccine (Season Ended) 2024 12/29/2020, 11/11/2019, 11/11/2019, Additional history exists Hepatitis B Vaccine Aged Out No longe r eligible based on patient's age to complete this topic Insurance Medicare Medicaid [place] Care Teams Fusing Line Inspector Relationship Specialty Start Date End Date Meliton Jones MD [address] [place] [address], [address] [place] [address] PCP - General Internal Medicine 12/05/22
--- OUTSIDE RECORDS SUMMARY | 2024-06-27 11:32 | XMS_ITS | Clinical Summary ---
Author Organization [facility] Address [address] [place] [address] Phone Care Team Providers Care Steam Press Operator Name Role Phone Meliton Jones MD Primary Care Provider [phone] Allergies Active Allergy Reactions Criticality Noted Date [...] 200 mg tabletIndicatio ns:Other fatigue,Multipl e sclerosis (CMS/HCC V24, CMS/HCC V28) Take 1 tablet (200 mg total) by [...] Description 05/09/2024 10:30 AM EST Office Visit [address] [address] Kasandra Rueda MD Multiple sclerosis (CMS/HCC V24, CMS/HCC V28) (Primary Dx); Vitamin D deficiency; Fall, sequela; Spasm 04/26/[address] [address] Tatiana Rome PA MEDICATION PRIOR AUTH from Last 3 Months Surgical History Surgery Date Site/Laterality Comments OTHER SURGICAL HISTORY Left Posterior PROCEDURE:left shoulder rotator OTHER SURGICAL HISTORY Anterior PROCEDURE:left toe Medical History Medical History Date Comments MS (multiple sclerosis) (CMS /HCC V24, CMS/HCC V28) DX:MS (multiple sclerosis) ( HCC) Bronchitis Social History Tobacco Use Types Packs/Day [...] Description 07/17/2024 3:00 PM EDT Office Visit [facility] [address] [place] [address] Kasandra Rueda MD [address] [place] [address] Health Maintenance Due Date Last [...] Influencers of Health Screening 02/19/2022 COVID-19 Vaccine ( - season) 2023 12/31/2020 Influenza Vaccine (Season [...] Routine 05/09/2024 12:06 PM EST Multiple sclerosis (CMS/HCC V24, CMS/HCC V28) HEPATIC FUNCTION PANEL Routine 12:06 PM EST Multiple sclerosis (CMS/HCC V24, CMS/HCC V28) CBC AND DIFFERENTIAL Routine 05/09/2024 12:06 PM EST Multiple sclerosis (CMS/HCC V24, CMS/HCC V28) CREATININE, SERUM Routine 05/09/2024 12: 06 PM EST Multiple sclerosis (CMS/HCC V24, CMS/HCC V28) VITAMIN D 25 HYDROXY Routine 05/09/2024 12:06 PM EST Multiple sclerosis (CMS/HCC V24, CMS/HCC V28) Vitamin D deficiency BUN Routine 05/09/2024 12:06 PM EST Multiple sclerosis (CMS/HCC V24, CMS/HCC V28) VITAMIN B12 Routine 05/09/2024 12:06 PM EST Multiple sclerosis (CMS/HCC V24, CMS/HCC V28) SEDIMENTATION RATE Routine 05/09/2024 12 :06 PM EST Multiple sclerosis (CMS/HCC V24, CMS/HCC V28) from Last 3 Months Results * (ABNORMAL) CBC auto differential (05/09/2024 12:06 PM EST) WBC 9.8 4.8 - 10.8 K/mcL LAB HEMETOLOGY METHOD 05/09/2024 2:33 PM [facility] RBC 4.60 3.80 - 4.80 M/mcL LAB HEMETOLOGY METHOD 05/09/2024 2:33 PM [facility] Hemoglobin 13.3 11.5 - 16.0 g/dL LAB HEMETOLOGY METHOD 05/09/2024 2:33 PM [facility] Hematocrit 41.6 35.0 - 47.0 % LAB HEMETOLOGY METHOD 05/09/2024 2:33 PM [facility] MCV 90.0 79.0 - 98.0 FL LAB HEMETOLOGY METHOD 05/09/2024 2:33 PM [facility] MCH 28.8 27.0 - 32.0 pcg LAB HEMETOLOGY METHOD 05/09/2024 2:33 PM [facility] MCHC 32.0 32.0 - 37.0 g/dL LAB HEMETOLOGY METHOD 05/09/2024 2:33 PM [facility] RDW 13.6 11.0 - 15.0 % LAB HEMETOLOGY METHOD 05/09/2024 2:33 PM [facility] Platelets 359 130 - 400 K/mcL LAB HEMETOLOGY METHOD 05/09/2024 2:33 PM [facility] MPV 8.9 7.0 - 11.0 FL LAB HEMETOLOGY METHOD 05/09/2024 2:33 PM [facility] NRBC 0.0 <1.0 % LAB HEMETOLOGY METHOD 05/09/2024 2:33 PM [facility] NRBC Absolute 0.00 <0.10 K/mcL LAB HEMETOLOGY METHOD 05/09/2024 2:33 PM [facility] Neutrophils Relative 59.5 % LAB HEMETOLOGY METHOD 05/09/2024 2:33 PM [facility] Lymphocytes Relative 29.2 % LAB HEMETOLOGY METHOD 05/09/2024 2:33 PM [facility] Monocytes Relative 7.7 % LAB HEMETOLOGY METHOD 05/09/2024 2:33 PM [facility] Eosinophils Relative 2.5 % LAB HEMETOLOGY METHOD 05/09/2024 2:33 PM [facility] Basophils Relative 0.3 % LAB HEMETOLOGY METHOD 05/09/2024 2:33 PM [facility] Immature Granulocytes Relative 0.8 % LAB HEMETOLOGY METHOD 05/09/2024 2:33 PM [facility] Neutrophils Absolute 5.83 1.50 - 7.00 K/mcL LAB HEMETOLOGY METHOD 05/09/2024 2:33 PM [facility] Lymphocytes Absolute 2.86 1.00 - 5.00 K/mcL LAB HEMETOLOGY METHOD 05/09/2024 2:33 PM [facility] Monocytes Absolute 0.75 0.20 - 1.00 K/mcL LAB HEMETOLOGY METHOD 05/09/2024 2:33 PM [facility] Eosinophils Absolute 0.24 0.00 - 0.50 K/mcL LAB HEMETOLOGY METHOD 05/09/2024 2:33 PM EST [facility] Basophils Absolute 0.03 0.00 - 0.20 K/mcL LAB HEMETOLOGY METHOD 05/09/2024 2:33 PM EST [facility] Immature Granulocytes Absolute 0.08(H) 0.00 - 0.03 K/[facility] LAB HEMETOLOGY METHOD 05/09/2024 2:33 PM EST [facility] Blood Venous blood specimen / Unknown Venipuncture / Unknown 05/09/2024 12:06 PM EST 05/09/2024 12:06 PM EST us Kasandra Rueda MD LAB BLOOD ORDERABLES Fin al Result Performing Organization Address [facility]/ZIP Co de Phone Number [facility] [address] [place] [address], [place] [phone] * Creatinine (05/09/2024 12:06 PM EST) Creatinine 0.69 0.50 - 1.10 mg/dL LAB CHEMISTRY METHOD 05/09/2024 2:55 PM EST [facility] eGFR 94 >=60 mL/min/1. 73m2 LAB CHEMISTRY METHOD 05/09/2024 2:55 PM EST [facility] Comment:Calculation based on the??Chronic Kidney Disease Epidemiology Collaboration (CKD-EPI) equation refit??without adjustment for race. Blood Venous blood specimen / Unknown Venipuncture / Unknown 05/09/2024 12:06 PM EST 05/09/2024 12:06 PM EST us Kasandra Rueda MD LAB BLOOD ORDERABLES Fin al Result Performing Organization Address City/[facility]/ZIP Co de Phone Number [facility] [address] [place] [address], [place] [phone] * Vitamin D 25 hydroxy (05/09/2024 12:06 PM EST) Vit D, 25-Hydroxy 50.9 30.0 - 80.0 ng/mL LAB CHEMISTRY METHOD 05/09/2024 3:01 PM EST [facility] Blood Venous blood specimen / Unknown Venipuncture / Unknown 05/09/2024 12:06 PM EST 05/09/2024 12:06 PM EST us Kasandra Rueda MD LAB BLOOD ORDERABLES Fin al Result [facility] [address] [place] [address], [place] [phone] * Sedimentation rate (05/09/2024 12:06 PM EST) Sed Rate 5 0 - 30 mm/hr LAB HEMETOLOGY METHOD 05/09/2024 2:41 PM EST [facility] Blood Venous blood specimen / Unknown Venipuncture / Unknown 05/09/2024 12:06 PM EST 05/09/2024 12:06 PM EST us Kasandra Rueda MD LAB BLOOD ORDERABLES Fin al Result [facility] [address] [place] [address], [place] [phone] * BUN (05/09/2024 12:06 PM EST) BUN 8 5 - 25 mg/dL LAB CHEMISTRY METHOD 05/09/2024 2:55 PM EST [facility] Blood Venous blood specimen / Unknown Venipuncture / Unknown 05/09/2024 12:06 PM EST 05/09/2024 12:06 PM EST us Kasandra Rueda MD LAB BLOOD ORDERABLES Fin al Result Performing Organization Address City/[facility]/ZIP Co de Phone Number [facility] [address] [place] [address], [place] [phone] * (ABNORMAL) Vitamin B12 (05/09/2024 12:06 PM EST) Pathologist [facility] Vitamin B-12 955(H) 250 - 900 pcg/mL LAB CHEMISTRY METHOD 05/09/2024 3:37 PM [facility] Blood Venous blood specimen / Unknown Venipuncture / Unknown 05/09/2024 12:06 PM EST 05/09/2024 12:06 PM EST Kasandra Rueda MD LAB BLOOD ORDERABLES Fin al Result Performing Organization Address [facility]/ZIP Co de Phone Number [facility] [address] [place] [address], [place] [phone] * Hepatic function panel (05/09/2024 12:06 PM EST) [facility] Total Protein 7.0 6.0 - 8.0 g/dL LAB CHEMISTRY METHOD 05/09/2024 3:37 PM [facility] Albumin 4.0 3.2 - 5.0 g/dL LAB CHEMISTRY METHOD 05/09/2024 3:37 PM [facility] Total Bilirubin 0.4 0.0 - 1.4 mg/dL LAB CHEMISTRY METHOD 05/09/2024 3:37 PM [facility] Bilirubin, Direct 0.1 0.0 - 0.3 mg/dL LAB CHEMISTRY METHOD 05/09/2024 3:37 PM [facility] Bilirubin, Indirect 0.3 0.0 - 1.1 mg/dL LAB CHEMISTRY METHOD 05/09/2024 3:37 PM [facility] ALT (SGPT) 28 10 - 60 unit/L LAB CHEMISTRY METHOD 05/09/2024 3:37 PM EST [facility] AST (SGOT) 19 10 - 42 unit/L LAB CHEMISTRY METHOD 05/09/2024 3:37 PM EST [facility] Alkaline Phosphatase 114 42 - 121 unit/L LAB CHEMISTRY METHOD 05/09/2024 3:37 PM EST [facility] Blood Venous blood specimen / Unknown Venipuncture / Unknown 05/09/2024 12:06 PM EST 05/09/2024 12:06 PM EST Kasandra Rueda MD LAB BLOOD ORDERABLES Fin al Result [facility] [address] [place] [address], [place] [phone] from Last 3 Months Insurance MEDICAID - [place] MEDICARE Care Teams Steam Press Operator Relationship Specialty Start Date End Date Meliton Jones MD [address] [place] [phone] [facility] - General 04/26/23
--- OUTSIDE RECORDS SUMMARY | 2024-06-27 11:32 | XMS_ITS | Encounter Summary ---
Author Organization [facility], Address [address] [place] [address] Phone Care Team Providers Care Court Collections Officer Name Role Phone Meliton Jones MD Primary Care Provider [phone] Encounter Details Date Type Department Care Team (Late st Contact Info) Description 12/29/2022 Documentation Only [facility], [facility] [address] [place] [phone] Scottie Hill MD [address] [place] [address] [place] [address] [place] [phone] Social History Tobacco Use Types Packs/Day Years [...] on filedocumented in this encounter Care Teams Court Collections Officer Relationship Specialty Start Date End Date Meliton Jones MD [address] [place] [address], [address] [place] [address] PCP - General Internal Medicine 12/05/22 documented as of this encounter
--- OUTSIDE RECORDS SUMMARY | 2024-06-27 11:32 | XMS_ITS | Encounter Summary ---
Author Organization [facility] Address [address] [place] [address] Care Team Providers Care Molding Press Operator Name Role Phone Meliton Jones MD Primary Care Provider [phone] Encounter Details Date Type Department Care Team (Late st Contact Info) Description 01/26/2024 Lab Requisition [facility] - Main Lab [address] [facility] [place] [phone] Alice Hemphill, [place] [address] [facility] [address] [place] [address] Other abnormal findings in urine Social History [...] 07/17/2024 3:00 PM EDT Office Visit [facility] [address] [facility] [address] [place] [address] Kasandra Rueda MD [address] [facility] [address] [place] [address] documented as of this encounter Procedures Procedure Name Priority Date/Time Associated Diagnosis Comments BACTERIAL IDENTIFICATION AND SUSCEPTIBILITY, AEROBIC Routine 01/25/2024 1:59 PM EST Other abnormal findings in urine documented in this encounter Results * (ABNORMAL) Bacterial identification and susceptibility, aerobic (01/25/2024 1:59 PM EST) Culture, Bacterial ID and Sensitivity Escherichia coli(A) MARY JO 01/27/2024 11:03 AM EST [facility] Comment: This is an edited [...] MICROBIOLOGY - GENERAL ORDER RAYMUNDO Final Result [facility] [address] [place] [address], documented in this encounter Visit Diagnoses Diagnosis Other abnormal findings in urine documented in this encounter Care Teams Molding Press Operator Relationship Specialty Start Date End Date Meliton Jones MD [address] [place] [address] PCP - General 04/26/23 documented as of this encounter
--- OUTSIDE RECORDS SUMMARY | 2024-06-27 11:32 | XMS_ITS | Clinical Summary ---
Author Organization [facility] Address [address] [place] [address] Care Team Providers Care Press Room Supervisor Name Role Phone Meliton Jones MD Primary Care Provider [phone] Allergies Active Allergy Reactions Criticality Noted Date Comments Penicillins 07/15/2017 Seasonal 09/15/2023 Other reaction(s): runny nose, itch seasonal allergy-pollen Medications Medication Sig Dispensed Refills Start Date End Date Status Magnesium 100 MG CAPS Take 400 mg by mouth. 0 06/02/2021 Active amantadine (SYMMETREL) 100 MG capsule 0 05/20/2021 Active atorvastatin (LIPITOR) tablet 20 mg 0 05/12/2023 Active Cholecalciferol 1.25 MG (32863 UT) capsule 0 11/25/2022 Active clonazePAM (KlonoPIN) [...] age to complete this topic Care Teams Press Room Supervisor Relationship Specialty Start Date End Date Meliton Jones MD [address] [place] [address] 2 [place] [address] PCP - General Internal Medicine 04/26/23
--- OUTSIDE RECORDS SUMMARY | 2024-06-27 11:32 | XMS_ITS | Encounter Summary ---
Author Organization [facility], Address [address] [place] [address] Phone Care Team Providers Care Manager Managed Care Name Role Phone Meliton Jones MD Primary Care Provider [phone] Encounter Details Date Type Department Care Team (Late st Contact Info) Description 12/07/2022 Documentation Only [facility] [address] [place] [phone] Scottie Hill MD [address] [place] [address] [address] [place] [phone] Social History Tobacco Use Types Packs/Day Years [...] on filedocumented in this encounter Care Teams Manager Managed Care Relationship Specialty Start Date End Date Meliton Jones MD [address] [place] [address], [address] [place] [address] PCP - General Internal Medicine 12/05/22 documented as of this encounter
--- OUTSIDE RECORDS SUMMARY | 2024-06-27 11:32 | XMS_ITS | Encounter Summary ---
Author Organization [facility], Address [address] [place] [address] Phone Care Team Providers Care High Rigger Name Role Phone Meliton Jones MD Primary Care Provider [phone] Encounter Details Date Type Department Care Team (Late st Contact Info) Description 12/07/2022 Documentation Only [facility] [address] [place] [phone] Scottie Hill MD [address] [place] [address] [place] [address] [place] [phone] Social History Tobacco Use Types Packs/Day Years [...] on filedocumented in this encounter Care Teams High Rigger Relationship Specialty Start Date End Date Meliton Jones MD [address] [place] [address], [address] [place] [address] PCP - General Internal Medicine 12/05/22 documented as of this encounter
--- OUTSIDE RECORDS SUMMARY | 2024-06-27 11:32 | XMS_ITS | Encounter Summary ---
Author Organization [facility], Address [address] [place] [address] Phone Care Team Providers Care Armor Reconnaissance Vehicle Crewman Name Role Phone Meliton Jones MD Primary Care Provider [phone] Encounter Details Date Type Department Care Team (Late st Contact Info) Description 12/07/2022 Documentation Only [facility] [address] [place] [phone] Scottie Hill MD [address] [place] [address] [place] [address] [place] [phone] Social History Tobacco Use Types Packs/Day Years [...] on filedocumented in this encounter Care Teams Armor Reconnaissance Vehicle Crewman Relationship Specialty Start Date End Date Meliton Jones MD [address] [place] [address], [address] [place] [address] PCP - General Internal Medicine 12/05/22 documented as of this encounter
--- OUTSIDE RECORDS SUMMARY | 2024-06-27 11:32 | XMS_ITS | Encounter Summary ---
Author Organization [facility] Address [address] [place] [address] Care Team Providers Care Grease Cup Filler Name Role Phone Meliton Jones MD Primary Care Provider [phone] Encounter Details Date Type Department Care Team (Late st Contact Info) Description 01/16/2024 11:20 AM EDT Hospital Encounter TH HISTORIC ENCOUNTERS [facility] ONLY Tatiana Rome PA [address] [facility] [address] [facility] [address] [place] [address] Social History Tobacco Use Types Packs/Day Years [...] TRAM Oates - 01/16/2024 11:00 AM EDT [facility] HPI: Patient [...] to communicate, the services of a qualified interpreter deaf will be provided during the visit. Patients Location: Patient's home ([place]) Total Time: 30 minutes Disease Summary Date [...] Disp: , Rfl: ??? Cholecalciferol 1.25 MG (68771 UT) capsule, , Disp: , Rfl: ??? [...] 30 minutes. The majority of the actual [id number] visit was spent counseling the patient with respect to the current neurological picture. Tatiana Rome PA-C documented in this encounter Plan of Treatment Upcoming Encounters Date Type Department Care Team (Late st Contact Info) Description 07/17/2024 3:00 PM EDT Office Visit [facility] [address] [address] Kasandra Rueda MD [address] [phone] documented as of this encounter Visit Diagnoses Not on filedocumented in this encounter Care Teams Grease Cup Filler Relationship Specialty Start Date End Date Meliton Jones MD [address] [place] [address] PCP - General 04/26/23 documented as of this encounter
--- OUTSIDE RECORDS SUMMARY | 2024-06-27 11:32 | XMS_ITS | Encounter Summary ---
Author Organization [facility], Address [address] [place] [address] Phone Care Team Providers Care Stonecutter Name Role Phone Meliton Jones MD Primary Care Provider [phone] Encounter Details Date Type Department Care Team (Late st Contact Info) Description 12/29/2022 Documentation Only [facility], [facility] [address] [place] [phone] Scottie Hill MD [address] [place] [address] [place] [address] [place] [phone] Social History Tobacco Use Types Packs/Day Years [...] on filedocumented in this encounter Care Teams Stonecutter Relationship Specialty Start Date End Date Meliton Jones MD [address] [place] [address], [address] [place] [address] PCP - General Internal Medicine 12/05/22 documented as of this encounter
--- OUTSIDE RECORDS SUMMARY | 2024-06-27 11:32 | XMS_ITS | Encounter Summary ---
Author Organization [facility], Address [address] [place] [address] Phone Care Team Providers Care Manager Talent Acquisition Name Role Phone Meliton Jones MD Primary Care Provider [phone] Encounter Details Date Type Department Care Team (Late st Contact Info) Description 12/07/2022 Office Communication [facility], [facility] [address] Agu[address] [place] [phone] Scottie Hill MD [address] [place] [address] [place] [address] [place] [phone] Social History Tobacco Use Types Packs/Day Years [...] filedocumented in this encounter Care Teams Manager Talent Acquisition Relationship Specialty Start Date End Date Meliton Jones MD [address] [place] [address], [address] [place] [address] PCP - General Internal Medicine 12/05/22 documented as of this encounter
== END 2024-06-27 11:01 | disposition home or self-care (01) ==
LOC: HO.PMC 09:59
PROVIDERS: PCP Internal Medicine; Visit Provider Nurse Practitioner Family
DX: M25.561 Pain in right knee (principal); Z91.81 History of falling; M17.11 Unilateral primary osteoarthritis, right knee; M16.0 Bilateral primary osteoarthritis of hip; M25.551 Pain in right hip; G89.29 Other chronic pain; M47.816 Spondylosis without myelopathy or radiculopathy, lumbar region
CPT/HCPCS: 99214; G2211

== ENCOUNTER → 2024-06-27 09:58 | Outpatient (BNVA) | payer MEDICARE, MEDICAID, SELFPAY | PROVIDERS: PCP Internal Medicine; Visit Provider Nurse Practitioner Family | DX: Z13.89 Encounter for screening for other disorder (principal) | CPT/HCPCS: 99212 ==

== ENCOUNTER 2024-06-27 11:10 | Outpatient (REF) | payer MEDICARE, MEDICAID, SELFPAY ==
--- NOTE | ~2024-06-27 | XR_ITS ---
CLINICAL HISTORY: M15.9 - Polyosteoarthritis, unspecified 3 view right knee Comparison: DX/SR - XR KNEE RT 3V - 10/23/23 10:35 EDT Findings: There is patella baja. No significant arthritic change or erosions. No joint effusion. No radiopaque foreign body. IMPRESSION: There is patella baja. No acute abnormalities otherwise noted. This document has been electronically signed by: Judah Hardy MD on 06/28/2024 10:09:46
--- OUTSIDE RECORDS SUMMARY | 2024-06-27 13:32 | XMS_ITS | Encounter Summary ---
Author Organization [facility], Address [address] [place] [address] Phone Care Team Providers Care Dioramist Name Role Phone Meliton Jones MD Primary Care Provider [phone] Encounter Details Date Type Department Care Team (Late st Contact Info) Description 12/07/2022 Documentation Only [facility] [address] [place] [phone] Scottie Hill MD [address] [place] [address] [place] [address] [place] [phone] Social History Tobacco Use Types Packs/Day Years [...] on filedocumented in this encounter Care Teams Dioramist Relationship Specialty Start Date End Date Meliton Jones MD [address] [place] [address], [address] [place] [address] PCP - General Internal Medicine 12/05/22 documented as of this encounter
--- OUTSIDE RECORDS SUMMARY | 2024-06-27 13:32 | XMS_ITS | Encounter Summary ---
Author Organization [facility] Address [address] [place] [address] Care Team Providers Care Sole Blacker Name Role Phone Meliton Jones MD Primary Care Provider [phone] Encounter Details Date Type Department Care Team (Late st Contact Info) Description 01/16/2024 11:20 AM EDT Hospital Encounter TH H[facility]ORIC ENC[facility] ONLY Tatiana Rome PA [address] [facility] [address] [facility] [address] [place] [address] Social History Tobacco Use Types Packs/Day Years [...] TRAM Oates - 01/16/2024 11:00 AM EDT [facility] HPI: Patient is [...] to communicate, the services of a qualified refinery operator alkylation will be provided during the visit. Patients Location: Patient's home ([place]) Total Time: 30 minutes Disease Summary Date [...] Disp: , Rfl: ??? Cholecalciferol 1.25 MG (15211 UT) capsule, , Disp: , Rfl: ??? [...] 30 minutes. The majority of the actual [id number]-gl-[id number] visit was spent counseling the patient with respect to the current neurological picture. Tatiana Rome PA-C documented in this encounter Plan of Treatment Upcoming Encounters Date Type Department Care Team (Late st Contact Info) Description 07/17/2024 3:00 PM EDT Office Visit [facility] [address] [facility] [address] [address] Kasandra Rueda MD [address] [phone] documented as of this encounter Visit Diagnoses Not on filedocumented in this encounter Care Teams Sole Blacker Relationship Specialty Start Date End Date Meliton Jones MD [address] [place] [address] PCP - General 04/26/23 documented as of this encounter
--- OUTSIDE RECORDS SUMMARY | 2024-06-27 13:32 | XMS_ITS | Encounter Summary ---
Author Organization [facility] Address [address] [place] [address] Care Team Providers Care Parts Salesperson Name Role Phone Meliton Jones MD Primary Care Provider [phone] Encounter Details Date Type Department Care Team (Late st Contact Info) Description 01/26/2024 Lab Requisition [facility] - Main Lab [address] [facility] [place] [phone] Alice Hemphill, PA [address] [facility] [address] [place] [address] Other abnormal findings in urine Social History [...] Description 07/17/2024 3:00 PM EDT Office Visit [facility] 175 [facility] 150 [place] [address] Kasandra Rueda MD 175 [facility] [address] [place] [address] documented as of this encounter Procedures Procedure Name Priority Date/Time Associated Diagnosis Comments BACTERIAL IDENTIFICATION AND SUSCEPTIBILITY, AEROBIC Routine 01/25/2024 1:59 PM EST Other abnormal findings in urine documented in this encounter Results * (ABNORMAL) Bacterial identification and susceptibility, aerobic (01/25/2024 1:59 PM EST) Culture, Bacterial ID and Sensitivity Escherichia coli(A) MARY JO 01/27/2024 11:03 AM EST [facility] ([facility] Comment: This is [...] MICROBIOLOGY - GENERAL ORDER RAYMUNDO Final Result [facility] ([facility]) [facility] [address] [place] [address], documented in this encounter Visit Diagnoses Diagnosis Other abnormal findings in urine documented in this encounter Care Teams Parts Salesperson Relationship Specialty Start Date End Date Meliton Jones MD [address] [place] [address] PCP - General 04/26/23 documented as of this encounter
--- OUTSIDE RECORDS SUMMARY | 2024-06-27 13:33 | XMS_ITS | Encounter Summary ---
Author Organization [facility], Address [address] [place] [address] Phone Care Team Providers Care Collection Card Clerk Name Role Phone Meliton Jones MD Primary Care Provider [phone] Encounter Details Date Type Department Care Team (Late st Contact Info) Description 12/07/2022 Documentation Only [facility] [address] [place] [phone] Scottie Hill MD [address] [place] [address] [place] [address] [place] [phone] Social History Tobacco Use Types Packs/Day Years [...] on filedocumented in this encounter Care Teams Collection Card Clerk Relationship Specialty Start Date End Date Meliton Jones MD [address] [place] [address], [address] [place] [address] PCP - General Internal Medicine 12/05/22 documented as of this encounter
--- OUTSIDE RECORDS SUMMARY | 2024-06-27 13:33 | XMS_ITS | Clinical Summary ---
Author Organization [facility] Address [address] [place] [address] Care Team Providers Care Cable Engineer Outside Plant Name Role Phone Meliton Jones MD Primary Care Provider [phone] Allergies Active Allergy Reactions Criticality Noted Date Comments Penicillins 07/15/2017 Seasonal 09/15/2023 Other reaction(s): runny nose, itch seasonal allergy-pollen Medications Medication Sig Dispensed Refills Start Date End Date Status Magnesium 100 MG CAPS Take 400 mg by mouth. 0 06/02/2021 Active amantadine (SYMMETREL) 100 MG capsule 0 05/20/2021 Active atorvastatin (LIPITOR) tablet 20 mg 0 05/12/2023 Active Cholecalciferol 1.25 MG (68339 UT) capsule 0 11/25/2022 Active clonazePAM (KlonoPIN) [...] age to complete this topic Care Teams Cable Engineer Outside Plant Relationship Specialty Start Date End Date Meliton Jones MD [address] [place] [address] 2 [place] [address] PCP - General Internal Medicine 04/26/23
--- OUTSIDE RECORDS SUMMARY | 2024-06-27 13:33 | XMS_ITS | Encounter Summary ---
Author Organization [facility] [place], Address [address] [place] [address] Phone Care Team Providers Care Soc Analyst Name Role Phone Meliton Jones MD Primary Care Provider [phone] Encounter Details Date Type Department Care Team (Late st Contact Info) Description 12/07/2022 Documentation Only [facility] [address] [place] [phone] Scottie Hill MD [address] [place] [address] [place] [address] [place] [phone] Social History Tobacco Use Types Packs/Day Years [...] on filedocumented in this encounter Care Teams Soc Analyst Relationship Specialty Start Date End Date Meliton Jones MD [address] [place] [address], [address] [place] [address] PCP - General Internal Medicine 12/05/22 documented as of this encounter
--- OUTSIDE RECORDS SUMMARY | 2024-06-27 13:33 | XMS_ITS | Encounter Summary ---
Author Organization [facility] [place], Address [address] [place] [address] Phone Care Team Providers Care Engineering Drawings Checker Name Role Phone Meliton Jones MD Primary Care Provider [phone] Encounter Details Date Type Department Care Team (Late st Contact Info) Description 12/29/2022 Documentation Only [facility] [place], [facility] [address] [place] [phone] Scottie Hill MD [address] [place] [address] [address] [place] [phone] Social History Tobacco Use Types Packs/Day Years [...] filedocumented in this encounter Care Teams Engineering Drawings Checker Relationship Specialty Start Date End Date Meliton Jones MD [address] [place] [address], [address] [place] [address] PCP - General Internal Medicine 12/05/22 documented as of this encounter
--- OUTSIDE RECORDS SUMMARY | 2024-06-27 13:33 | XMS_ITS | Encounter Summary ---
Author Organization [facility] [place], Address [address] [place] [address] Phone Care Team Providers Care Tank Operator Name Role Phone Meliton Jones MD Primary Care Provider Encounter Details Date Type Department Care Team (Late st Contact Info) Description 12/07/2022 Office Communication [facility], [facility] Huan Agu[address]re [address] [place] [phone] Scottei Hill MD [address] [place] [address] [place] [phone] Social History Tobacco Use Types Packs/Day Years [...] on filedocumented in this encounter Care Teams Tank Operator Relationship Specialty Start Date End Date Meliton Jones MD [address] [place] [address], [address] [place] [address] PCP - General Internal Medicine 12/05/22 documented as of this encounter
--- OUTSIDE RECORDS SUMMARY | 2024-06-27 13:33 | XMS_ITS | Encounter Summary ---
Author Organization [facility] [place], Address [address] [place] [address] Phone Care Team Providers Care Film Cleaner Name Role Phone Meliton Jones MD Primary Care Provider [phone] Encounter Details Date Type Department Care Team (Late st Contact Info) Description 12/29/2022 Documentation Only [facility] [place], [facility] [address] [place] [phone] Scottie Hill MD [address] [place] [address] [place] [phone] Social History Tobacco Use Types Packs/Day Years [...] on filedocumented in this encounter Care Teams Film Cleaner Relationship Specialty Start Date End Date Melitno Jones MD [address] [place] [address], [address] [place] [address] PCP - General Internal Medicine 12/05/22 documented as of this encounter
--- OUTSIDE RECORDS SUMMARY | 2024-06-27 13:33 | XMS_ITS | Clinical Summary ---
Author Organization [facility] [place], Address [address] [place] [address] Phone Care Team Providers Care Lotus Notes Developer Name Role Phone Meliton Jones MD Primary Care Provider [phone] Allergies Active Allergy Reactions Criticality Noted Date Comments Penicillins 12/07/2022 Medications amantadine (SYMMETREL) 100 MG capsule 11/25/2022 Active Eliquis 5 MG tablet 11/25/2022 Active atorvastatin (LIPITOR) 20 MG tablet 10/07/2022 Active Cholecalciferol (Vitamin D3) 1.25 MG (49301 UT) capsule 11/25/2022 Active citalopram (CeleXA) 20 [...] topic Insurance Medicare Medicaid [place] Care Teams Lotus Notes Developer Relationship Specialty Start Date End Date Meliton Jones MD [address] [place] [address], [address] [place] [address] PCP - General Internal Medicine 12/05/22
--- OUTSIDE RECORDS SUMMARY | 2024-06-27 13:33 | XMS_ITS | Clinical Summary ---
Author Organization 175 [facility] Address [address] [place] [address] Phone Care Team Providers Care Hosting Engineer Name Role Phone Meliton Jones MD Primary Care Provider [phone] Allergies Active Allergy Reactions Criticality Noted Date [...] Description 05/09/2024 10:30 AM EST Office Visit [address] [address] Kasandra Rueda MD Multiple sclerosis (CMS/HCC V24, CMS/HCC V28) (Primary Dx); Vitamin D deficiency; Fall, sequela; Spasm 04/26/[address] [address] Tatiana Rome PA MEDICATION PRIOR [...] 07/17/2024 3:00 PM EDT Office Visit [facility] [address] [place] [address] Kasandra Rueda MD [address] [place] [address] Health Maintenance Due Date Last [...] K/mcL LAB HEMETOLOGY METHOD 05/09/2024 2:33 PM [facility] RBC 4.60 3.80 - 4.80 M/mcL LAB HEMETOLOGY METHOD 05/09/2024 2:33 PM [facility] Hemoglobin 13.3 11.5 - 16.0 g/dL LAB HEMETOLOGY METHOD 05/09/2024 2:33 PM [facility] Hematocrit 41.6 35.0 - 47.0 % LAB HEMETOLOGY METHOD 05/09/2024 2:33 PM [facility] MCV 90.0 79.0 - 98.0 FL LAB HEMETOLOGY METHOD 05/09/2024 2:33 PM [facility] MCH 28.8 27.0 - 32.0 pcg LAB HEMETOLOGY METHOD 05/09/2024 2:33 PM [facility] MCHC 32.0 32.0 - 37.0 g/dL LAB HEMETOLOGY METHOD 05/09/2024 2:33 PM [facility] RDW 13.6 11.0 - 15.0 % LAB HEMETOLOGY METHOD 05/09/2024 2:33 PM [facility] Platelets 359 130 - 400 K/mcL LAB HEMETOLOGY METHOD 05/09/2024 2:33 PM [facility] MPV 8.9 7.0 - 11.0 FL LAB HEMETOLOGY METHOD 05/09/2024 2:33 PM [facility] NRBC 0.0 <1.0 % LAB HEMETOLOGY METHOD 05/09/2024 2:33 PM [facility] NRBC Absolute 0.00 <0.10 K/mcL LAB HEMETOLOGY METHOD 05/09/2024 2:33 PM [facility] Neutrophils Relative 59.5 % LAB HEMETOLOGY METHOD 05/09/2024 2:33 PM [facility] Lymphocytes Relative 29.2 % LAB HEMETOLOGY METHOD 05/09/2024 2:33 PM [facility] Monocytes Relative 7.7 % LAB HEMETOLOGY METHOD 05/09/2024 2:33 PM [facility] Eosinophils Relative 2.5 % LAB HEMETOLOGY METHOD 05/09/2024 2:33 PM [facility] Basophils Relative 0.3 % LAB HEMETOLOGY METHOD 05/09/2024 2:33 PM [facility] Immature Granulocytes Relative 0.8 % LAB HEMETOLOGY METHOD 05/09/2024 2:33 PM [facility] Neutrophils Absolute 5.83 1.50 - 7.00 K/mcL LAB HEMETOLOGY METHOD 05/09/2024 2:33 PM [facility] Lymphocytes Absolute 2.86 1.00 - 5.00 K/mcL LAB HEMETOLOGY METHOD 05/09/2024 2:33 PM [facility] Monocytes Absolute 0.75 0.20 - 1.00 K/mcL LAB HEMETOLOGY METHOD 05/09/2024 2:33 PM [facility] Eosinophils Absolute 0.24 0.00 - 0.50 K/mcL LAB HEMETOLOGY METHOD 05/09/2024 2:[address] [facility] Basophils Absolute 0.03 0.00 - 0.20 K/mcL LAB HEMETOLOGY METHOD 05/09/2024 2:[address] [facility] Immature Granulocytes Absolute 0.08(H) 0.00 - 0.03 K/[facility] LAB HEMETOLOGY METHOD 05/09/2024 2:[address] [facility] Blood Venous blood specimen / Unknown Venipuncture / Unknown 05/09/2024 12:06 PM EST 05/09/2024 12:06 PM EST us Kasandra Rueda MD LAB BLOOD ORDERABLES Fin al Result Performing Organization Address [facility]/ZIP Co de Phone Number [facility] [address] [place] [address], [place] [phone] * Creatinine (05/09/2024 12:06 PM EST) Creatinine [...] ORDERABLES Fin al Result Performing Organization Address City/[facility]/ZIP Co de Phone Number [facility] [address] [place] [address], [place] [phone] * Vitamin D 25 hydroxy (05/09/2024 12:06 PM EST) Vit D, 25-Hydroxy 50.9 30.0 - 80.0 ng/mL LAB CHEMISTRY METHOD 05/09/2024 3:[address] [facility] Blood Venous blood specimen / Unknown Venipuncture / Unknown 05/09/2024 12:06 PM EST 05/09/2024 12:06 PM EST us Kasandra Rueda MD LAB BLOOD ORDERABLES Fin al Result [facility] [address] [place] [address], [place] [phone] * Sedimentation rate (05/09/2024 12:06 PM EST) Sed Rate 5 0 - 30 mm/hr LAB HEMETOLOGY METHOD 05/09/2024 2:[address] [facility] Blood Venous blood specimen / Unknown Venipuncture / Unknown 05/09/2024 12:06 PM EST 05/09/2024 12:06 PM EST us Kasandra Rueda MD LAB BLOOD ORDERABLES Fin al Result [facility] [address] [place] [address], [place] [phone] * BUN (05/09/2024 12:06 PM EST) BUN 8 5 - 25 mg/dL LAB CHEMISTRY METHOD 05/09/2024 2:[address] [facility] Blood Venous blood specimen / Unknown Venipuncture / Unknown 05/09/2024 12:06 PM EST 05/09/2024 12:06 PM EST us Kasandra Rueda MD LAB BLOOD ORDERABLES Fin al Result Performing Organization Address City/[facility]/ZIP Co de Phone Number [facility] [address] [place] [address], [place] [phone] * (ABNORMAL) Vitamin B12 (05/09/2024 12:06 PM EST) Pathologist [facility] Vitamin B-12 955(H) 250 - 900 pcg/mL LAB CHEMISTRY METHOD 05/09/2024 3:37 PM [facility] Blood Venous blood specimen / Unknown Venipuncture / Unknown 05/09/2024 12:06 PM EST 05/09/2024 12:06 PM EST Kasandra Rueda MD LAB BLOOD ORDERABLES Fin al Result Performing Organization Address [facility]/ZIP Co de Phone Number [facility] [address] [place] [address], [place] [phone] * Hepatic function panel (05/09/2024 12:06 PM EST) [facility] Total Protein 7.0 6.0 - 8.0 g/dL LAB CHEMISTRY METHOD 05/09/2024 3:37 PM [facility] Albumin 4.0 3.2 - 5.0 g/dL LAB CHEMISTRY METHOD 05/09/2024 3:37 PM [facility] Total Bilirubin 0.4 0.0 - 1.4 mg/dL LAB CHEMISTRY METHOD 05/09/2024 3:37 PM [facility] Bilirubin, Direct 0.1 0.0 - 0.3 mg/dL LAB CHEMISTRY METHOD 05/09/2024 3:37 PM [facility] Bilirubin, Indirect 0.3 0.0 - 1.1 mg/dL LAB CHEMISTRY METHOD 05/09/2024 3:37 PM [facility] ALT (SGPT) 28 10 [...] MD LAB BLOOD ORDERABLES Fin al Result [facility] ([facility]) [facility] [address] [place] [address], [place] [phone] from Last 3 Months Insurance MEDICAID - [place] MEDICARE Care Teams Hosting Engineer Relationship Specialty Start Date End Date Meliton Jones MD [address] [place] [phone] [facility] - General 04/26/23
== END 2024-06-27 11:11 | disposition home or self-care (01) ==
LOC: HO.XRAY 11:10
PROVIDERS: PCP Internal Medicine; Visit Provider Nurse Practitioner Family
DX: M15.9 Polyosteoarthritis, unspecified (principal); M25.561 Pain in right knee; Z91.81 History of falling
CPT/HCPCS: 73562; 99212

== ENCOUNTER → 2024-06-27 11:12 | Outpatient (BNV) | payer MEDICARE, MEDICAID, SELFPAY | PROVIDERS: PCP Internal Medicine; Visit Provider Radiology Diagnostic Radiology | DX: M22.2X1 Patellofemoral disorders, right knee (principal) | CPT/HCPCS: 73562 ==

== ENCOUNTER → 2024-06-28 09:43 | Outpatient (REF) | payer MEDICARE, MEDICAID, SELFPAY ==
--- NOTE | 2024-06-28 09:50 | CA_ITS ---
Transthoracic Echocardiogram Patient (Last, First, Middle): Kristin Thacker, Gender: Female Date of : 1955 Age: 69 Procedure Date: 06/28/2024 Procedure Type: Transthoracic Echocardiogram Location: OP Height: 157. cm Weight: 65.77 kg BSA: 1.66 m2 Heart Rate: 53 bpm BP: 158 / 80 mmHg Staff Development Manager: ALEXEI Referring MD: Humberto Vaughan MD Symptoms: R94.31 - Abnormal electrocardiogram [ECG] [EKG] Study Quality: Fair ECG Rhythm: Bradycardia Conclusions: - Normal left ventricular size, thickness, systolic function, and wall motion. The visually estimated ejection fraction is between 55-60%. - Elevated filling pressures. - Normal right ventricular cavity size and systolic function. - Significantly elevated right atrial pressure. There is no evidence of pulmonary hypertension. Findings Left Ventricle Normal left ventricular size, thickness, systolic function, and wall motion. The visually estimated ejection fraction is between 55-60%. Abnormal diastolic function is noted. Spectral Doppler is indicative of a pseudonormal filling pattern. Elevated filling pressures. Right Ventricle Normal right ventricular cavity size and systolic function. Atria The left atrium is normal in size. The right atrium is normal in size. Aortic Valve There is a normal trileaflet aortic valve. There is no aortic valve stenosis. There is trace (trivial) aortic valve regurgitation. Mitral Valve The mitral valve appears normal. There is mild mitral annular calcification. There is trace mitral valve regurgitation. There is no mitral valve stenosis. Pulmonic Valve The pulmonic valve is likely normal. Tricuspid Valve Normal tricuspid valve structure. There is no tricuspid valve regurgitation. The right ventricular systolic pressure is 28 mmHg. Significantly elevated right atrial pressure. There is no evidence of pulmonary hypertension. Great Vessels All visible segments of the aorta are normal in size. Venous The inferior vena cava is dilated and collapses less than 50% with inspiration. Pericardium/Pleural There is no evidence of pericardial effusion. Prior Study Comparison No prior study available for comparison. Measurements 2D Linear Measurements IVSd: 0.93 0.6-0.9/0.6-1.0 cm LVIDd: 4.74 3.9-5.3/4.2-5.9 cm LVIDd Index: 2.86 2.4-3.2/2.2-3.1 cm/m2 LVIDs: 3.48 2.0-3.6 cm LVPWd: 0.98 0.7-1.1 cm LA Diam: 4.80 2.7-3.8/3.0-4.0 cm LAIDs Index: 2.89 1.5-2.3 cm/m2 LV Mass: 194.81 67-162/88-224 g LV Mass Index: 117.36 43-95/49-115 g/m2 LVOT Diam: 1.90 3.0+(-)1.3 cm 2D Systolic Function EF 4C: 53.20 >55% EF 2C: 58.30 >55% EF BiP: 55.50 >55% Mitral Valve MV Pk E: 1.15 MV PK A: 0.92 MV Decel Time: 232.00 E/A: 1.30 E'Lateral: 5.98 E'Medial: 5.66 E/E' Med: 20.30 E/E' Lat: 19.20 PHT: 68.00 MVA PHT: 3.24 Decel [place]: 4.94 Aortic Valve AoV Pk Shane: 1.25 AoV Mn Shane: 0.91 AoV VTI: 0.34 AoV Pk Grad: 6.00 Aov Mn Grad: 4.00 KADIE Cont.VTI: 1.83 LVOT LVOT Pk Shane: 0.82 LVOT Mn Shane: 0.62 LVOT VTI: 0.22 LVOT Pk Grad: 3.00 LVOT Mn Grad: 2.00 LVOT Diam: 1.90 LVOT Area: 2.84 Diastolic Function MV Pk E: 1.15 MV Pk A: 0.92 E/A: 1.30 E'Medial: 5.66 E/E' Med: 20.30 E' Laterial: 5.98 E/E' Lat: 19.20 Right Ventricle TAPSE (mm): 23.90 TVS' Shane: 11.30 Tricuspid Valve TR Pk Shane: 1.78 TR Pk Grad: 13.00 RA Press: 15.00 RVSP: 28.00 Great Vessels Aorta Sinus of Valsalva: 3.30 2.0-3.5 cm Ao Asc: 3.30 2.1-3.4 cm Pulmonary Valve PV Pk Shane: 0.72 Peak PV Grad: 2.00 Updated in Other Vendor System with Status of Final Paramjit Escamilla MD electronically signed on 06/30/2024 6:27:06 PM with status of Final
--- OUTSIDE RECORDS SUMMARY | 2024-06-28 10:15 | XMS_ITS | Encounter Summary ---
Author Organization [facility] Address [address] [place] [address] Care Team Providers Care Marketing Program Coordinator Name Role Phone Meliton Jones MD Primary Care Provider [phone] Encounter Details Date Type Department Care Team (Late st Contact Info) Description 01/26/2024 Lab Requisition [facility] - Main Lab [address] [facility] [place] [phone] Alice Hemphill, PA [address] [facility] [address] [place] [address] Other abnormal findings in urine Social History [...] Description 07/17/2024 3:00 PM EDT Office Visit [facility] 175 [facility] 150 [place] [address] Kasandra Rueda MD 175 [facility] [address] [place] [address] documented as of this encounter Procedures Procedure Name Priority Date/Time Associated Diagnosis Comments BACTERIAL IDENTIFICATION AND SUSCEPTIBILITY, AEROBIC Routine 01/25/2024 1:59 PM EST Other abnormal findings in urine documented in this encounter Results * (ABNORMAL) Bacterial identification and susceptibility, aerobic (01/25/2024 1:59 PM EST) Culture, Bacterial ID and Sensitivity Escherichia coli(A) MARY JO 01/27/2024 11:[address] [facility] Comment: This is an edited result. [...] MICROBIOLOGY - GENERAL ORDER RAYMUNDO Final Result [facility]) [facility] [address] [place] [address], documented in this encounter Visit Diagnoses Diagnosis Other abnormal findings in urine documented in this encounter Care Teams Marketing Program Coordinator Relationship Specialty Start Date End Date Meliton Jones MD [address] [place] [address] PCP - General 04/26/23 documented as of this encounter
--- OUTSIDE RECORDS SUMMARY | 2024-06-28 10:15 | XMS_ITS | Clinical Summary ---
Author Organization [facility] Address [address] [place] [address] Care Team Providers Care Nursery Teacher Name Role Phone Meliton Jones MD Primary Care Provider [phone] Allergies Active Allergy Reactions Criticality Noted Date Comments Penicillins 07/15/2017 Seasonal 09/15/2023 Other reaction(s): runny nose, itch seasonal allergy-pollen Medications Medication Sig Dispensed Refills Start Date End Date Status Magnesium 100 MG CAPS Take 400 mg by mouth. 0 06/02/2021 Active amantadine (SYMMETREL) 100 MG capsule 0 05/20/2021 Active atorvastatin (LIPITOR) tablet 20 mg 0 05/12/2023 Active Cholecalciferol 1.25 MG (26157 UT) capsule 0 11/25/2022 Active clonazePAM (KlonoPIN) [...] age to complete this topic Care Teams Nursery Teacher Relationship Specialty Start Date End Date Meliton Jones MD [address] [place] [address] 2 [place] [address] PCP - General Internal Medicine 04/26/23
--- OUTSIDE RECORDS SUMMARY | 2024-06-28 10:15 | XMS_ITS | Encounter Summary ---
Author Organization [facility], Address [address] [place] [address] Phone Care Team Providers Care Package Designer Name Role Phone Meliton Jones MD Primary Care Provider [phone] Encounter Details Date Type Department Care Team (Late st Contact Info) Description 12/07/2022 Documentation Only [facility] [address] [place] [phone] Scottie Hill MD [address] [place] [address] [place] [address] [place] [phone] Social History Tobacco Use Types Packs/Day Years [...] on filedocumented in this encounter Care Teams Package Designer Relationship Specialty Start Date End Date Meliton Jones MD [address] [place] [address], [address] [place] [address] PCP - General Internal Medicine 12/05/22 documented as of this encounter
--- OUTSIDE RECORDS SUMMARY | 2024-06-28 10:15 | XMS_ITS | Encounter Summary ---
Author Organization [facility] Address [address] [place] [address] Care Team Providers Care Tourist Escort Name Role Phone Meliton Jones MD Primary Care Provider [phone] Encounter Details Date Type Department Care Team (Late st Contact Info) Description 01/16/2024 11:20 AM EDT Hospital Encounter TH HISTORIC ENCOUNTERS [facility] ONLY Tatiana Rome PA 175 [facility] 150 [place] [address] Social History Tobacco Use Types Packs/Day Years [...] TRAM Oates - 01/16/2024 11:00 AM EDT [facility] HPI: Patient is [...] to communicate, the services of a qualified salon professional will be provided during the visit. Patients [...] Disp: , Rfl: ??? Cholecalciferol 1.25 MG (34262 UT) capsule, , Disp: , Rfl: ??? [...] 30 minutes. The majority of the actual uajp-re-nggr visit was spent counseling the patient with respect to the current neurological picture. Tatiana Rome PA-C documented in this encounter Plan of Treatment Upcoming Encounters Date Type Department Care Team (Late st Contact Info) Description 07/17/2024 3:00 PM EDT Office Visit [facility] [address] [facility] [address] [address] Kasandra Rueda MD [address] [phone] documented as of this encounter Visit Diagnoses Not on filedocumented in this encounter Care Teams Tourist Escort Relationship Specialty Start Date End Date Meliton Jones MD [address] [place] [address] PCP - General 04/26/23 documented as of this encounter
--- OUTSIDE RECORDS SUMMARY | 2024-06-28 10:15 | XMS_ITS | Encounter Summary ---
Author Organization [facility], Address [address] [place] [address] Phone Care Team Providers Care Supervisor Type Bar And Segment Name Role Phone Meliton Jones MD Primary Care Provider Encounter Details Date Type Department Care Team (Late st Contact Info) Description 12/29/2022 Documentation Only [facility], [facility] Huan [address] [place] [phone] Scottie Hill MD [address] [place] [address] [place] [address] [place] [phone] Social History Tobacco Use Types Packs/Day Years [...] filedocumented in this encounter Care Teams Supervisor Type Bar And Segment Relationship Specialty Start Date End Date Meliton Jones MD [address] [place] [address], [address] [place] [address] PCP - General Internal Medicine 12/05/22 documented as of this encounter
--- OUTSIDE RECORDS SUMMARY | 2024-06-28 10:15 | XMS_ITS | Encounter Summary ---
Author Organization [facility] [place], Address [address] [place] [address] Phone Care Team Providers Care Environmental Monitoring Technician Name Role Phone Meliton Jones MD Primary Care Provider [phone] Encounter Details Date Type Department Care Team (Late st Contact Info) Description 12/07/2022 Documentation Only [facility] Huan [address] [place] [phone] Scottie Hill MD [address] [place] [address] [place] [address] [place] [phone] Social History Tobacco Use Types Packs/Day Years [...] on filedocumented in this encounter Care Teams Environmental Monitoring Technician Relationship Specialty Start Date End Date Meliton Jones MD [address] [place] [address], [address] [place] [address] PCP - General Internal Medicine 12/05/22 documented as of this encounter
--- OUTSIDE RECORDS SUMMARY | 2024-06-28 10:15 | XMS_ITS | Encounter Summary ---
Author Organization [facility] [place], Address [address] [place] [address] Phone Care Team Providers Care Charge Accounts Audit Clerk Name Role Phone Meliton Jones MD Primary Care Provider [phone] Encounter Details Date Type Department Care Team (Late st Contact Info) Description 12/07/2022 Documentation Only [facility] Huan [address] [place] [phone] Scottie Hill MD [address] [place] [address] [place] [address] [place] [phone] Social History Tobacco Use Types Packs/Day Years [...] on filedocumented in this encounter Care Teams Charge Accounts Audit Clerk Relationship Specialty Start Date End Date Meliton Jones MD [address] [place] [address], [address] [place] [address] PCP - General Internal Medicine 12/05/22 documented as of this encounter
--- OUTSIDE RECORDS SUMMARY | 2024-06-28 10:15 | XMS_ITS | Encounter Summary ---
Author Organization [facility] [place], Address [address] [place] [address] Phone Care Team Providers Care Rug Designer Name Role Phone Meliton Jones MD Primary Care Provider Encounter Details Date Type Department Care Team (Late st Contact Info) Description 12/07/2022 Office Communication [facility], [facility] Huan Aguirre [address] [place] [phone] Scottie Hill MD [address] [place] [address] [place] [address] [place] [phone] Social History Tobacco Use Types Packs/Day Years [...] on filedocumented in this encounter Care Teams Rug Designer Relationship Specialty Start Date End Date Meliton Jones MD [address] [place] [address], [address] [place] [address] PCP - General Internal Medicine 12/05/22 documented as of this encounter
--- OUTSIDE RECORDS SUMMARY | 2024-06-28 10:15 | XMS_ITS | Clinical Summary ---
Author Organization 175 [facility] Address 175 [place] [address] Phone Care Team Providers Care Paper Cone Drying Machine Operator Name Role Phone Meliton Jones MD Primary Care Provider [phone] Allergies Active Allergy Reactions Criticality Noted Date [...] Description 05/09/2024 10:30 AM EST Office Visit [address] [address] Kasandra Rueda MD Multiple sclerosis (CMS/HCC V24, CMS/HCC V28) (Primary Dx); Vitamin D deficiency; Fall, sequela; Spasm 04/26/[address] [address] Tatiana Rome PA MEDICATION PRIOR [...] 07/17/2024 3:00 PM EDT Office Visit [facility] [address] [place] [address] Kasandra Rueda MD [address] [place] [address] Health Maintenance Due Date Last [...] LAB HEMETOLOGY METHOD 05/09/2024 2:[address] [facility] Basophils Absolute 0.03 0.00 - 0.20 K/mcL LAB HEMETOLOGY METHOD 05/09/2024 2:[address] [facility] Immature Granulocytes Absolute 0.08(H) 0.00 - 0.03 K/[facility] LAB HEMETOLOGY METHOD 05/09/2024 2:[address] [facility] Blood Venous blood specimen / Unknown Venipuncture / Unknown 05/09/2024 12:06 PM EST 05/09/2024 12:06 PM EST us Kasandra Rueda MD LAB BLOOD ORDERABLES Fin al Result Performing Organization Address [facility]/ZIP Co de Phone Number [facility] [address] [place] [address], [place] [phone] * Creatinine (05/09/2024 12:06 PM EST) Creatinine 0.69 0.50 - 1.10 mg/dL LAB CHEMISTRY METHOD 05/09/2024 2:[address] [facility] eGFR 94 >=60 mL/min/1. 73m2 LAB CHEMISTRY METHOD 05/09/2024 2:[address] [facility] Comment:Calculation based on the??Chronic Kidney Disease Epidemiology Collaboration (CKD-EPI) equation refit??without adjustment for race. Blood Venous blood specimen / Unknown Venipuncture / Unknown 05/09/2024 12:06 PM EST 05/09/2024 12:06 PM EST us Kasandra Rueda MD LAB BLOOD ORDERABLES Fin al Result Performing Organization Address City/[facility]/ZIP Co de Phone Number [facility] [address] [place] [address], [place] [phone] * Vitamin D 25 hydroxy (05/09/2024 12:06 PM EST) Vit D, 25-Hydroxy 50.9 30.0 - 80.0 ng/mL LAB CHEMISTRY METHOD 05/09/2024 3:[address] [facility] Blood Venous blood specimen / Unknown Venipuncture / Unknown 05/09/2024 12:06 PM EST 05/09/2024 12:06 PM EST us Kasandra Rueda MD LAB BLOOD ORDERABLES Fin al Result [facility] [address] [place] [address], [place] [phone] * Sedimentation rate (05/09/2024 12:06 PM EST) Sed Rate 5 0 - 30 mm/hr LAB HEMETOLOGY METHOD 05/09/2024 2:[address] [facility] Blood Venous blood specimen / Unknown Venipuncture / Unknown 05/09/2024 12:06 PM EST 05/09/2024 12:06 PM EST us Kasandra Rueda MD LAB BLOOD ORDERABLES Fin al Result [facility] [address] [place] [address], [place] [phone] * BUN (05/09/2024 12:06 PM EST) BUN 8 5 - 25 mg/dL LAB CHEMISTRY METHOD 05/09/2024 2:[address] [facility] Blood Venous blood specimen / Unknown Venipuncture / Unknown 05/09/2024 12:06 PM EST 05/09/2024 12:06 PM EST us Kasandra Rueda MD LAB BLOOD ORDERABLES Fin al Result Performing Organization Address City/[facility]/ZIP Co de Phone Number [facility] [address] [place] [address], [place] [phone] * (ABNORMAL) Vitamin B12 (05/09/2024 12:06 PM EST) Pathologist [facility] Vitamin B-12 955(H) 250 - 900 pcg/mL LAB CHEMISTRY METHOD 05/09/2024 3:37 PM [facility] Blood Venous blood specimen / Unknown Venipuncture / Unknown 05/09/2024 12:06 PM EST 05/09/2024 12:06 PM EST Kasandra Rueda MD LAB BLOOD ORDERABLES Fin al Result Performing Organization Address [facility]/ZIP Co de Phone Number [facility] [address] [place] [address], [place] [phone] * Hepatic function panel (05/09/2024 12:06 PM EST) [facility] Total Protein 7.0 6.0 - 8.0 g/dL [...] LAB CHEMISTRY METHOD 05/09/2024 3:[address] [facility] AST (SGOT) 19 10 - 42 unit/L LAB CHEMISTRY METHOD 05/09/2024 3:[address] [facility] Alkaline Phosphatase 114 42 - 121 unit/L LAB CHEMISTRY METHOD 05/09/2024 3:[address] [facility] Blood Venous blood specimen / Unknown Venipuncture / Unknown 05/09/2024 12:06 PM EST 05/09/2024 12:06 PM EST Kasandra Rueda MD LAB BLOOD ORDERABLES Fin al Result [facility] [address] [place] [address], [place] [phone] from Last 3 Months Insurance MEDICAID - [place] MEDICARE Care Teams Paper Cone Drying Machine Operator Relationship Specialty Start Date End Date Meliton Jones MD [address] [place] [address] [facility] - General 04/26/23
--- OUTSIDE RECORDS SUMMARY | 2024-06-28 10:16 | XMS_ITS | Clinical Summary ---
Author Organization [facility] [place], Address [address] [place] [phone] Phone Care Team Providers Care Rn Trauma Name Role Phone Meliton Jones MD Primary Care Provider [phone] Allergies Active Allergy Reactions Criticality Noted Date Comments Penicillins 12/07/2022 Medications amantadine (SYMMETREL) 100 MG capsule 11/25/2022 Active Eliquis 5 MG tablet 11/25/2022 Active atorvastatin (LIPITOR) 20 MG tablet 10/07/2022 Active Cholecalciferol (Vitamin D3) 1.25 MG (60595 UT) capsule 11/25/2022 Active citalopram (CeleXA) 20 [...] topic Insurance Medicare Medicaid [place] Care Teams Rn Trauma Relationship Specialty Start Date End Date Meliton Jones MD [address] [place] [address], [address] [place] [address] PCP - General Internal Medicine 12/05/22
--- OUTSIDE RECORDS SUMMARY | 2024-06-28 10:16 | XMS_ITS | Encounter Summary ---
Author Organization [facility] [place], Address [address] [place] [address] Phone Care Team Providers Care Administrative Support Assistant Name Role Phone Meliton Jones MD Primary Care Provider [phone] Encounter Details Date Type Department Care Team (Late st Contact Info) Description 12/29/2022 Documentation Only [facility] [place], [facility] Huan [address] [place] [phone] Scottie Hill MD [address] [place] [address] [place] [phone] Social History Tobacco Use Types Packs/Day Years [...] on filedocumented in this encounter Care Teams Administrative Support Assistant Relationship Specialty Start Date End Date Meliton Jones MD [address] [place] [address], [address] [place] [address] PCP - General Internal Medicine 12/05/22 documented as of this encounter
== END ==
LOC: HO.CARD 09:43
PROVIDERS: Visit Provider Internal Medicine
DX: R94.31 Abnormal electrocardiogram [ECG] [EKG] (principal)
CPT/HCPCS: 93306

== ENCOUNTER → 2024-06-28 09:50 | Outpatient (BNV) | payer MEDICARE, MEDICAID, SELFPAY | PROVIDERS: Visit Provider Internal Medicine Cardiovascular Disease | DX: I35.1 Nonrheumatic aortic (valve) insufficiency (principal); I34.81 Nonrheumatic mitral (valve) annulus calcification; I34.0 Nonrheumatic mitral (valve) insufficiency | CPT/HCPCS: 93306 ==

== ENCOUNTER 2024-07-11 06:27 | Outpatient (REF) | payer MEDICARE, MEDICAID, SELFPAY ==
--- OUTSIDE RECORDS SUMMARY | 2024-07-11 06:32 | XMS_ITS | Clinical Summary ---
Author Organization [facility] [place], Address [address] [place] [address] Phone Care Team Providers Care Director Of Vocational Training Name Role Phone Meliton Jones MD Primary Care Provider [phone] Allergies Active Allergy Reactions Criticality Noted Date Comments Penicillins 12/07/2022 Medications amantadine (SYMMETREL) 100 MG capsule 11/25/2022 Active Eliquis 5 MG tablet 11/25/2022 Active atorvastatin (LIPITOR) 20 MG tablet 10/07/2022 Active Cholecalciferol (Vitamin D3) 1.25 MG (47547 UT) capsule 11/25/2022 Active citalopram (CeleXA) 20 [...] topic Insurance Medicare Medicaid [place] Care Teams Director Of Vocational Training Relationship Specialty Start Date End Date Meliton Jones MD [address] [place] [address], [address] [place] [address] PCP - General Internal Medicine 12/05/22
--- OUTSIDE RECORDS SUMMARY | 2024-07-11 06:32 | XMS_ITS | Encounter Summary ---
Author Organization [facility] [place], Address [address] [place] [address] Phone Care Team Providers Care Sound Controller Name Role Phone Meliton Jones MD Primary Care Provider [phone] Encounter Details Date Type Department Care Team (Late st Contact Info) Description 12/29/2022 Documentation Only [facility] [place], [facility] Huan [address] [place] [phone] Scottie Hill MD [address] [place] [address] [place] [phone] Social History Tobacco Use Types Packs/Day Years [...] on filedocumented in this encounter Care Teams Sound Controller Relationship Specialty Start Date End Date Meliton Jones MD [address] [place] [address], [address] [place] [address] PCP - General Internal Medicine 12/05/22 documented as of this encounter
--- OUTSIDE RECORDS SUMMARY | 2024-07-11 06:32 | XMS_ITS | Encounter Summary ---
Author Organization [facility] Address [address] [place] [address] Care Team Providers Care Technical Support Technician Name Role Phone Meliton Jones MD Primary Care Provider [phone] Encounter Details Date Type Department Care Team (Late st Contact Info) Description 01/16/2024 11:20 AM EDT Hospital Encounter TH HISTORIC ENCOUNTERS [facility] ONLY Tatiana Rome PA [address] [facility] [address] [facility] [address] [place] [address] Social History Tobacco Use Types Packs/Day Years [...] TRAM Oates - 01/16/2024 11:00 AM EDT [facility] HPI: Patient [...] to communicate, the services of a qualified manufacturing maintenance technician will be provided during the visit. Patients [...] Disp: , Rfl: ??? Cholecalciferol 1.25 MG (81226 UT) capsule, , Disp: , Rfl: ??? [...] 30 minutes. The majority of the actual jawo-fv-fibt visit was spent counseling the patient with respect to the current neurological picture. Tatiana Rome PA-C documented in this encounter Plan of Treatment Upcoming Encounters Date Type Department Care Team (Late st Contact Info) Description 07/17/2024 3:00 PM EDT Office Visit [facility] [address] [facility] [address] [address] Kasandra Rueda MD [address] [phone] documented as of this encounter Visit Diagnoses Not on filedocumented in this encounter Care Teams Technical Support Technician Relationship Specialty Start Date End Date Meliton Jones MD [address] [place] [address] PCP - General 04/26/23 documented as of this encounter
--- OUTSIDE RECORDS SUMMARY | 2024-07-11 06:32 | XMS_ITS | Encounter Summary ---
Author Organization [facility] Address [id number] [place] [address] Care Team Providers Care Fishing Vessel Deckhand Name Role Phone Meliton Jones MD Primary Care Provider [phone] Encounter Details Date Type Department Care Team (Late st Contact Info) Description 01/26/2024 Lab Requisition [facility] [address] [facility] [place] [phone] Alice Hemphill, PA [address] [facility] [address] [place] [address] Other abnormal findings in urine Social History [...] Visit [facility] 175 [facility] 150 [place] [address] Kasandra Rueda MD 175 [facility] [address] [place] [address] documented as of this encounter Procedures Procedure Name Priority Date/Time Associated Diagnosis Comments BACTERIAL IDENTIFICATION AND SUSCEPTIBILITY, AEROBIC Routine 01/25/2024 1:59 PM EST Other abnormal findings in urine documented in this encounter Results * (ABNORMAL) Bacterial identification and susceptibility, aerobic (01/25/2024 1:59 PM EST) Culture, Bacterial ID and Sensitivity Escherichia coli(A) MARY JO 01/27/2024 11:03 AM EST [facility] Comment: This is an edited [...] MICROBIOLOGY - GENERAL ORDER RAYMUNDO Final Result [facility] [address] [place] [address], documented in this encounter Visit Diagnoses Diagnosis Other abnormal findings in urine documented in this encounter Care Teams Fishing Vessel Deckhand Relationship Specialty Start Date End Date Meliton Jones MD [address] [place] [address] PCP - General 04/26/23 documented as of this encounter
--- OUTSIDE RECORDS SUMMARY | 2024-07-11 06:32 | XMS_ITS | Encounter Summary ---
Author Organization [facility] [place], Address [address] [place] [address] Phone Care Team Providers Care Rn Medical Surgical Name Role Phone Meliton Jones MD Primary Care Provider [phone] Encounter Details Date Type Department Care Team (Late st Contact Info) Description 12/07/2022 Documentation Only [facility] Huan [address] [place] [phone] Scottie Hill MD [address] [place] [address] [place] [address] [place] [phone] Social History Tobacco Use Types Packs/Day Years [...] on filedocumented in this encounter Care Teams Rn Medical Surgical Relationship Specialty Start Date End Date Meliton Jones MD [address] [place] [address], [address] [place] [address] PCP - General Internal Medicine 12/05/22 documented as of this encounter
--- OUTSIDE RECORDS SUMMARY | 2024-07-11 06:32 | XMS_ITS | Encounter Summary ---
Author Organization [facility] [place], Address [address] [place] [address] Phone Care Team Providers Care Vamp Seamer Name Role Phone Meliton Jones MD Primary Care Provider [phone] Encounter Details Date Type Department Care Team (Late st Contact Info) Description 12/07/2022 Office Communication [facility], [facility] Huan Aguirre [address] [place] [phone] Scottie Hill MD [address] [place] [address] [place] [phone] Social History Tobacco Use Types Packs/Day Years [...] on filedocumented in this encounter Care Teams Vamp Seamer Relationship Specialty Start Date End Date Meliton Jones MD [address] [place] [address], [address] [place] [address] PCP - General Internal Medicine 12/05/22 documented as of this encounter
--- OUTSIDE RECORDS SUMMARY | 2024-07-11 06:32 | XMS_ITS | Clinical Summary ---
Author Organization 175 [facility] Address 175 [place] [address] Phone Care Team Providers Care Automotive Service Director Name Role Phone Meliton Jones MD [...] Description 05/09/2024 10:30 AM EST Office Visit [address] [address] Kasandra Rueda MD Multiple sclerosis (CMS/HCC V24, CMS/HCC V28) (Primary Dx); Vitamin D deficiency; Fall, sequela; Spasm 04/26/[address] [address] Tatiana Rome PA MEDICATION PRIOR [...] 07/17/2024 3:00 PM EDT Office Visit [facility] [address] [place] [address] Kasandra Rueda MD [address] [place] [address] Health Maintenance Due Date Last [...] LAB HEMETOLOGY METHOD 05/09/2024 2:33 PM EST [facility] Basophils Absolute 0.03 0.00 - 0.20 K/mcL LAB HEMETOLOGY METHOD 05/09/2024 2:33 PM EST [facility] Immature Granulocytes Absolute 0.08(H) 0.00 - 0.03 K/[facility] LAB HEMETOLOGY METHOD 05/09/2024 2:33 PM EST [facility] Blood Venous blood specimen / Unknown Venipuncture / Unknown 05/09/2024 12:06 PM EST 05/09/2024 12:06 PM EST us Kasandra Rueda MD LAB BLOOD ORDERABLES Fin al Result Performing Organization Address [facility]/ZIP Co de Phone Number [facility] [address] [place] [address], [place] [phone] * Creatinine (05/09/2024 12:06 PM EST) Creatinine 0.69 0.50 - 1.10 mg/dL LAB CHEMISTRY METHOD 05/09/2024 2:55 PM EST [facility] eGFR 94 >=60 mL/min/1. 73m2 LAB CHEMISTRY METHOD 05/09/2024 2:55 PM EST [facility] Comment:Calculation based on the??Chronic Kidney Disease Epidemiology Collaboration (CKD-EPI) equation refit??without adjustment for race. Blood Venous blood specimen / Unknown Venipuncture / Unknown 05/09/2024 12:06 PM EST 05/09/2024 12:06 PM EST us Kasandra Rueda MD LAB BLOOD ORDERABLES Fin al Result Performing Organization Address City/[facility]/ZIP Co de Phone Number [facility] [address] [place] [address], [place] [phone] * Vitamin D 25 hydroxy (05/09/2024 12:06 PM EST) Vit D, 25-Hydroxy 50.9 30.0 - 80.0 ng/mL LAB CHEMISTRY METHOD 05/09/2024 3:01 PM EST [facility] Blood Venous blood specimen / Unknown Venipuncture / Unknown 05/09/2024 12:06 PM EST 05/09/2024 12:06 PM EST us Kasandra Rueda MD LAB BLOOD ORDERABLES Fin al Result [facility] [address] [place] [address], [place] [phone] * Sedimentation rate (05/09/2024 12:06 PM EST) Sed Rate 5 0 - 30 mm/hr LAB HEMETOLOGY METHOD 05/09/2024 2:41 PM EST [facility] Blood Venous blood specimen / Unknown Venipuncture / Unknown 05/09/2024 12:06 PM EST 05/09/2024 12:06 PM EST us Kasandra Rueda MD LAB BLOOD ORDERABLES Fin al Result [facility] [address] [place] [address], [place] [phone] * BUN (05/09/2024 12:06 PM EST) BUN 8 5 - 25 mg/dL LAB CHEMISTRY METHOD 05/09/2024 2:55 PM EST [facility] Blood Venous blood specimen / Unknown Venipuncture / Unknown 05/09/2024 12:06 PM EST 05/09/2024 12:06 PM EST us Kasandra Rueda MD LAB BLOOD ORDERABLES Fin al Result Performing Organization Address City/[facility]/ZIP Co de Phone Number [facility] [address] [place] [address], [place] [phone] * (ABNORMAL) Vitamin B12 (05/09/2024 12:06 PM EST) Pathologist [facility] Vitamin B-12 955(H) 250 - 900 pcg/mL LAB CHEMISTRY METHOD 05/09/2024 3:37 PM [facility] Blood Venous blood specimen / Unknown Venipuncture / Unknown 05/09/2024 12:06 PM EST 05/09/2024 12:06 PM EST Kasandra Rueda MD LAB BLOOD ORDERABLES Fin al Result Performing Organization Address [facility]/ZIP Co de Phone Number [facility] [address] [place] [address], [place] [phone] * Hepatic function panel (05/09/2024 12:06 PM EST) [facility] Total Protein 7.0 6.0 - 8.0 [...] LAB CHEMISTRY METHOD 05/09/2024 3:37 PM EST [facility] AST (SGOT) 19 10 - 42 unit/L LAB CHEMISTRY METHOD 05/09/2024 3:37 PM EST [facility] Alkaline Phosphatase 114 42 - 121 unit/L LAB CHEMISTRY METHOD 05/09/2024 3:37 PM EST [facility] Blood Venous blood specimen / Unknown Venipuncture / Unknown 05/09/2024 12:06 PM EST 05/09/2024 12:06 PM EST Kasandra Rueda MD LAB BLOOD ORDERABLES Fin al Result [facility] [address] [place] [address], [place] [phone] from Last 3 Months Insurance MEDICAID - [place] MEDICARE Care Teams Automotive Service Director Relationship Specialty Start Date End Date Meliton Jones MD [address] [place] [id number] [facility] - General 04/26/23
--- OUTSIDE RECORDS SUMMARY | 2024-07-11 06:32 | XMS_ITS | Encounter Summary ---
Author Organization [facility], Address [address] [place] [address] Phone Care Team Providers Care Vacuum Pan Operator Name Role Phone Meliton Jones MD Primary Care Provider [phone] Encounter Details Date Type Department Care Team (Late st Contact Info) Description 12/07/2022 Documentation Only [facility] [address] [place] [phone] Scottie Hill MD [address] [place] [address] [place] [address] [place] [phone] Social History Tobacco Use Types Packs/Day Years [...] on filedocumented in this encounter Care Teams Vacuum Pan Operator Relationship Specialty Start Date End Date Meliton Jones MD [address] [place] [address], [address] [place] [address] PCP - General Internal Medicine 12/05/22 documented as of this encounter
--- OUTSIDE RECORDS SUMMARY | 2024-07-11 06:32 | XMS_ITS | Clinical Summary ---
Author Organization [facility] Address [address] [place] [address] Care Team Providers Care Table Tender Name Role Phone Meliton Jones MD Primary Care Provider [phone] Allergies Active Allergy Reactions Criticality Noted Date Comments Penicillins 07/15/2017 Seasonal 09/15/2023 Other reaction(s): runny nose, itch seasonal allergy-pollen Medications Medication Sig Dispensed Refills Start Date End Date Status Magnesium 100 MG CAPS Take 400 mg by mouth. 0 06/02/2021 Active amantadine (SYMMETREL) 100 MG capsule 0 05/20/2021 Active atorvastatin (LIPITOR) tablet 20 mg 0 05/12/2023 Active Cholecalciferol 1.25 MG (23080 UT) capsule 0 11/25/2022 Active clonazePAM (KlonoPIN) [...] age to complete this topic Care Teams Table Tender Relationship Specialty Start Date End Date Meliton Jones MD [address] [place] [address] [address] [place] [address] PCP - General Internal Medicine 04/26/23
--- OUTSIDE RECORDS SUMMARY | 2024-07-11 06:32 | XMS_ITS | Encounter Summary ---
Author Organization [facility], Address [address] [place] [address] Phone Care Team Providers Care Accountant Certified Public Name Role Phone Meliton Jones MD Primary Care Provider [phone] Encounter Details Date Type Department Care Team (Late st Contact Info) Description 12/29/2022 Documentation Only [facility], [facility] [address] [place] [phone] Scottie Hill MD [address] [place] [address] [place] [address] [place] [phone] Social History Tobacco Use Types Packs/Day Years [...] on filedocumented in this encounter Care Teams Accountant Certified Public Relationship Specialty Start Date End Date Meliton Jones MD [address] [place] [address], [address] [place] [address] PCP - General Internal Medicine 12/05/22 documented as of this encounter
--- OUTSIDE RECORDS SUMMARY | 2024-07-11 06:32 | XMS_ITS | Encounter Summary ---
Author Organization [facility], Address [address] [place] [address] Phone Care Team Providers Care Account Underwriter Name Role Phone Meliton Jones MD Primary Care Provider [phone] Encounter Details Date Type Department Care Team (Late st Contact Info) Description 12/07/2022 Documentation Only [facility] [address] [place] [phone] Scottie Hill MD [address] [place] [address] [place] [address] [place] [phone] Social History Tobacco Use Types Packs/Day Years [...] on filedocumented in this encounter Care Teams Account Underwriter Relationship Specialty Start Date End Date Meliton Jones MD [address] [place] [address], [address] [place] [address] PCP - General Internal Medicine 12/05/22 documented as of this encounter
== END 2024-07-11 06:28 | disposition home or self-care (01) ==
LOC: CF 06:27
PROVIDERS: Visit Provider Internal Medicine
DX: M17.11 Unilateral primary osteoarthritis, right knee (principal)
CPT/HCPCS: 64447; J2003

== ENCOUNTER 2024-07-11 12:47 | Outpatient (AMB) | payer MEDICARE, MEDICAID, SELFPAY ==
[2024-07-11 12:56] VITALS: BP 140/78; PULSE 91; RESP 16; O2SAT 98
--- NOTE | 2024-07-11 12:56 | MHC.OFFVIS ---
Vital Signs 07/11/24 12:56 07/11/24 13:23 BP 140/78 H 104/76 Blood Pressure Location Lt brachial Lt brachial Position Sitting Sitting Respiration 16 16 Pulse 91 80 Pulse Source Pulse Oximeter Pulse Oximeter Pulse Oximetry (%) 98 98 Oxygen Delivery Method Room Air Room Air Intake Visit Reasons: Right SNB Exercise Specialist Required: No Allergies Penicillins Allergy (Severe, Verified 07/23/24 10:31) rash,hives Medication List - Last Reconciled 07/11/24 by Mira Simmons LPN acetaminophen 1,000 mg PO BID PRN albuterol sulfate mg inhalation PRN amantadine HCl mg PO apixaban (Eliquis) 5 mg PO BID atorvastatin 20 mg PO DAILY baclofen 20 mg PO TID cholecalciferol (vitamin D3) PO citalopram 20 mg PO DAILY clonazepam 1 mg PO TID PRN diclofenac sodium 1% 4 grams topical QID dicyclomine 20 mg PO QID dimethyl fumarate (Tecfidera) 240 mg PO BID donepezil 5 mg PO DAILY duloxetine 60 mg PO DAILY folic acid 1 mg PO DAILY gabapentin mg PO hydroxychloroquine 400 mg (2 x 200 mg) PO DAILY 90 days magnesium oxide 1 tab PO DAILY melatonin 3 mg PO BEDTIME PRN methotrexate sodium 15 mg (6 x 2.5 mg) PO QWEEK 90 days modafinil 1 tab PO BID multivitamin 1 tab PO DAILY pantoprazole (Protonix) 20 mg PO DAILY peg-electrolyte soln 420 gram mL PO quetiapine 100 mg PO BEDTIME tizanidine 1 tab PO TID HPI HPI Right SNB: Details: Patient presents for scheduled procedure. Denies any recent cough, cold, infection, fever or other significant changes in medical history since last office visit. [facility] Medical History Polyarticular osteoarthritis Numbness and tingling in both hands Lumbar radiculopathy Rotator cuff syndrome of left shoulder On methotrexate therapy Long-term use of hydroxychloroquine Seronegative rheumatoid arthritis Wears dentures REBECCA (obstructive sleep apnea) Arthritis Seizures Fatty liver GERD (gastroesophageal reflux disease) Anxiety Depression History of pulmonary embolism Elevated cholesterol Finger dislocation Bursitis of left shoulder Opioid dependence COPD (chronic obstructive pulmonary disease) Multiple sclerosis Surgical History Hx of repair of left rotator cuff Hx of colonoscopy History of toe surgery Family History Father CVD (cardiovascular disease) Mother No problems noted. Social History Household Members Other:: [facility] Are you a primary associate director career services to a significant other at home: No Do you presently have visiting nurse or other home services: No Alcohol intake: never Comment: baseline pain Patient Tobacco Use Status: Former Tobacco user Tobacco use type: Cigarette Current occupational status: unemployed Current occupation: Right Handed Physical Exam Vital Signs: Last Vital Signs Pulse 80 07/11/24 13:23 Resp 16 07/11/24 13:23 BP 104/76 07/11/24 13:23 Pulse Ox 98 07/11/24 13:23 Oxygen Delivery Method Room Air 07/11/24 13:23 Office Procedures Nerve Block Details: RIGHT adductor canal saphenous nerve block, ultrasound-guided After obtaining written consent, pre-procedure blood pressure and heart rate were stable and recorded in the nursing record. The patient was placed supine on the table. The medial thigh area overlying the adductor canal was widely prepped with chloraprep, allowed to dry and sterilely draped. Using ultrasound, the appropriate landmarks including the femoral artery and saphenous nerve were identified. The skin overlying the target was anesthetized with 0.5% lidocaine. A 21 gauge 80 mm echostim needle was advanced under sonographic guidance to the adductor canal. Aspiration was negative for heme and synovial fluid. 10 cc of lidocaine 1% was injected around the saphenous nerve. The needles were removed, skin cleansed and a sterile bandage was applied. The patient tolerated the procedure well and no complications were encountered. Following the procedure the patient's vital signs and knee strength were stable. The patient was discharged home in good condition with post-procedural instructions. Time Out: Immediately prior to the procedure, the following was verbally confirmed that there is a signed consent form and that the correct patient, planned procedure, site and side are consistent with documentation and that necessary equipment and/or blood products are available prior to the start of the case. Complications: none EBL: <1 cc 05361 - Femoral (adductor injection) Procedure code (CPT) selection complete Assessment & Plan Assessment & Plan (1) Right knee pain: Code(s): M25.561 - Pain in right knee Category: Medical Plan: Patient is status post right SNB. Patient tolerated procedure well and was discharged home in stable condition with discharge instructions. All questions were answered. We will follow-up via telephone or in clinic to assess response to therapy. A follow-up appointment was made during today's visit. Orders: Orders US guide needle placement 07/11/24 M17.11 - Unilateral primary osteoarthritis, right knee Coding Level of Care Code Procedure Only Diagnoses Right knee pain M25.561 CPT Codes Nerve Block - Nerve Block 7: 04948 - Femoral (adductor injection) ([id number])
[2024-07-11 13:23] VITALS: BP 104/76; PULSE 80; RESP 16; O2SAT 98
--- OUTSIDE RECORDS SUMMARY | 2024-07-11 15:06 | XMS_ITS | Encounter Summary ---
Author Organization [facility], Address [address] [place] [address] Phone Care Team Providers Care Motorcycle Riding Instructor Name Role Phone Meliton Jones MD Primary Care Provider [phone] Encounter Details Date Type Department Care Team (Late st Contact Info) Description 12/07/2022 Documentation Only [facility] [address] [place] [phone] Scottie Hill MD [address] [place] [address] [place] [address] [place] [phone] Social History Tobacco Use Types Packs/Day Years [...] on filedocumented in this encounter Care Teams Motorcycle Riding Instructor Relationship Specialty Start Date End Date Meliton Jones MD [address] [place] [address], [address] [place] [address] PCP - General Internal Medicine 12/05/22 documented as of this encounter
--- OUTSIDE RECORDS SUMMARY | 2024-07-11 15:06 | XMS_ITS | Encounter Summary ---
Author Organization [facility] Address [address] [place] [address] Care Team Providers Care Toggle Press Folder And Feeder Name Role Phone Meliton Jones MD Primary Care Provider [phone] Encounter Details Date Type Department Care Team (Late st Contact Info) Description 01/16/2024 11:20 AM EDT Hospital Encounter TH HISTORIC ENCOUNTERS [facility] ONLY Tatiana Rome PA [address] [facility] [address] [facility] [address] [place] [address] Social History Tobacco Use Types Packs/Day Years [...] TRAM Oates - 01/16/2024 11:00 AM EDT [facility] HPI: Patient [...] to communicate, the services of a qualified administration intern will be provided during the visit. Patients Location: Patient's home ([place]) Total Time: 30 minutes Disease Summary Date [...] Disp: , Rfl: ??? Cholecalciferol 1.25 MG (59285 UT) capsule, , Disp: , Rfl: ??? [...] 30 minutes. The majority of the actual [id number] visit was spent counseling the patient with respect to the current neurological picture. Tatiana Rome PA-C documented in this encounter Plan of Treatment Upcoming Encounters Date Type Department Care Team (Late st Contact Info) Description 07/17/2024 3:00 PM EDT Office Visit [facility] [address] [address] [address] Kasandra Rueda MD [address] [phone] documented as of this encounter Visit Diagnoses Not on filedocumented in this encounter Care Teams Toggle Press Folder And Feeder Relationship Specialty Start Date End Date Meliton Jones MD [address] [place] [address] PCP - General 04/26/23 documented as of this encounter
--- OUTSIDE RECORDS SUMMARY | 2024-07-11 15:06 | XMS_ITS | Encounter Summary ---
Author Organization [facility], Address [address] [place] [address] Phone Care Team Providers Care Adjuster Arbitrator Name Role Phone Meliton Jones MD Primary Care Provider [phone] Encounter Details Date Type Department Care Team (Late st Contact Info) Description 12/07/2022 Office Communication [facility], [facility] [address] [place] [phone] Scottie Hill MD [address] [place] [address] [place] [address] [place] [phone] Social History Tobacco Use Types Packs/Day Years [...] on filedocumented in this encounter Care Teams Adjuster Arbitrator Relationship Specialty Start Date End Date Meliton Jones MD [address] [place] [address], [address] [place] [address] PCP - General Internal Medicine 12/05/22 documented as of this encounter
--- OUTSIDE RECORDS SUMMARY | 2024-07-11 15:06 | XMS_ITS | Clinical Summary ---
Author Organization [facility] Address [address] [place] [address] Care Team Providers Care Medical Office Receptionist Name Role Phone Meliton Jones MD Primary Care Provider [phone] Allergies Active Allergy Reactions Criticality Noted Date Comments Penicillins 07/15/2017 Seasonal 09/15/2023 Other reaction(s): runny nose, itch seasonal allergy-pollen Medications Medication Sig Dispensed Refills Start Date End Date Status Magnesium 100 MG CAPS Take 400 mg by mouth. 0 06/02/2021 Active amantadine (SYMMETREL) 100 MG capsule 0 05/20/2021 Active atorvastatin (LIPITOR) tablet 20 mg 0 05/12/2023 Active Cholecalciferol 1.25 MG (20319 UT) capsule 0 11/25/2022 Active clonazePAM (KlonoPIN) [...] age to complete this topic Care Teams Medical Office Receptionist Relationship Specialty Start Date End Date Meliton Jones MD [address] [place] [address] 2 [place] [address] PCP - General Internal Medicine 04/26/23
--- OUTSIDE RECORDS SUMMARY | 2024-07-11 15:06 | XMS_ITS | Encounter Summary ---
Author Organization [facility], Address [address] [place] [address] Phone Care Team Providers Care Audit Lead Name Role Phone Meliton Jones MD Primary Care Provider [phone] Encounter Details Date Type Department Care Team (Late st Contact Info) Description 12/07/2022 Documentation Only [facility] [address] [place] [phone] Scottie Hill MD [address] [place] [address] [place] [address] [place] [phone] Social History Tobacco Use Types Packs/Day Years [...] on filedocumented in this encounter Care Teams Audit Lead Relationship Specialty Start Date End Date Meliton Jones MD [address] [place] [address], [address] [place] [address] PCP - General Internal Medicine 12/05/22 documented as of this encounter
--- OUTSIDE RECORDS SUMMARY | 2024-07-11 15:06 | XMS_ITS | Encounter Summary ---
Author Organization [facility], Address [address] [place] [address] Phone Care Team Providers Care Pail Tester Name Role Phone Meliton Jones MD Primary Care Provider [phone] Encounter Details Date Type Department Care Team (Late st Contact Info) Description 12/29/2022 Documentation Only [facility], [facility] [address] [place] [phone] Scottie Hill MD [address] [place] [address] [place] [address] [place] [phone] Social History Tobacco Use Types Packs/Day Years [...] on filedocumented in this encounter Care Teams Pail Tester Relationship Specialty Start Date End Date Meliton Jones MD [address] [place] [address], [address] [place] [address] PCP - General Internal Medicine 12/05/22 documented as of this encounter
--- OUTSIDE RECORDS SUMMARY | 2024-07-11 15:06 | XMS_ITS | Clinical Summary ---
Author Organization [facility] Address [address] [place] [address] Phone Care Team Providers Care Hot Cell Technician Name Role Phone Meliton Jones MD Primary Care Provider [phone] Allergies Active Allergy Reactions Criticality Noted Date [...] Description 05/09/2024 10:30 AM EST Office Visit [address] [address] Kasandra Rueda MD Multiple sclerosis (CMS/HCC V24, CMS/HCC V28) (Primary Dx); Vitamin D deficiency; Fall, sequela; Spasm 04/26/[address] [address] Tatiana Rome PA MEDICATION PRIOR [...] Description 07/17/2024 3:00 PM EDT Office Visit [facility] [address] [place] [address] Kasandra Rueda MD [address] [place] [address] Health Maintenance Due Date Last [...] 2:33 PM EST [facility] Basophils Absolute 0.03 0.00 - 0.20 K/mcL LAB HEMETOLOGY METHOD 05/09/2024 2:33 PM EST [facility] Immature Granulocytes Absolute 0.08(H) 0.00 - 0.03 K/[facility] LAB HEMETOLOGY METHOD 05/09/2024 2:33 PM EST [facility] Blood Venous blood specimen / Unknown Venipuncture / Unknown 05/09/2024 12:06 PM EST 05/09/2024 12:06 PM EST us Kasandra Rueda MD LAB BLOOD ORDERABLES Fin al Result Performing Organization Address [facility]/ZIP Co de Phone Number [facility] [address] [place] [address], [place] [phone] * Creatinine (05/09/2024 12:06 PM EST) Creatinine [...] ORDERABLES Fin al Result Performing Organization Address City/[facility]/ZIP Co de Phone Number [facility] [address] [place] [address], [place] [phone] * Vitamin D 25 hydroxy (05/09/2024 12:06 PM EST) Vit D, 25-Hydroxy 50.9 30.0 - 80.0 ng/mL LAB CHEMISTRY METHOD 05/09/2024 3:01 PM EST [facility] Blood Venous blood specimen / Unknown Venipuncture / Unknown 05/09/2024 12:06 PM EST 05/09/2024 12:06 PM EST us Kasandra Rueda MD LAB BLOOD ORDERABLES Fin al Result [facility] [address] [place] [address], [place] [phone] * Sedimentation rate (05/09/2024 12:06 PM EST) Sed Rate 5 0 - 30 mm/hr LAB HEMETOLOGY METHOD 05/09/2024 2:41 PM EST [facility] Blood Venous blood specimen / Unknown Venipuncture / Unknown 05/09/2024 12:06 PM EST 05/09/2024 12:06 PM EST us Kasandra Rueda MD LAB BLOOD ORDERABLES Fin al Result [facility] [address] [place] [address], [place] [phone] * BUN (05/09/2024 12:06 PM EST) BUN 8 5 - 25 mg/dL LAB CHEMISTRY METHOD 05/09/2024 2:55 PM EST [facility] Blood Venous blood specimen / Unknown Venipuncture / Unknown 05/09/2024 12:06 PM EST 05/09/2024 12:06 PM EST us Kasandra Rueda MD LAB BLOOD ORDERABLES Fin al Result Performing Organization Address City/[facility]/ZIP Co de Phone Number [facility] [address] [place] [address], [place] [phone] * (ABNORMAL) Vitamin B12 (05/09/2024 12:06 PM EST) Pathologist [facility] Vitamin B-12 955(H) 250 - 900 pcg/mL LAB CHEMISTRY METHOD 05/09/2024 3:37 PM [facility] Blood Venous blood specimen / Unknown Venipuncture / Unknown 05/09/2024 12:06 PM EST 05/09/2024 12:06 PM EST Kasandra Rueda MD LAB BLOOD ORDERABLES Fin al Result Performing Organization Address [facility]/ZIP Co de Phone Number [facility] [address] [place] [address], [place] [phone] * Hepatic function panel (05/09/2024 12:06 PM EST) [facility] Total Protein 7.0 6.0 - 8.0 g/dL [...] 3:37 PM EST [facility] AST (SGOT) 19 10 - 42 unit/L LAB CHEMISTRY METHOD 05/09/2024 3:37 PM EST [facility] Alkaline Phosphatase 114 42 - 121 unit/L LAB CHEMISTRY METHOD 05/09/2024 3:37 PM EST [facility] Blood Venous blood specimen / Unknown Venipuncture / Unknown 05/09/2024 12:06 PM EST 05/09/2024 12:06 PM EST Kasandra Rueda MD LAB BLOOD ORDERABLES Fin al Result [facility] ([facility]) [facility] [address] [place] [address], [place] [phone] from Last 3 Months Insurance MEDICAID - [place] MEDICARE Care Teams Hot Cell Technician Relationship Specialty Start Date End Date Meliton Jones MD [address] [place] [id number] [facility] - General 04/26/23
--- OUTSIDE RECORDS SUMMARY | 2024-07-11 15:06 | XMS_ITS | Encounter Summary ---
Author Organization [facility], Address [address] [place] [address] Phone Care Team Providers Care Assessment Coordinator Name Role Phone Meilton Jones MD Primary Care Provider [phone] Encounter Details Date Type Department Care Team (Late st Contact Info) Description 12/07/2022 Documentation Only [facility] [address] [place] [phone] Scottie Hill MD [address] [place] [address] [place] [address] [place] [phone] Social History Tobacco Use Types Packs/Day Years [...] on filedocumented in this encounter Care Teams Assessment Coordinator Relationship Specialty Start Date End Date Meliton Jones MD [address] [place] [address], [address] [place] [address] PCP - General Internal Medicine 12/05/22 documented as of this encounter
--- OUTSIDE RECORDS SUMMARY | 2024-07-11 15:06 | XMS_ITS | Encounter Summary ---
Author Organization [facility] Address [address] [place] [address] Care Team Providers Care Platform Consultant Name Role Phone Meliton Jones MD Primary Care Provider [phone] Encounter Details Date Type Department Care Team (Late st Contact Info) Description 01/26/2024 Lab Requisition [facility] - Main Lab [address] [facility] [place] [phone] Alice Hemphill, PA [address] [facility] [address] [place] [address] Other abnormal findings in urine Social History [...] Description 07/17/2024 3:00 PM EDT Office Visit [facility] [address] [place] [address] Kasandra Rueda MD [address] [facility] [address] [place] [address] documented as of this encounter Procedures Procedure Name Priority Date/Time Associated Diagnosis Comments BACTERIAL IDENTIFICATION AND SUSCEPTIBILITY, AEROBIC Routine 01/25/2024 1:59 PM EST Other abnormal findings in urine documented in this encounter Results * (ABNORMAL) Bacterial identification and susceptibility, aerobic (01/25/2024 1:59 PM EST) Culture, Bacterial ID and Sensitivity Escherichia coli(A) MARY JO 01/27/2024 11:03 AM EST [facility] ([facility]) [facility] Comment: This is an [...] MICROBIOLOGY - GENERAL ORDER RAYMUNDO Final Result [facility] ([facility]) [facility] [address] [place] [address], documented in this encounter Visit Diagnoses Diagnosis Other abnormal findings in urine documented in this encounter Care Teams Platform Consultant Relationship Specialty Start Date End Date Meliton Jones MD [address] [place] [address] PCP - General 04/26/23 documented as of this encounter
--- OUTSIDE RECORDS SUMMARY | 2024-07-11 15:07 | XMS_ITS | Clinical Summary ---
Author Organization [facility], Address [address] [place] [phone] Phone Care Team Providers Care Securities Attorney Name Role Phone Meliton Jones MD Primary Care Provider [phone] Allergies Active Allergy Reactions Criticality Noted Date Comments Penicillins 12/07/2022 Medications amantadine (SYMMETREL) 100 MG capsule 11/25/2022 Active Eliquis 5 MG tablet 11/25/2022 Active atorvastatin (LIPITOR) 20 MG tablet 10/07/2022 Active Cholecalciferol (Vitamin D3) 1.25 MG (29643 UT) capsule 11/25/2022 Active citalopram (CeleXA) 20 [...] topic Insurance Medicare Medicaid [place] Care Teams Securities Attorney Relationship Specialty Start Date End Date Meliton Jones MD [address] [place] [address], [address] [place] [address] PCP - General Internal Medicine 12/05/22
--- OUTSIDE RECORDS SUMMARY | 2024-07-11 15:07 | XMS_ITS | Encounter Summary ---
Author Organization [facility], Address [address] [place] [address] Phone Care Team Providers Care Drafting Detailer Name Role Phone Meliton Jones MD Primary Care Provider [phone] Encounter Details Date Type Department Care Team (Late st Contact Info) Description 12/29/2022 Documentation Only [facility], [facility] [address] [place] [phone] Scottie Hill MD [address] [place] [address] [place] [address] [place] [phone] Social History Tobacco Use Types Packs/Day Years [...] on filedocumented in this encounter Care Teams Drafting Detailer Relationship Specialty Start Date End Date Meliton Jones MD [address] [place] [address], [address] [place] [address] PCP - General Internal Medicine 12/05/22 documented as of this encounter
== END 2024-07-11 13:24 | disposition home or self-care (01) ==
LOC: HO.PMCPRC 12:47
PROVIDERS: PCP Internal Medicine; Visit Provider Internal Medicine
DX: M25.561 Pain in right knee (principal)
CPT/HCPCS: 64447

== ENCOUNTER 2024-07-23 10:24 | Outpatient (AMB) | payer MEDICARE, MEDICAID, SELFPAY ==
--- NOTE | 2024-07-23 10:27 | MHC.OFFVIS ---
Vital Signs 07/23/24 10:30 Height 5 ft 2 in Weight 142 lb BMI 26.0 BP 145/63 H Blood Pressure Location Rt brachial Position Sitting Pulse 70 Pulse Source Pulse Oximeter Pulse Oximetry (%) 98 Oxygen Delivery Method Room Air Intake Visit Reasons: s/p right Dx SNB Intake Note: Pain today 11/27 Energy Director Required: No Accompanied by: Self / Same As Patient Allergies Penicillins Allergy (Severe, Verified 07/23/24 10:31) rash,hives HPI Comments Details: Patient presents today to assess response to Right Diagnostic Saphenous Nerve Block on 07/11/[address] Lara. Patient reports that prior to the procedure, she experienced a mechanical fall, resulting in an x-ray which showed a patella baja. No acute abnormalities otherwise noted, but deemed non-surgical by Orthopedics. Post-injection, the patient experienced 3 full days of relief from knee pain, during which her walking improved significantly. She also manages a foot drop condition, contributing to her balance issues, with an ankle brace recommended for support. The patient plans to use the ankle brace more consistently to aid stability. Her episodes of leg wobbliness underscore the importance of ongoing support and monitoring. - Onset: Knee pain was reportedly addressed with a nerve block on 07/11/24. - Quality and character: Intense knee pain relieved by the nerve block. - Location: Primary in the right knee. - Relief: Complete relief for 3 days following the nerve block. - Exacerbating factors: Frequent falls likely contributing to knee pain and instability due to foot drop. - Interferences: Interferes with walking and stability, requiring ankle support for assistance. - Affect: Improved mood with temporary pain relief; concern about stability due to wobbliness. - Analgesia: Successfully managed with right diagnostic saphenous nerve block leading to 3 days of total pain relief. - Adverse Effects: No adverse effects reported following the nerve block. - Activities of Daily Living: Temporary improvement in mobility; affected by falls and foot drop. - Aberrant Drug Related Behaviors: No behaviors indicating misuse or abuse of medications reported. Past Procedures: 07/11/24: Right Diagnostic SNB: 100% pain relief for 3 days 04/22/23: Right hip intra-articular steroid injection-moderate but temporary relief [facility] Medical History Polyarticular osteoarthritis Numbness and tingling in both hands Lumbar radiculopathy Rotator cuff syndrome of left shoulder On methotrexate therapy Long-term use of hydroxychloroquine Seronegative rheumatoid arthritis Wears dentures REBECCA (obstructive sleep apnea) Arthritis Seizures Fatty liver GERD (gastroesophageal reflux disease) Anxiety Depression History of pulmonary embolism Elevated cholesterol Finger dislocation Bursitis of left shoulder Opioid dependence COPD (chronic obstructive pulmonary disease) Multiple sclerosis Surgical History Hx of repair of left rotator cuff Hx of colonoscopy History of toe surgery Family History Father CVD (cardiovascular disease) Mother No problems noted. Social History Household Members Other:: [facility] Are you a primary nurse care manager to a significant other at home: No Do you presently have visiting nurse or other home services: No Alcohol intake: never Comment: baseline pain Patient Tobacco Use Status: Former Tobacco user Tobacco use type: Cigarette Current occupational status: unemployed Current occupation: Right Handed Review of Systems Const Details: - Musculoskeletal: Reports knee pain relief post-injection for 3 days and expects wobbliness; denies any additional persistent pain. - Neurological: Reports chronic right foot drop; denies other neurological deficits. All systems reviewed & are unremarkable except as noted in HPI and below Physical Exam Vital Signs: Last Vital Signs Pulse 70 07/23/24 10:30 BP 145/63 H 07/23/24 10:30 Pulse Ox 98 07/23/24 10:30 Oxygen Delivery Method Room Air 07/23/24 10:30 BMI result Body Mass Index 26.0 General: Appears afebrile. Alert and oriented. Mood and affect appropriate. Follows and participates in conversation appropriately. Respiratory effort is unlabored. No cough. Able to transition from sit to stand unassisted. No assisting devices utilized today. Reports using a cane at home, also has ankle support insert but forgetful to wear it. Ambulates with bilaterally normal heel strike and toe off, reports occasional imbalance on right due to pain. Extrem General: Yes capillary refill normal, Yes no clubbing, cyanosis or edema and Yes no calf tenderness Right lower extremity: knee (Limited ROM due to pain. ) Details: normal to inspection, tenderness Location: of the patella, of the popliteal fossa, of the medial joint line and of the lateral joint line and crepitus Location: at the patella; no swelling, no abrasions, no ecchymosis, no deformity and no unusual warmth Results Reviewed Results Reviewed: XR KNEE, RIGHT 10/23/23 CLINICAL INFORMATION: Patient status-post fall. COMPARISON: Radiographs dated 06/06/2022. FINDINGS: Bony alignment and mineralization are normal. The lateral, medial and patellofemoral joint space compartments are well-maintained. There is minimal peripheral osteophyte formation of the upper and lower articular surfaces of the patella. A small enthesophyte arises from the upper pole of the patella at the quadriceps tendon insertion. No fracture or dislocation is seen. There is a moderate joint effusion. No foreign body is seen. IMPRESSION: 1. There is minimal osteoarthritic change of the right patellofemoral compartment. 2. There is a moderate right knee joint effusion. XR HIP, RIGHT 10/23/23 CLINICAL INFORMATION: History of falls. COMPARISON: Radiograph dated 10/23/2023; CT abdomen and pelvis dated 12/10/2018. FINDINGS: There is bony mineralization. The bilateral acetabular joint spaces are symmetric and well-maintained. There is mild subchondral sclerosis and very mild peripheral osteophyte formation of the right acetabular roof. The femoral heads are smooth. There is no fracture or dislocation. The sacroiliac joints are symmetrical and maintained. The pubic synthesis is intact. Pelvic phleboliths and calcified buttock granulomas are again noted. IMPRESSION: There is mild osteoarthritic change of the right hip, and no unusual degenerative change is seen of the left hip. No fracture is seen. XR KNEE RT 3V 06/28/24 Findings: There is patella baja. No significant arthritic change or erosions. No joint effusion. No radiopaque foreign body. IMPRESSION: There is patella baja. No acute abnormalities otherwise noted. Assessment & Plan Assessment & Plan (1) Right knee pain: Code(s): M25.561 - Pain in right knee Category: Medical (2) Osteoarthritis of right knee: Code(s): M17.11 - Unilateral primary osteoarthritis, right knee Category: Medical Plan We will move forward with the Sprint peripheral nerve stimulation following the successful right diagnostic saphenous nerve block. The patient has been instructed on the device management and maintenance post-insertion, ensuring comprehensive support at home or schedule dressing changes at clinic. Continued use of her ankle brace is emphasized to reduce the risk around the foot drop concern. Schedule with Right Saphenous Nerve Sprint PNS trial with local and fluoroscopy. Expectations, risks and benefits were reviewed. She is on Eliquis and has been avoiding NSAIDs, including Celebrex. Patient is aware she will be contacted to schedule this procedure. We will obtain permission to hold Eliquis for 3 days from prescribing physician. All questions and concerns have been answered and patient agreed with the plan. Follow up after Sprint placement and sooner as needed. Patient was informed and verbally consented to the use of an ambient scribe for clinic note documentation during this visit. Coding Level of Care Code Est Pt Level 3 (58042) Complex EM visit Add On G2211 Diagnoses Right knee pain M25.561 Osteoarthritis of right knee M17.11
[2024-07-23 10:30] VITALS: BP 145/63; PULSE 70; O2SAT 98; BMI 26.0
--- OUTSIDE RECORDS SUMMARY | 2024-07-23 11:55 | XMS_ITS | Encounter Summary ---
Author Organization [facility] Address [address] [place] [address] Care Team Providers Care Hot Stone Setter Name Role Phone Meliton Jones MD Primary Care Provider [phone] Encounter Details Date Type Department Care Team (Late st Contact Info) Description 01/26/2024 Lab Requisition [facility] - Main Lab [address] [facility] [place] [phone] Alice Hemphill PA [address] [place] [address] Other abnormal findings in urine Social History [...] Care Team (Late st Contact Info) Description 11/19/2024 3:30 PM EDT Office Visit [facility] [address] [place] [phone] Tatiana Rome PA [address] [place], [place] [phone] documented as of this encounter Procedures Procedure Name Priority Date/Time Associated Diagnosis Comments BACTERIAL IDENTIFICATION AND SUSCEPTIBILITY, AEROBIC Routine 01/25/2024 1:59 PM EST Other abnormal findings in urine documented in this encounter Results * (ABNORMAL) Bacterial identification and susceptibility, aerobic (01/25/2024 1:59 PM EST) Culture, Bacterial ID and Sensitivity Escherichia coli(A) MARY JO 01/27/2024 11:03 AM EST [facility] ([facility] Comment: This is an edited [...] GENERAL ORDER RAYMUNDO Final Result [facility] ([facility]) [facility] [address] [place] [address], documented in this encounter Visit Diagnoses Diagnosis Other abnormal findings in urine documented in this encounter Care Teams Hot Stone Setter Relationship Specialty Start Date End Date Meliton Jones MD [address] [place] [address] PCP - General 04/26/23 documented as of this encounter
--- OUTSIDE RECORDS SUMMARY | 2024-07-23 11:55 | XMS_ITS | Encounter Summary ---
Author Organization [facility], Address [address] [place] [address] Phone Care Team Providers Care De Icer Name Role Phone Meliton Jones MD Primary Care Provider [phone] Encounter Details Date Type Department Care Team (Late st Contact Info) Description 12/07/2022 Documentation Only [facility] [place] [address] [place] [phone] Scottie Hill MD [address] [place] [address] [place] [address] [place] [phone] Social History Tobacco Use Types Packs/Day Years [...] on filedocumented in this encounter Care Teams De Icer Relationship Specialty Start Date End Date Meliton Jones MD [address] [place] [address], [address] [place] [address] PCP - General Internal Medicine 12/05/22 documented as of this encounter
--- OUTSIDE RECORDS SUMMARY | 2024-07-23 11:55 | XMS_ITS | Encounter Summary ---
Author Organization [facility], Address [address] [place] [address] Phone Care Team Providers Care Planting Material Carrier Name Role Phone Meliton Jones MD Primary Care Provider [phone] Encounter Details Date Type Department Care Team (Late st Contact Info) Description 12/07/2022 Documentation Only [facility] [place] [address] [place] [phone] Scottie Hill MD [address] [place] [address] [place] [address] [place] [phone] Social History Tobacco Use Types Packs/Day Years [...] on filedocumented in this encounter Care Teams Planting Material Carrier Relationship Specialty Start Date End Date Meliton Jones MD [address] [place] [address], [address] [place] [address] PCP - General Internal Medicine 12/05/22 documented as of this encounter
--- OUTSIDE RECORDS SUMMARY | 2024-07-23 11:55 | XMS_ITS | Encounter Summary ---
Author Organization [facility] Address [address] [place] [address] Care Team Providers Care Radiator Cleaner Name Role Phone Meliton Jones MD Primary Care Provider [phone] Encounter Details Date Type Department Care Team (Late st Contact Info) Description 01/16/2024 11:20 AM EDT Hospital Encounter TH HISTORIC ENCOUNTERS [facility] ONLY Tatiana Rome PA [address] [facility] [address] [facility] [address] [place] [address] Social History Tobacco Use Types Packs/Day Years [...] TRAM Oates - 01/16/2024 11:00 AM EDT [facility] HPI: Patient is a [...] to communicate, the services of a qualified foreign language interpreter will be provided during the visit. Patients Location: Patient's home ([place]) Total Time: 30 minutes Disease Summary Date [...] Disp: , Rfl: ??? Cholecalciferol 1.25 MG (31610 UT) capsule, , Disp: , Rfl: ??? [...] 30 minutes. The majority of the actual ptgh-hg-lbvh visit was spent counseling the patient with respect to the current neurological picture. Tatiana Rome PA-C documented in this encounter Plan of Treatment Upcoming Encounters Date Type Department Care Team (Late st Contact Info) Description 11/19/2024 3:30 PM EDT Office Visit [facility] [address] [facility] [address] [facility] [address] [place] [address] Tatiana Rome PA 175 [facility] [address] [place] [address] documented as of this encounter Visit Diagnoses Not on filedocumented in this encounter Care Teams Radiator Cleaner Relationship Specialty Start Date End Date Meliton Jones MD [address] [place] [address] PCP - General 04/26/23 documented as of this encounter
--- OUTSIDE RECORDS SUMMARY | 2024-07-23 11:55 | XMS_ITS | Clinical Summary ---
Author Organization 175 [facility] Address [address] [place] [address] Phone Care Team Providers Care Upkeep Mechanic Name Role Phone Meliton Jones MD Primary Care Provider [phone] Allergies Active Allergy Reactions Criticality Noted Date [...] mouth 2 (two) times a day. Active cloNIDine (CATAPRES) 0.1 mg tablet Take [...] mouth 2 (two) times a day. Active QUEtiapine (SEROquel) 25 mg tablet Take 1 tablet (25 mg total) by mouth at bedtime. Active dimethyl fumarate (Tecfidera) 240 mg capsule,delayed release(DR/EC) Take 240 mg by mouth 2 (two) times a day. 60 capsule 5 02/28/2024 Active modafiniL (PROVIGIL) 200 mg tabletIndicatio ns:Other fatigue,Multipl e sclerosis ([facility] V24, [facility] V28) Take 1 tablet (200 mg total) [...] at bedtime. 30 capsule 3 05/09/2024 Active amantadine (SYMMETREL) 100 mg capsule Take 1 capsule (100 mg total) by mouth 1 (one) time each day. 05/20/2021 Active Eliquis 5 mg tablet Take 1 tablet (5 mg total) by mouth 2 times daily. 02/15/2021 Active donepeziL (ARICEPT) 5 mg tablet Take 1 tablet (5 mg total) by mouth at bedtime. 07/13/2022 Active folic acid (FOLVITE) 1 mg tablet Take 1 tablet (1 mg total) by mouth 1 (one) time each day. Active gabapentin (NEURONTIN) 300 mg capsule Take 1 capsule (300 mg total) by mouth at bedtime. Active hydroxychloroqu ine (PLAQUENIL) 200 mg tablet Take 1 tablet (200 mg total) by mouth 1 (one) time each day. Active Encounters Date Type Department Care Team Description 07/17/2024 3:00 PM EDT Office Visit [facility] [place] [address] [address] Kasandra Rueda MD Multiple sclerosis ([facility] V24, [facility] V28) (Primary Dx); Incontinence of feces, unspecified fecal incontinence type; Urinary frequency 05/09/2024 10:30 AM EST Office Visit [facility] 175 [facility] [address] [place] [address] Kasandra Rueda MD Multiple sclerosis ([facility] V24, [facility] V28) (Primary Dx); Vitamin D deficiency; Fall, sequela; Spasm 04/26/2024 Telephone [facility] 175 [facility] [address] [place] [address] Tatiana Rome PA MEDICATION PRIOR AUTH from Last 3 Months Surgical History Surgery Date Site/Laterality Comments OTHER SURGICAL HISTORY Left Posterior PROCEDURE:left shoulder rotator OTHER SURGICAL HISTORY Anterior PROCEDURE:left toe Medical History Medical History Date Comments MS (multiple sclerosis) ([facility] V24, [facility] V28) DX:MS (multiple sclerosis) ( [facility]) Bronchitis Social History Tobacco Use Types Packs/Day [...] Sign Reading Time Taken Comments Blood Pressure 94/63 07/17/2024 2:32 PM EDT Pulse 73 07/17/2024 2:32 PM EDT Temperature 36.1 ??C (97 ??F) 05/09/2024 10:52 AM EST Respiratory Rate - - Oxygen Saturation 97% 07/17/2024 2:32 PM EDT Inhaled Oxygen Concentration - - Weight 64.9 kg (143 lb) 07/17/2024 2:32 PM EDT Height 157.5 cm (5' 2 ) 07/17/2024 2:32 PM EDT Body Mass Index 26.16 07/17/2024 2:32 PM EDT Plan of Treatment Upcoming Encounters Date Type Department Care Team (Late st Contact Info) Description 11/19/2024 3:30 PM EDT Office Visit [facility] [address] [place] [phone] Tatiana Rome PA [address] [place] [address] Health Maintenance Due Date Last Done Comments Breast Cancer Screening 1955 DTaP,Tdap,and Td Vaccines (1 - Tdap) 1973 RSV Immunization Adult Patients (1 - Risk 60-74 years 1-dose series) 2014 Pneumococcal Vaccine: 50+ Years (3 of 3 - PCV) 05/13/2016 05/13/2015, 11/21/2012 COVID-19 Vaccine (2 - Pfizer risk series) 01/21/2021 12/31/2020 Colorectal Cancer Screening: Colonoscopy 02/19/2022 Depression Screening 02/19/2022 Falls Risk Assessment 02/19/2022 Hepatitis C Screening 02/19/2022 Medicare Annual Wellness Visit 02/19/2022 Osteoporosis Screening (Bone Density Screening) 02/19/2022 Social Influencers of Health Screening 02/19/2022 Influenza Vaccine (Season Ended) 2024 12/29/2020, 11/11/2019, [...] Routine 05/09/2024 12:06 PM EST Multiple sclerosis ([facility]/HCC V24, [facility]/HCC V28) HEPATIC FUNCTION PANEL Routine 12:06 PM EST Multiple sclerosis (CMS/HCC V24, CMS/HCC V28) CBC AND DIFFERENTIAL Routine 05/09/2024 12:06 PM EST Multiple sclerosis ([facility]/HCC V24, CMS/HCC V28) CREATININE, SERUM Routine 05/09/2024 12: 06 PM EST Multiple sclerosis ([facility]/HCC V24, CMS/HCC V28) VITAMIN D 25 HYDROXY Routine 05/09/2024 12:06 PM EST Multiple sclerosis (CMS/HCC V24, CMS/HCC V28) Vitamin D deficiency BUN Routine 05/09/2024 12:06 PM EST Multiple sclerosis ([facility]/HCC V24, CMS/HCC V28) VITAMIN B12 Routine 05/09/2024 12:06 PM EST Multiple sclerosis ([facility]/HCC V24, CMS/HCC V28) SEDIMENTATION RATE Routine 05/09/2024 12 :06 PM EST Multiple sclerosis (CMS/HCC V24, CMS/HCC V28) from Last 3 Months Results * (ABNORMAL) CBC auto differential (05/09/2024 12:06 PM EST) WBC 9.8 4.8 - 10.8 K/[facility] LAB HEMETOLOGY METHOD 05/09/2024 2:33 PM EST [facility] RBC 4.60 3.80 - 4.80 M/[facility] LAB HEMETOLOGY METHOD 05/09/2024 2:33 PM [facility] Hemoglobin 13.3 11.5 - 16.0 g/dL LAB HEMETOLOGY METHOD 05/09/2024 2:33 PM [facility] Hematocrit 41.6 35.0 - 47.0 % LAB HEMETOLOGY METHOD 05/09/2024 2:33 PM [facility] MCV 90.0 79.0 - 98.0 FL LAB HEMETOLOGY METHOD 05/09/2024 2:33 PM [facility] MCH 28.8 27.0 - 32.0 pcg LAB HEMETOLOGY METHOD 05/09/2024 2:33 PM [facility] MCHC 32.0 32.0 - 37.0 g/dL LAB HEMETOLOGY METHOD 05/09/2024 2:33 PM [facility] RDW 13.6 11.0 - 15.0 % LAB HEMETOLOGY METHOD 05/09/2024 2:33 PM [facility] Platelets 359 130 - 400 K/mcL LAB HEMETOLOGY METHOD 05/09/2024 2:33 PM [facility] MPV 8.9 7.0 - 11.0 FL LAB HEMETOLOGY METHOD 05/09/2024 2:33 PM [facility] NRBC 0.0 <1.0 % LAB HEMETOLOGY METHOD 05/09/2024 2:33 PM [facility] NRBC Absolute 0.00 <0.10 K/mcL LAB HEMETOLOGY METHOD 05/09/2024 2:33 PM [facility] Neutrophils Relative 59.5 % LAB HEMETOLOGY METHOD 05/09/2024 2:33 PM [facility] Lymphocytes Relative 29.2 % LAB HEMETOLOGY METHOD 05/09/2024 2:33 PM [facility] Monocytes Relative 7.7 % LAB HEMETOLOGY METHOD 05/09/2024 2:33 PM EST [facility] Eosinophils Relative 2.5 % LAB HEMETOLOGY METHOD 05/09/2024 2:33 PM [facility] Basophils Relative 0.3 % LAB HEMETOLOGY METHOD 05/09/2024 2:33 PM [facility] Immature Granulocytes Relative 0.8 % LAB HEMETOLOGY METHOD 05/09/2024 2:33 PM [facility] Neutrophils Absolute 5.83 1.50 - 7.00 K/mcL LAB HEMETOLOGY METHOD 05/09/2024 2:33 PM [facility] Lymphocytes Absolute 2.86 1.00 - 5.00 K/mcL LAB HEMETOLOGY METHOD 05/09/2024 2:33 PM [facility] Monocytes Absolute 0.75 0.20 - 1.00 K/mcL LAB HEMETOLOGY METHOD 05/09/2024 2:33 PM EST [facility] Eosinophils Absolute 0.24 0.00 - 0.50 K/mcL LAB HEMETOLOGY METHOD 05/09/2024 2:33 PM EST [facility] Basophils Absolute 0.03 0.00 - 0.20 K/mcL LAB HEMETOLOGY METHOD 05/09/2024 2:33 PM [facility] Immature Granulocytes Absolute 0.08(H) 0.00 - 0.03 K/mcL LAB HEMETOLOGY METHOD 05/09/2024 2:33 PM [facility] Blood Venous blood specimen / Unknown Venipuncture / Unknown 05/09/2024 12:06 PM EST 05/09/2024 12:06 PM EST Kasandra Rueda MD LAB BLOOD ORDERABLES Fin al Result [facility] [address] [place] [address], * Creatinine (05/09/2024 12:06 PM EST) Creatinine 0.69 0.50 - 1.10 mg/dL LAB CHEMISTRY METHOD 05/09/2024 2:55 PM EST [facility] eGFR 94 >=60 mL/min/1. 73m2 LAB CHEMISTRY METHOD 05/09/2024 2:55 PM EST [facility] Comment:Calculation based on the??Chronic Kidney Disease Epidemiology Collaboration (CKD-EPI) equation refit??without adjustment for race. Blood Venous blood specimen / Unknown Venipuncture / Unknown 05/09/2024 12:06 PM EST 05/09/2024 12:06 PM EST us Kasandra Rueda MD LAB BLOOD ORDERABLES Fin al Result Performing Organization Address City/[facility]/ZIP Co de Phone Number [facility] [address] [place] [address], * Vitamin D 25 hydroxy (05/09/2024 12:06 PM EST) Pathologist [facility] Vit D, 25-Hydroxy 50.9 30.0 - 80.0 ng/mL LAB CHEMISTRY METHOD 05/09/2024 3:01 PM EST [facility] Blood Venous blood specimen / Unknown Venipuncture / Unknown 05/09/2024 12:06 PM EST 05/09/2024 12:06 PM EST us Kasandra Rueda MD LAB BLOOD ORDERABLES Fin al Result [facility] [address] [place] [address], [place] [phone] * Sedimentation rate (05/09/2024 12:06 PM EST) Sed Rate 5 0 - 30 mm/hr LAB HEMETOLOGY METHOD 05/09/2024 2:41 PM EST [facility] Blood Venous blood specimen / Unknown Venipuncture / Unknown 05/09/2024 12:06 PM EST 05/09/2024 12:06 PM EST us Kasandra Rueda MD LAB BLOOD ORDERABLES Fin al Result Performing Organization Address City/[facility]/ZIP Co de Phone Number [facility] [address] [place] [address], [place] [phone] * BUN (05/09/2024 12:06 PM EST) BUN 8 5 - 25 mg/dL LAB CHEMISTRY METHOD 05/09/2024 2:55 PM EST [facility] Blood Venous blood specimen / Unknown Venipuncture / Unknown 05/09/2024 12:06 PM EST 05/09/2024 12:06 PM EST us Kasandra Rueda MD LAB BLOOD ORDERABLES Fin al Result Performing Organization Address [facility]/ZIP Co de Phone Number [facility] [address] [place] [address], [place] [phone] * (ABNORMAL) Vitamin B12 (05/09/2024 12:06 PM EST) Vitamin B-12 955(H) 250 - 900 pcg/mL LAB CHEMISTRY METHOD 05/09/2024 3:37 PM EST [facility] Blood Venous blood specimen / Unknown Venipuncture / Unknown 05/09/2024 12:06 PM EST 05/09/2024 12:06 PM EST us Kasandra Rueda MD LAB BLOOD ORDERABLES Fin al Result Performing Organization Address City/[facility]/ZIP Co de Phone Number [facility] [address] [place] [address], [place] [phone] * Hepatic function panel (05/09/2024 12:06 PM EST) Total Protein 7.0 6.0 - 8.0 g/dL LAB CHEMISTRY METHOD 05/09/2024 3:37 PM [facility] Albumin 4.0 3.2 - 5.0 g/dL LAB CHEMISTRY METHOD 05/09/2024 3:37 PM [facility] Total Bilirubin 0.4 0.0 - 1.4 mg/dL LAB CHEMISTRY METHOD 05/09/2024 3:37 PM [facility] Bilirubin, Direct 0.1 0.0 - 0.3 mg/dL LAB CHEMISTRY METHOD 05/09/2024 3:37 PM [facility] Bilirubin, Indirect 0.3 0.0 - 1.1 mg/dL LAB CHEMISTRY METHOD 05/09/2024 3:37 PM [facility] ALT (SGPT) 28 10 - 60 unit/L LAB CHEMISTRY METHOD 05/09/2024 3:37 PM [facility] AST (SGOT) 19 10 - 42 unit/L LAB CHEMISTRY METHOD 05/09/2024 3:37 PM [facility] Alkaline Phosphatase 114 42 - 121 unit/L LAB CHEMISTRY METHOD 05/09/2024 3:37 PM [facility] Blood Venous blood specimen / Unknown Venipuncture / Unknown 05/09/2024 12:06 PM EST 05/09/2024 12:06 PM EST us Kasandra Rueda MD LAB BLOOD ORDERABLES Fin al Result [facility] [address] [place] [address], from Last 3 Months Insurance MEDICA[place] - [place] MEDICARE Care Teams Upkeep Mechanic Relationship Specialty Start Date End Date Meliton Jones MD [address] [place] [id number] PCP - General 04/26/23
--- OUTSIDE RECORDS SUMMARY | 2024-07-23 11:55 | XMS_ITS | Encounter Summary ---
Author Organization [facility], Address [address] [place] [address] Phone Care Team Providers Care Specialties Operator Name Role Phone Meliton Jones MD Primary Care Provider [phone] Encounter Details Date Type Department Care Team (Late st Contact Info) Description 12/07/2022 Office Communication [facility], [facility] Huan Aguirre [address] [place] [phone] Scottie Hill MD [address] [place] [address] [place] [address] [place] [phone] Social History Tobacco Use Types Packs/Day Years [...] on filedocumented in this encounter Care Teams Specialties Operator Relationship Specialty Start Date End Date Meliton Jones MD [address] [place] [address], [address] [place] [address] PCP - General Internal Medicine 12/05/22 documented as of this encounter
--- OUTSIDE RECORDS SUMMARY | 2024-07-23 11:55 | XMS_ITS | Encounter Summary ---
Author Organization [facility], Address [address] [place] [address] Phone Care Team Providers Care Power Plant Mechanic Name Role Phone Meliton Jones MD Primary Care Provider Encounter Details Date Type Department Care Team (Late st Contact Info) Description 12/29/2022 Documentation Only [facility], [facility] [place] [address] [place] [phone] Scottie Hill MD [address] [place] [address] [place] [phone] Social History Tobacco Use Types Packs/Day Years [...] on filedocumented in this encounter Care Teams Power Plant Mechanic Relationship Specialty Start Date End Date Meliton Jones MD [address] [place] [address], [address] [place] [address] PCP - General Internal Medicine 12/05/22 documented as of this encounter
--- OUTSIDE RECORDS SUMMARY | 2024-07-23 11:55 | XMS_ITS | Encounter Summary ---
Author Organization [facility], Address [address] [place] [address] Phone Care Team Providers Care Shuttle Filler Name Role Phone Meliton Jones MD Primary Care Provider [phone] Encounter Details Date Type Department Care Team (Late st Contact Info) Description 12/29/2022 Documentation Only [facility], [facility] [place] [address] [place] [phone] Scottie Hill MD [address] [place] [address] [place] [phone] Social History Tobacco Use Types Packs/Day Years [...] on filedocumented in this encounter Care Teams Shuttle Filler Relationship Specialty Start Date End Date Meliton Jones MD [address] [place] [address], [address] [place] [address] PCP - General Internal Medicine 12/05/22 documented as of this encounter
--- OUTSIDE RECORDS SUMMARY | 2024-07-23 11:55 | XMS_ITS | Clinical Summary ---
Author Organization [facility] Address [address] [place] [address] Care Team Providers Care Press Offbearer Name Role Phone Meliton Jones MD Primary Care Provider [phone] Allergies Active Allergy Reactions Criticality Noted Date Comments Penicillins 07/15/2017 Seasonal 09/15/2023 Other reaction(s): runny nose, itch seasonal allergy-pollen Medications Medication Sig Dispensed Refills Start Date End Date Status Magnesium 100 MG CAPS Take 400 mg by mouth. 0 06/02/2021 Active amantadine (SYMMETREL) 100 MG capsule 0 05/20/2021 Active atorvastatin (LIPITOR) tablet 20 mg 0 05/12/2023 Active Cholecalciferol 1.25 MG (87614 UT) capsule 0 11/25/2022 Active clonazePAM (KlonoPIN) [...] to complete this topic Care Teams Press Offbearer Relationship Specialty Start Date End Date Meliton Jones MD [address] [place] [address] [address] [place] [address] PCP - General Internal Medicine 04/26/23
--- OUTSIDE RECORDS SUMMARY | 2024-07-23 11:55 | XMS_ITS | Clinical Summary ---
Author Organization [facility], Address [address] [place] [address] Phone Care Team Providers Care Utility Porter Name Role Phone Meliton Jones MD Primary Care Provider [phone] Allergies Active Allergy Reactions Criticality Noted Date Comments Penicillins 12/07/2022 Medications amantadine (SYMMETREL) 100 MG capsule 11/25/2022 Active Eliquis 5 MG tablet 11/25/2022 Active atorvastatin (LIPITOR) 20 MG tablet 10/07/2022 Active Cholecalciferol (Vitamin D3) 1.25 MG (82291 UT) capsule 11/25/2022 Active citalopram (CeleXA) 20 [...] topic Insurance Medicare Medicaid [place] Care Teams Utility Porter Relationship Specialty Start Date End Date Meliton Jones MD [address] [place] [address], [address] [place] [address] PCP - General Internal Medicine 12/05/22
--- OUTSIDE RECORDS SUMMARY | 2024-07-23 11:55 | XMS_ITS | Encounter Summary ---
Author Organization [facility], Address [address] [place] [address] Phone Care Team Providers Care Welding Machine Feeder Name Role Phone Meliton Jones MD Primary Care Provider [phone] Encounter Details Date Type Department Care Team (Late st Contact Info) Description 12/07/2022 Documentation Only [facility] [place] [address] [place] [phone] Scottie Hill MD [address] [place] [address] [place] [address] [place] [phone] Social History Tobacco Use Types Packs/Day Years [...] on filedocumented in this encounter Care Teams Welding Machine Feeder Relationship Specialty Start Date End Date Meliton Jones MD [address] [place] [address], [address] [place] [address] PCP - General Internal Medicine 12/05/22 documented as of this encounter
== END 2024-07-23 10:48 | disposition home or self-care (01) ==
LOC: HO.PMC 10:25
PROVIDERS: PCP Internal Medicine; Visit Provider Nurse Practitioner Family
DX: M25.561 Pain in right knee (principal); M17.11 Unilateral primary osteoarthritis, right knee
CPT/HCPCS: 99213; G2211

== ENCOUNTER → 2024-07-23 10:24 | Outpatient (BNVA) | payer MEDICARE, MEDICAID, SELFPAY | PROVIDERS: PCP Internal Medicine; Visit Provider Nurse Practitioner Family | DX: M25.561 Pain in right knee (principal); M17.11 Unilateral primary osteoarthritis, right knee | CPT/HCPCS: 99212 ==

== ENCOUNTER 2024-08-08 06:14 | Outpatient (REF) | payer MEDICARE, MEDICAID, SELFPAY ==
--- OUTSIDE RECORDS SUMMARY | 2024-08-08 06:17 | XMS_ITS | Clinical Summary ---
Author Organization 175 [facility] Address [address] [place] [address] Phone Care Team Providers Care Head Of Digital Advertising & Integration Name Role Phone Meliton Jones MD Primary Care Provider [phone] Allergies Active Allergy Reactions Criticality Noted Date [...] 200 mg tabletIndicatio ns:Other fatigue,Multipl e sclerosis ([facility] V24, [facility] V28) Take 1 tablet (200 mg total) [...] Description 07/17/2024 3:00 PM EDT Office Visit [facility] MS [address] [address] Kasandra Rueda MD Multiple sclerosis ([facility] V24, [facility] V28) (Primary Dx); Incontinence of feces, unspecified fecal incontinence type; Urinary frequency from Last 3 Months Surgical History Surgery Date Site/Laterality Comments OTHER SURGICAL HISTORY Left Posterior PROCEDURE:left shoulder rotator OTHER SURGICAL HISTORY Anterior PROCEDURE:left toe Medical History Medical History Date Comments MS (multiple sclerosis) ([facility] V24, [facility] V28) DX:MS (multiple sclerosis) ( [facility]) Bronchitis Social History Tobacco Use [...] Description 11/19/2024 3:30 PM EDT Office Visit [facility] 175 [facility] [address] [place] [phone] Tatiana Rome PA [address] [facility] [address] [place] [address] Health Maintenance Due Date Last Done Comments [...] Procedure Name Priority Date/Time Associated Diagnosis Comments CREATININE, SERUM Routine 05/09/2024 12: 06 PM EST Multiple sclerosis ([facility] V24, [facility] V28) from Last 3 Months or Most Recently Relevant to Health Maintenance Results * Creatinine (05/09/2024 12:06 PM EST) Creatinine 0.69 0.50 - 1.10 mg/dL LAB CHEMISTRY METHOD 05/09/2024 2:55 PM EST [facility] eGFR 94 >=60 mL/min/1. 73m2 LAB CHEMISTRY METHOD 05/09/2024 2:55 PM EST [facility] Comment:Calculation based on the??Chronic Kidney Disease Epidemiology Collaboration (CKD-EPI) equation refit??without adjustment for race. Blood Venous blood specimen / Unknown Venipuncture / Unknown 05/09/2024 12:06 PM EST 05/09/2024 12:06 PM EST Kasandra Rueda MD LAB BLOOD ORDERABLES Fin al Result [facility] [address] [place] [address], from Last 3 Months or Most Recently Relevant to Health Maintenance Insurance [place] - [place]ARE Care Teams Head Of Digital Advertising & Integration Relationship Specialty Start Date End Date Meliton Jones MD [address] [place] [address] PCP - General 04/26/23
--- OUTSIDE RECORDS SUMMARY | 2024-08-08 06:17 | XMS_ITS | Encounter Summary ---
Author Organization [facility] [place], Address [address] [place] [address] Phone Care Team Providers Care Event Coordinator Name Role Phone Meliton Jones MD Primary Care Provider [phone] Encounter Details Date Type Department Care Team (Late st Contact Info) Description 12/07/2022 Documentation Only [facility] [place] [address] [place] [phone] Scottie Hill MD [address] [place] [address] [address] [place] [phone] Social History Tobacco Use Types Packs/Day Years [...] on filedocumented in this encounter Care Teams Event Coordinator Relationship Specialty Start Date End Date Meliton Jones MD [address] [place] [address], [address] [place] [address] PCP - General Internal Medicine 12/05/22 documented as of this encounter
--- OUTSIDE RECORDS SUMMARY | 2024-08-08 06:17 | XMS_ITS | Encounter Summary ---
Author Organization [facility] [place], Address [address] [place] [address] Phone Care Team Providers Care Cold Press Loader Name Role Phone Meliton Jones MD Primary Care Provider [phone] Encounter Details Date Type Department Care Team (Late st Contact Info) Description 12/29/2022 Documentation Only [facility] [place], [facility] [address] [place] [phone] Scottie Hill MD [address] [place] [address] [place] [address] [place] [phone] Social History Tobacco Use Types Packs/Day Years [...] on filedocumented in this encounter Care Teams Cold Press Loader Relationship Specialty Start Date End Date Meliton Jones MD [address] [place] [address], [address] [place] [address] PCP - General Internal Medicine 12/05/22 documented as of this encounter
--- OUTSIDE RECORDS SUMMARY | 2024-08-08 06:17 | XMS_ITS | Encounter Summary ---
Author Organization [facility], Address [address] [place] [address] Phone Care Team Providers Care Stove Bottom Worker Name Role Phone Meliton Jones MD Primary Care Provider [phone] Encounter Details Date Type Department Care Team (Late st Contact Info) Description 12/07/2022 Office Communication [facility], [facility] Huan Aguirre [address] [place] [phone] Scottie Hill MD [address] [place] [address] [place] [address] [place] [phone] Social History Tobacco Use Types Packs/Day Years [...] on filedocumented in this encounter Care Teams Stove Bottom Worker Relationship Specialty Start Date End Date Meliton Jones MD [address] [place] [address], [address] [place] [address] PCP - General Internal Medicine 12/05/22 documented as of this encounter
--- OUTSIDE RECORDS SUMMARY | 2024-08-08 06:17 | XMS_ITS | Encounter Summary ---
Author Organization [facility] [place], Address [address] [place] [address] Phone Care Team Providers Care Septic Tank Service Technician Name Role Phone Meliton Jones MD Primary Care Provider [phone] Encounter Details Date Type Department Care Team (Late st Contact Info) Description 12/29/2022 Documentation Only [facility] [place], [facility] Huan [address] [place] [phone] Scottie Hill MD [address] [place] [address] [place] [address] [place] [phone] Social History Tobacco Use Types Packs/Day Years [...] on filedocumented in this encounter Care Teams Septic Tank Service Technician Relationship Specialty Start Date End Date Meliton Jones MD [address] [place] [address], [address] [place] [address] PCP - General Internal Medicine 12/05/22 documented as of this encounter
--- OUTSIDE RECORDS SUMMARY | 2024-08-08 06:17 | XMS_ITS | Encounter Summary ---
Author Organization [facility] [place], Address [address] [place] [address] Phone Care Team Providers Care Hand Printed Circuit Board Assembler Name Role Phone Meliton Jones MD Primary Care Provider [phone] Encounter Details Date Type Department Care Team (Late st Contact Info) Description 12/07/2022 Documentation Only [facility] Huan [address] [place] [phone] Scottie Hill MD [address] [place] [address] [place] [address] [place] [phone] Social History Tobacco Use Types Packs/Day Years [...] on filedocumented in this encounter Care Teams Hand Printed Circuit Board Assembler Relationship Specialty Start Date End Date Meliton Jones MD [address] [place] [address], [address] [place] [address] PCP - General Internal Medicine 12/05/22 documented as of this encounter
--- OUTSIDE RECORDS SUMMARY | 2024-08-08 06:17 | XMS_ITS | Encounter Summary ---
Author Organization [facility] [place], Address [address] [place] [address] Phone Care Team Providers Care Correctional Program Specialist Name Role Phone Meliton Jones MD Primary Care Provider [phone] Encounter Details Date Type Department Care Team (Late st Contact Info) Description 12/07/2022 Documentation Only [facility] Huan [address] [place] [phone] Scottie Hill MD [address] [place] [address] [place] [address] [place] [phone] Social History Tobacco Use Types Packs/Day Years [...] on filedocumented in this encounter Care Teams Correctional Program Specialist Relationship Specialty Start Date End Date Meliton Jones MD [address] [place] [address], [address] [place] [address] PCP - General Internal Medicine 12/05/22 documented as of this encounter
--- OUTSIDE RECORDS SUMMARY | 2024-08-08 06:17 | XMS_ITS | Clinical Summary ---
Author Organization [facility] Address [address] [place] [address] Care Team Providers Care Hand Worker Name Role Phone Meliton Jones MD Primary Care Provider [phone] Allergies Active Allergy Reactions Criticality Noted Date Comments Penicillins 07/15/2017 Seasonal 09/15/2023 Other reaction(s): runny nose, itch seasonal allergy-pollen Medications Medication Sig Dispensed Refills Start Date End Date Status Magnesium 100 MG CAPS Take 400 mg by mouth. 0 06/02/2021 Active amantadine (SYMMETREL) 100 MG capsule 0 05/20/2021 Active atorvastatin (LIPITOR) tablet 20 mg 0 05/12/2023 Active Cholecalciferol 1.25 MG (87195 UT) capsule 0 11/25/2022 Active clonazePAM (KlonoPIN) [...] age to complete this topic Care Teams Hand Worker Relationship Specialty Start Date End Date Meliton Jones MD [address] [place] [address] 2 [place] [address] PCP - General Internal Medicine 04/26/23
--- OUTSIDE RECORDS SUMMARY | 2024-08-08 06:17 | XMS_ITS | Encounter Summary ---
Author Organization [facility] Address [address] [place] [address] Care Team Providers Care Drill Hand Name Role Phone Meliton Jones MD Primary Care Provider [phone] Encounter Details Date Type Department Care Team (Late st Contact Info) Description 01/26/2024 Lab Requisition [facility] - Main Lab [address] [facility] [place] [phone] Alice Hemphill PA [address] [place] [address] Other abnormal findings in urine Social History [...] Description 11/19/2024 3:30 PM EDT Office Visit [facility] [address] [place] [phone] Tatiana Rome PA [address] [place], [place] [phone] documented as of this encounter Procedures Procedure Name Priority Date/Time Associated Diagnosis Comments BACTERIAL IDENTIFICATION AND SUSCEPTIBILITY, AEROBIC Routine 01/25/2024 1:59 PM EST Other abnormal findings in urine documented in this encounter Results * (ABNORMAL) Bacterial identification and susceptibility, aerobic (01/25/2024 1:59 PM EST) Culture, Bacterial ID and Sensitivity Escherichia coli(A) MARY JO 01/27/2024 11:03 AM EST [facility] Comment: This is an edited [...] MICROBIOLOGY - GENERAL ORDER RAYMUNDO Final Result [facility] ([facility]) [facility] [address] [place] [address], documented in this encounter Visit Diagnoses Diagnosis Other abnormal findings in urine documented in this encounter Care Teams Drill Hand Relationship Specialty Start Date End Date Meliton Jones MD [address] [place] [address] PCP - General 04/26/23 documented as of this encounter
--- OUTSIDE RECORDS SUMMARY | 2024-08-08 06:17 | XMS_ITS | Encounter Summary ---
Author Organization [facility] Address [address] [place] [address] Care Team Providers Care Direct Sales Consultant Name Role Phone Meliton Jones MD Primary Care Provider [phone] Encounter Details Date Type Department Care Team (Late st Contact Info) Description 01/16/2024 11:20 AM EDT Hospital Encounter TH HISTORIC ENCOUNTERS [facility] ONLY Tatiana Rome PA [address] [facility] [address] [place] [address] Social History Tobacco Use Types Packs/Day Years [...] [place] - 01/16/2024 11:00 AM EDT [facility] HPI: Patient is [...] to communicate, the services of a qualified slip sheeter will be provided during the visit. Patients [...] Disp: , Rfl: ??? Cholecalciferol 1.25 MG (17766 UT) capsule, , Disp: , Rfl: ??? [...] 30 minutes. The majority of the actual [id number] visit was spent counseling the patient with respect to the current neurological picture. Tatiana Rome PA-C documented in this encounter Plan of Treatment Upcoming Encounters Date Type Department Care Team (Late st Contact Info) Description 11/19/2024 3:30 PM EDT Office Visit [facility] [address] [facility] [address] [place] [address] Tatiana Rome PA [address] [facility] [address] [place] [address] documented as of this encounter Visit Diagnoses Not on filedocumented in this encounter Care Teams Direct Sales Consultant Relationship Specialty Start Date End Date Meliton Jones MD [address] [place] [address] PCP - General 04/26/23 documented as of this encounter
--- OUTSIDE RECORDS SUMMARY | 2024-08-08 06:17 | XMS_ITS | Clinical Summary ---
Author Organization [facility] [place], Address [address] [place] [address] Phone Care Team Providers Care Fire Engineer Name Role Phone Meliton Jones MD Primary Care Provider [phone] Allergies Active Allergy Reactions Criticality Noted Date Comments Penicillins 12/07/2022 Medications amantadine (SYMMETREL) 100 MG capsule 11/25/2022 Active Eliquis 5 MG tablet 11/25/2022 Active atorvastatin (LIPITOR) 20 MG tablet 10/07/2022 Active Cholecalciferol (Vitamin D3) 1.25 MG (90654 UT) capsule 11/25/2022 Active citalopram (CeleXA) 20 [...] topic Insurance Medicare Medicaid [place] Care Teams Fire Engineer Relationship Specialty Start Date End Date Meliton Jones MD [address] [place] [address], [address] [place] [address] PCP - General Internal Medicine 12/05/22
== END 2024-08-08 06:15 | disposition home or self-care (01) ==
LOC: CF 06:14
PROVIDERS: Visit Provider Internal Medicine
DX: M17.11 Unilateral primary osteoarthritis, right knee (principal)
CPT/HCPCS: 64555; C1778; J2003

== ENCOUNTER 2024-08-08 10:21 | Outpatient (AMB) | payer MEDICARE, MEDICAID, SELFPAY ==
[2024-08-08 10:36] VITALS: BP 133/68; PULSE 89; RESP 16; O2SAT 96
--- NOTE | 2024-08-08 10:36 | A.OFFVIS_ITS ---
Vital Signs 08/08/24 10:36 08/08/24 11:29 BP 133/68 100/48 L Blood Pressure Location Lt brachial Lt brachial Position Sitting Semi Elmore's Respiration 16 16 Pulse 89 66 Pulse Source Pulse Oximeter Pulse Oximeter Pulse Oximetry (%) 96 Intake Visit Reasons: Right saphenous Sprint Cook Helper Required: No Allergies Penicillins Allergy (Severe, Verified 08/08/24 10:37) rash,hives HPI HPI Right saphenous Sprint: Details: Patient presents for scheduled procedure. Denies any recent cough, cold, infection, fever or other significant changes in medical history since last office visit. [facility] Medical History Polyarticular osteoarthritis Numbness and tingling in both hands Lumbar radiculopathy Rotator cuff syndrome of left shoulder On methotrexate therapy Long-term use of hydroxychloroquine Seronegative rheumatoid arthritis Wears dentures REBECCA (obstructive sleep apnea) Arthritis Seizures Fatty liver GERD (gastroesophageal reflux disease) Anxiety Depression History of pulmonary embolism Elevated cholesterol Finger dislocation Bursitis of left shoulder Opioid dependence COPD (chronic obstructive pulmonary disease) Multiple sclerosis Surgical History Hx of repair of left rotator cuff Hx of colonoscopy History of toe surgery Family History Father CVD (cardiovascular disease) Mother No problems noted. Social History Household Members Other:: [employer] Are you a primary animal caretaker to a significant other at home: No Do you presently have visiting nurse or other home services: No Alcohol intake: never Comment: baseline pain Patient Tobacco Use Status: Former Tobacco user Tobacco use type: Cigarette Current occupational status: unemployed Current occupation: Right Handed Physical Exam Vital Signs: Last Vital Signs Pulse 66 08/08/24 11:29 Resp 16 08/08/24 11:29 BP 100/48 L 08/08/24 11:29 Pulse Ox 96 08/08/24 10:36 Office Procedures Details: Peripheral Nerve Stimulation Temporary Lead Placement, Ultrasound-Guided, Saphenous Nerve, RIGHT ? After the risks, benefits and alternatives were discussed with the patient and informed consentwas obtained, patient was placed in the supine position and padded to foster comfort. Appropriate skin and bony landmarks were identified, and pertinent vascular structures were located. The skin overlying the needle entry site was prepped and draped in sterile fashion. Ultrasound was used to identify the femoral artery, the femoral vein and the saphenous nerve. After identifying and marking the intended target along the course of the saphenous nerve, the skin around the planned entry point and the subcutaneous tissues were injected with local anesthetic. An introducer needle and stimulating probe were assembled, inserted and advanced along the intended course of the saphenous nerve, taking care to maintain the proper depth of insertion as the introducer was advanced under ultrasound guidance. The introducer needle was delivered to a location in proximity to the nerve taking care not to puncture the femoral artery or the vein. Multiple stimulation parameters were used to deliver stimulation to the saphenous nerve in concert with stimulating at multiple positions around the nerve. Nerve target acquisition was confirmed noting generation of sensory and mild motor effects (paresthesia, muscle tension, etc) in the medial knee, leg and ankle; corresponding to the distribution of the saphenous nerve. Various electrical parameter combinations were tested, and the lead location was adjusted (physically relocated under ultrasound guidance) until the patient indicated m edial knee paresthesia and tension overlapping the distribution of the patient?s typical region of pain. The stimulating probe was removed from the introducer and a percutaneous lead was guided through the needle and delivered to a location in similar proximity to the nerve. Final location was verified with electrical stimulation and documented. The introducer needle was removed, and the exposed end of the percutaneous lead was attached to an external stimulator unit. Various electrical parameter combinations were again tested until the patient indicated paresthesia and muscle tension overlapping the distribution of the patient?s typical region of pain. After confirming that lead impedance was in the normal range, the external unit was detached, the needle was removed, and the lead was anchored at the skin. The lead was threaded into the connector block and electrical continuity and desired patient response was confirmed. The connector block was attached to the external stimulator unit. The site was covered with a sterile occlusive dressing. A final ultrasound image was taken to document final placement. The patient was observed for stability of vital signs and comfort. Sprint PNS Device: Sprint PNS Device [id number] Percutaneous Peripheral Neuroelectrode Procedure: 71367 - Percutaneous Peripheral Neuroelectrode Procedure code (CPT) selection complete Office Meds lidocaine HCl 10 mg/mL (1 %) injection solution Performing Provider: Celena Roberto APRN, EDITORIAL PROJECT MANAGER Performing Location: [facility] Administered by: Mira Simmons LPN on 08/08/24 11:16 Dose Route Admin Location Dispensed Lot Number Expiration Date NDC Housing Project Manager 5 mL subcut 5 mL Assessment & Plan Assessment & Plan (1) Osteoarthritis of right knee: Code(s): M17.11 - Unilateral primary osteoarthritis, right knee Category: Medical (2) Right knee pain: Code(s): M25.561 - Pain in right knee Category: Medical Plan Patient is status post temporary right saphenous nerve stimulator placement. Patient tolerated procedure well and was discharged home in stable condition with discharge instructions. All questions were answered. We will follow-up via telephone or in clinic to assess response to therapy. A follow-up appointment was made during today's visit. Orders: Orders US guide needle placement Today M17.11 - Unilateral primary osteoarthritis, right knee AMB Sprint PNS Today M25.561 - Pain in right knee Medications: New lidocaine HCl 5 mL subcut ONCE 5 mL 0RF M25.561 - Pain in right knee Coding Level of Care Code Procedure Only Diagnoses Osteoarthritis of right knee M17.11 Right knee pain M25.561 CPT Codes Sprint PNS - Sprint PNS Device: Sprint PNS Device ([id number]) Sprint PNS - SPRINT: 15043 - Percutaneous Peripheral Neuroelectrode ([id number]) Implantable Device Implantable Device Implantable Devices Qty Housing Project Manager Implant Date Expiration Date ANCHOR 5.0 HEALICOIL KNOTLESS 2 06/17/20 12/08/22 Analgesic PENS system 1 [employer] 08/08/24 10/08/25 IMPLANT LOOP KNOTILUS 1 06/17/20 11/29/22 Polyolefin suture, multifilament 1 [employer] 06/17/20 02/25/23 SUT ANCHOR ULTRATAPE 1 06/17/20 04/01/23
--- OUTSIDE RECORDS SUMMARY | 2024-08-08 10:49 | XMS_ITS | Encounter Summary ---
Author Organization [facility] [place], Address [address] [place] [address] Phone Care Team Providers Care Transmission Rebuilder Name Role Phone Meliton Jones MD Primary Care Provider [phone] Encounter Details Date Type Department Care Team (Late st Contact Info) Description 12/07/2022 Documentation Only [facility] Huan [address] [place] [phone] Scottie Hill MD [address] [place] [address] [place] [address] [place] [phone] Social History Tobacco Use Types Packs/Day Years [...] on filedocumented in this encounter Care Teams Transmission Rebuilder Relationship Specialty Start Date End Date Meliton Jones MD [address] [place] [address], [address] [place] [address] PCP - General Internal Medicine 12/05/22 documented as of this encounter
--- OUTSIDE RECORDS SUMMARY | 2024-08-08 10:49 | XMS_ITS | Clinical Summary ---
Author Organization [facility] Address [address] [place] [address] Phone Care Team Providers Care Supervisor Gate Services Name Role Phone Meliton Jones MD Primary Care Provider [phone] Allergies Active Allergy Reactions Criticality Noted Date [...] 200 mg tabletIndicatio ns:Other fatigue,Multipl e sclerosis ([facility] V24, [facility] V28) Take 1 tablet (200 mg total) [...] 07/17/2024 3:00 PM EDT Office Visit [facility] [place] [address] [address] Kasandra Rueda MD Multiple sclerosis ([facility] V24, [facility] V28) (Primary Dx); Incontinence of feces, unspecified fecal incontinence type; Urinary frequency from Last 3 Months Surgical History Surgery Date Site/Laterality Comments OTHER SURGICAL HISTORY Left Posterior PROCEDURE:left shoulder rotator OTHER SURGICAL HISTORY Anterior PROCEDURE:left toe Medical History Medical History Date Comments MS (multiple sclerosis) ([facility] V24, [facility] V28) DX:MS (multiple sclerosis) ( [facility]) Bronchitis Social History Tobacco Use Types Packs/Day [...] Description 11/19/2024 3:30 PM EDT Office Visit [facility] [address] [facility] [address] [place] [phone] Tatiana Rome PA [address] [facility] [address] [place] [address] Health Maintenance Due Date Last Done Comments [...] 05/09/2024 12: 06 PM EST Multiple sclerosis ([facility] V24, [facility] V28) from Last 3 Months or Most Recently Relevant to Health Maintenance Results * Creatinine (05/09/2024 12:06 PM EST) Creatinine 0.69 0.50 - 1.10 mg/dL LAB CHEMISTRY METHOD 05/09/2024 2:55 PM EST [facility] eGFR 94 >=60 mL/min/1. 73m2 LAB CHEMISTRY METHOD 05/09/2024 2:55 PM EST [facility] Comment:Calculation based on the??Chronic Kidney Disease Epidemiology Collaboration (CKD-EPI) equation refit??without adjustment for race. Blood Venous blood specimen / Unknown Venipuncture / Unknown 05/09/2024 12:06 PM EST 05/09/2024 12:06 PM EST Kasandra Rueda MD LAB BLOOD ORDERABLES Fin al Result [facility] [address] [place] [address], from Last 3 Months or Most Recently Relevant to Health Maintenance Insurance MEDICAID - [place] MEDICARE Care Teams Supervisor Gate Services Relationship Specialty Start Date End Date Meliton Jones MD [address] [place] [address] PCP - General 04/26/23
--- OUTSIDE RECORDS SUMMARY | 2024-08-08 10:49 | XMS_ITS | Encounter Summary ---
Author Organization [facility] [place], Address [address] [place] [address] Phone Care Team Providers Care Commercial Escrow Officer Name Role Phone Meliton Jones MD Primary Care Provider Encounter Details Date Type Department Care Team (Late st Contact Info) Description 12/07/2022 Office Communication [facility] Huan Aguirre [address] [place] [phone] Scottie Hill MD [address] [place] [address] [place] [address] [place] [phone] Social History Tobacco Use Types Packs/Day Years [...] filedocumented in this encounter Care Teams Commercial Escrow Officer Relationship Specialty Start Date End Date Meliton Jones MD [address] [place] [address], [address] [place] [address] PCP - General Internal Medicine 12/05/22 documented as of this encounter
--- OUTSIDE RECORDS SUMMARY | 2024-08-08 10:49 | XMS_ITS | Clinical Summary ---
Author Organization [facility] Address [address] [place] [address] Care Team Providers Care Keyboarding Teacher Name Role Phone Meliton Jones MD Primary Care Provider [phone] Allergies Active Allergy Reactions Criticality Noted Date Comments Penicillins 07/15/2017 Seasonal 09/15/2023 Other reaction(s): runny nose, itch seasonal allergy-pollen Medications Medication Sig Dispensed Refills Start Date End Date Status Magnesium 100 MG CAPS Take 400 mg by mouth. 0 06/02/2021 Active amantadine (SYMMETREL) 100 MG capsule 0 05/20/2021 Active atorvastatin (LIPITOR) tablet 20 mg 0 05/12/2023 Active Cholecalciferol 1.25 MG (36913 UT) capsule 0 11/25/2022 Active clonazePAM (KlonoPIN) [...] age to complete this topic Care Teams Keyboarding Teacher Relationship Specialty Start Date End Date Meliton Jones MD [address] [place] [address] 2 [place] [address] PCP - General Internal Medicine 04/26/23
--- OUTSIDE RECORDS SUMMARY | 2024-08-08 10:49 | XMS_ITS | Encounter Summary ---
Author Organization [facility] [place], Address [address] [place] [address] Phone Care Team Providers Care Differential Repairer Name Role Phone Meliton Jones MD Primary Care Provider [phone] Encounter Details Date Type Department Care Team (Late st Contact Info) Description 12/07/2022 Documentation Only [facility] Huan [address] [place] [phone] Scottie Hill MD [address] [place] [address] [place] [address] [place] [phone] Social History Tobacco Use Types Packs/Day Years [...] on filedocumented in this encounter Care Teams Differential Repairer Relationship Specialty Start Date End Date Meliton Jones MD [address] [place] [address], [address] [place] [address] PCP - General Internal Medicine 12/05/22 documented as of this encounter
--- OUTSIDE RECORDS SUMMARY | 2024-08-08 10:49 | XMS_ITS | Encounter Summary ---
Author Organization [facility], Address [address] [place] [address] Phone Care Team Providers Care Field Crop I Farmworker Name Role Phone Meliton Jones MD Primary Care Provider [phone] Encounter Details Date Type Department Care Team (Late st Contact Info) Description 12/29/2022 Documentation Only [facility], [facility] [address] [place] [phone] Scottie Hill MD [address] [place] [address] [place] [address] [place] [phone] Social History Tobacco Use Types Packs/Day Years [...] on filedocumented in this encounter Care Teams Field Crop I Farmworker Relationship Specialty Start Date End Date Meliton Jones MD [address] [place] [address], [address] [place] [address] PCP - General Internal Medicine 12/05/22 documented as of this encounter
--- OUTSIDE RECORDS SUMMARY | 2024-08-08 10:49 | XMS_ITS | Encounter Summary ---
Author Organization [facility], Address [address] [place] [address] Phone Care Team Providers Care Brush Head Maker Name Role Phone Meliton Jones MD Primary Care Provider [phone] Encounter Details Date Type Department Care Team (Late st Contact Info) Description 12/07/2022 Documentation Only [facility] [address] [place] [phone] Scottie Hill MD [address] [place] [address] [place] [address] [place] [phone] Social History Tobacco Use Types Packs/Day Years [...] on filedocumented in this encounter Care Teams Brush Head Maker Relationship Specialty Start Date End Date Meliton Jones MD [address] [place] [address], [address] [place] [address] PCP - General Internal Medicine 12/05/22 documented as of this encounter
--- OUTSIDE RECORDS SUMMARY | 2024-08-08 10:49 | XMS_ITS | Encounter Summary ---
Author Organization [facility], Address [address] [place] [address] Phone Care Team Providers Care Silk Top Hat Body Maker Name Role Phone Meliton Jones MD Primary Care Provider [phone] Encounter Details Date Type Department Care Team (Late st Contact Info) Description 12/29/2022 Documentation Only [facility], [facility] [address] [place] [phone] Scottie Hill MD [address] [place] [address] [place] [address] [place] [phone] Social History Tobacco Use Types Packs/Day Years [...] on filedocumented in this encounter Care Teams Silk Top Hat Body Maker Relationship Specialty Start Date End Date Meliton Jones MD [address] [place] [address], [address] [place] [address] PCP - General Internal Medicine 12/05/22 documented as of this encounter
--- OUTSIDE RECORDS SUMMARY | 2024-08-08 10:49 | XMS_ITS | Clinical Summary ---
Author Organization [facility], Address [address] [place] [address] [place] [phone] Phone Care Team Providers Care Sterilizer Operator Name Role Phone Meliton Jones MD Primary Care Provider [phone] Allergies Active Allergy Reactions Criticality Noted Date Comments Penicillins 12/07/2022 Medications amantadine (SYMMETREL) 100 MG capsule 11/25/2022 Active Eliquis 5 MG tablet 11/25/2022 Active atorvastatin (LIPITOR) 20 MG tablet 10/07/2022 Active Cholecalciferol (Vitamin D3) 1.25 MG (93514 UT) capsule 11/25/2022 Active citalopram (CeleXA) 20 [...] topic Insurance Medicare Medicaid [place] Care Teams Sterilizer Operator Relationship Specialty Start Date End Date Meliton Jones MD [address] [place] [address], [address] [place] [address] PCP - General Internal Medicine 12/05/22
--- OUTSIDE RECORDS SUMMARY | 2024-08-08 10:49 | XMS_ITS | Encounter Summary ---
Author Organization [facility] Address [address] [place] [address] Care Team Providers Care Channel Sales Manager Name Role Phone Meliton Jones MD Primary Care Provider Encounter Details Date Type Department Care Team (Late st Contact Info) Description 01/16/2024 11:20 AM EDT Hospital Encounter TH HISTORIC ENCOUNTERS [facility] ONLY Tatiana Rome PA [address] [facility] [address] [place] [address] Social History Tobacco Use Types Packs/Day Years [...] TRAM Oates - 01/16/2024 11:00 AM EDT [facility] HPI: Patient is [...] to communicate, the services of a qualified stock parts inspector will be provided during the visit. Patients Location: Patient's home ([place]) Total Time: 30 minutes Disease Summary Date [...] Disp: , Rfl: ??? Cholecalciferol 1.25 MG (06500 UT) capsule, , Disp: , Rfl: ??? [...] 30 minutes. The majority of the actual drch-ao-wzng visit was spent counseling the patient with respect to the current neurological picture. Tatiana Rome PA-C documented in this encounter Plan of Treatment Upcoming Encounters Date Type Department Care Team (Late st Contact Info) Description 11/19/2024 3:30 PM EDT Office Visit [facility] [address] [facility] [address] [place] [address] Tatiana Rome PA [address] [facility] [address] [place] [address] documented as of this encounter Visit Diagnoses Not on filedocumented in this encounter Care Teams Channel Sales Manager Relationship Specialty Start Date End Date Meliton Jones MD [address] [place] [address] PCP - General 04/26/23 documented as of this encounter
--- OUTSIDE RECORDS SUMMARY | 2024-08-08 10:49 | XMS_ITS | Encounter Summary ---
Author Organization [facility] Address [address] [place] [phone] Care Team Providers Care Material Damage Adjuster Name Role Phone Meliton Jones MD Primary Care Provider [phone] Encounter Details Date Type Department Care Team (Late st Contact Info) Description 01/26/2024 Lab Requisition [facility] - Main Lab [address] [facility] [place] [phone] Alice Hemphill PA [address] [place] [address] Other abnormal findings in urine Social History [...] Description 11/19/2024 3:30 PM EDT Office Visit [facility] [address] [facility] [address] [place] [phone] Tatiana Rome PA [address] [facility] [address] [place], [place] [phone] documented as of this encounter Procedures Procedure Name Priority Date/Time Associated Diagnosis Comments BACTERIAL IDENTIFICATION AND SUSCEPTIBILITY, AEROBIC Routine 01/25/2024 1:59 PM EST Other abnormal findings in urine documented in this encounter Results * (ABNORMAL) Bacterial identification and susceptibility, aerobic (01/25/2024 1:59 PM EST) Culture, Bacterial ID and Sensitivity Escherichia coli(A) MARY JO 01/27/2024 11:03 AM EST [facility] Comment: This is an edited [...] RAYMUNDO Final Result [facility] ([email or web address] [address] [place] [address], documented in this encounter Visit Diagnoses Diagnosis Other abnormal findings in urine documented in this encounter Care Teams Material Damage Adjuster Relationship Specialty Start Date End Date Meliton Jones MD [address] [place] [address] PCP - General 04/26/23 documented as of this encounter
[2024-08-08 11:29] VITALS: BP 100/48; PULSE 66; RESP 16
== END 2024-08-08 11:40 | disposition home or self-care (01) ==
LOC: HO.PMCPRC 10:21
PROVIDERS: PCP Internal Medicine; Visit Provider Internal Medicine
DX: M17.11 Unilateral primary osteoarthritis, right knee (principal); M25.561 Pain in right knee
CPT/HCPCS: 64555

== ENCOUNTER 2024-08-15 12:52 | Outpatient (AMB) | payer MEDICARE, MEDICAID, SELFPAY ==
--- OUTSIDE RECORDS SUMMARY | 2024-08-15 12:55 | XMS_ITS | Encounter Summary ---
Author Organization [facility] Address [address] [place] [address] Care Team Providers Care Airways Operations Specialist Name Role Phone Meliton Jones MD Primary Care Provider [phone] Encounter Details Date Type Department Care Team (Late st Contact Info) Description 01/26/2024 Lab Requisition [facility] - Main Lab [address] [facility] [place] [phone] Alice Hemphill PA [address] [place] [address] Other abnormal findings in urine Social History [...] 11/19/2024 3:30 PM EDT Office Visit [facility] [address] [place] [phone] Tatiana Rome PA [address] [place], [place] [phone] documented as of this encounter Procedures Procedure Name Priority Date/Time Associated Diagnosis Comments BACTERIAL IDENTIFICATION AND SUSCEPTIBILITY, AEROBIC Routine 01/25/2024 1:59 PM EST Other abnormal findings in urine documented in this encounter Results * (ABNORMAL) Bacterial identification and susceptibility, aerobic (01/25/2024 1:59 PM EST) Culture, Bacterial ID and Sensitivity Escherichia coli(A) MARY JO 01/27/2024 11:03 AM EST [facility] Comment: This is an edited result. Previous organism was Gram negative bacilli on 01/26/2024 at 1503 EST. Other Urine specimen from urethra / Unknown 01/25/2024 1:59 PM EST 01/26/2024 1:59 PM EST Narrative Organism Antibiotic Method Susceptibility Escherichia coli Amoxicillin/Clavulanate MARY JO 8 ug/ml: Susceptible Escherichia coli Ampicillin/Sulbactam MARY JO 8 ug/ml: Susceptible Escherichia coli Piperacillin/Tazobactam MAYR JO <=4 ug/ml: Susceptible Escherichia coli Cefazolin [...] MICROBIOLOGY - GENERAL ORDER RAYMUNDO Final Result [facility] ([facility]) [facility] [address] [place] [address], documented in this encounter Visit Diagnoses Diagnosis Other abnormal findings in urine documented in this encounter Care Teams Airways Operations Specialist Relationship Specialty Start Date End Date Meliton Jones MD [address] [place] [address] PCP - General 04/26/23 documented as of this encounter
--- NOTE | 2024-08-15 12:58 | A.OFFVIS_ITS ---
Vital Signs 08/15/24 13:04 Height 5 ft 2 in Weight 142 lb BMI 26.0 BP 144/66 H Blood Pressure Location Rt brachial Position Sitting Pulse 72 Pulse Source Pulse Oximeter Pulse Oximetry (%) 98 Oxygen Delivery Method Room Air Intake Visit Reasons: s/p right saphenous Sprint Intake Note: Pain today 04/29 Dry House Tender Required: No Accompanied by: Self / Same As Patient Allergies Penicillins Allergy (Severe, Verified 08/15/24 13:04) rash,hives HPI Comments Details: The patient is a 69-year-old female presenting with follow-up care for her right saphenous nerve peripheral nerve stimulator placement on 08/08/[address] Christine taylor. She reports the procedure was conducted last week, and while managing her dressing changes, she initially experienced a spongy feeling after showers, which resolved with diligent care and dressing change. The stimulator is set at 34, providing adequate pain relief. She mentions persistent hip pain, worsened by sleeping in bed, prompting her to use a recliner for comfort. She discusses the use of rubbing alcohol for dressing changes and strategies for safe bathing without submerging the device. Denies any recent cough, cold, infection, fever or other significant changes in medical history since last office visit. The dressing was removed today. Lead insertion site is clean, dry, intact, no redness or swelling, no pathological discharge. Area was cleansed with Chloraprep and covered with Bacitracin and tegaderm dressing. Patient reports since Sprint placement, her daily functioning, mobility and sleep have significantly improved. Denies any untoward effects with PNS therapy. Past Procedures: 08/08/24: Right saphenous nerve Sprint PNS-80% ongoing pain relief at 34 stimulation 07/11/24: Right Diagnostic SNB: 100% pain relief for 3 days 04/22/23: Right hip intra-articular steroid injection-moderate but temporary relief PRIOR: Patient presents today to assess response to Right Diagnostic Saphenous Nerve Block on 07/11/[address] Lara. Patient reports that prior to the procedure, she experienced a mechanical fall, resulting in an x-ray which showed a patella baja. No acute abnormalities otherwise noted, but deemed non-surgical by Orthopedics. Post-injection, the patient experienced 3 full days of relief from knee pain, during which her walking improved significantly. She also manages a foot drop condition, contributing to her balance issues, with an ankle brace recommended for support. The patient plans to use the ankle brace more consistently to aid stability. Her episodes of leg wobbliness underscore the importance of ongoing support and monitoring. - Onset: Knee pain was reportedly addressed with a nerve block on 07/11/24. - Quality and character: Intense knee pain relieved by the nerve block. - Location: Primary in the right knee. - Relief: Complete relief for 3 days following the nerve block. - Exacerbating factors: Frequent falls likely contributing to knee pain and instability due to foot drop. - Interferences: Interferes with walking and stability, requiring ankle support for assistance. - Affect: Improved mood with temporary pain relief; concern about stability due to wobbliness. - Analgesia: Successfully managed with right diagnostic saphenous nerve block leading to 3 days of total pain relief. - Adverse Effects: No adverse effects reported following the nerve block. - Activities of Daily Living: Temporary improvement in mobility; affected by falls and foot drop. - Aberrant Drug Related Behaviors: No behaviors indicating misuse or abuse of medications reported. Past Procedures: 07/11/24: Right Diagnostic SNB: 100% pain relief for 3 days 04/22/23: Right hip intra-articular steroid injection-moderate but temporary relief [facility] Medical History Polyarticular osteoarthritis Numbness and tingling in both hands Lumbar radiculopathy Rotator cuff syndrome of left shoulder On methotrexate therapy Long-term use of hydroxychloroquine Seronegative rheumatoid arthritis Wears dentures REBECCA (obstructive sleep apnea) Arthritis Seizures Fatty liver GERD (gastroesophageal reflux disease) Anxiety Depression History of pulmonary embolism Elevated cholesterol Finger dislocation Bursitis of left shoulder Opioid dependence COPD (chronic obstructive pulmonary disease) Multiple sclerosis Surgical History Hx of repair of left rotator cuff Hx of colonoscopy History of toe surgery Family History Father CVD (cardiovascular disease) Mother No problems noted. Social History Household Members Other:: [employer] Are you a primary career development associate to a significant other at home: No Do you presently have visiting nurse or other home services: No Alcohol intake: never Comment: baseline pain Patient Tobacco Use Status: Former Tobacco user Tobacco use type: Cigarette Current occupational status: unemployed Current occupation: Right Handed Review of Systems Const All systems reviewed & are unremarkable except as noted in HPI and below Physical Exam General: Appears afebrile. Alert and oriented. Mood and affect appropriate. Follows and participates in conversation appropriately. Respiratory effort is unlabored. No cough. Able to transition from sit to stand unassisted. No assisting devices utilized today. Reports using a cane at home. Ambulates with bilaterally normal heel strike and toe off, reports occasional imbalance on right due to pain. Lead Insertion Site: Lead insertion site looks clean, dry, intact. No pathological discharge, no swelling and no erythema. Lead site dressing were changed today in the clinic. Positive paresthesia at 34 on the right. Assessment & Plan Assessment & Plan (1) Right knee pain: Code(s): M25.561 - Pain in right knee Category: Medical (2) Osteoarthritis of right knee: Code(s): M17.11 - Unilateral primary osteoarthritis, right knee Category: Medical Plan The patient is advised to continue using right saphenous nerve Sprint stimulator at the current setting of 34, which has been effective in managing her pain. She will adjust stimulation settings as needed. Proper dressing care is emphasized, including the use of waterproof film during showers. The patient is aware she should avoid submerging the device in water. The patient is provided with comprehensive instructions and supply materials for ongoing management. Patient reports she will continue dressing changes at home and notify our office of any concerns with device care or dressing changes. She is also in regular contact with Sprint account retention representative. All questions and concerns have been answered and patient agreed with the plan. Follow up for Sprint removal and sooner as needed. Patient was informed and verbally consented to the use of an ambient scribe for clinic note documentation during this visit. Coding Level of Care Code Est Pt Level 3 (65058) Complex EM visit Add On G2211 Diagnoses Right knee pain M25.561 Osteoarthritis of right knee M17.11
[2024-08-15 13:04] VITALS: BP 144/66; PULSE 72; O2SAT 98; BMI 26.0
== END 2024-08-15 13:43 | disposition home or self-care (01) ==
LOC: HO.PMC 12:53
PROVIDERS: PCP Internal Medicine; Visit Provider Nurse Practitioner Family
DX: M25.561 Pain in right knee (principal); M17.11 Unilateral primary osteoarthritis, right knee
CPT/HCPCS: 99024

== ENCOUNTER → 2024-08-15 12:52 | Outpatient (BNVA) | payer MEDICARE, MEDICAID, SELFPAY | PROVIDERS: PCP Internal Medicine; Visit Provider Nurse Practitioner Family | DX: M25.561 Pain in right knee (principal); M17.11 Unilateral primary osteoarthritis, right knee | CPT/HCPCS: 99212 ==

== ENCOUNTER 2024-08-27 12:55 | Outpatient (AMB) | payer MEDICARE, MEDICAID, SELFPAY ==
--- NOTE | 2024-08-27 13:17 | A.OFFVIS_ITS ---
Vital Signs 08/27/24 13:19 Height 5 ft 2 in Weight 151 lb 10.848 oz BMI 27.7 BP 132/62 Blood Pressure Location Lt brachial Position Sitting Pulse 70 Pulse Source Pulse Oximeter Intake Visit Reasons: f/up echo/ mibi Intake Note: f/up-echo/mibi Digital Engineer Required: No Accompanied by: Self / Same As Patient Allergies Penicillins Allergy (Severe, Verified 08/15/24 13:04) rash,hives Medication List - Last Reconciled 08/27/24 by Rajendra Chaves NP acetaminophen 1,000 mg PO BID PRN albuterol sulfate mg inhalation PRN albuterol sulfate 90 mcg/actuation inhalation amantadine HCl mg PO apixaban (Eliquis) 5 mg PO BID atorvastatin 20 mg PO DAILY baclofen 20 mg PO TID cholecalciferol (vitamin D3) PO citalopram 20 mg PO DAILY clonazepam 1 mg PO TID PRN clonidine HCl 0.1 mg PO TID diclofenac sodium 1% 4 grams topical QID dicyclomine 20 mg PO QID dimethyl fumarate (Tecfidera) 240 mg PO BID donepezil 5 mg PO DAILY duloxetine 60 mg PO DAILY ezbosceqibc-vajqtwiat-bpgjnmlp 100-62.5-25 mcg (Trelegy Ellipta) 1 ea inhalation DAILY folic acid 1 mg PO DAILY gabapentin mg PO hydroxychloroquine 400 mg (2 x 200 mg) PO DAILY 90 days magnesium oxide 1 tab PO DAILY melatonin 3 mg PO BEDTIME PRN methotrexate sodium 15 mg (6 x 2.5 mg) PO QWEEK 90 days modafinil 1 tab PO BID multivitamin 1 tab PO DAILY pantoprazole (Protonix) 20 mg PO DAILY peg-electrolyte soln 420 gram mL PO quetiapine 100 mg PO BEDTIME tizanidine 1 tab PO TID HPI Comments Details: This is a 69-year-old female patient coming in for a follow-up visit. Patient was evaluated in the past for question of abnormal EKG suggesting old heart attack. Subsequently patient underwent an echocardiogram and a myocardial perfusion study. Patient notes that she has had shortness of breath in the past, has a history of COPD managed with trelegy, followed by pulmonology. Patient also reports intermittent leg swelling mostly noted at the end of the day that improves with elevation. Patient is on long-term Eliquis therapy for history of PEs. Patient is otherwise denying any current cardiac symptoms including exertional chest pain, shortness of breath, palpitations, dizziness, orthopnea, PND, presyncope, or syncope. Patient affirms her compliance with all her medications. [facility] Medical History Polyarticular osteoarthritis Numbness and tingling in both hands Lumbar radiculopathy Rotator cuff syndrome of left shoulder On methotrexate therapy Long-term use of hydroxychloroquine Seronegative rheumatoid arthritis Wears dentures REBECCA (obstructive sleep apnea) Arthritis Seizures Fatty liver GERD (gastroesophageal reflux disease) Anxiety Depression History of pulmonary embolism Elevated cholesterol Finger dislocation Bursitis of left shoulder Opioid dependence COPD (chronic obstructive pulmonary disease) Multiple sclerosis Surgical History Hx of repair of left rotator cuff Hx of colonoscopy History of toe surgery Family History Father CVD (cardiovascular disease) Mother No problems noted. Social History Household Members Other:: [facility] Are you a primary nurse behavioral health care to a significant other at home: No Do you presently have visiting nurse or other home services: No Alcohol intake: never Comment: baseline pain Patient Tobacco Use Status: Former Tobacco user Tobacco use type: Cigarette Current occupational status: unemployed Current occupation: Right Handed Review of Systems Const Denies chills, Denies fatigue, Denies fever(s), Denies frequent falls, Denies weakness, Denies weight gain and Denies weight loss ENT Denies dizziness Card Denies chest pain, Denies leg edema, Denies lightheadedness, Denies palpitations, Denies dyspnea and Denies dyspnea on exertion Resp Denies cough, Denies dyspnea and Denies dyspnea on exertion GI Denies hematochezia Musc Denies abnormal gait, Denies muscle weakness, Denies numbness, Denies radiating pain into limb and Denies tingling Neuro Denies abnormal gait, Denies dizziness, Denies frequent falls, Denies numbness, Denies tingling and Denies weakness Endo Denies fatigue and Denies palpitations Physical Exam Vital Signs: Last Vital Signs Pulse 70 08/27/24 13:19 BP 132/62 08/27/24 13:19 BMI result Body Mass Index 27.7 Const General: cooperative, healthy appearing, comfortable and no acute distress Orientation/consciousness: patient oriented x3 HEENT Head: Yes normal to inspection Neck Neck: Yes normal visual inspection, Yes trachea midline and Yes supple Chest Chest palpation & inspection: normal inspection of the chest Resp Effort & Inspection: normal respiratory effort Auscultation: clear to auscultation bilaterally, no crackles, no rales, no rhonchi and no wheezes Cardio Jugular venous distension: no JVD Palpation: normal PMI Rate: regular rate Rhythm: regular rhythm Heart sounds: S1 normal heart sound present, S2 normal heart sound present, no click, no gallops, no murmurs and no rubs Peripheral pulses: Peripheral pulses 2+ throughout GI Inspection: Yes normal to inspection Palpation (GI): Soft to palpation Auscultation: normal bowel sounds Skin General skin exam: no rashes or lesions noted Neuro General: patient oriented x3 Extrem General: Yes normal to inspection, No no pedal edema and No calf tenderness Psych Appearance: grossly normal Mental Status: mental status grossly normal Speech and movement: Normal speech and movement present Assessment & Plan Assessment & Plan (1) Abnormal EKG: Code(s): R94.31 - Abnormal electrocardiogram [ECG] [EKG] Category: Medical Plan: 06/25/2024-patient underwent a myocardial perfusion study which was normal. 06/28/2024-echo study showed a normal LV systolic function with an ejection fraction between 55-60%, with elevated filling pressures, and significantly elevated right atrial pressure. Clinically stable and euvolemic. Given her intermittent leg swelling, recommended using compression socks throughout the day and keeping them elevated when sitting or sleeping. Discussed in detail signs and symptoms to look for with heart failure. Advised low-salt diet, heart healthy diet, regular exercise, med compliance, and management of vascular risk factors. Continue Eliquis therapy for history of 3 PEs. Continue statin therapy, with an LDL goal less than 70. Blood pressure within normal limits. Advised monitoring blood pressures at home with an goal of less than 130/80. No med changes at this time. Continue current regimen. Answered all questions. Follow up in 1 year with an echo. In the interim, patient will call the office with any concerns or change in symptoms. This note was generated using voice recognition software. While every effort has been made to ensure accuracy and proper director geophysical laboratory, there may be occasional errors that could affect the content or meaning of the described symptoms. Orders: Orders CA echo transthoracic complete 1 Year R94.31 - Abnormal electrocardiogram [ECG] [EKG] Coding Level of Care Code Est Pt Level 4 (64737) Complex EM visit Add On G2211 Diagnoses Abnormal EKG R94.31 Time Spent (min) 32 Comment Time spent in reviewing the chart, test results, assessment, counseling and documentation.
[2024-08-27 13:19] VITALS: BP 132/62; PULSE 70; BMI 27.7
--- OUTSIDE RECORDS SUMMARY | 2024-08-27 15:10 | XMS_ITS | Encounter Summary ---
Author Organization [facility] Address [address] [place] [phone] Care Team Providers Care Manufacturing Director Name Role Phone Meliton Jones MD Primary Care Provider [phone] Encounter Details Date Type Department Care Team (Late st Contact Info) Description 01/26/2024 Lab Requisition [facility] - Main Lab [address] [facility] [place] [phone] Alice Hemphill PA [address] [place] [address] Other abnormal findings in urine Social History [...] Description 11/19/2024 3:30 PM EDT Office Visit [facility] [address] [place] [phone] Tatiana Rome PA [address] [place], [place] [phone] documented as of this encounter Procedures Procedure Name Priority Date/Time Associated Diagnosis Comments BACTERIAL IDENTIFICATION AND SUSCEPTIBILITY, AEROBIC Routine 01/25/2024 1:59 PM EST Other abnormal findings in urine documented in this encounter Results * (ABNORMAL) Bacterial identification and susceptibility, aerobic (01/25/2024 1:59 PM EST) Culture, Bacterial ID and Sensitivity Escherichia coli(A) MARY JO 01/27/2024 11:03 AM EST [facility] ([facility] Comment: This is an edited [...] MICROBIOLOGY - GENERAL ORDER RAYMUNDO Final Result [facility] ([facility]) [facility] [address] [place] [address], documented in this encounter Visit Diagnoses Diagnosis Other abnormal findings in urine documented in this encounter Care Teams Manufacturing Director Relationship Specialty Start Date End Date Meliton Jones MD [address] [place] [id number] PCP - General 04/26/23 documented as of this encounter
== END 2024-08-27 13:50 | disposition home or self-care (01) ==
LOC: HO.HCS 12:56
PROVIDERS: PCP Internal Medicine
DX: R94.31 Abnormal electrocardiogram [ECG] [EKG] (principal)
CPT/HCPCS: 99214; G2211

== ENCOUNTER → 2024-08-27 12:55 | Outpatient (BNVA) | payer MEDICARE, MEDICAID, SELFPAY | PROVIDERS: PCP Internal Medicine | DX: R94.31 Abnormal electrocardiogram [ECG] [EKG] (principal) | CPT/HCPCS: 99212 ==

== ENCOUNTER 2024-10-03 10:12 | Outpatient (AMB) | payer MEDICARE, MEDICAID, SELFPAY ==
--- NOTE | 2024-10-03 10:16 | A.OFFVIS_ITS ---
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 Patient reports chronic right hip and acute right groin pain with a pain level of 8-9/10 and right knee pain 4/10. The pain has been exacerbated by a recent fall while carrying a suitcase, resulting in a small healing abrasion in the left knee. She has a history of mild to moderate arthritis in the hip, confirmed by previous x-rays and previously received GTB and right hip injections by Orthopedic providers with temporary and minimal relief. Patient reports partial improvement of right knee pain with Sprint PNS therapy without untoward effects. The device was set at various levels, reaching up to 32, but did not significantly alleviate her knee pain. The patient has a history of multiple sclerosis and reports bowel problems, which are being managed by her Neurologist and GI providers. She is currently on Eliquis and has been advised to use a cane to prevent falls. The dressing was removed today. Lead insertion site is clean, dry, intact, no redness or swelling, no pathological discharge. Area was cleansed with Chloraprep. Right saphenous nerve lead pulled with tip intact, lead removed entirely, including tip. The area was cleansed again with Chloraprep, covered with Bacitracin and dry sterile dressing. Denies any recent cough, cold, infection, fever or any other significant changes in medical history since last office visit. Past Procedures: 10/03/24: Right saphenous nerve Sprint removal-60% ongoing pain relief 08/08/24: Right saphenous nerve Sprint PNS-80% ongoing pain relief at 34 stimulation 07/11/24: Right Diagnostic SNB: 100% pain relief for 3 days 04/22/23: Right hip intra-articular steroid injection-moderate but temporary relief PRIOR: Patient presents today to assess response to Right Diagnostic Saphenous Nerve Block on 07/11/[address] Lara. Patient reports that prior to the procedure, she experienced a mechanical fall, resulting in an x-ray which showed a patella baja. No acute abnormalities otherwise noted, but deemed non-surgical by Orthopedics. Post-injection, the patient experienced 3 full days of relief from knee pain, during which her walking improved significantly. She also manages a foot drop condition, contributing to her balance issues, with an ankle brace recommended for support. The patient plans to use the ankle brace more consistently to aid stability. Her episodes of leg wobbliness underscore the importance of ongoing support and monitoring. - Onset: Knee pain was reportedly addressed with a nerve block on 07/11/24. - Quality and character: Intense knee pain relieved by the nerve block. - Location: Primary in the right knee. - Relief: Complete relief for 3 days following the nerve block. - Exacerbating factors: Frequent falls likely contributing to knee pain and instability due to foot drop. - Interferences: Interferes with walking and stability, requiring ankle support for assistance. - Affect: Improved mood with temporary pain relief; concern about stability due to wobbliness. - Analgesia: Successfully managed with right diagnostic saphenous nerve block leading to 3 days of total pain relief. - Adverse Effects: No adverse effects reported following the nerve block. - Activities of Daily Living: Temporary improvement in mobility; affected by fa lls and foot drop. - Aberrant Drug Related Behaviors: No behaviors indicating misuse or abuse of medications reported. Past Procedures: 07/11/24: Right Diagnostic SNB: 100% pain relief for 3 days 04/22/23: Right hip intra-articular steroid injection-moderate but temporary relief [facility] Medical History Polyarticular osteoarthritis Numbness and tingling in both hands Lumbar radiculopathy Rotator cuff syndrome of left shoulder On methotrexate therapy Long-term use of hydroxychloroquine Seronegative rheumatoid arthritis Wears dentures REBECCA (obstructive sleep apnea) Arthritis Seizures Fatty liver GERD (gastroesophageal reflux disease) Anxiety Depression History of pulmonary embolism Elevated cholesterol Finger dislocation Bursitis of left shoulder Opioid dependence COPD (chronic obstructive pulmonary disease) Multiple sclerosis Surgical History Hx of repair of left rotator cuff Hx of colonoscopy History of toe surgery Family History Father CVD (cardiovascular disease) Mother No problems noted. Social History Household Members Other:: [facility] Are you a primary behavioral health care manager to a significant other at home: No Do you presently have visiting nurse or other home services: No Alcohol intake: never Comment: baseline pain Patient Tobacco Use Status: Former Tobacco user Tobacco use type: Cigarette Current occupational status: unemployed Current occupation: Right Handed Review of Systems Const All systems reviewed & are unremarkable except as noted in HPI and below Physical Exam Vital Signs: Last Vital Signs Pulse 60 10/03/24 10:20 BP 117/57 L 10/03/24 10:20 Pulse Ox 96 10/03/24 10:20 Oxygen Delivery Method Room Air 10/03/24 10:20 BMI result Body Mass Index 27.8 General: Appears afebrile. Alert and oriented. Mood and affect appropriate. Follows and participates in conversation appropriately. Respiratory effort is unlabored. No cough. Able to transition from sit to stand unassisted. No assisting devices utilized today. Reports using a cane at home. Ambulates with bilaterally normal heel strike and toe off, reports occasional imbalance on right due to pain. Right groin pain with I/E hip rotation. +FADIR. Small healing abrasion noted to left anterior knee, no ecchymosis or swelling. Lead Insertion Site: Lead insertion site looks clean, dry, intact. No pathological discharge, no swelling and no erythema. Lead pulled and removed entirely, including tip. Extrem General: Yes capillary refill normal, Yes no clubbing, cyanosis or edema and Yes no calf tenderness Right lower extremity: knee Assessment & Plan Assessment & Plan (1) Status post fall: Code(s): Z91.81 - History of falling Category: Medical (2) Chronic right hip pain: Code(s): M25.551 - Pain in right hip; G89.29 - Other chronic pain Category: Medical (3) Right groin pain: Code(s): R10.31 - Right lower quadrant pain Category: Medical (4) Osteoarthritis of right hip: Code(s): M16.11 - Unilateral primary osteoarthritis, right hip Category: Medical (5) Right knee pain: Code(s): M25.561 - Pain in right knee Category: Medical (6) Osteoarthritis of right knee: Code(s): M17.11 - Unilateral primary osteoarthritis, right knee Category: Medical Plan The plan includes the removal of the Sprint device for right knee, which was completed during the visit. Patient will continue to monitor right knee pain and notify our office when her symptoms return to baseline. An MRI of the right hip will be ordered to assess for any degenerative changes, including labral tears or other concerns. Discussed fluoro-guided hip therapeutic injection pending MRI results. The patient is advised to use a cane to prevent falls and to consult with her primary care physician regarding her falls, especially given her use of Eliquis. She is also encouraged to continue follow-up with her Neurologist for management of multiple sclerosis. All questions and concerns have been answered and patient agreed with the treatment plan. Follow-up for MRI results and sooner as needed. Patient was informed and verbally consented to the use of an ambient scribe for clinic note documentation during this visit. Orders: Orders MR hip RT wo con 10/03/24 G89.29 - Other chronic pain, M16.11 - Unilateral primary osteoarthritis, right hip, M25.551 - Pain in right hip, R10.31 - Right lower quadrant pain, Z91.81 - History of falling Coding Level of Care Code Est Pt Level 4 (93532) Complex EM visit Add On G2211 Diagnoses Status post fall Z91.81 Chronic right hip pain M25.551; G89.29 Right groin pain R10.31 Osteoarthritis of right hip M16.11 Right knee pain M25.561 Osteoarthritis of right knee M17.11
[2024-10-03 10:20] VITALS: BP 117/57; PULSE 60; O2SAT 96; BMI 27.8
--- OUTSIDE RECORDS SUMMARY | 2024-10-03 10:41 | XMS_ITS ---
Author Name [facility] Organization Unknown History of Medication Use Medication Directions Dispensed Refills Start Date End Date Stat us pantoprazole (PROTONIX) 20 MG tablet Take 1 tablet (20 mg total) by mouth. 11/28/2022 active citalopram (CeleXA) 20 MG tablet Take 1 tablet (20 mg total) by mouth. 06/02/2021 active Allergies Allergen Reaction Severity Comment Documented Date Source Statu s SEASONAL Other reaction( s): runny nose, itch,seasonal allergy-pollen 09/15/2023 CTTHNEMG active PENICILLINS 07/15/2017 CTTHNEMG active Problems Problem Status Onset Date Problem Type Date of Resoluti on Source Multiple sclerosis (HCC) active EncounterDiagnosisAct CTTHNE MG Vitamin D deficiency active EncounterDiagnosisAct CTTHNE MG
--- OUTSIDE RECORDS SUMMARY | 2024-10-03 10:41 | XMS_ITS | Encounter Summary ---
Author Organization [facility], Address [address] [place] [address] Phone Care Team Providers Care Assembler Skylights Name Role Phone Meliton Jones MD Primary Care Provider [phone] Encounter Details Date Type Department Care Team (Late st Contact Info) Description 12/07/2022 Documentation Only [facility] [address] [place] [phone] Scottie Hill MD [address] [place] [address] [place] [address] [place] [phone] Social History Tobacco Use Types Packs/Day Years [...] on filedocumented in this encounter Care Teams Assembler Skylights Relationship Specialty Start Date End Date Meliton Jones MD [address] [place] [address], [address] [place] [address] PCP - General Internal Medicine 12/05/22 documented as of this encounter
--- OUTSIDE RECORDS SUMMARY | 2024-10-03 10:41 | XMS_ITS | Encounter Summary ---
Author Organization [facility] Address [address] [place] [phone] Care Team Providers Care Lead Oracle Developer Name Role Phone Meliton Jones MD Primary Care Provider [phone] Encounter Details Date Type Department Care Team (Late st Contact Info) Description 01/26/2024 Lab Requisition [facility] - Main Lab [address] [facility] [place] [phone] Alice Hemphill PA [address] [place] [address] Other abnormal findings in urine Social History [...] Description 11/19/2024 3:30 PM EDT Office Visit [facility] [address] [place] [phone] Tatiana Rome PA [address] [place], [place] [phone] documented as of this encounter Procedures Procedure Name Priority Date/Time Associated Diagnosis Comments BACTERIAL IDENTIFICATION AND SUSCEPTIBILITY, AEROBIC Routine 01/25/2024 1:59 PM EST Other abnormal findings in urine documented in this encounter Results * (ABNORMAL) Bacterial identification and susceptibility, aerobic (01/25/2024 1:59 PM EST) Culture, Bacterial ID and Sensitivity Escherichia coli(A) MARY JO 01/27/2024 11:[address] [facility] Comment: This is an edited result. [...] - GENERAL ORDER RAYMUNDO Final Result [facility] ([facility]) [facility] [address] [place] [address], documented in this encounter Visit Diagnoses Diagnosis Other abnormal findings in urine documented in this encounter Care Teams Lead Oracle Developer Relationship Specialty Start Date End Date Meliton Jones MD [address] [place] [address] PCP - General 04/26/23 documented as of this encounter
--- OUTSIDE RECORDS SUMMARY | 2024-10-03 10:41 | XMS_ITS | Clinical Summary ---
Author Organization [facility] Address [address] [place] [address] Care Team Providers Care Data Reduction Technician Name Role Phone Meliton Jones MD Primary Care Provider [phone] Allergies Active Allergy Reactions Criticality Noted Date Comments Penicillins 07/15/2017 Seasonal 09/15/2023 Other reaction(s): runny nose, itch seasonal allergy-pollen Medications Medication Sig Dispensed Refills Start Date End Date Status Magnesium 100 MG CAPS Take 400 mg by mouth. 0 06/02/2021 Active amantadine (SYMMETREL) 100 MG capsule 0 05/20/2021 Active atorvastatin (LIPITOR) tablet 20 mg 0 05/12/2023 Active Cholecalciferol 1.25 MG (03683 UT) capsule 0 11/25/2022 Active clonazePAM (KlonoPIN) [...] 79 09/15/2023 10:07 AM EDT Temperature 35.9 C (96.7 F) 09/15/2023 10:07 AM EDT Respiratory Rate - - Oxygen Saturation 93% [...] ( season) 2023 12/31/2020 Influenza Vaccine (#1) 2024 , 11/11/2019, 11/11/2019, Additional history exists RSV Adult > 60+ Yrs or (1 - 1-dose 75+ series) 2029 Shingrix-Zoster Vaccine Completed 01/08/2021, 10/31 Hepatitis B Vaccines Aged Out No long er eligible based on patient's age to complete this topic RSV Ped < 20 months Aged Out No longe r eligible based on patient's age to complete this topic Care Teams Data Reduction Technician Relationship Specialty Start Date End Date Meliton Jones MD [address] [place] [address] [address] [place] [address] PCP - General Internal Medicine 04/26/23
== END 2024-10-03 10:38 | disposition home or self-care (01) ==
LOC: HO.PMC 10:13
PROVIDERS: PCP Internal Medicine; Visit Provider Nurse Practitioner Family
DX: Z91.81 History of falling (principal); M25.551 Pain in right hip; G89.29 Other chronic pain; R10.31 Right lower quadrant pain; M16.11 Unilateral primary osteoarthritis, right hip; M25.561 Pain in right knee; M17.11 Unilateral primary osteoarthritis, right knee
CPT/HCPCS: 99214; G2211

== ENCOUNTER → 2024-10-03 10:12 | Outpatient (BNVA) | payer MEDICARE, MEDICAID, SELFPAY | PROVIDERS: PCP Internal Medicine; Visit Provider Nurse Practitioner Family | DX: M25.551 Pain in right hip (principal); M16.11 Unilateral primary osteoarthritis, right hip; M25.561 Pain in right knee; M17.11 Unilateral primary osteoarthritis, right knee; R10.31 Right lower quadrant pain; G89.29 Other chronic pain; Z91.81 History of falling | CPT/HCPCS: 99212 ==

== ENCOUNTER 2024-10-18 12:30 | Outpatient (AMB) | payer MEDICARE, MEDICAID, SELFPAY ==
--- NOTE | 2024-10-18 12:32 | A.OFFVIS_ITS ---
Vital Signs 10/18/24 12:37 Height 5 ft 2 in Weight 140 lb 10.479 oz BMI 25.7 BP 115/62 Blood Pressure Location Lt brachial Position Sitting Pulse 66 Pulse Source Pulse Oximeter Pulse Oximetry (%) 98 Oxygen Delivery Method Room Air Intake Visit Reasons: follow up Intake Note: Patient presents for RA/OA follow up. Allergies Penicillins Allergy (Severe, Verified 10/18/24 12:36) rash,hives Medication List - Last Reconciled 10/18/24 by Navya Sy MD acetaminophen 1,000 mg PO BID PRN albuterol sulfate mg inhalation PRN albuterol sulfate 90 mcg/actuation inhalation amantadine HCl mg PO apixaban (Eliquis) 5 mg PO BID atorvastatin 20 mg PO DAILY baclofen 20 mg PO TID cholecalciferol (vitamin D3) PO citalopram 20 mg PO DAILY clonazepam 1 mg PO TID PRN clonidine HCl 0.1 mg PO TID diclofenac sodium 1% 4 grams topical QID dicyclomine 20 mg PO QID dimethyl fumarate (Tecfidera) 240 mg PO BID donepezil 5 mg PO DAILY duloxetine 60 mg PO DAILY nujntimfsis-bzhujkstp-vrkvkkge 100-62.5-25 mcg (Trelegy Ellipta) 1 ea inhalation DAILY folic acid 1 mg PO DAILY furosemide (Lasix) 20 mg PO DAILY gabapentin mg PO hydroxychloroquine 400 mg (2 x 200 mg) PO DAILY 90 days magnesium oxide 1 tab PO DAILY melatonin 3 mg PO BEDTIME PRN methotrexate sodium 15 mg (6 x 2.5 mg) PO QWEEK 90 days modafinil 1 tab PO BID multivitamin 1 tab PO DAILY pantoprazole (Protonix) 20 mg PO DAILY peg-electrolyte soln 420 gram mL PO quetiapine 100 mg PO BEDTIME tizanidine 1 tab PO TID HPI Comments Details: Patient is a 69-year-old female with multiple sclerosis (relapsing and remitting type), hypertension, polyarticular osteoarthritis and seronegative rheumatoid arthritis here today for follow up Interval History: Patient last seen 06/21/24 with me - On HCQ 200mg and Methotrexate 15mg - Synovitis improved - Still c/o hand pain that was attributed to OA - Recommended topical diclofenac, no changes made to medication Today, - On HCQ 200mg and Methotrexate 15mg - Has been seeing pain management for her polyarticular OA especially her hip, scheduled to do MRI to evaluate. Had steroid injection 03/2024 which she states was not helpful - complaining of hand pain especially the thumb Rheumatologic History: Establish care 12/15/2023 for evaluation of polyarthralgias OA versus inflammatory arthritis RF and CCP negative, responds to prednisone. Plaquenil 12/2023 Methotrexate added to plaquenil 03/2024 Current Rheumatology Medication(s): HCQ 200mg bid Methotrexate 15 mg weekly Folic acid 1 mg daily [facility] Medical History Polyarticular osteoarthritis Numbness and tingling in both hands Lumbar radiculopathy Rotator cuff syndrome of left shoulder On methotrexate therapy Long-term use of hydroxychloroquine Seronegative rheumatoid arthritis Wears dentures REBECCA (obstructive sleep apnea) Arthritis Seizures Fatty liver GERD (gastroesophageal reflux disease) Anxiety Depression History of pulmonary embolism Elevated cholesterol Finger dislocation Bursitis of left shoulder Opioid dependence COPD (chronic obstructive pulmonary disease) Multiple sclerosis Surgical History Hx of repair of left rotator cuff Hx of colonoscopy History of toe surgery Family History Father CVD (cardiovascular disease) Mother No problems noted. Social History (Updated 10/18/24 @ 12:37 by KAILEY Walsh) Household Members: Significant Other Housing: House Are you a primary special needs caregiver to a significant other at home: No Do you presently have visiting nurse or other home services: No Alcohol intake: never Comment: baseline pain Patient Tobacco Use Status: Former Tobacco user Tobacco use type: Cigarette Current occupational status: unemployed Current occupation: Right Handed Review of Systems Const Details: Review of Systems Constitutional: Denies fever, chills, weight loss ENT: Denies vision changes, eye pain or eye redness, dental caries, dry mouth GI: Denies nausea, vomiting, diarrhea, abdominal pain, change in BM Pulm: Denies SOB, GUY, hemoptysis, wheezing Cards: Denies chest pain, palpitations Skin: Denies Raynaud's, rash, nail changes, photosensitivity, AMMUNITION OFFICER: Denies headaches, weakness, paresthesias, recurrent falls MSK: as per HPI All other systems reviewed and are unremarkable except noted above Physical Exam Exam Exam: Vital signs reviewed Physical Examination CONSTITUITIONAL Patient alert and cooperative. Well appearing and in no apparent painful distress Chronic right sided hemifacial paresis MSK Hands * Right Hand: Barely able to make a fist. Swelling and TTP of the 2nd and 3rd PIPs * Left Hand: Barely able to make a fist. Swelling and TTP of the 2nd and 3rd PIPs * Herbedens nodes noted bilaterally Wrists * Right Wrist: Full ROM. No swelling or TTP * Left Wrist: Full ROM. No swelling or TTP Elbows * Right Elbow: Full ROM. No swelling or TTP. No TTP of the medial and lateral epicondyles * Left Elbow: Full ROM. No swelling or TTP. No TTP of the medial and lateral epicondyles Shoulders * Right shoulder: Full ROM. No swelling noted. No TTP of the AC joint, subacromial bursa or posterior shoulder * Left shoulder: Full ROM. No swelling noted. No TTP of the AC joint, subacromial bursa or posterior shoulder Hip bursa: TTP bilaterally. R > L Knees * Right knee: Full ROM. No swelling noted. No TTP of the knee joint lie or pes anserine bursa * Left knee: Full ROM. No swelling noted. No TTP of the knee joint lie or pes anserine bursa. * Crepitations felt bilaterally Ankles * Right ankle: Good ankle dorsiflexion and plantar flexion. No swelling. No TTP of the ankle joint * Left ankle: Good ankle dorsiflexion and plantar flexion. No swelling. No TTP of the ankle joint Feet * Right foot: Negative squeeze test * Left foot: Negative squeeze test Tender points? * No tenderness to palpation of the bilateral trapezius, supraspinatus, anterior costochondral junctions, bilateral suboccipital muscle insertions SKIN No rashes Vital Signs: Last Vital Signs Pulse 66 10/18/24 12:37 BP 115/62 10/18/24 12:37 Pulse Ox 98 10/18/24 12:37 Oxygen Delivery Method Room Air 10/18/24 12:37 BMI result Body Mass Index 25.7 Results Reviewed Results Reviewed: Laboratory Tests 12/15/23 06/21/24 15:50 11:00 WBC 8.0 RBC 4.78 Hgb 13.6 Hct 41.8 Plt Count 303 ESR 9 Sodium 141 Potassium 4.1 Chloride 103 Carbon Dioxide 29 BUN 8 L Creatinine 0.74 AST 19 ALT 11 C-Reactive Protein 0.99 H 0.86 H 25-OH Vitamin D Total 58 Rheumatology Labs 12/15/23 15:50 Rheumatoid Factor < 13.0 Cycl Citrul Peptide IgG <16 Infectious serologies 06/21/24 11:00 Hepatitis A IgM Ab Nonreactive Hep Bs Antigen Negative Hep Bs Antibody NONREACTIVE Hep B Core Total Ab Nonreactive Hepatitis C Ab (EIA) Nonreactive TB Test (T-Spot) Com Negative XR Right Knee 06/2024 Findings: There is patella baja. No significant arthritic change or erosions. No joint effusion. No radiopaque foreign body. IMPRESSION: There is patella baja. No acute abnormalities otherwise noted. Assessment & Plan Assessment & Plan (1) Seronegative rheumatoid arthritis: Comment: Establish care 12/15/2023 for evaluation of polyarthralgias OA versus inflammatory arthritis RF and CCP negative, responds to prednisone. Plaquenil 12/2023 Methotrexate added to plaquenil 03/2024 Code(s): M06.00 - Rheumatoid arthritis without rheumatoid factor, unspecified site Category: Medical Plan: #Seronegative RA Patient is a 69-year-old female with seronegative rheumatoid arthritis here today for follow up. Currently on methotrexate and Plaquenil. This combination is not efficacious Will stop the MTx and plaquenil. Unable to do TNF inhibitors like Enbrel and Humira because of her hx of MS and these are contraindicated Plan - Actemra 162mg SC every 2 weeks - Prednisone: Take 15mg for 10 days then 10mg for 10 days then 5mg for 10 days and stop - RTC 4 months - Labs before visit: CBC, CMP, ESR, CRP, lipid panel (2) Polyarticular osteoarthritis: Code(s): M15.9 - Polyosteoarthritis, unspecified Category: Medical Plan: #Polyarticular OA Patient with polyarticular osteoarthritis complicating her rheumatoid arthritis. But today she has evidence of synovitis in her hands We shanell try to control her RA and see what residual OA is left (3) Encounter for monitoring tocilizumab therapy: Code(s): Z51.81 - Encounter for therapeutic drug level monitoring; Z79.620 - assisted (current) use of immunosuppressive biologic Plan: #Long-term Use of IL 6 Inhibitors: Tocilizumab/Sarilumab Discussed the risks and benefits of IL6 inhibitors with the management of this patient's rheumatic condition. Benefits include decreased pain, improved mortality, improved quality of life Risks include LFT abnormalities, elevated triglycerides, GI perforations Contraindicated in a patient with history of diverticulitis Monitoring: CBC, CMP, triglycerides Plan I spent 30 minutes reviewing the record and labs, taking a history, examining the patient, discussing the treatment plan, ordering diagnostic work up and documenting in the medical record Orders: Orders Comprehensive Homer. Panel Fast 4 Months Z79.60 - assisted (current) use of unspecified immunomodulators and immunosuppressants Complete Blood Count Auto Diff 4 Months Z79.60 - terminal manager (current) use of unspecified immunomodulators and immunosuppressants Erythrocyte Sedimentation Rate 4 Months Z79.60 - assisted (current) use of unspecified immunomodulators and immunosuppressants C Reactive Protein 4 Months Z79.60 - terminal manager (current) use of unspecified immunomodulators and immunosuppressants Lipid Panel 4 Months M06.00 - Rheumatoid arthritis without rheumatoid factor, unspecified site Medications: New tocilizumab (Actemra) 162 mg (0.9 mL) subcut Q2W 1.8 mL 5RF M06.00 - Rheumatoid arthritis without rheumatoid factor, unspecified site prednisone Take 3 tablets for 10 days then 2 tablets for 10 days then 1 tablet for 10 days and stop 5 mg PO DIRECTED 60 tabs 0RF M06.00 - Rheumatoid arthritis without rheumatoid factor, unspecified site Discontinued hydroxychloroquine Discontinued Reason: Doctor's Order 400 mg (2 x 200 mg) PO DAILY 90 days 180 tabs 1RF M06.00 - Rheumatoid arthritis without rheumatoid factor, unspecified site folic acid Discontinued Reason: Doctor's Order 1 mg PO DAILY 90 tabs 1RF M06.00 - Rheumatoid arthritis without rheumatoid factor, unspecified site methotrexate sodium Discontinued Reason: Doctor's Order 15 mg (6 x 2.5 mg) PO QWEEK 90 days 78 tabs 1RF M06.00 - Rheumatoid arthritis without rheumatoid factor, unspecified site Coding Level of Care Code Est Pt Level 4 (05121) Complex EM visit Add On G2211 Diagnoses Seronegative rheumatoid arthritis M06.00 Polyarticular osteoarthritis M15.9 Encounter for monitoring tocilizumab therapy Z51.81; Z79.620
--- OUTSIDE RECORDS SUMMARY | 2024-10-18 12:33 | XMS_ITS | Encounter Summary ---
Author Organization [facility] Address [address] [place] [address] Care Team Providers Care Disease Case Manager Name Role Phone Meliton Jones MD Primary Care Provider [phone] Encounter Details Date Type Department Care Team (Late st Contact Info) Description 01/26/2024 Lab Requisition [facility] - Main Lab [address] [facility] [place] [phone] Alice Hemphill PA [address] [place] [address] Other abnormal findings in urine Social History [...] Description 11/19/2024 3:30 PM EDT Office Visit [facility] [address] [place] [phone] Tatiana Rome PA [address] [place], [place] [id number] documented as of this encounter Procedures Procedure Name Priority Date/Time Associated Diagnosis Comments BACTERIAL IDENTIFICATION AND SUSCEPTIBILITY, AEROBIC Routine 01/25/2024 1:59 PM EST Other abnormal findings in urine documented in this encounter Results * (ABNORMAL) Bacterial identification and susceptibility, aerobic (01/25/2024 1:59 PM EST) Culture, Bacterial ID and Sensitivity Escherichia coli(A) MARY JO 01/27/2024 11:[address] [facility] Comment: This is an edited result. [...] MICROBIOLOGY - GENERAL ORDER RAYMUNDO Final Result [facility] ([facility]) [facility] [address] [place] [address], documented in this encounter Visit Diagnoses Diagnosis Other abnormal findings in urine documented in this encounter Care Teams Disease Case Manager Relationship Specialty Start Date End Date Meliton Jones MD [address] [place] [address] PCP - General 04/26/23 documented as of this encounter
--- OUTSIDE RECORDS SUMMARY | 2024-10-18 12:33 | XMS_ITS | Encounter Summary ---
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 (Primary Dx) Social History Tobacco Use Types Packs/Day Years Used Date Smoking Tobacco: Former Cigarettes Q uit: 2017 Alcohol Use Standard Drinks/Week Comments No 0 (1 standard drink = 0.6 oz pur e alcohol) Comments Unknown Sex and Gender Information Value Date Recorded Sex Assigned at Female 07/15/2017 10:07 AM EDT Legal Sex Female 9:56 PM EDT Gender Identity Female 07/15/2017 10:07 AM EDT Sexual Orientation Straight 07/14/2022 12 :21 PM EDT documented as of this encounter Plan of Treatment Not on file documented as of this encounter Results * (ABNORMAL) PT-INR (06/08/2018 7:20 AM EDT) PT 30.4(H) 10.2 - 12.9 sec [facility] INR 2.6(H) 0.9 - 1.1 [facility] Comment:Therapeutic range fo r oral Vitamin K antagonists: 2.0-3.5 Blood 06/08/2018 7:20 AM EDT 06/08/2018 8:50 AM EDT us Meliton Jones MD LAB BLOOD ORDERABLES Final Resul t [facility] [address] [place] [address] documented in this encounter Visit Diagnoses Diagnosis [facility] (current) use of anticoagulants- Primary Long-term (current) use of anticoagulants documented in this encounter Additional Health Concerns Infection Onset Date Last Indicated Resolved Time CoV-Risk 02/21/2021 02/21/2021 03/03/2021 1:22 AM EST CoV-Exposed 06/01/2021 06/07/2021 06/12/2021 1:22 AM EDT COVID-19 12/28/2022 12/28/2022 01/18/2023 1:21 AM EDT CoV-Risk 04/29/2024 04/29/2024 05/10/2024 1:23 AM EST Influenza A 04/29/2024 04/29/2024 05/06/2024 1:23 AM EST documented as of this encounter Care Teams Travel Counselor Automobile Club Relationship Specialty Start Date End Date Meliton Jones MD [address] [place] [address] PCP - General Internal Medicine 02/15/17 documented as of this encounter Additional Source Comments The information contained in this document represents components of the legal health record. It is not the complete legal health record.[facility]
--- OUTSIDE RECORDS SUMMARY | 2024-10-18 12:33 | XMS_ITS | Encounter Summary ---
Author Organization [facility], Address [address] [place] [address] Phone Care Team Providers Care Deputy Of Counter Intelligence Name Role Phone Meliton Jones MD Primary Care Provider [phone] Encounter Details Date Type Department Care Team (Late st Contact Info) Description 12/07/2022 Documentation Only [facility] [address] [place] [phone] Scottie Hill MD [address] [place] [address] [place] [address] [place] [phone] Social History Tobacco Use Types Packs/Day Years [...] on filedocumented in this encounter Care Teams Deputy Of Counter Intelligence Relationship Specialty Start Date End Date Meliton Jones MD [address] [place] [address], [address] [place] [address] PCP - General Internal Medicine 12/05/22 documented as of this encounter
--- OUTSIDE RECORDS SUMMARY | 2024-10-18 12:33 | XMS_ITS | Clinical Summary ---
Author Organization [facility] Address [address] [place] [address] Care Team Providers Care Motion Picture Critic Name Role Phone Meliton Jones MD Primary Care Provider [phone] Allergies Active Allergy Reactions Criticality Noted Date Comments Penicillins 07/15/2017 Seasonal 09/15/2023 Other reaction(s): runny nose, itch seasonal allergy-pollen Medications Medication Sig Dispensed Refills Start Date End Date Status Magnesium 100 MG CAPS Take 400 mg by mouth. 0 06/02/2021 Active amantadine (SYMMETREL) 100 MG capsule 0 05/20/2021 Active atorvastatin (LIPITOR) tablet 20 mg 0 05/12/2023 Active Cholecalciferol 1.25 MG (78571 UT) capsule 0 11/25/2022 Active clonazePAM (KlonoPIN) [...] age to complete this topic Care Teams Motion Picture Critic Relationship Specialty Start Date End Date Meliton Jones MD [address] [place] [address] [address] [place] [address] PCP - General Internal Medicine 04/26/23
[2024-10-18 12:37] VITALS: BP 115/62; PULSE 66; O2SAT 98; BMI 25.7
== END 2024-10-18 13:20 | disposition home or self-care (01) ==
LOC: HO.RHE 12:30
PROVIDERS: PCP Internal Medicine; Visit Provider Student in an Organized Health Care Education/Training Program
DX: M06.00 Rheumatoid arthritis without rheumatoid factor, unspecified site (principal); M15.9 Polyosteoarthritis, unspecified; Z51.81 Encounter for therapeutic drug level monitoring; Z79.620 Long term (current) use of immunosuppressive biologic
CPT/HCPCS: 99214; G2211

== ENCOUNTER → 2024-10-18 12:30 | Outpatient (BNVA) | payer MEDICARE, MEDICAID, SELFPAY | PROVIDERS: PCP Internal Medicine; Visit Provider Student in an Organized Health Care Education/Training Program | DX: M15.9 Polyosteoarthritis, unspecified (principal); M06.00 Rheumatoid arthritis without rheumatoid factor, unspecified site; Z79.631 Long term (current) use of antimetabolite agent; Z51.81 Encounter for therapeutic drug level monitoring; Z79.620 Long term (current) use of immunosuppressive biologic; Z79.01 Long term (current) use of anticoagulants | CPT/HCPCS: 99212 ==

== ENCOUNTER 2024-10-24 11:54 | Outpatient (REF) | payer MEDICARE, MEDICAID, SELFPAY ==
--- NOTE | ~2024-10-24 | MR_ITS ---
EXAMINATION: MR HIP WITHOUT CONTRAST, RIGHT CLINICAL INFORMATION: Recurrent falls. Pain. COMPARISON: Correlated to x-ray dated October 23, 2023. TECHNIQUE: MRI of the right hip was obtained using routine sequences on a high-field strength magnet. FINDINGS: There is a focal bone marrow T2 fat-sat signal abnormality in the anterior superior right acetabulum and the anterior: Right coxofemoral joint. Subtle subchondral cyst formation and marginal osteophyte formation at the right acetabulum, right femoral head and greater trochanter. There is trace of joint effusion. The femoral head neck instability region and proximal diaphysis of the right femur are intact. There is difficulty region is intact. The symphysis post demonstrated degenerative changes without acute cortical disruption. There is a subtle hyperintense T2 fat-sat signal and the gluteus minor. The flow-void signal within the main vessels is normal. Prominent nonspecific right inguinal lymph nodes. Heterogeneous nodular uterus. No gross free fluid in the included pelvic peritoneal cavity. MR/MR hip RT wo con IMPRESSION: Osteoarthritis/osteoarthrosis, moderate, right coxofemoral joint with questionable bone contusions in the anterior superior right acetabulum and anterior: Right acetabulum. Multiple uterine fibroids. Electronically signed by: Nuno Aldana MD 10/24/2024 02:02 PM EDT
--- OUTSIDE RECORDS SUMMARY | 2024-10-24 12:24 | XMS_ITS | Encounter Summary ---
Author Organization [facility], Address [address] [place] [address] Phone Care Team Providers Care Control Director Name Role Phone Meliton Jones MD Primary Care Provider [phone] Encounter Details Date Type Department Care Team (Late st Contact Info) Description 12/07/2022 Documentation Only [facility] [address] [place] [phone] Scottie Hill MD [address] [place] [address] [place] [address] [place] [phone] Social History Tobacco Use Types Packs/Day Years [...] on filedocumented in this encounter Care Teams Control Director Relationship Specialty Start Date End Date Meliton Jones MD [address] [place] [address], [address] [place] [address] PCP - General Internal Medicine 12/05/22 documented as of this encounter
--- OUTSIDE RECORDS SUMMARY | 2024-10-24 12:24 | XMS_ITS | Encounter Summary ---
Author Organization [facility] Address [address] [facility] [address] [place] [address] Phone Care Team Providers Care Data Sme Name Role Phone Meliton Jones MD Primary Care Provider [phone] Encounter Details Date Type Department Care Team (Late st Contact Info) Description 06/08/2018 Transcribe Orders [facility] Specimen Processing [address] [place] [address] Meliton Jones MD [address] 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) Social [...] EDT) PT 30.4(H) 10.2 - 12.9 sec [facility] INR 2.6(H) 0.9 - 1.1 [facility] Comment:Therapeutic range fo r oral Vitamin K antagonists: 2.0-3.5 Blood 06/08/2018 7:20 AM EDT 06/08/2018 8:50 AM EDT us Meliton Jones MD LAB BLOOD ORDERABLES Final Resul t [facility] [address] [place] [address] documented in this encounter Visit Diagnoses Diagnosis snf (current) use of anticoagulants- Primary Long-term (current) [...] documented as of this encounter Care Teams Data Sme Relationship Specialty Start Date End Date Meliton Jones MD [address] [place] [address] PCP - General Internal Medicine 02/15/17 documented as of this encounter Additional Source Comments The information contained in this document represents components of the legal health record. It is not the complete legal health record.[facility]
--- OUTSIDE RECORDS SUMMARY | 2024-10-24 12:24 | XMS_ITS | Encounter Summary ---
Author Organization [facility] Address [address] [place] [address] Care Team Providers Care Apparatus Lineman Name Role Phone Meliton Jones MD Primary Care Provider [phone] Encounter Details Date Type Department Care Team (Late st Contact Info) Description 01/26/2024 Lab Requisition [facility] - Main Lab [address] [facility] [place] [phone] Alice Hemphill PA [address] [place] [address] Other abnormal findings in urine Social History [...] Description 11/19/2024 3:30 PM EDT Office Visit [facility] [address] [place] [phone] Tatiana Rome PA [address] [place], [place] [phone] documented as of this encounter Procedures Procedure Name Priority Date/Time Associated Diagnosis Comments BACTERIAL IDENTIFICATION AND SUSCEPTIBILITY, AEROBIC Routine 01/25/2024 1:59 PM EST Other abnormal findings in urine documented in this encounter Results * (ABNORMAL) Bacterial identification and susceptibility, aerobic (01/25/2024 1:59 PM EST) Culture, Bacterial ID and Sensitivity Escherichia coli(A) MARY JO 01/27/2024 11:03 AM EST [facility] Comment: This is an edited [...] MICROBIOLOGY - GENERAL ORDER RAYMUNDO Final Result [facility] ([facility]) [facility] [address] [place] [address], documented in this encounter Visit Diagnoses Diagnosis Other abnormal findings in urine documented in this encounter Care Teams Apparatus Lineman Relationship Specialty Start Date End Date Meliton Jones MD [address] [place] [address] PCP - General 04/26/23 documented as of this encounter
--- OUTSIDE RECORDS SUMMARY | 2024-10-24 12:24 | XMS_ITS | Clinical Summary ---
Author Organization [facility] Address [address] [place] [address] Care Team Providers Care Prosthetic Dentist Name Role Phone Meliton Jones MD Primary Care Provider [phone] Allergies Active Allergy Reactions Criticality Noted Date Comments Penicillins 07/15/2017 Seasonal 09/15/2023 Other reaction(s): runny nose, itch seasonal allergy-pollen Medications Medication Sig Dispensed Refills Start Date End Date Status Magnesium 100 MG CAPS Take 400 mg by mouth. 0 06/02/2021 Active amantadine (SYMMETREL) 100 MG capsule 0 05/20/2021 Active atorvastatin (LIPITOR) tablet 20 mg 0 05/12/2023 Active Cholecalciferol 1.25 MG (44807 UT) capsule 0 11/25/2022 Active clonazePAM (KlonoPIN) [...] age to complete this topic Care Teams Prosthetic Dentist Relationship Specialty Start Date End Date Meliton Jones MD [address] [place] [address] [address] [place] [address] PCP - General Internal Medicine 04/26/23
== END 2024-10-24 11:55 | disposition home or self-care (01) ==
LOC: HO.MRI 11:54
PROVIDERS: PCP Internal Medicine; Visit Provider Nurse Practitioner Family
DX: M16.11 Unilateral primary osteoarthritis, right hip (principal); M25.561 Pain in right knee; R10.31 Right lower quadrant pain; G89.29 Other chronic pain; Z91.81 History of falling
CPT/HCPCS: 73721

== ENCOUNTER → 2024-10-24 12:19 | Outpatient (BNV) | payer MEDICARE, MEDICAID, SELFPAY | PROVIDERS: PCP Internal Medicine; Visit Provider Radiology Diagnostic Radiology | DX: M16.11 Unilateral primary osteoarthritis, right hip (principal) | CPT/HCPCS: 73721 ==

== ENCOUNTER 2024-11-26 15:37 | Outpatient (AMB) | payer MEDICARE, MEDICAID, SELFPAY ==
--- OUTSIDE RECORDS SUMMARY | 2022-04-01 12:42 | XMS_ITS | Encounter Summary ---
Author Organization [facility] Address [address] [place] [address] Phone Care Team Providers Care Cast Iron Dipper Name Role Phone Meliton Jones MD Primary Care Provider [phone] Encounter Details Date Type Department Care Team (Late st Contact Info) Description 04/01/2022 11:42 AM EST Hospital Encounter [facility] [address] [place] [address] [phone] Morris Edgar PA-C [address] [place] [address] [email or web address] Social History Tobacco Use Types Packs/Day Years Used Date Smoking Tobacco: Former Cigarettes Q uit: 2017 Smokeless Tobacco: Never Alcohol Use Standard Drinks/Week Comments No 0 (1 standard drink = 0.6 oz pur e alcohol) Education Answer Date Recorded Are you interested in more education? Not on maureen e 07/14/2022 Are you concerned about learning? Not on file 07/14/2022 No 07/14/2022 No 07/14/2022 Food Answer Date Recorded Within the past 6 months we worried whether our food would run out before we got money to buy more. I choose not to answer 07/24/2024 Within the past 6 months the food we bought just didn't last and we didn't have enough money to get more. I choose not to answer 07/24/2024 Residential Stability Answer Date Recor ded What is your housing situation today? I choose n ot to answer 07/24/2024 How many times have you move d in the past 12 months? I choose not to answer 07/24/2024 Paying for Meds Answer Date Recorded Do you have trouble paying for medicines? I suhail se not to answer 07/24/2024 Paying Utility Bills Answer Date Record ed Do you have trouble paying y our heating or electricity bill? I choose not to answer 07/24/2024 Transportation Answer Date Recorded Has the lack of transportati on kept you from medical appointments or from getting medications? I choose not to answer 07/24/2024 Digital Access Answer Date Recorded No 07/24/2024 No 07/24/2024 Do you have reliable internet access at home? I choose not to answer 07/24/2024 Do you have a device (e.g., phone, tablet, computer) with a working camera? I choose not to answer 07/24/2024 Intimate Partner Violence Answer Date R ecorded Are you denied basic needs s uch as food, clothing, or medical care? No 07/24/2024 In the past 12 months have y ou been in a relationship with a person who hurts, threatens, or tries to control you? No 07/24/2024 Are you denied basic needs s uch as food, clothing, or medical care? No 07/24/2024 In the past 12 months have y ou been in a relationship with a person who hurts, threatens, or tries to control you? No 07/24/2024 Comments Unknown Sex and Gender Information Value Date Recorded Sex Assigned at Female 07/15/2017 10:07 AM EDT Legal Sex Female 9:56 PM EDT Gender Identity Female 07/15/2017 10:07 AM EDT Sexual Orientation Straight 07/14/2022 12 :21 PM EDT documented as of this encounter Functional Status * Calculated C-SSRS Risk Score (Lifetime/Recent) Answer Date of Assessment Author No Risk Indicated 07/24/2024 7:02 PM EDT Batool Smith RN * [place] Suicide Severity Rating Scale (Screener/Recent Self-Report) Question Answer Date of Assessment Author 1. Wish to be (Past 1 Month) No 025 7:02 PM EDT Batool Smith RN 2. Non-Specific Active Suici diane Thoughts (Past 1 Month) No 07/24/2024 7:02 PM EDT Batool Smith RN 6. Suicidal Behavior (Lifetime) No 7:02 PM EDT Batool Smith RN documented as of this encounter Plan of Treatment Not on file documented as of this encounter Procedures Procedure Name Priority Date/Time Associated Diagnosis Comments XR KNEE 4 OR MORE VIEWS (RIGHT) Urgent/patient waiting 04/01/2022 11:53 AM EST Acute pain of right knee documented in this encounter Results * XR KNEE 4 OR MORE VIEWS (RIGHT) (04/01/2022 11:53 AM EST) Anatomical Region Laterality Modality Knee Right Computed Radiogr aphy 04/01/2022 12:0 2 PM EST Impressions 04/01/2022 12:04 PM EST No displaced fracture or dislocation. Small knee joint effusion. Narrative 04/01/2022 12:04 PM EST XR KNEE 4 OR MORE VIEWS (RIGHT) COMPARISON: None FINDINGS: Right Knee: No displaced fracture. Normal alignment. Normal joint spaces. Small suprapatellar joint effusion. Procedure Note Aleksey Murillo MD - 04/01/2022 XR KNEE 4 OR MORE VIEWS (RIGHT) COMPARISON: None FINDINGS: Right Knee: No displaced fracture. Normal alignment. Normal joint spaces.Small suprapatellar joint effusion. IMPRESSION: No displaced fracture or dislocation. Small knee joint effusion. Morris Edgar PA-C IMG XR LOWER EXTREMITY Final R esult documented in this encounter Visit Diagnoses Not on filedocumented in this encounter Additional Health Concerns Infection Onset Date Last Indicated Resolved Time COVID-19 12/28/2022 12/28/2022 01/18/2023 1:21 AM EDT CoV-Risk 04/29/2024 04/29/2024 05/10/2024 1:23 AM EST Influenza A 04/29/2024 04/29/2024 05/06/2024 1:23 AM EST documented as of this encounter Care Teams Cast Iron Dipper Relationship Specialty Start Date End Date Meliton Jones MD [address] [place] [phone] PCP - General Internal Medicine 02/15/17 documented as of this encounter Additional Source Comments The information contained in this document represents components of the legal health record. It is not the complete legal health record.[facility]
--- OUTSIDE RECORDS SUMMARY | 2024-01-16 11:20 | XMS_ITS | Encounter Summary ---
Author Organization [facility] Address [address] [place] [address] Care Team Providers Care Dye Winch Operator Name Role Phone Meliton Jones MD Primary Care Provider [phone] Encounter Details Date Type Department Care Team (Late st Contact Info) Description 01/16/2024 11:20 AM EDT Hospital Encounter TH HISTORIC ENCOUNTERS [facility] ONLY Tatiana Rome PA [address] [facility] [address] [place] [address] Social History Tobacco Use Types Packs/Day Years Used Date Smoking Tobacco: Former Smokeless Tobacco: Never Alcohol Use Standard Drinks/Week Comments Never 0 (1 standard drink = 0.6 oz pur e alcohol) Comments Unknown Sex and Gender Information Value Date Recorded Sex Assigned at Not on file Legal Sex Female 10:10 PM EST Gender Identity Not on file Sexual Orientation Not on file documented as of this encounter Last Filed Vital Signs Vital Sign Reading Time Taken Comments Blood Pressure - - Pulse - - Temperature - - Respiratory Rate - - Oxygen Saturation - - Inhaled Oxygen Concentration - - Weight 80.5 kg (177 lb 6.4 oz) 09/15/2023 10:07 AM EDT Height 157.5 cm (5' 2 ) 09/15/2023 10:07 AM EDT Body Mass Index 32.45 09/15/2023 10:07 AM EDT documented in this encounter Progress Notes * TRAM Oates - 01/16/2024 11:00 AM EDT [facility] HPI: Patient is a 68 y.o. year old female who presents for telehealth follow-up visit regarding ongoing management of multiple sclerosis. The patient received guidance on receiving healthcare through telehealth, including the use of HIPAA privacy -compliant technology for remote communication and its associated privacy risks. The patient was also informed of the limitations of treatment provided through telehealth and that in the event of a lost or failed video connection, the provider may call back or reschedule the visit. Alternatively, the patient may opt for an in-person visit. The patient gave consent for the use of video communication and provided care and confirmed that they were in a quiet and private location to discuss their health freely. The patient understands the visit will be submitted to their insurance and that they are responsible for any copay or deductible charges. Additionally, if the patient is LimitedEnglish Proficient, deaf, or hard of hearing, speech impaired, or has another disability which impairs their ability to communicate, the services of a qualified diplomatic interpreter will be provided during the visit. Patients Location: Patient's home ([place]) Total Time: 30 minutes Disease Summary Date of onset/Initial symptom presentation: Date of diagnosis of MS: Disease course at onset: Current disease course: Last MS exacerbation: Previous disease therapies(reason for switch): Betaseron Current disease therapy: Tecfidera Most recent MRI Brain: Most recent MRI Cervical spine:07/2022 ? New cervical lesion Most recent MRI Thoracic spine: CSF: JCV serology result and date: MS mimickers: [place] 1:320 , SSA /SSB negative , Interval history Patient presents for telehealth follow-up visit. She continues Tecfidera for disease modifying therapy. She notes that she had a fall in early October-fell down a few stairs while trying to carry a laundry basket. Fortunately had no significant injury. She continues to note significant fatigue. Although we do not have modafinil on her med list she states that she is taking this twice daily although is unsure of the dose. She is seeing Dr. Colvin (urology) and recently started self catheterizing due to incomplete bladder emptying and frequent UTIs. She is having difficulty with this and plans to discuss further at her upcoming follow-up visit. She notes for the past few weeks she has been experiencing headache behind her right eye. She has had some change in vision but thinks this may be due to a stronger eyeglass prescription that she just got. She denies light or noise sensitivity. 09/19/2023: ALC 2.08 Last visit history reviewed: No new neurological symptom concerning for demyelination since last visit Patient still on Tecfidera tolerating it well , last ALC 2.4 Since last visit she has been stable from the neurological perspective She has been following up with urology they stopped her myerbytrique evaluating her for other treatment options she cannot recall the name of the medication we will obtain the notes Patient have not heard from rheumatology we will follow-up on the referral Review of Systems Constitutional: Positive for fatigue. Genitourinary: Positive for difficulty urinating. All other systems reviewed and are negative. There is no problem list on file for this patient. Current Outpatient Medications: ??? amantadine (SYMMETREL) 100 MG capsule, , Disp: , Rfl: ??? atorvastatin (LIPITOR) tablet 20 mg, , Disp: , Rfl: ??? baclofen (LIORESAL) 20 MG tablet, , Disp: , Rfl: ??? Cholecalciferol 1.25 MG (99214 UT) capsule, , Disp: , Rfl: ??? citalopram (CeleXA) 20 MG tablet, Take 1 tablet (20 mg total) by mouth., Disp: , Rfl: ??? clonazePAM (KlonoPIN) 1 MG tablet, Take 1 tablet (1 mg total) by mouth., Disp: , Rfl: ??? cloNIDine (CATAPRES) tablet 0.1 mg, Take 1 tablet (0.1 mg total) by mouth., Disp: , Rfl: ??? dicyclomine (BENTYL) 10 MG capsule, Take 2 capsules (20 mg total) by mouth., Disp: , Rfl: ??? Dimethyl Fumarate 120 MG CPDR, Take 240 mg by mouth 2 (two) times a day., Disp: 60 capsule, Rfl: 5 ??? LORazepam (ATIVAN) 0.5 MG tablet, 1 p.o. 1 hour prior to MRI, may repeat 1 at time of MRI if needed, Disp: 5 tablet, Rfl: 0 ??? Magnesium 100 MG CAPS, Take 400 mg by mouth., Disp: , Rfl: ??? pantoprazole (PROTONIX) 20 MG tablet, Take 1 tablet (20 mg total) by mouth., Disp: , Rfl: ??? pregabalin (LYRICA) capsule 100 mg, Take 1 capsule (100 mg total) by mouth., Disp: , Rfl: ??? QUEtiapine (SEROquel) 100 MG tablet, Take 1 tablet (100 mg total) by mouth., Disp: , Rfl: ??? tiZANidine (ZANAFLEX) 2 MG tablet, , Disp: , Rfl: Physical Exam: No vital signs, height or weight taken for this visit. Gen: Well appearing and in no acute distress LIMITED NEUROLOGICAL EXAMINATION Mental status: alert awake oriented to time place and person, normal attention. Language: intact comprehension with fluent speech CRANIAL NERVES: Pupils equal, extraocular movements Intact, no nystagmus, no facial asymmetry, tongue midline, symmetric shrug of shoulders antigravity MOTOR: all extremities were antigravity without drift INVOLUNTARY MOVEMENTS: none GAIT/POSTURE: Normal CEREBELLAR: fine finger movements normal bilaterally REFLEXES AND SENSATION: deferred A/P: Multiple Sclerosis: ??Kristin Thacker is a 68 y.o. year old female with presumed relapsing remitting MS currently on Tecfidera. She is due for MRI of brain to assess for radiologic stability and this will be ordered today. A. Disease modifying therapy plan: -Continue Tecfidera -Check CBC, LFTs every 6 months -MRI brain without contrast will be ordered today to assess for radiologic stability B symptomatic treatment plan: Fatigue: States that she is taking modafinil although we do not have this in her chart and she was unsure of dose. I asked her to contact the office with her dose and frequency. Incomplete emptying of bladder/frequent UTIs: Continue follow-up with Dr. Colvin- ???having difficultywith self-catheterization and plans to discuss with him. Right-sided eye pain/headache: Will obtain ESR with labs for Spasms: Continue baclofen/tizanidine as prescribed Neuropathic pain: Continue gabapentin we will verify the dose Follow-up in 3 to 4 months or sooner as needed The patient and I discussed the clinical picture during today's appointment. Additional time was spent prior to the actual appointment reviewing records, lab values and imaging results and preparing documentation for today's visit. There was also time spent following the in person visit documenting, arranging for further diagnostic testing and follow-up appointments. The entire time spent in thisprocess was greater than 30 minutes. The majority of the actual [id number] visit was spent counseling the patient with respect to the current neurological picture. Tatiana Rome PA-C documented in this encounter Plan of Treatment Upcoming Encounters Date Type Department Care Team (Late st Contact Info) Description 12/27/2024 1:30 PM EDT Office Visit [facility] [address] [facility] [address] [place] [id number] Tatiana Rome PA [address] [facility] [address] [place] [address] documented as of this encounter Visit Diagnoses Not on filedocumented in this encounter Care Teams Dye Winch Operator Relationship Specialty Start Date End Date Meliton Jones MD [address] [place] [id number] PCP - General 04/26/23 documented as of this encounter
--- NOTE | 2024-11-26 15:47 | MHC.OFFVIS ---
Vital Signs 11/26/24 15:53 Height 5 ft 2 in Weight 138 lb 7.205 oz BMI 25.3 BP 124/70 Blood Pressure Location Rt brachial Position Sitting Pulse 50 Pulse Source Pulse Oximeter Pulse Oximetry (%) 97 Oxygen Delivery Method Room Air Intake Visit Reasons: discuss next steps Intake Note: Patient presents to discuss next steps for treatment. Allergies Penicillins Allergy (Severe, Verified 11/26/24 15:52) rash,hives Medication List - Last Reconciled 11/26/24 by Navya Sy MD acetaminophen 1,000 mg PO BID PRN albuterol sulfate mg inhalation PRN albuterol sulfate 90 mcg/actuation inhalation amantadine HCl mg PO apixaban (Eliquis) 5 mg PO BID atorvastatin 20 mg PO DAILY baclofen 20 mg PO TID cholecalciferol (vitamin D3) PO citalopram 20 mg PO DAILY clonazepam 1 mg PO TID PRN clonidine HCl 0.1 mg PO TID diclofenac sodium 1% 4 grams topical QID dicyclomine 20 mg PO QID dimethyl fumarate (Tecfidera) 240 mg PO BID donepezil 5 mg PO DAILY duloxetine 60 mg PO DAILY swowioxsqbt-bofzsktud-oebvmkan 100-62.5-25 mcg (Trelegy Ellipta) 1 ea inhalation DAILY furosemide 20 mg PO DAILY gabapentin mg PO magnesium oxide 1 tab PO DAILY melatonin 3 mg PO BEDTIME PRN modafinil 1 tab PO BID multivitamin 1 tab PO DAILY pantoprazole (Protonix) 20 mg PO DAILY peg-electrolyte soln 420 gram mL PO prednisone 5 mg PO DIRECTED quetiapine 100 mg PO BEDTIME tizanidine 1 tab PO TID HPI Comments Details: Patient is a 69-year-old female with multiple sclerosis (relapsing and remitting type), hypertension, polyarticular osteoarthritis and seronegative rheumatoid arthritis here today for follow up Interval History: Patient last seen 10/18/24 with me - On HCQ 200mg and Methotrexate 15mg - Has been seeing pain management for her polyarticular OA especially her hip, scheduled to do MRI to evaluate. Had steroid injection 03/2024 which she states was not helpful - complaining of hand pain especially the thumb - Still having flares and decision made to switch to injectables Anti TNFs contraindicated IL 6 inhibitors contraindicated Today - Here to discuss to start Rituximab Rheumatologic History: Establish care 12/15/2023 for evaluation of polyarthralgias OA versus inflammatory arthritis RF and CCP negative, responds to prednisone. Plaquenil 12/2023 Methotrexate added to plaquenil 03/2024 Current Rheumatology Medication(s): [facility] Medical History (Updated 10/18/24 @ 13:02 by Navya Sy MD) Polyarticular osteoarthritis Numbness and tingling in both hands Lumbar radiculopathy Rotator cuff syndrome of left shoulder Long-term use of hydroxychloroquine Seronegative rheumatoid arthritis Wears dentures REBECCA (obstructive sleep apnea) Arthritis Seizures Fatty liver GERD (gastroesophageal reflux disease) Anxiety Depression History of pulmonary embolism Elevated cholesterol Finger dislocation Bursitis of left shoulder Opioid dependence COPD (chronic obstructive pulmonary disease) Multiple sclerosis Surgical History Hx of repair of left rotator cuff Hx of colonoscopy History of toe surgery Family History Father CVD (cardiovascular disease) Mother No problems noted. Social History Household Members: Significant Other Housing: House Are you a primary patient care provider to a significant other at home: No Do you presently have visiting nurse or other home services: No Alcohol intake: never Comment: baseline pain Patient Tobacco Use Status: Former Tobacco user Tobacco use type: Cigarette Current occupational status: unemployed Current occupation: Right Handed Review of Systems Const Details: Review of Systems Constitutional: Denies fever, chills, weight loss ENT: Denies vision changes, eye pain or eye redness, dental caries, dry mouth GI: Denies nausea, vomiting, diarrhea, abdominal pain, change in BM Pulm: Denies SOB, GUY, hemoptysis, wheezing Cards: Denies chest pain, palpitations Skin: Denies Raynaud's, rash, nail changes, photosensitivity, DESIZING MACHINE OFFBEARER: Denies headaches, weakness, paresthesias, recurrent falls MSK: as per HPI All other systems reviewed and are unremarkable except noted above Physical Exam Exam Exam: Exam deferred Vital Signs: Last Vital Signs Pulse 50 11/26/24 15:53 BP 124/70 11/26/24 15:53 Pulse Ox 97 11/26/24 15:53 Oxygen Delivery Method Room Air 11/26/24 15:53 BMI result Body Mass Index 25.3 Results Reviewed Results Reviewed: Laboratory Tests 12/15/23 06/21/24 15:50 11:00 WBC 8.0 RBC 4.78 Hgb 13.6 Hct 41.8 Plt Count 303 ESR 9 Sodium 141 Potassium 4.1 Chloride 103 Carbon Dioxide 29 BUN 8 L Creatinine 0.74 AST 19 ALT 11 C-Reactive Protein 0.99 H 0.86 H 25-OH Vitamin D Total 58 Rheumatology Labs 12/15/23 15:50 Rheumatoid Factor < 13.0 Cycl Citrul Peptide IgG <16 Infectious serologies 06/21/24 11:00 Hepatitis A IgM Ab Nonreactive Hep Bs Antigen Negative Hep Bs Antibody NONREACTIVE Hep B Core Total Ab Nonreactive Hepatitis C Ab (EIA) Nonreactive TB Test (T-Spot) Com Negative Assessment & Plan Assessment & Plan (1) Seronegative rheumatoid arthritis: Comment: Establish care 12/15/2023 for evaluation of polyarthralgias OA versus inflammatory arthritis RF and CCP negative, responds to prednisone. Plaquenil 12/2023 Methotrexate added to plaquenil 03/2024 Code(s): M06.00 - Rheumatoid arthritis without rheumatoid factor, unspecified site Category: Medical Plan: #Seronegative RA Patient is a 69-year-old female with seronegative rheumatoid arthritis here today for follow up. Unable to do TNF inhibitors like Enbrel and Humira because of her hx of MS and these are contraindicated IL6 inhibitors also contraindicated Plan - Rituximab 1000mg x 2 every 6 months - RTC for regular follow up (2) Encounter for monitoring rituximab therapy: Code(s): Z51.81 - Encounter for therapeutic drug level monitoring; Z79.620 - jail (current) use of immunosuppressive biologic Plan: #Long-term Use of Rituxumab Discussed with this patient the risks and benefits of rituximab use to the management of the rheumatic condition Benefits include improved disease control and maintenance of remission Risks include hypogammaglobulinemia and increased risk of opportunistic infections, reactivation of hepatitis-B, infusion reactions Monitoring: ?Immunoglobulins, hepatitis-B serologies, CBC Plan I spent 30 minutes reviewing the record and labs, discussing the treatment plan, signing consent forms, filing out infusion orders and documenting in the medical record Coding Level of Care Code Est Pt Level 4 (83742) Complex EM visit Add On G2211 Diagnoses Seronegative rheumatoid arthritis M06.00 Encounter for monitoring rituximab therapy Z51.81; Z79.620
[2024-11-26 15:53] VITALS: BP 124/70; PULSE 50; O2SAT 97; BMI 25.3
--- OUTSIDE RECORDS SUMMARY | 2024-11-26 17:45 | XMS_ITS | Encounter Summary ---
Author Organization [facility] Address [address] [employer] [facility] [address] [place] [address] Phone Care Team Providers Care Environmental Health And Safety Manager Name Role Phone Meliton Jones MD Primary Care Provider [phone] Encounter Details Date Type Department Care Team (Late st Contact Info) Description 05/29/2021 Transcribe Orders [facility] Specimen Processing [address] [place] [address] Meliton Jones MD 112 [facility] 2 [place] [address] Social History Tobacco Use Types Packs/Day Years [...] Date of Assessment Author No Risk Indicated 05/31/2021 2:07 PM EDT Dereje Morales CNP * [place] Suicide Severity Rating Scale (Screener/Recent Self-Report) Question Answer Date of Assessment Author 1. Wish to be (Past 1 Month) No 05/31/2021 2:07 PM EDT Dereje Morales CNP 2. Non-Specific Active Suicidal Thoughts (Past 1 Month) No 05/31/2021 2:07 PM EDT Dereje Morales CNP 6. Suicidal Behavior (Lifetime) No 05/31/2021 2:07 PM EDT Dereje Morales CNP documented as of this encounter Plan of Treatment Not on file documented as of this encounter Visit Diagnoses Not on filedocumented in this encounter Additional Health Concerns Infection Onset Date Last Indicated Resolved Time CoV-Exposed 06/01/2021 06/07/2021 06/12/2021 1:22 AM EDT COVID-19 12/28/2022 12/28/2022 01/18/2023 1:21 AM EDT CoV-Risk 04/29/2024 04/29/2024 05/10/2024 1:23 AM EST Influenza A 04/29/2024 04/29/2024 05/06/2024 1:23 AM EST documented as of this encounter Care Teams Environmental Health And Safety Manager Relationship Specialty Start Date End Date Meliton Jones MD [address] [place] [address] PCP - General Internal Medicine 02/15/17 documented as of this encounter Additional Source Comments The information contained in this document represents components of the legal health record. It is not the complete legal health record.[facility]
--- OUTSIDE RECORDS SUMMARY | 2024-11-26 17:45 | XMS_ITS | Encounter Summary ---
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) Social [...] EDT) PT 30.4(H) 10.2 - 12.9 sec [facility] INR 2.6(H) 0.9 - 1.1 [facility] Comment:Therapeutic range fo r oral Vitamin K antagonists: 2.0-3.5 Blood 06/08/2018 7:20 AM EDT 06/08/2018 8:50 AM EDT us Meliton Jones MD LAB BLOOD ORDERABLES Final Resul t [facility] [address] [place] [address] documented in this encounter Visit Diagnoses Diagnosis 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 It is not the complete legal health record.[facility]
--- OUTSIDE RECORDS SUMMARY | 2024-11-26 17:46 | XMS_ITS | Encounter Summary ---
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 (Primary Dx) Social [...] of this encounter Results * (ABNORMAL) PT-INR (05/11/2018 6:50 AM EST) PT 28.5(H) 10.2 - 12.9 sec [facility] INR 2.5(H) 0.9 - 1.1 [facility] Comment:Therapeutic range fo r oral Vitamin K antagonists: 2.0-3.5 Blood 05/11/2018 6:50 AM EST 05/11/2018 8:15 AM EST Meliton Jones MD LAB BLOOD ORDERABLES Final Resul t [facility] [address] [place] [address] documented in this encounter Visit Diagnoses Diagnosis 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 It is not the complete legal health record.[facility]
--- OUTSIDE RECORDS SUMMARY | 2024-11-26 17:46 | XMS_ITS | Encounter Summary ---
Author Organization [facility] Address [address] [employer] [facility] [address] [place] [address] Phone Care Team Providers Care Computer Hardware Developer Name Role Phone Meliton Jones MD Primary Care Provider [phone] Encounter Details Date Type Department Care Team (Late st Contact Info) Description 12/15/2022 Procedure Pass [facility], Ct Scan - [address] [address] Social History Tobacco Use Types Packs/Day Years Used Date Smoking Tobacco: Former Cigarettes Q uit: 2017 Smokeless Tobacco: Never Alcohol Use Standard Drinks/Week Comments No 0 (1 standard drink = 0.6 oz pur e alcohol) Education Answer Date Recorded Are you interested in more education? Not on maureen e 07/14/2022 Are you concerned about learning? Not on file 07/14/2022 No 07/14/2022 No 07/14/2022 Digital Access Answer Date Recorded No 08/12/2022 No 08/12/2022 Reliable internet access at home? Not on file 08/12/2022 Device with a working camera? Not on file Comments Unknown Sex and Gender Information Value [...] documented as of this encounter Care Teams Computer Hardware Developer Relationship Specialty Start Date End Date Meliton Jones MD [address] [place] [address] PCP - General Internal Medicine 02/15/17 documented as of this encounter Additional Source Comments The information contained in this document represents components of the legal health record. It is not the complete legal health record.[facility]
--- OUTSIDE RECORDS SUMMARY | 2024-11-26 17:46 | XMS_ITS | Encounter Summary ---
Author Organization [facility] Address [address] [employer] [facility] [address] [place] [address] Phone Care Team Providers Care Pocket Setter Lockstitch Name Role Phone Meliton Jones MD Primary Care Provider [phone] Encounter Details Date Type Department Care Team (Late st Contact Info) Description 05/31/2021 Procedure Pass [facility], Ct Scan - [address] [address] Social History Tobacco Use Types Packs/Day Years [...] 2:07 PM EDT Dereje Morales CNP * [place] Suicide Severity Rating Scale (Screener/Recent Self-Report) Question Answer Date of Assessment Author 1. Wish to be (Past 1 Month) No 05/31/2021 2:07 PM EDT Dereje Morales, COMMAND AND CONTROL 2. Non-Specific Active Suicidal Thoughts (Past 1 Month) No 05/31/2021 2:07 PM EDT Dereje Morales, COMMAND AND CONTROL 6. Suicidal Behavior (Lifetime) No 05/31/2021 2:07 PM EDT Dereje Morales, COMMAND AND CONTROL documented as of this encounter Plan of [...] documented as of this encounter Care Teams Pocket Setter Lockstitch Relationship Specialty Start Date End Date Meliton Jones MD [address] [place] [address] 2 [place] [address] PCP - General Internal Medicine 02/15/17 documented as of this encounter Additional Source Comments The information contained in this document represents components of the legal health record. It is not the complete legal health record.[facility]
--- OUTSIDE RECORDS SUMMARY | 2024-11-26 17:46 | XMS_ITS | Encounter Summary ---
Author Organization [facility] Address [address] [employer] [facility] [address] [place] [address] Phone Care Team Providers Care Environmental Studies Faculty Member Name Role Phone Meliton Jones MD Primary Care Provider [phone] Encounter Details Date Type Department Care Team (Late st Contact Info) Description 06/25/2018 Transcribe Orders [facility] Laboratory [address] [place] [address] Meliton Jones MD 112 [facility] [address] [place], [place] [phone] penitentiary (current) use of anticoagulants (Primary Dx) Social [...] documented as of this encounter Visit Diagnoses Diagnosis terminal carman (current) use of anticoagulants- Primary Long-term (current) [...] as of this encounter Care Teams Environmental Studies Faculty Member Relationship Specialty Start Date End Date Meliton Jones MD [address] [place] [address] PCP - General Internal Medicine 02/15/17 documented as of this encounter Additional Source Comments The information contained in this document represents components of the legal health record. It is not the complete legal health record.[facility]
--- OUTSIDE RECORDS SUMMARY | 2024-11-26 17:46 | XMS_ITS | Encounter Summary ---
Author Organization [facility] Address [address] [employer] [facility] [address] [place] [address] Phone Care Team Providers Care Contact Worker Lithography Name Role Phone Meliton Jones MD Primary Care Provider [phone] Encounter Details Date Type Department Care Team (Late st Contact Info) Description 05/31/2021 Procedure Pass [facility], [address] [phone] Social History Tobacco Use Types Packs/Day Years [...] 2:07 PM EDT Dereje Morales CNP * [place] Suicide Severity Rating Scale (Screener/Recent Self-Report) Question Answer Date of Assessment Author 1. Wish to be (Past 1 Month) No 05/31/2021 2:07 PM EDT Dereje Moralesy, SUPERVISOR BUILDING MAINTENANCE 2. Non-Specific Active Suicidal Thoughts (Past 1 Month) No 05/31/2021 2:07 PM EDT Dereje Morales, SUPERVISOR BUILDING MAINTENANCE 6. Suicidal Behavior (Lifetime) No 05/31/2021 2:07 PM EDT Dereje Morales, SUPERVISOR BUILDING MAINTENANCE documented as of this encounter Plan of [...] documented as of this encounter Care Teams Contact Worker Lithography Relationship Specialty Start Date End Date Meliton Jones MD [address] [place] [address] 2 [place] [address] PCP - General Internal Medicine 02/15/17 documented as of this encounter Additional Source Comments The information contained in this document represents components of the legal health record. It is not the complete legal health record.[facility]
--- OUTSIDE RECORDS SUMMARY | 2024-11-26 17:46 | XMS_ITS | Encounter Summary ---
Author Organization [facility] Address [address] [facility] [address] [place] [address] Phone Care Team Providers Care Oil Well Service Operator Helper Name Role Phone Meliton Jones MD Primary Care Provider [phone] Encounter Details Date Type Department Care Team (Late st Contact Info) Description 05/31/2021 Procedure Pass [facility], Ct Scan - [address] [address] Social History Tobacco Use Types Packs/Day Years [...] 2:07 PM EDT Dereje Morales CNP * [place] Suicide Severity Rating Scale (Screener/Recent Self-Report) Question Answer Date of Assessment Author 1. Wish to be (Past 1 Month) No 05/31/2021 2:07 PM EDT Dereje Morales, LABORER HEADING 2. Non-Specific Active Suicidal Thoughts (Past 1 Month) No 05/31/2021 2:07 PM EDT Dereje Morales, LABORER HEADING 6. Suicidal Behavior (Lifetime) No 05/31/2021 2:07 PM EDT Dereje Morales, LABORER HEADING documented as of this encounter Plan of [...] documented as of this encounter Care Teams Oil Well Service Operator Helper Relationship Specialty Start Date End Date Meliton Jones MD [address] [place] [address] 2 [place] [address] PCP - General Internal Medicine 02/15/17 documented as of this encounter Additional Source Comments The information contained in this document represents components of the legal health record. It is not the complete legal health record.[facility]
--- OUTSIDE RECORDS SUMMARY | 2024-11-26 17:46 | XMS_ITS | Encounter Summary ---
Author Organization [facility] Address [address] [facility] [address] [place] [address] Phone Care Team Providers Care Verification Manager Name Role Phone Meliton Jones MD Primary Care Provider [phone] Encounter Details Date Type Department Care Team (Late st Contact Info) Description 05/31/2021 Procedure Pass [facility] [address] [place] [address] Social History Tobacco Use Types Packs/Day Years [...] 2:07 PM EDT Dereje Morales CNP * [place] Suicide Severity Rating Scale (Screener/Recent Self-Report) Question Answer Date of Assessment Author 1. Wish to be (Past 1 Month) No 05/31/2021 2:07 PM EDT Dereje Moralesy, SURVEILLANCE SYSTEMS ENGINEER 2. Non-Specific Active Suicidal Thoughts (Past 1 Month) No 05/31/2021 2:07 PM EDT Dereje Moralesy, SURVEILLANCE SYSTEMS ENGINEER 6. Suicidal Behavior (Lifetime) No 05/31/2021 2:07 PM EDT Dereje Moralesy, SURVEILLANCE SYSTEMS ENGINEER documented as of this encounter Plan of [...] documented as of this encounter Care Teams Verification Manager Relationship Specialty Start Date End Date Meliton Jones MD [address] [place] [address] 2 [place] [address] PCP - General Internal Medicine 02/15/17 documented as of this encounter Additional Source Comments The information contained in this document represents components of the legal health record. It is not the complete legal health record.[facility]
--- OUTSIDE RECORDS SUMMARY | 2024-11-26 17:46 | XMS_ITS | Encounter Summary ---
Author Organization [facility] Address [address] [employer] [facility] [address] [place] [address] Phone Care Team Providers Care Director Of Trauma Name Role Phone Meliton oJnes MD Primary Care Provider [phone] Encounter Details Date Type Department Care Team (Late st Contact Info) Description 12/15/2022 Procedure Pass , Ct Scan - [address] [address] Social History Tobacco Use Types Packs/Day Years [...] documented as of this encounter Care Teams Director Of Trauma Relationship Specialty Start Date End Date Meliton Jones MD [address] [place] [address] PCP - General Internal Medicine 02/15/17 documented as of this encounter Additional Source Comments The information contained in this document represents components of the legal health record. It is not the complete legal health record.[facility]
--- OUTSIDE RECORDS SUMMARY | 2024-11-26 17:46 | XMS_ITS | Clinical Summary ---
Author Organization [facility] Address [address] [place] [address] Care Team Providers Care Fuel Storage Technician Name Role Phone Meilton Jones MD Primary Care Provider [phone] Allergies Active Allergy Reactions Criticality Noted Date Comments Penicillins 07/15/2017 Seasonal 09/15/2023 Other reaction(s): runny nose, itch seasonal allergy-pollen Medications Medication Sig Dispensed Refills Start Date End Date Status Magnesium 100 MG CAPS Take 400 mg by mouth. 0 06/02/2021 Active amantadine (SYMMETREL) 100 MG capsule 0 05/20/2021 Active atorvastatin (LIPITOR) tablet 20 mg 0 05/12/2023 Active Cholecalciferol 1.25 MG (75666 UT) capsule 0 11/25/2022 Active clonazePAM (KlonoPIN) [...] 06/28/2019 05/13/2015, 11/21/2012 COVID-19 Vaccine ( season) 2024 12/31/2020 Influenza Vaccine (#1) 2024 , 11/11/2019, [...] age to complete this topic Care Teams Fuel Storage Technician Relationship Specialty Start Date End Date Meliton Jones MD [address] [place] [address] [address] [place] [address] PCP - General Internal Medicine 04/26/23
--- OUTSIDE RECORDS SUMMARY | 2024-11-26 17:46 | XMS_ITS | Encounter Summary ---
Author Organization [facility] Address [address] [facility] [address] [place] [address] Phone Care Team Providers Care Station Worker Name Role Phone Meliton Jones MD Primary Care Provider [phone] Reason for Referral * MRI/CAT Scan - Closed Specialty Diagnoses / Procedures Referred By Contac t Referred To Contact Radiology Diagnoses Hyponatremia Procedures CT Chest Scottie Hill MD [address] [place] [address] Phone: tel: fax: mailto:[email or web address] Referral ID Status Reason Start Date Expiration Date Visits Re quested Visits Authorized [id number] Closed 12/15/2022 1 1 * MRI/CAT Scan - Closed Specialty Diagnoses / Procedures Referred By Contac t Referred To Contact Radiology Diagnoses Hyponatremia Procedures CT Abdomen Only (No Pelvis) Scottie Hill MD [address] [place] [address] Phone: tel: fax: mailto:[email or web address] Referral ID Status Reason Start Date Expiration Date Visits Re quested Visits Authorized [id number] Closed 12/15/2022 1 1 Encounter Details Date Type Department Care Team (Latest Contact Info) Description 12/15/2022 Transcribe Orders Virtual Department [address] [place] [address] Scottie Hill MD [address] [address] Hyponatremia (Primary Dx) Social History Tobacco Use Types [...] documented as of this encounter Results * CT CHEST WITH CONTRAST (12/27/2022 2:41 PM EDT) Anatomical Region Laterality Modality Chest Computed Tomogra phy 12/28/2022 9:38 AM EDT Impressions 12/28/2022 4:16 PM EDT No lung mass. Stable pulmonary nodules since 02/21/2021, most likely benign. Narrative 12/28/2022 4:[address] CHEST WITH CONTRAST TECHNIQUE: Multidetector CT of the chest was performed with intravenous contrast using tailored dose modulation techniques. COMPARISON: As per report. FINDINGS: Devices/Tubes/Lines: None. Lungs: Central airways are patent. No consolidation. Calcified granulomas. Stable pulmonary nodules since 02/21/2021, for example a 6 mm subpleural right middle lobe nodule and 4:192 and 3 mm lingular nodule on 4:170. No new or enlarging pulmonary nodules. Pleura: Normal. No pleural effusion or pneumothorax. Mediastinum: Normal. No thyroid nodules. Heart and pericardium are normal. Lymph Nodes: Normal. No enlarged supraclavicular, axillary, mediastinal, or hilar lymph nodes. Upper Abdomen: Reported separately. Chest Wall: Normal. No chest wall mass. Bones: Spine degenerative changes. No suspicious focal osseous lesion. Procedure Note Stoney Wiley MD - 12/28/2022 CT CHEST WITH CONTRAST TECHNIQUE: Multidetector CT of the chest was performed with intravenouscontrast using tailored dose modulation techniques. COMPARISON: As per report. FINDINGS: Devices/Tubes/Lines: None. Lungs: Central airways are patent. No consolidation. Calcified granulomas.Stable pulmonary nodules since 02/21/2021, for example a 6 mm subpleuralright middle lobe nodule and 4:192 and 3 mm lingular nodule on 4:170. Nonew or enlarging pulmonary nodules. Pleura: Normal. No pleural effusion or pneumothorax. Mediastinum: Normal. No thyroid nodules. Heart and pericardium arenormal. Lymph Nodes: Normal. No enlarged supraclavicular, axillary, mediastinal,or hilar lymph nodes. Upper Abdomen: Reported separately. Chest Wall: Normal. No chest wall mass. Bones: Spine degenerative changes. No suspicious focal osseous lesion. IMPRESSION: No lung mass. Stable pulmonary nodules since 02/21/2021, most likely benign. 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 Consider follow-up MRI in 3-6 months, which could provide an assessment of temporal stability and further diagnostic characterization of the enhancement characteristics, to see if it is clearly vascular. Consider ordering is an MRI pelvis, with instructions to include a higher field of view to ensure coverage. Otherwise, no specific evidence of mass lesion in the abdomen. Narrative 12/28/2022 4:[address] ABDOMEN WITH CONTRAST TECHNIQUE: Multidetector-row CT of the abdomen was performed after administration of intravenous contrast using tailored dose modulation techniques. Images were reconstructed in the axial, coronal, and sagittal planes COMPARISON: CT abdomen/pelvis 07/14/2022. FINDINGS: Lower Chest: Reported separately. Liver: No suspicious focal liver lesion. Biliary: No biliary ductal dilatation. Spleen: Normal. No splenomegaly or focal lesions. Pancreas: Normal. No masses or ductal dilatation. Adrenal Glands: Nodular bilateral adrenal thickening, similar to prior. Kidneys/Ureters: No solid renal mass or hydronephrosis. Focal right renal cortical scarring. Bowel: No bowel obstruction or wall thickening. Peritoneum/Retroperitoneum: Mild mesenteric panniculitis, most likely clinically insignificant. Tubular soft tissue density structure along the right inferior retroperitoneum on 2:54, which has enlarged from 07/14/2022, now measuring up to 2.5 x 1.7 cm in the axial plane (previously 1.2 x 0.8 cm when measured similarly) and appears contiguous with the right gonadal vein. Lymph Nodes: Normal. No lymphadenopathy. Vessels: No abdominal aortic aneurysm. Bones/Soft Tissues: No suspicious focal osseous lesion. Spine degenerative changes. Procedure Note Stoney Wiley MD - 12/28/2022 CT ABDOMEN WITH CONTRAST TECHNIQUE: Multidetector-row CT of the abdomen was performed afteradministration of intravenous contrast using tailored dose modulationtechniques. Images were reconstructed in the axial, coronal, and sagittalplanes COMPARISON: CT abdomen/pelvis 07/14/2022. FINDINGS: Lower Chest: Reported separately. Liver: No suspicious focal liver lesion. Biliary: No biliary ductal dilatation. Spleen: Normal. No splenomegaly or focal lesions. Pancreas: Normal. No masses or ductal dilatation. Adrenal Glands: Nodular bilateral adrenal thickening, similar to prior. Kidneys/Ureters: No solid renal mass or hydronephrosis. Focal right renalcortical scarring. Bowel: No bowel obstruction or wall thickening. Peritoneum/Retroperitoneum: Mild mesenteric panniculitis, most likelyclinically insignificant. Tubular soft tissue density structure along theright inferior retroperitoneum on 2:54, which has enlarged from 07/14/2022,now measuring up to 2.5 x 1.7 cm in the axial plane (previously 1.2 x 0.8cm when measured similarly) and appears contiguous with the right gonadalvein. Lymph Nodes: Normal. No lymphadenopathy. Vessels: No abdominal aortic aneurysm. Bones/Soft Tissues: No suspicious focal osseous lesion. Spine degenerativechanges. IMPRESSION: Enlargement of tubular soft tissue density structure along the rightretroperitoneum, which appears contiguous with the gonadal vein, and mayreflect an enlarging venous varix. Consider follow-up MRI in 3-6 months,which could provide an assessment of temporal stability and furtherdiagnostic characterization of the enhancement characteristics, to see ifit is clearly vascular. Consider ordering is an MRI pelvis, withinstructions to include a higher field of view to ensure coverage. Otherwise, no specific evidence of mass lesion in the abdomen. us Scottie Hlil MD IM CT XSPECIALTY ORDERABLES Fin al Result documented in this encounter Visit Diagnoses Diagnosis Hyponatremia- Primary Hyposmolality and/or hyponatremia Hyponatremia Hyposmolality and/or hyponatremia documented in this encounter Additional Health Concerns Infection Onset Date Last Indicated Resolved Time COVID-19 12/28/2022 12/28/2022 01/18/2023 1:21 AM EDT CoV-Risk 04/29/2024 04/29/2024 05/10/2024 1:23 AM EST Influenza A 04/29/2024 04/29/2024 05/06/2024 1:23 AM EST documented as of this encounter Care Teams Station Worker Relationship Specialty Start Date End Date Meliton Jones MD [address] [place] [address] PCP - General Internal Medicine 02/15/17 documented as of this encounter Additional Source Comments The information contained in this document represents components of the legal health record. It is not the complete legal health record.[facility]
--- OUTSIDE RECORDS SUMMARY | 2024-11-26 17:46 | XMS_ITS | Encounter Summary ---
Author Organization [facility] Address [address] [facility] [address] [place] [address] Phone Care Team Providers Care Copy Writer Name Role Phone Meliton Jones MD Primary Care Provider [phone] Encounter Details Date Type Department Care Team (Late st Contact Info) Description 05/31/2021 Procedure Pass [facility], Ct Scan - [address] [address] Social History Tobacco Use Types Packs/Day Years [...] 2:07 PM EDT Dereje Morales CNP * [place] Suicide Severity Rating Scale (Screener/Recent Self-Report) Question Answer Date of Assessment Author 1. Wish to be (Past 1 Month) No 05/31/2021 2:07 PM EDT Dereje Morales, WAGON WASHER 2. Non-Specific Active Suicidal Thoughts (Past 1 Month) No 05/31/2021 2:07 PM EDT Dereje Morales, WAGON WASHER 6. Suicidal Behavior (Lifetime) No 05/31/2021 2:07 PM EDT Dereje Morales, WAGON WASHER documented as of this encounter Plan of [...] documented as of this encounter Care Teams Copy Writer Relationship Specialty Start Date End Date Meliton Jones MD [address] [place] [address] 2 [place] [address] PCP - General Internal Medicine 02/15/17 documented as of this encounter Additional Source Comments The information contained in this document represents components of the legal health record. It is not the complete legal health record.[facility]
--- OUTSIDE RECORDS SUMMARY | 2024-11-26 17:46 | XMS_ITS | Encounter Summary ---
Author Organization [facility] Address [address] [facility] [address] [place] [address] Phone Care Team Providers Care Building Code Administrator Name Role Phone Meliton Jones MD Primary Care Provider [phone] Encounter Details Date Type Department Care Team (Late st Contact Info) Description 03/03/2022 Procedure Pass [facility], Ct Scan - [address] [address] Social History Tobacco Use Types Packs/Day Years [...] documented as of this encounter Care Teams Building Code Administrator Relationship Specialty Start Date End Date Meliton Jones MD [address] [place] [address] PCP - General Internal Medicine 02/15/17 documented as of this encounter Additional Source Comments The information contained in this document represents components of the legal health record. It is not the complete legal health record.[facility]
--- OUTSIDE RECORDS SUMMARY | 2024-11-26 17:46 | XMS_ITS | Encounter Summary ---
Author Organization [facility] Address [address] [facility] [address] [place] [address] Phone Care Team Providers Care Physical Therapy Asst Name Role Phone Meliton Jones MD Primary Care Provider Encounter Details Date Type Department Care Team (Late st Contact Info) Description 07/14/2022 Procedure Pass [facility], Ct Scan - [address] [address] Social History Tobacco Use Types Packs/Day Years Used Date Smoking Tobacco: Former Cigarettes Q uit: 2017 Smokeless Tobacco: Never Alcohol Use Standard Drinks/Week Comments No 0 (1 standard drink = 0.6 oz pur e alcohol) Education Answer Date Recorded Are you interested in more education? Not on maureen e 07/14/2022 Are you concerned about learning? Not on file 07/14/2022 No 07/14/2022 No 07/14/2022 Comments Unknown Sex and Gender Information Value Date Recorded Sex Assigned at Female 07/15/2017 10:07 AM EDT Legal Sex Female 9:56 PM EDT Gender Identity Female 07/15/2017 10:07 AM EDT Sexual Orientation Straight 07/14/2022 12 :21 PM EDT documented as of this encounter Functional Status * Calculated C-SSRS Risk Score (Lifetime/Recent) Answer Date of Assessment Author No Risk Indicated 07/14/2022 12:21 PM EDT Neena Spaulding, RN * [place] Suicide Severity Rating Scale (Screener/Recent Self-Report) Question Answer Date of Assessment Author 1. Wish to be (Past 1 Month) No 023 12:21 PM EDT Neena Kennedy, RN 2. Non-Specific Active Suici diane Thoughts (Past 1 Month) No 07/14/2022 12:21 PM EDT Adelina Kennedy RN 6. Suicidal Behavior (Lifetime) No 12:21 PM EDT Neena Kennedy, RN documented as of this encounter Plan [...] documented as of this encounter Care Teams Physical Therapy Asst Relationship Specialty Start Date End Date Meliton Jones MD [address] [place] [address] PCP - General Internal Medicine 02/15/17 documented as of this encounter Additional Source Comments The information contained in this document represents components of the legal health record. It is not the complete legal health record.[facility]
--- OUTSIDE RECORDS SUMMARY | 2024-11-26 17:47 | XMS_ITS | Encounter Summary ---
Author Organization [facility] Address [address] [facility] [address] [place] [address] Phone Care Team Providers Care Carboy Filler Name Role Phone Unknown, Unknown Primary Care Provider Meliton Nice MD Primary Care Provider [phone] Encounter Details Date Type Department Care Team (Late st Contact Info) Description 01/20/2017 Transcribe Orders [facility] Laboratory [address] [place] [address] System, Provider Not In, [place] [address] History of Coumadin therapy (Primary Dx) Social History Tobacco Use Types Packs/Day Years Used Date Smoking Tobacco: Never Assessed Comments Unknown Sex and Gender Information Value Date Recorded Sex Assigned at Female 07/15/2017 10:07 AM EDT Legal Sex Female 9:56 PM EDT Gender Identity Female 07/15/2017 10:07 AM EDT Sexual Orientation Straight 07/14/2022 12 :21 PM EDT documented as of this encounter Plan of Treatment Not on file documented as of this encounter Procedures Procedure Name Priority Date/Time Associated Diagnosis Comments PT-INR Routine 01/20/2017 7:10 AM EDT History of Coumadin therapy documented in this encounter Results * (ABNORMAL) PT-INR (01/20/2017 7:10 AM EDT) PT 24.6(H) 10.2 - 12.9 sec [facility] INR 2.2(H) 0.9 - 1.1 [facility] Comment:Therapeutic range fo r oral Vitamin K antagonists: 2.0-3.5 Blood 01/20/2017 7:10 AM EDT 01/20/2017 9:47 AM EDT us Provider Not In System PhD LAB BLOOD ORDERABLES Final Result [facility] [address] [place] [address] documented in this encounter Visit Diagnoses Diagnosis History of Coumadin therapy- Primary documented in this encounter Additional Health Concerns Infection Onset Date Last Indicated Resolved Time CoV-Risk 02/21/2021 02/21/2021 03/03/2021 1:22 AM EST CoV-Exposed 06/01/2021 06/07/2021 06/12/2021 1:22 AM EDT COVID-19 12/28/2022 12/28/2022 01/18/2023 1:21 AM EDT CoV-Risk 04/29/2024 04/29/2024 05/10/2024 1:23 AM EST Influenza A 04/29/2024 04/29/2024 05/06/2024 1:23 AM EST documented as of this encounter Care Teams Carboy Filler Relationship Specialty Start Date End Date Unknown, Unknown, MD PCP - General 01/20/17 02/14/17 Meliton Jones MD [address] [place] [address] PCP - General Internal Medicine 02/15/17 documented as of this encounter Additional Source Comments The information contained in this document represents components of the legal health record. It is not the complete legal health record.[facility]
--- OUTSIDE RECORDS SUMMARY | 2024-11-26 17:47 | XMS_ITS | Encounter Summary ---
Author Organization [facility] Address [address] [facility] [address] [place] [address] Phone Care Team Providers Care Ornithology Teacher Name Role Phone Meliton Jones MD Primary Care Provider [phone] Encounter Details Date Type Department Care Team (Late st Contact Info) Description 02/16/2017 Transcribe Orders [facility] Laboratory [address] [place] [address] Meliton Jones MD [address] [facility] [address] [place] [address] Admission for long-term (current) use of anticoagulants (Primary Dx) Social [...] Priority Date/Time Associated Diagnosis Comments PT-INR Routine 02/16/2017 6:20 AM EST Admission for long-term (current) use of anticoagulants documented in this encounter Results * (ABNORMAL) PT-INR (02/16/2017 6:20 AM EST) PT 36.8(H) 10.2 - 12.9 sec [facility] INR 3.2(H) 0.9 - 1.1 [facility] Comment:Therapeutic range fo r oral Vitamin K antagonists: 2.0-3.5 Blood 02/16/2017 6:20 AM EST 02/16/2017 7:35 AM EST us Meliton Jones MD LAB BLOOD ORDERABLES Final Resul t [address] [address] documented in this encounter Visit Diagnoses Diagnosis Admission for long-term (current) use of anticoagulants- Primary Encounter for long-term (current) use of anticoagulants documented in this encounter Additional Health Concerns Infection Onset Date Last Indicated Resolved Time CoV-Risk 02/21/2021 02/21/2021 03/03/2021 1:22 AM EST CoV-Exposed 06/01/2021 06/07/2021 06/12/2021 1:22 AM EDT COVID-19 12/28/2022 12/28/2022 01/18/2023 1:21 AM EDT CoV-Risk 04/29/2024 04/29/2024 05/10/2024 1:23 AM EST Influenza A 04/29/2024 04/29/2024 05/06/2024 1:23 AM EST documented as of this encounter Care Teams Ornithology Teacher Relationship Specialty Start Date End Date Meliton Jones MD [address] [place] [address] 2 [place] [address] PCP - General Internal Medicine 02/15/17 documented as of this encounter Additional Source Comments The information contained in this document represents components of the legal health record. It is not the complete legal health record.[facility]
--- OUTSIDE RECORDS SUMMARY | 2024-11-26 17:47 | XMS_ITS | Encounter Summary ---
Author Organization [facility] Address [address] [facility] [address] [place] [address] Phone Care Team Providers Care Disk Grinder Name Role Phone Meliton Jones MD Primary Care Provider [phone] Encounter Details Date Type Department Care Team (Late st Contact Info) Description 09/19/2022 Procedure Pass , Ct Scan - [address] [address] Social History Tobacco Use Types Packs/Day Years [...] documented as of this encounter Care Teams Disk Grinder Relationship Specialty Start Date End Date Meliton Jones MD [address] [place] [address] PCP - General Internal Medicine 02/15/17 documented as of this encounter Additional Source Comments The information contained in this document represents components of the legal health record. It is not the complete legal health record.[facility]
--- OUTSIDE RECORDS SUMMARY | 2024-11-26 17:47 | XMS_ITS | Encounter Summary ---
Author Organization [facility] Address [address] [employer] [facility] [address] [place] [address] Phone Care Team Providers Care Firm Administrator Name Role Phone Unknown, Unknown Primary Care Provider Meliton Nice MD Primary Care Provider [phone] Encounter Details Date Type Department Care Team (Late st Contact Info) Description 02/02/2017 Transcribe Orders [facility] Laboratory [address] [place] [address] Meliton Jones MD [address] [facility] 2 [place] [address] Admission for long-term (current) use of anticoagulants [...] Priority Date/Time Associated Diagnosis Comments PT-INR Routine 02/02/2017 12:40 PM EST Admission for long-term (current) use of anticoagulants documented in this encounter Results * (ABNORMAL) PT-INR (02/02/2017 12:40 PM EST) PT 33.2(H) 10.2 - 12.9 sec [facility] INR 2.9(H) 0.9 - 1.1 [facility] Comment:Therapeutic range fo r oral Vitamin K antagonists: 2.0-3.5 Blood 02/02/2017 12:4 0 PM EST 02/02/2017 12:47 PM EST us Meliton Jones MD LAB BLOOD ORDERABLES Final Resul t [facility] 30 [place] [address] documented in this encounter Visit Diagnoses Diagnosis [...] documented as of this encounter Care Teams Firm Administrator Relationship Specialty Start Date End Date Unknown, Unknown, MD PCP - General 01/20/17 02/14/17 Meliton Jones MD [address] [place] [address] PCP - General Internal Medicine 02/15/17 documented as of this encounter Additional Source Comments The information contained in this document represents components of the legal health record. It is not the complete legal health record.[facility]
--- OUTSIDE RECORDS SUMMARY | 2024-11-26 17:47 | XMS_ITS | Encounter Summary ---
Author Organization [facility] Address [address] [facility] [address] [place] [address] Phone Care Team Providers Care Technology Development Intern Name Role Phone Meliton Jones MD Primary Care Provider [phone] Encounter Details Date Type Department Care Team (Late st Contact Info) Description 03/01/2023 Procedure Pass [facility], [address] [address] Social History Tobacco Use Types Packs/Day Years [...] Onset Date Last Indicated Resolved Time CoV-Risk 04/29/2024 04/29/2024 05/10/2024 1:23 AM EST Influenza A 04/29/2024 04/29/2024 05/06/2024 1:23 AM EST documented as of this encounter Care Teams Technology Development Intern Relationship Specialty Start Date End Date Meliton Jones MD [address] [place] [address] PCP - General Internal Medicine 02/15/17 documented as of this encounter Additional Source Comments The information contained in this document represents components of the legal health record. It is not the complete legal health record.[facility]
--- OUTSIDE RECORDS SUMMARY | 2024-11-26 17:47 | XMS_ITS | Encounter Summary ---
Author Organization [facility] Address [address] [facility] [address] [place] [address] Phone Care Team Providers Care Ecosystem Ecology Professor Name Role Phone Meliton Jones MD Primary Care Provider [phone] Reason for Visit * Reason Comments Medication Refill Encounter Details Date Type Department Care Team (Late st Contact Info) Description 09/28/2024 Refill [facility] at [address] [address] Meng Otoole PA-C [address] [facility], [address] [place] [address] [email or web address] Medication Refill Social History Tobacco Use Types Packs/Day Years [...] on filedocumented in this encounter Care Teams Ecosystem Ecology Professor Relationship Specialty Start Date End Date Meliton Jones MD [address] [facility] 2 [place] [address] PCP - General Internal Medicine 02/15/17 documented as of this encounter Additional Source Comments The information contained in this document represents components of the legal health record. It is not the complete legal health record.[facility]
--- OUTSIDE RECORDS SUMMARY | 2024-11-26 17:47 | XMS_ITS | Encounter Summary ---
Author Organization [facility] Address [address] [facility] [address] [place] [address] Phone Care Team Providers Care Nursing Assistants Teacher Name Role Phone Meliton Jones MD Primary Care Provider [phone] Encounter Details Date Type Department Care Team (Late st Contact Info) Description 02/15/2017 Ancillary Orders [facility], X-Ray - [address] [address] Meliton Jones MD 112 [facility] [address] [place] [address] Right hip pain Social History Tobacco Use Types Packs/Day Years [...] documented as of this encounter Results * XR HIP 2-3 VW RIGHT (02/15/2017 11:25 AM EST) Anatomical Region Laterality Modality Hip Right Radiographic Dianelys ging 02/15/2017 11:2 7 AM EST Impressions 02/15/2017 11:28 AM EST Degenerative periarticular spurring and possible CAM impingement without acute bony abnormality or specific radiographic findings of avascular necrosis identified. Nonspecific dorsal soft tissue calcifications possibly related to myositis ossificans. POS [id number] Narrative 02/15/2017 11:28 AM EST COMPARISON: None FINDINGS: Frontal and lateral views disclose no fracture, subluxation, or other acute bony abnormality. There is mild periacetabular spurring with additional spurring noted along the dorsal aspect of the humeral head/neck junction and with cortical thickening present along the ventral head/neck junction raising possibility of underlying CAM impingement. Femoral head articular surface is smooth. There are multiple soft tissue calcifications of unknown etiology along the posterior aspect of the femoral neck, possibly representing myositis and more extensive than would be expected for loose bodies. No other significant bony abnormality apparent. Procedure Note Anderson Monge MD - 02/15/2017 COMPARISON: None FINDINGS: Frontal and lateral views disclose no fracture, subluxation, or otheracute bony abnormality. There is mild periacetabular spurring withadditional spurring noted along the dorsal aspect of the humeral head/neckjunction and with cortical thickening present along the ventral head/neckjunction raising possibility of underlying CAM impingement. Femoral headarticular surface is smooth. There are multiple soft tissuecalcifications of unknown etiology along the posterior aspect of thefemoral neck, possibly representing myositis and more extensive than wouldbe expected for loose bodies. No other significant bony abnormalityapparent. IMPRESSION: Degenerative periarticular spurring and possible CAM impingement withoutacute bony abnormality or specific radiographic findings of avascularnecrosis identified. Nonspecific dorsal soft tissue calcificationspossibly related to myositis ossificans. POS [id number] Meliton Jones MD IMG XR PELVIS Final Result documented in this encounter Visit Diagnoses Diagnosis Right hip pain Pain in joint, pelvic region and thigh Right hip pain Pain in joint, pelvic region and thigh documented in this encounter Additional Health Concerns Infection Onset Date Last Indicated Resolved Time CoV-Risk 02/21/2021 02/21/2021 03/03/2021 1:22 AM EST CoV-Exposed 06/01/2021 06/07/2021 06/12/2021 1:22 AM EDT COVID-19 12/28/2022 12/28/2022 01/18/2023 1:21 AM EDT CoV-Risk 04/29/2024 04/29/2024 05/10/2024 1:23 AM EST Influenza A 04/29/2024 04/29/2024 05/06/2024 1:23 AM EST documented as of this encounter Care Teams Nursing Assistants Teacher Relationship Specialty Start Date End Date Meliton Jones MD [address] [place], [place] [id number] PCP - General Internal Medicine 02/15/17 documented as of this encounter Additional Source Comments The information contained in this document represents components of the legal health record. It is not the complete legal health record.[facility]
--- OUTSIDE RECORDS SUMMARY | 2024-11-26 17:47 | XMS_ITS | Encounter Summary ---
Author Organization [facility] Address [address] [facility] [address] [place] [address] Phone Care Team Providers Care Embosser Operator Name Role Phone Meliton Jones MD Primary Care Provider [phone] Encounter Details Date Type Department Care Team (Late st Contact Info) Description 08/18/2023 Procedure Pass [facility], Ct Scan - [address] [address] Social History Tobacco Use Types Packs/Day Years [...] with a working camera? Not on file Intimate Partner Violence Answer Date R ecorded Are you denied basic needs s uch as food, clothing, or medical care? No 08/18/2023 In the past 12 months have y ou been in a relationship with a person who hurts, threatens, or tries to control you? No 08/18/2023 Are you denied basic needs s uch as food, clothing, or medical care? No 08/18/2023 In the past 12 months have y ou been in a relationship with a person who hurts, threatens, or tries to control you? No 08/18/2023 Comments Unknown Sex and Gender Information Value Date Recorded Sex Assigned at Female 07/15/2017 10:07 AM EDT Legal Sex Female 9:56 PM EDT Gender Identity Female 07/15/2017 10:07 AM EDT Sexual Orientation Straight 07/14/2022 12 :21 PM EDT documented as of this encounter Functional Status * Calculated C-SSRS Risk Score (Lifetime/Recent) Answer Date of Assessment Author No Risk Indicated 08/18/2023 1:21 PM EDT Neena Perez RN * [place] Suicide Severity Rating Scale (Screener/Recent Self-Report) Question Answer Date of Assessment Author 1. Wish to be (Past 1 Month) No 024 1:21 PM EDT Neena Kennedy RN 2. Non-Specific Active Suici diane Thoughts (Past 1 Month) No 08/18/2023 1:21 PM EDT Neena Kennedy RN 6. Suicidal Behavior (Lifetime) No 4 1:21 PM EDT Neena Kennedy RN documented as of this encounter Plan of Treatment Not on file documented as of this encounter Visit Diagnoses Not on filedocumented in this encounter Additional Health Concerns Infection Onset Date Last Indicated Resolved Time CoV-Risk 04/29/2024 04/29/2024 05/10/2024 1:23 AM EST Influenza A 04/29/2024 04/29/2024 05/06/2024 1:23 AM EST documented as of this encounter Care Teams Embosser Operator Relationship Specialty Start Date End Date Meliton Jones MD [address] [place] [id number] PCP - General Internal Medicine 02/15/17 documented as of this encounter Additional Source Comments The information contained in this document represents components of the legal health record. It is not the complete legal health record.[facility]
--- OUTSIDE RECORDS SUMMARY | 2024-11-26 17:47 | XMS_ITS | Encounter Summary ---
Author Organization [facility] Address [address] [facility] [address] [place] [address] Phone Care Team Providers Care Sap Analyst Name Role Phone Meliton Jones MD Primary Care Provider [phone] Reason for Referral * MRI/CAT Scan - Closed Specialty Diagnoses / Procedures Referred By Contac t Referred To Contact Radiology Diagnoses Abnormal CT scan Procedures MRI Pelvis (GI/) Meliton Jones MD Phone: tel: fax: Referral ID Status Reason Start Date Expiration Date Visits Re quested Visits Authorized [id number] Closed 03/01/2023 1 1 * MRI/CAT Scan - Closed Specialty Diagnoses / Procedures Referred By Contac t Referred To Contact Radiology Diagnoses Abnormal CT scan Procedures MRI Abdomen Meliton Jones MD Phone: tel: fax: Referral ID Status Reason Start Date Expiration Date Visits Re quested Visits Authorized [id number] Closed 03/01/2023 1 1 Encounter Details Date Type Department Care Team (Late st Contact Info) Description 03/01/2023 Transcribe Orders Virtual Department [address] [place] [address] Meliton Jones MD 112 [facility] [address] [place] [address] scan (Primary Dx) Social History Tobacco Use Types [...] documented as of this encounter Results * MRI PELVIS WITH AND WITHOUT CONTRAST (04/01/2023 10:35 AM EST) Anatomical Region Laterality Modality Pelvis Magnetic Resonan ce 04/02/2023 6:19 AM EST Impressions 04/02/2023 8:51 AM EST Similar 2.5 cm tubular structure in question along the course of the right gonadal vein demonstrates signal characteristics suggesting it is 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 No further dedicated follow-up imaging is required. 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 No main pancreatic duct dilation. Narrative 04/02/2023 8:51 AM EST MRI ABDOMEN WITH AND WITHOUT CONTRAST, MRI PELVIS WITH AND WITHOUT CONTRAST Referring clinician's provided indication for this examination in [facility]: Outside Radiology Order; ABNORMAL CT SCAN OF ABDOMEN AND PELVIS TECHNIQUE: Multiplanar MR imaging of the abdomen was performed using T1, T2, fat saturated, and diffusion weighted techniques. Dynamic multiphase imaging was also performed after administration of an intravenous gadolinium contrast agent. COMPARISON: CT abdomen 12/27/2022 FINDINGS: Lower Chest: Normal. No consolidation or pleural effusions. Liver: No suspicious focal liver lesion. Biliary: No biliary ductal dilatation. Cholelithiasis. Spleen: Normal. No splenomegaly or focal lesions. Pancreas: A few punctate cystic pancreatic foci, measuring up to 3 mm in the tail and 8:81. No main pancreatic duct dilation Adrenal Glands: Normal. No nodules. Kidneys/Ureters: No solid renal mass or hydronephrosis. Focal scarring in the midpole of the right kidney. Punctate benign left renal cysts. Bowel: No bowel obstruction or wall thickening. Peritoneum/Retroperitoneum: Normal. No masses, pneumoperitoneum, or fluid. Lymph Nodes: Normal. No lymphadenopathy. Pelvic Organs/Bladder: Fibroid uterus colonic diverticulosis. Vessels: No abdominal aortic aneurysm. 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 There is a similar venous varix on the left measuring up to 1.5 cm on 16:100. Bones/Soft Tissues: No suspicious focal osseous lesion. Spine degenerative changes. Procedure Note Stoney Wiley MD - 04/02/2023 MRI ABDOMEN WITH AND WITHOUT CONTRAST, MRI PELVIS WITH AND WITHOUTCONTRAST Referring clinician's provided indication for this examination in [facility]:Outside Radiology Order; ABNORMAL CT SCAN OF ABDOMEN AND PELVIS TECHNIQUE: Multiplanar MR imaging of the abdomen was performed using T1,T2, fat saturated, and diffusion weighted techniques. Dynamic multiphaseimaging was also performed after administration of an intravenousgadolinium contrast agent. COMPARISON: CT abdomen 12/27/2022 FINDINGS: Lower Chest: Normal. No consolidation or pleural effusions. Liver: No suspicious focal liver lesion. Biliary: No biliary ductal dilatation. Cholelithiasis. Spleen: Normal. No splenomegaly or focal lesions. Pancreas: A few punctate cystic pancreatic foci, measuring up to 3 mm inthe tail and 8:81. No main pancreatic duct dilation Adrenal Glands: Normal. No nodules. Kidneys/Ureters: No solid renal mass or hydronephrosis. Focal scarring inthe midpole of the right kidney. Punctate benign left renal cysts. Bowel: No bowel obstruction or wall thickening. Peritoneum/Retroperitoneum: Normal. No masses, pneumoperitoneum, orfluid. Lymph Nodes: Normal. No lymphadenopathy. Pelvic Organs/Bladder: Fibroid uterus colonic diverticulosis. Vessels: No abdominal aortic aneurysm. 2.5 cm tubular structure inquestion along the course of the right gonadal vein on 16:106 demonstratessignal characteristics suggesting it is 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There is a similar venous varix on the left measuring up to 1.5 cm on16:100. Bones/Soft Tissues: No suspicious focal osseous lesion. Spine degenerativechanges. IMPRESSION: Similar 2.5 cm tubular structure in question along the course of the rightgonadal vein demonstrates signal characteristics suggesting it is mostlikely a benign venous varix. No further dedicated follow-up imaging isrequired. 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 No further dedicated follow-up imaging is required. 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 No main pancreatic duct dilation. Narrative 04/02/2023 8:51 AM EST MRI ABDOMEN WITH AND WITHOUT CONTRAST, MRI PELVIS WITH AND WITHOUT CONTRAST Referring clinician's provided indication for this examination in [facility]: Outside Radiology Order; ABNORMAL CT SCAN OF ABDOMEN AND PELVIS TECHNIQUE: Multiplanar MR imaging of the abdomen was performed using T1, T2, fat saturated, and diffusion weighted techniques. Dynamic multiphase imaging was also performed after administration of an intravenous gadolinium contrast agent. COMPARISON: CT abdomen 12/27/2022 FINDINGS: Lower Chest: Normal. No consolidation or pleural effusions. Liver: No suspicious focal liver lesion. Biliary: No biliary ductal dilatation. Cholelithiasis. Spleen: Normal. No splenomegaly or focal lesions. Pancreas: A few punctate cystic pancreatic foci, measuring up to 3 mm in the tail and 8:81. No main pancreatic duct dilation Adrenal Glands: Normal. No nodules. Kidneys/Ureters: No solid renal mass or hydronephrosis. Focal scarring in the midpole of the right kidney. Punctate benign left renal cysts. Bowel: No bowel obstruction or wall thickening. Peritoneum/Retroperitoneum: Normal. No masses, pneumoperitoneum, or fluid. Lymph Nodes: Normal. No lymphadenopathy. Pelvic Organs/Bladder: Fibroid uterus colonic diverticulosis. Vessels: No abdominal aortic aneurysm. 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 There is a similar venous varix on the left measuring up to 1.5 cm on 16:100. Bones/Soft Tissues: No suspicious focal osseous lesion. Spine degenerative changes. Procedure Note Stoney Wiley MD - 04/02/2023 MRI ABDOMEN WITH AND WITHOUT CONTRAST, MRI PELVIS WITH AND WITHOUTCONTRAST Referring clinician's provided indication for this examination in Epic:Outside Radiology Order; ABNORMAL CT SCAN OF ABDOMEN AND PELVIS TECHNIQUE: Multiplanar MR imaging of the abdomen was performed using T1,T2, fat saturated, and diffusion weighted techniques. Dynamic multiphaseimaging was also performed after administration of an intravenousgadolinium contrast agent. COMPARISON: CT abdomen 12/27/2022 FINDINGS: Lower Chest: Normal. No consolidation or pleural effusions. Liver: No suspicious focal liver lesion. Biliary: No biliary ductal dilatation. Cholelithiasis. Spleen: Normal. No splenomegaly or focal lesions. Pancreas: A few punctate cystic pancreatic foci, measuring up to 3 mm inthe tail and 8:81. No main pancreatic duct dilation Adrenal Glands: Normal. No nodules. Kidneys/Ureters: No solid renal mass or hydronephrosis. Focal scarring inthe midpole of the right kidney. Punctate benign left renal cysts. Bowel: No bowel obstruction or wall thickening. Peritoneum/Retroperitoneum: Normal. No masses, pneumoperitoneum, orfluid. Lymph Nodes: Normal. No lymphadenopathy. Pelvic Organs/Bladder: Fibroid uterus colonic diverticulosis. Vessels: No abdominal aortic aneurysm. 2.5 cm tubular structure inquestion along the course of the right gonadal vein on 16:106 demonstratessignal characteristics suggesting it is 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There is a similar venous varix on the left measuring up to 1.5 cm on16:100. Bones/Soft Tissues: No suspicious focal osseous lesion. Spine degenerativechanges. IMPRESSION: Similar 2.5 cm tubular structure in question along the course of the rightgonadal vein demonstrates signal characteristics suggesting it is mostlikely a benign venous varix. No further dedicated follow-up imaging isrequired. 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 Meliton Jones MD [facility] MR ABDOMEN Final Result documented in this encounter Visit Diagnoses Diagnosis Abnormal CT scan- Primary Other nonspecific (abnormal) findings on radiological and other examinations of body structure Abnormal CT scan Other nonspecific (abnormal) findings on radiological and other examinations of body structure documented in this encounter Additional Health Concerns Infection Onset Date Last Indicated Resolved Time CoV-Risk 04/29/2024 04/29/2024 05/10/2024 1:23 AM EST Influenza A 04/29/2024 04/29/2024 05/06/2024 1:23 AM EST documented as of this encounter Care Teams Sap Analyst Relationship Specialty Start Date End Date Meliton Jones MD [address] [place] [id number] PCP - General Internal Medicine 02/15/17 documented as of this encounter Additional Source Comments The information contained in this document represents components of the legal health record. It is not the complete legal health record.[facility]
--- OUTSIDE RECORDS SUMMARY | 2024-11-26 17:47 | XMS_ITS | Encounter Summary ---
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) Social History Tobacco Use Types [...] Priority Date/Time Associated Diagnosis Comments PT-INR Routine 01/27/2017 6:35 AM EST Hepatitis B non-converter (post-vaccination) documented in this encounter Results * (ABNORMAL) PT-INR (01/27/2017 6:35 AM EST) PT 23.6(H) 10.2 - 12.9 sec [facility] INR 2.1(H) 0.9 - 1.1 [facility] Comment:Therapeutic range fo r oral Vitamin K antagonists: 2.0-3.5 Blood 01/27/2017 6:35 AM EST 01/27/2017 10:55 AM EST us Meliton Jones MD LAB BLOOD ORDERABLES Final Resul t [facility] [address] [place] [address] documented in this encounter Visit Diagnoses Diagnosis Hepatitis B non-converter (post-vaccination)- Primary Other and unspecified complications of medical care, not elsewhere classified documented in this encounter Additional Health Concerns Infection Onset Date Last Indicated Resolved Time CoV-Risk 02/21/2021 02/21/2021 03/03/2021 1:22 AM EST CoV-Exposed 06/01/2021 06/07/2021 06/12/2021 1:22 AM EDT COVID-19 12/28/2022 12/28/2022 01/18/2023 1:21 AM EDT CoV-Risk 04/29/2024 04/29/2024 05/10/2024 1:23 AM EST Influenza A 04/29/2024 04/29/2024 05/06/2024 1:23 AM EST documented as of this encounter Care Teams Trestleman Relationship Specialty Start Date End Date Unknown, Unknown, MD PCP - General 01/20/17 02/14/17 Meliton Jones MD [address] [place] [id number] PCP - General Internal Medicine 02/15/17 documented as of this encounter Additional Source Comments The information contained in this document represents components of the legal health record. It is not the complete legal health record.[facility]
--- OUTSIDE RECORDS SUMMARY | 2024-11-26 17:47 | XMS_ITS | Encounter Summary ---
Author Organization [facility] Address [address] [facility] [address] [place] [address] Phone Care Team Providers Care Oven Operator Name Role Phone Meliton Jones MD Primary Care Provider [phone] Encounter Details Date Type Department Care Team (Late st Contact Info) Description 03/06/2017 Transcribe Orders [facility] Specimen Processing [address] [place] [address] Meliton Jones MD 112 [facility] [address] [place] [address] Admission for long-term (current) use of anticoagulants [...] of this encounter Results * (ABNORMAL) PT-INR (03/06/2017 12:30 PM EST) PT 34.0(H) 10.2 - 12.9 sec [facility] INR 3.0(H) 0.9 - 1.1 [facility] Comment:Therapeutic range fo r oral Vitamin K antagonists: 2.0-3.5 Blood 03/06/2017 12:3 0 PM EST 03/06/2017 2:46 PM EST Meliton Jones MD LAB BLOOD ORDERABLES Final Resul t [facility] [address] [place] [address] documented in this encounter Visit Diagnoses Diagnosis [...] documented as of this encounter Care Teams Oven Operator Relationship Specialty Start Date End Date Meliton Jones MD [address] [place] [address] 2 [place] [address] PCP - General Internal Medicine 02/15/17 documented as of this encounter Additional Source Comments The information contained in this document represents components of the legal health record. It is not the complete legal health record.[facility]
--- OUTSIDE RECORDS SUMMARY | 2024-11-26 17:47 | XMS_ITS | Encounter Summary ---
Author Organization [facility] Address [address] [facility] [facility] [address] [place] [address] Phone Care Team Providers Care Telecommunication Lines Repairer Name Role Phone Meliton Jones MD Primary Care Provider [phone] Encounter Details Date Type Department Care Team (Late st Contact Info) Description 02/27/2017 Transcribe Orders [facility] Laboratory [address] [place] [address] Meliton Jones MD 112 [facility] [address] [place] [address] Admission for long-term (current) use of anticoagulants [...] Priority Date/Time Associated Diagnosis Comments PT-INR Routine 02/27/2017 1:22 PM EST Admission for long-term (current) use of anticoagulants documented in this encounter Results * (ABNORMAL) PT-INR (02/27/2017 1:22 PM EST) PT 31.9(H) 10.2 - 12.9 sec [facility] INR 2.8(H) 0.9 - 1.1 [facility] Comment:Therapeutic range fo r oral Vitamin K antagonists: 2.0-3.5 Blood 02/27/2017 1:22 PM EST 02/27/2017 1:41 PM EST us Meliton Jones MD LAB BLOOD ORDERABLES Final Resul t [address] [address] documented in this encounter Visit Diagnoses Diagnosis [...] documented as of this encounter Care Teams Telecommunication Lines Repairer Relationship Specialty Start Date End Date Meliton Jones MD [address] [place] [address] 2 [place] [address] PCP - General Internal Medicine 02/15/17 documented as of this encounter Additional Source Comments The information contained in this document represents components of the legal health record. It is not the complete legal health record.[facility]
--- OUTSIDE RECORDS SUMMARY | 2024-11-26 17:47 | XMS_ITS | Encounter Summary ---
Author Organization [facility] Address [address] [employer] [facility] [address] [place] [address] Phone Care Team Providers Care Presser First Name Role Phone Meliton Jones MD Primary Care Provider [phone] Encounter Details Date Type Department Care Team (Late st Contact Info) Description 03/01/2023 Procedure Pass [facility], [address] [address] Social History Tobacco Use Types Packs/Day Years [...] documented as of this encounter Care Teams Presser First Relationship Specialty Start Date End Date Meliton Jones MD [address] [place] [id number] PCP - General Internal Medicine 02/15/17 documented as of this encounter Additional Source Comments The information contained in this document represents components of the legal health record. It is not the complete legal health record.[facility]
--- OUTSIDE RECORDS SUMMARY | 2024-11-26 17:48 | XMS_ITS | Encounter Summary ---
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 Social History Tobacco Use Types Packs/Day Years [...] of this encounter Results * (ABNORMAL) PT-INR (03/06/2020 7:50 AM EST) PT 28.3(H) 10.2 - 12.9 sec [facility] INR 2.5(H) 0.9 - 1.1 [facility] Comment:Therapeutic range fo r oral Vitamin K antagonists: 2.0-3.5 Blood 03/06/2020 7:50 AM EST 03/06/2020 10:46 AM EST us Meliton Jones MD LAB BLOOD ORDERABLES Final Resul t Performing Organization Address [facility] Co de Phone Number [address] [address] * Aspartate aminotransferase (AST) (03/06/2020 7:50 AM EST) AST 17 0 - 37 U/L [facility] Blood 03/06/2020 7:50 AM EST 03/06/2020 10:46 AM EST us Meliton Jones MD LAB BLOOD ORDERABLES Final Resul t Performing Organization Address [facility] Co de Phone Number [address] [address] * Alanine aminotransferase (ALT) (03/06/2020 7:50 AM EST) ALT 18 0 - 40 U/L [facility] Blood 03/06/2020 7:50 AM EST 03/06/2020 10:46 AM EST Meliton Jones MD LAB BLOOD ORDERABLES Final Resul t Performing Organization Address [facility] Co de Phone Number [address] [address] * (ABNORMAL) Lipid panel (03/06/2020 7:50 AM EST) HDL 63 mg/dL [facility] Comment: Interpretation <40 mg/dL: Low HDL cholesterol (major risk factor for CHD) Greater than or equal to 60 mg/dL: High HDL cholesterol ( negative risk factor for CHD) HDL - cholesterol is affected by a number of factors, e.g. smoking, excerise, hormones, sex and age. CHOLESTEROL 242(H) 0 - 240 mg/dL [facility] TRIGLYCERIDES 152 30 - 160 mg/dL [facility] LDL 149(H) 50 - 129 mg/dL [facility] Comment: LDL levels in terms of risk for coronary heart disease: <100 mg/dL: Optimal 100-129 mg/dL: Near or above optimal 130-159 mg/dL: Borderline high 160-189 mg/dL: High >190 mg/dL: Very High CARDIAC RISK RATIO 3.8 3.3 - 4.4 C [facility] Blood 03/06/2020 7:50 AM EST 03/06/2020 10:46 AM EST Meliton Jones MD LAB BLOOD ORDERABLES Final Resul t Performing Organization Address City/State/[facility] Co de Phone Number [address] [address] documented in this encounter Visit Diagnoses Diagnosis Hyperlipidemia, unspecified hyperlipidemia type- Primary [facility] (current) use of anticoagulants Long-term (current) use of anticoagulants documented in this encounter Additional Health Concerns Infection Onset Date Last Indicated Resolved Time CoV-Risk 02/21/2021 02/21/2021 03/03/2021 1:22 AM EST CoV-Exposed 06/01/2021 06/07/2021 06/12/2021 1:22 AM EDT COVID-19 12/28/2022 12/28/2022 01/18/2023 1:21 AM EDT CoV-Risk 04/29/2024 04/29/2024 05/10/2024 1:23 AM EST Influenza A 04/29/2024 04/29/2024 05/06/2024 1:23 AM EST documented as of this encounter Care Teams National Account Manager Relationship Specialty Start Date End Date Meliton Jones MD [address] [place] [address] 2 [place] [address] PCP - General Internal Medicine 02/15/17 documented as of this encounter Additional Source Comments The information contained in this document represents components of the legal health record. It is not the complete legal health record.[facility]
--- OUTSIDE RECORDS SUMMARY | 2024-11-26 17:48 | XMS_ITS | Clinical Summary ---
Author Organization [address] [facility] Address [address] [place] [address] Phone Care Team Providers Care Area Secretary Name Role Phone Meliton Jones MD Primary Care Provider [phone] Allergies Active Allergy Reactions Criticality Noted Date [...] day. Do not crush or chew. Active pantoprazole (PROTONIX) 20 mg EC tablet [...] mg total) by mouth at bedtime. Active modafiniL (PROVIGIL) 200 mg tabletIndicatio ns:Other fatigue,Multipl e sclerosis (CMS/HCC V24, CMS/HCC V28) Take 1 tablet (200 mg total) by mouth 1 (one) time each day. Max Daily Amount: 200 mg 30 each 4 Active Eliquis 5 mg tablet Take 1 tablet (5 mg total) by mouth 2 times daily. 1 Active donepeziL (ARICEPT) 5 mg tablet Take 1 tablet (5 mg total) by mouth at bedtime. 3 Active folic acid (FOLVITE) 1 mg tablet Take 1 tablet (1 mg total) by mouth 1 (one) time each day. Active gabapentin (NEURONTIN) 300 mg capsule Take 1 capsule (300 mg total) by mouth at bedtime. Active hydroxychloroqu ine (PLAQUENIL) 200 mg tablet Take 1 tablet (200 mg total) by mouth 1 (one) time each day. Active amantadine (SYMMETREL) 100 mg capsule Take 1 capsule (100 mg total) by mouth 1 (one) time each day. 30 each 1 5 Active tiZANidine (ZANAFLEX) 2 mg capsule Take 1 capsule (2 mg total) by mouth at bedtime. 30 capsule 3 5 Active dimethyl fumarate (Tecfidera) 240 mg capsule,delayed release(DR/EC) Take 240 mg by mouth 2 (two) times a day. 60 capsule 5 5 Active baclofen (LIORESAL) 10 mg tablet Take 1 tablet (10 mg total) by mouth 3 (three) times a day. 90 each 5 5 03/15/20 25 Active magnesium oxide (MAG-OX) 400 mg (241.3 elemental magnesium) tablet Take 1 tablet (400 mg total) by mouth 1 (one) time each day. 30 tablet 5 Active magnesium oxide (MAG-OX) 400 mg (241.3 elemental magnesium) tablet TAKE 1 TABLET BY MOUTH ONCE DAILY 30 tablet 5 11/20/19 25 Discontinue d(Reorder) magnesium, amino acid chelate, 133 mg tablet Take 1 tablet (133 mg total) by mouth 2 (two) times a day. 60 tablet 11/14/19 25 Encounters Date Type Department Care Team Description 11/13/2024 Telephone [facility] 175 [facility] [address] [place] [address] Kasandra Rueda MD 10/04/2024 Lab Requisition [facility] - Main Lab 299 [facility] [place] [address] Geetha Guerrero MD Urinary tract infection, site not specified from Last 3 Months Surgical History Surgery [...] 73 07/17/2024 2:32 PM EDT Temperature 36.1 C (97 F) 05/09/2024 10:52 AM EST Respiratory Rate - [...] Description 12/27/2024 1:30 PM EDT Office Visit [facility] 175 [facility] [address] [place] [phone] Tatiana Rome PA 175 [facility] [address] [place] [address] Health Maintenance Due Date Last Done Comments Breast Cancer Screening 1955 DTaP,Tdap,and Td Vaccines (1 - Tdap) 1973 RSV Immunization Adult Patients (1 - Risk 60-74 years 1-dose series) 2014 Pneumococcal Vaccine: 50+ Years (2 of 2 - PCV) 05/13/2016 05/13/2015, 11/21/2012 COVID-19 Vaccine (2 - Pfizer risk series) 01/21/2021 12/31/2020 Colorectal Cancer Screening: Colonoscopy 02/19/2022 Falls Risk Assessment 02/19/2022 Hepatitis C Screening 02/19/2022 Medicare Annual Wellness Visit 02/19/2022 Osteoporosis Screening (Bone Density Screening) 02/19/2022 Social Influencers of Health Screening 02/19/2022 Depression Screening 03/20/2024 Influenza Vaccine (#1) 2024 , 11/11/2019, 12/04/2017, Additional history exists Hypertension/CHF/CAD [...] Procedure Name Priority Date/Time Associated Diagnosis Comments CULTURE URINE Routine 10/04/2024 12:55 PM EDT Urinary tract infection, site not specified CREATININE, SERUM Routine 05/09/2024 12: 06 PM EST Multiple sclerosis ([facility] V24, [facility] V28) from Last 3 Months or Most Recently Relevant to Health Maintenance Results * (ABNORMAL) Culture urine (10/04/2024 12:55 PM EDT) Culture, Urine >=100,000 CFU/mL Raoultella planticola(A) MARY JO 10/06/2024 11:00 AM EDT [facility] Comment: This is an edited result. Previous organism was Gram negative bacilli on 10/05/2024 at 1134 EDT. Urine Urine specimen from urethra / Unknown Non-blood Collection / Unknown 10/04/2024 12:55 PM EDT 10/04/2024 6:11 PM EDT Narrative Organism Antibiotic Method Susceptibility Raoultella planticola Amoxicillin/Clavulanate MARY JO <=2 ug/ml: Susceptible Raoultella planticola Ampicillin/Sulbactam MARY JO 4 ug/ml: Susceptible Raoultella planticola Cefoxitin MARY JO <=4 ug/ml: Susceptible Raoultella planticola Amikacin MARY JO <=1 ug/ml: Susceptible Raoultella planticola Ciprofloxacin MARY JO 0.5 ug/ml: Intermediate Raoultella planticola Nitrofurantoin MARY JO <=16 ug/ml: Susceptible Raoultella planticola Trimethoprim/Sulfamethoxazole MA C <=20 ug/ml: Susceptible us Geetha Guerrero MD LAB MICROBIOLOGY - G ENERAL ORDERABLES Final Result [facility] [address] [place] [address], [place] [phone] * Creatinine (05/09/2024 12:06 PM EST) Creatinine 0.69 0.50 - 1.10 mg/dL LAB CHEMISTRY METHOD 05/09/2024 2:55 PM EST [facility] eGFR 94 >=60 mL/min/1. 73m2 LAB CHEMISTRY METHOD 05/09/2024 2:55 PM EST [facility] Comment:Calculation based on the Chronic Kidney Disease Epidemiology Collaboration (CKD-EPI) equation refit without adjustment for race. Blood Venous blood specimen / Unknown Venipuncture / Unknown 05/09/2024 12:06 PM EST 05/09/2024 12:06 PM EST Kasandra Rueda MD LAB BLOOD ORDERABLES Fin al Result [facility] [address] [place] [address], from Last 3 Months or Most Recently Relevant to Health Maintenance Insurance MEDICARE MEDICAID [place] Care Teams Area Secretary Relationship Specialty Start Date End Date Meliton Jones MD [address] [place] [address] PCP - General 04/26/23
--- OUTSIDE RECORDS SUMMARY | 2024-11-26 17:48 | XMS_ITS | Encounter Summary ---
Author Organization [facility] Address [address] [employer] [facility] [address] [place] [address] Phone Care Team Providers Care Water Vessel Captain Name Role Phone Meliton Jones MD Primary Care Provider [phone] Encounter Details Date Type Department Care Team (Late st Contact Info) Description 05/17/2017 Transcribe Orders [facility] Specimen Processing 30 [place] [address] Meliton Jones MD 112 [facility] [address] [place] [address] Admission for long-term (current) use of anticoagulants [...] of this encounter Results * (ABNORMAL) PT-INR (05/17/2017 9:50 AM EST) PT 32.3(H) 10.2 - 12.9 sec [facility] INR 2.8(H) 0.9 - 1.1 [facility] Comment:Therapeutic range fo r oral Vitamin K antagonists: 2.0-3.5 Blood 05/17/2017 9:50 AM EST 05/17/2017 12:09 PM EST Meliton Jones MD LAB BLOOD ORDERABLES Final Resul t [facility] [address] [place] [address] documented in this encounter Visit Diagnoses Diagnosis [...] documented as of this encounter Care Teams Water Vessel Captain Relationship Specialty Start Date End Date Meliton Jones MD [address] [place] [address] 2 [place] [address] PCP - General Internal Medicine 02/15/17 documented as of this encounter Additional Source Comments The information contained in this document represents components of the legal health record. It is not the complete legal health record.[facility]
--- OUTSIDE RECORDS SUMMARY | 2024-11-26 17:48 | XMS_ITS | Encounter Summary ---
Author Organization [facility] Address [address] [facility] [address] [place] [address] Phone Care Team Providers Care Packing Checker Name Role Phone Meliton Jones MD Primary Care Provider [phone] Encounter Details Date Type Department Care Team (Late st Contact Info) Description 04/18/2017 Transcribe Orders [facility] Specimen Processing [address] [place] [address] Meliton Jones MD 112 [facility] [address] [place] [address] Admission for long-term (current) use of anticoagulants (Primary Dx); Multiple sclerosis Social History Tobacco Use Types Packs/Day Years [...] of this encounter Results * (ABNORMAL) PT-INR (04/18/2017 2:00 PM EST) PT 33.1(H) 10.2 - 12.9 sec [facility] INR 2.9(H) 0.9 - 1.1 [facility] Comment:Therapeutic range fo r oral Vitamin K antagonists: 2.0-3.5 Blood 04/18/2017 2:00 PM EST 04/18/2017 2:30 PM EST us Meliton Jones MD LAB BLOOD ORDERABLES Final Resul t Performing Organization Address [facility] Co de Phone Number [address] [address] * TSH (04/18/2017 2:00 PM EST) TSH 1.44 0.27 - 4.20 uIU/mL [facility] Blood 04/18/2017 2:00 PM EST 04/18/2017 2:30 PM EST us Meliton Jones MD LAB BLOOD ORDERABLES Final Resul t Performing Organization Address [facility] de Phone Number [address] [address] * (ABNORMAL) CBC and differential (04/18/2017 2:00 PM EST) WBC 6.94 3.40 - 11.20 K/uL [facility] RBC 4.30 3.80 - 4.80 M/uL [facility] HGB 12.0 12.0 - 15.0 g/dL [facility] HCT 35.5(L) 36.0 - 46.0 % [facility] PLT 274 130 - 400 K/uL [facility] MCV 82.6 79.0 - 98.0 fL [facility] MCH 27.9 27.0 - 34.8 pg [facility] MCHC 33.8 31.5 - 36.0 g/dL [facility] RDW 14.0 10.8 - 14.6 % [facility] MPV 8.8(L) 9.4 - 12.4 fl [facility] NRBC 0.00 /100 WBCs [facility] ABSOLUTE NRBC 0.00 K/uL [facility] DIFF METHOD Auto [facility] NEUTS 64.9 45.30 - 77.70 % [facility] LYMPHS 24.5 12.30 - 39.70 % [facility] MONOS 8.2 4.10 - 12.80 % [facility] EOS 1.6 0 - 7.2 % [facility] BASOS 0.4 0 - 2.80 % [facility] Granulocytes, immature (%) 0.4 0.0 - 0.9 % [facility] ABSOLUTE NEUTS 4.50 1.40 - 7.70 K/uL [facility] ABSOLUTE LYMPHS 1.70 0.60 - 3.20 K/uL [facility] ABSOLUTE MONOS 0.57 0.11 - 0.59 K/uL [facility] ABSOLUTE EOS 0.11 0.01 - 0.50 K/uL [facility] ABSOLUTE BASOS 0.03 0.00 - 0.08 K/uL [facility] Granulocytes, immature 0.03 0.00 - 0.05 K/uL [facility] Blood 04/18/2017 2:00 PM EST 04/18/2017 2:30 PM EST us Meliton Jones MD LAB BLOOD ORDERABLES Final Resul t Performing Organization Address City/State/[facility] Co de Phone Number [address] [address] * LFTs (hepatic panel) (04/18/2017 2:00 PM EST) ALKALINE PHOSPHATASE 86 39 - 117 U/L [facility] TOTAL BILIRUBIN 0.3 0 - 1.2 mg/dL [facility] DIRECT BILIRUBIN <0.2 0 - 0.3 mg/dL [facility] Bilirubin (Indirect) NOT CALCULATED 0 - 1.5 mg/dL [facility] AST 20 0 - 37 U/L [facility] ALT 20 0 - 40 U/L [facility] TOTAL PROTEIN 7.4 6.5 - 8.0 g/dL [facility] ALBUMIN 4.5 3.9 - 4.8 g/dL [facility] GLOBULIN 2.9 1 - 4.8 g/dL [facility] A/G Ratio 1.55 1.00 - 4.80 RATIO [facility] Blood 04/18/2017 2:00 PM EST 04/18/2017 2:30 PM EST Meliton Jones MD LAB BLOOD ORDERABLES Final Resul t [facility] [address] [place] [address] documented in this encounter Visit Diagnoses Diagnosis Admission for long-term (current) use of anticoagulants- Primary Encounter for long-term (current) use of anticoagulants Multiple sclerosis documented in this encounter Additional Health Concerns Infection Onset Date Last Indicated Resolved Time CoV-Risk 02/21/2021 02/21/2021 03/03/2021 1:22 AM EST CoV-Exposed 06/01/2021 06/07/2021 06/12/2021 1:22 AM EDT COVID-19 12/28/2022 12/28/2022 01/18/2023 1:21 AM EDT CoV-Risk 04/29/2024 04/29/2024 05/10/2024 1:23 AM EST Influenza A 04/29/2024 04/29/2024 05/06/2024 1:23 AM EST documented as of this encounter Care Teams Packing Checker Relationship Specialty Start Date End Date Meliton Jones MD [address] [place] [address] PCP - General Internal Medicine 02/15/17 documented as of this encounter Additional Source Comments The information contained in this document represents components of the legal health record. It is not the complete legal health record.[facility]
--- OUTSIDE RECORDS SUMMARY | 2024-11-26 17:48 | XMS_ITS | Encounter Summary ---
Author Organization [facility] Address [address] [employer] [facility] [address] [place] [address] Phone Care Team Providers Care Can Reconditioner Name Role Phone Meliton Jones MD Primary Care Provider [phone] Encounter Details Date Type Department Care Team (Late st Contact Info) Description 05/02/2017 Transcribe Orders [facility] Specimen Processing [address] [place] [address] Meliton Jones MD 112 [facility] [address] [place] [address] Admission for long-term (current) use of anticoagulants [...] of this encounter Results * (ABNORMAL) PT-INR (05/02/2017 9:20 AM EST) PT 29.4(H) 10.2 - 12.9 sec [facility] INR 2.6(H) 0.9 - 1.1 [facility] Comment:Therapeutic range fo r oral Vitamin K antagonists: 2.0-3.5 Blood 05/02/2017 9:20 AM EST 05/02/2017 12:58 PM EST Meliton Jones MD LAB BLOOD ORDERABLES Final Resul t [facility] 30 [place] [address] documented in this encounter Visit Diagnoses Diagnosis [...] documented as of this encounter Care Teams Can Reconditioner Relationship Specialty Start Date End Date Meliton Jones MD [address] [place] [address] 2 [place] [address] PCP - General Internal Medicine 02/15/17 documented as of this encounter Additional Source Comments The information contained in this document represents components of the legal health record. It is not the complete legal health record.[facility]
--- OUTSIDE RECORDS SUMMARY | 2024-11-26 17:48 | XMS_ITS | Encounter Summary ---
Author Organization [facility] Address [address] [place] [phone] Care Team Providers Care Relations Director Name Role Phone Meliton Jones MD Primary Care Provider [phone] Encounter Details Date Type Department Care Team (Late st Contact Info) Description 01/26/2024 Lab Requisition [facility] - Main Lab [address] [facility] [place] [phone] Alice Hemphill PA [address] [place] [address] Other abnormal findings in urine Social History [...] Description 12/27/2024 1:30 PM EDT Office Visit [facility] [address] [facility] [address] [place] [phone] Tatiana Rome PA [address] [facility] [address] [place], [place] [id number] documented as of this encounter Procedures Procedure Name Priority Date/Time Associated Diagnosis Comments BACTERIAL IDENTIFICATION AND SUSCEPTIBILITY, AEROBIC Routine 01/25/2024 1:59 PM EST Other abnormal findings in urine documented in this encounter Results * (ABNORMAL) Bacterial identification and susceptibility, aerobic (01/25/2024 1:59 PM EST) Culture, Bacterial ID and Sensitivity Escherichia coli(A) MARY JO 01/27/2024 11:03 AM EST [facility] Comment: This is an edited result. [...] MICROBIOLOGY - GENERAL ORDER RAYMUNDO Final Result [facility] [address] [place] [address], documented in this encounter Visit Diagnoses Diagnosis Other abnormal findings in urine documented in this encounter Care Teams Relations Director Relationship Specialty Start Date End Date Meliton Jones MD [address] [place] [address] PCP - General 04/26/23 documented as of this encounter
--- OUTSIDE RECORDS SUMMARY | 2024-11-26 17:48 | XMS_ITS | Clinical Summary ---
Author Organization [facility] Address [address] [facility] [address] [place] [address] Phone Care Team Providers Care Bulb Grower Name Role Phone Meliton Jones MD Primary Care Provider [phone] Allergies Active Allergy Reactions Criticality Noted Date Comments Penicillins 07/15/2017 Pollen Extracts 09/15/2023 Other reaction(s): runny nose, itch seasonal allergy-pollen Medications pantoprazole (PROTONIX) 20 MG tablet Take 20 mg by mouth daily. Active dicyclomine (BENTYL) 10 MG capsule Take 20 mg by mouth 4 (four) times a day. 2 Active dimethyl fumarate (TECFIDERA) [address] capsule Take 240 mg by mouth 2 (two) times a day. Active loratadine (CLARITIN) 10 mg tablet Take 10 mg by mouth daily. Active modafinil (PROVIGIL) 200 MG tablet Take 200 mg by mouth 2 (two) times a day. Active citalopram (CELEXA) 20 MG tablet Take 20 mg by mouth daily. 2 Active ELIQUIS 5 mg tablet Take 5 mg by mouth 2 (two) times a day. 2 Active cloNIDine HCL (CATAPRES) 0.1 MG tablet Take 0.1 mg by mouth 3 (three) times a day. 2 Active clonazePAM (KLONOPIN) 1 MG tablet Take 1 mg by mouth 3 (three) times a day. 2 Active DULoxetine (CYMBALTA) 60 MG capsule Take 60 mg by mouth daily. 2 Active pregabalin (LYRICA) 100 MG capsule Take 100 mg by mouth 2 (two) times a day. 2 Active tiZANidine (ZANAFLEX) 2 MG tablet 1 Active amantadine HCl (SYMMETREL) 100 mg capsule 2 Active atorvastatin (LIPITOR) 80 MG tablet Take 1 tablet (80 mg total) by mouth nightly at bedtime. 30 tablet 2 Active MAGNESIUM OXIDE ORAL Take 400 mg by mouth daily. 2 Active LORazepam (ATIVAN) 1 MG tablet 2 Active MYRBETRIQ 25 mg Tb24 3 Active donepeziL (ARICEPT) 5 MG tablet 3 Active ID-molnupiravir <emergency use authorization> 200 mg capsule Take 4 capsules (800 mg total) by mouth every 12 (twelve) hours. 40 capsule 3 Active cholecalciferol (VITAMIN D3) 50,000 unit capsule 3 Active cholecalciferol (VITAMIN D3) 50,000 unit capsule 3 Active cephalexin (KEFLEX) 500 MG capsule Take 1 capsule (500 mg total) by mouth 2 (two) times a day. 12 capsule 4 Active inhaler spacing device (AEROCHAMBER,BR EATHERITE) Spcr Inhale 1 each into the lungs every 4 (four) hours as needed. 1 each 5 Active albuterol 90 mcg/actuation inhaler Inhale 1-2 puffs into the lungs every 4 (four) hours as needed for wheezing or shortness of breath/dyspnea . 8 g 5 Active fluticasone propionate (FLONASE) 50 mcg/actuation nasal spray 1-2 sprays by Nasal route daily. 9.9 mL 5 Active fluticasone-ume clidin-vilanter (TRELEGY ELLIPTA) 100-62.5-25 mcg inhalation powder Inhale 1 puff into the lungs daily. 60 each 11 5 05/16/19 26 Active Active Problems Problem Noted Date Diagnosed Date Pulmonary nodules 03/03/2022 Anticoagulated 05/31/2021 Assessment & Plan (05/31/2021 4:35 PM EDT): For history of PE Continue anticoagulation Stroke-like symptoms 05/31/2021 Assessment & Plan (05/31/2021 4:42 PM EDT): Patient had a fall early this morning, she states she tripped in a narrow corridor falling back and hitting her head. She was seen in the ED for this and then transferred back to [place]. CT was normal at that time When she returned to [place], she was noted to have bilateral lower extremity ataxia, was wandering around and forgetful, had some slurred speech. This lasted for about an hour per notes. Patient does not remember much of this Denies visual changes. The patient states right now she is not having any weakness or numbness. Denies headache. No current speech abnormality or discoordination of limbs. CT brain showed no acute pathology, CTA negative, neurology recommended MRI. Patient does have a history of MS and is currently under work-up by her neurologist for symptoms of right arm tingling that she is had for about a month on and off Plan -Permissive hypertension -MRI brain with and without contrast -PT OT speech -Aspirin statin -A1c lipid panel -Neurochecks -Echocardiogram -cardiac rehabilitation specialist -We will obtain records from [facility] as able Transient ischemic attack 05/31/2021 Shortness of breath 05/05/2021 Assessment & Plan (09/16/2022 9:59 AM EDT): Likely multifactorial with contributions including COPD/emphysema, obesity, deconditioning. She has history of PE on apixaban. CTPA chest in 02/2021 was negative for PE. Echo from 05/2021 with normal LVEF, normal LV size and thickness, normal RV size and function, and no significant valvular disease. Her shortness of breath and chest tightness improved after starting controller inhaler therapy for COPD. -Management of COPD, as below -Encourage exercise, weight loss Assessment & Plan (06/15/2022 9:01 AM EDT): Likely multifactorial with contributions including COPD/emphysema, obesity, deconditioning. She has history of PE on apixaban. CTPA chest in 02/2021 was negative for PE. Echo from 05/2021 with normal LVEF, normal LV size and thickness, normal RV size and function, and no significant valvular disease. Shortness of breath has improved somewhat after starting controller inhaler therapy for COPD, but she continues to have intermittent chest tightness which may not be pulmonary in etiology. -Management of COPD, as below -Encourage exercise, weight loss Assessment & Plan (08/01/2021 2:48 PM EDT): Likely multifactorial with contributions including COPD/emphysema, obesity, deconditioning. She has history of PE on apixaban. CTPA chest in 02/2021 was negative for PE. Echo from 05/2021 with normal LVEF, normal LV size and thickness, normal RV size and function, and no significant valvular disease. -Management of COPD, as below -Encourage exercise, weight loss Assessment & Plan (05/05/2021 11:54 AM EST): Likely multifactorial with contributions including COPD/emphysema, obesity, deconditioning. She has history of PE on apixaban. CTPA chest in 02/2021 was negative for PE. No echo available for review. -Management of COPD, as below -Obtain echocardiogram (per patient, she also has an upcoming appointment with cardiology) -Encourage exercise, weight loss Former smoker 05/05/2021 Assessment & Plan (09/16/2022 9:37 AM EDT): 40+ pack-year history, quit in 2017. She remains motivated to never start smoking again. LDCT chest from 02/22/2022 with multiple small bilateral pulmonary nodules which are most likely benign. -Follow up LDCT chest (approximately 6 months from prior) which was performed on 09/09/2022 but radiology report remains pending Assessment & Plan (06/14/2022 1:04 PM EDT): 40+ pack-year history, quit in 2017. She remains motivated to never start smoking again. LDCT chest from 02/22/2022 with multiple small bilateral pulmonary nodules which are most likely benign. -Follow up LDCT chest (previously ordered to be done 6 months from prior, on approximately 08/23/2022) Assessment & Plan (08/03/2021 12:53 PM EDT): 40+ pack-year history, quit in 2017. She remains motivated to never start smoking again. Lung cancer screening counseling and shared decision making were conducted at this visit. The patient meets eligibility criteria for age (55-77), smoking status (current or former), years quit (0-15), pack years (30 or more), and lack of signs/symptoms of lung cancer. The following were discussed: Benefits and harms of screening. Benefits: Possibility of earlier detection and treatment of lung cancer with increased chance for cure, peace of mind. Harms: False reassurance, radiation exposure, risk of false positives, overdiagnosis of indolent tumors, possible need for invasive testing, potential for anxiety. Willingness to undergo additional treatment/testing if findings warrant. The importance of continuing annual screening unless comorbidities preclude. The patient was counseled about tobacco cessation/abstinence. An order for low-dose CT lung cancer screening study was placed (will start [address] chest which was done on 02/21/2021). Assessment & Plan (05/05/2021 11:56 AM EST): 40+ pack-year history, quit in 2016. Congratulated patient on her continued abstinence from smoking. She remains motivated to never start smoking again. -Discuss LDCT lung cancer screening at next visit (could start [address] chest which was on 02/21/2021) REBECCA (obstructive sleep apnea) 05/05/2021 Assessment & Plan (08/01/2021 2:54 PM EDT): Carries a diagnosis of REBECCA. Previously, had difficulty sleeping with CPAP and did not tolerate therapy. She was interested in establishing care at [facility] sleep medicine and would consider re-starting CPAP. She was seen by Dr. Durant of [facility] sleep medicine in 06/2021 and was amenable to a re-trial of CPAP, so a home sleep study was ordered to determine the presence/severity of REBECCA at present. This will inform what treatment options are recommended. Assessment & Plan (05/05/2021 11:56 AM EST): Carries a diagnosis of REBECCA. Previously, had difficulty sleeping with CPAP and did not tolerate therapy. She is interested in establishing care at [facility] sleep medicine and would consider restarting CPAP. -Referral to [facility] sleep medicine Chronic obstructive pulmonary disease 07/15/2017 Assessment & Plan (09/16/2022 9:58 AM EDT): COPD/emphysema. Former smoker, quit in 2016. PFTs from 04/2021 are consistent with mild COPD (normal FEV1). There was evidence of hyperinflation and air trapping in addition to a mildly impaired diffusion capacity. CT chest from 02/2021 with mild, diffuse centrilobular emphysematous changes. It is possible that her episodic chest tightness and shortness of breath is related to her COPD +/- a musculoskeletal or GI issue (the chest pain is often associated with nausea and she was seen by cardiology with low suspicion that the chest pain is cardiac in origin). Previously, LABA/LAMA inhaler therapy was started with some improvement in her dyspnea (she no longer feels functionally limited by her breathing). However, she continued to have an intermittent sensation of chest tightness. After escalating to ICS/LABA/LAMA therapy, she noticed further improvement in her shortness of breath and resolution of chest tightness. -Continue Trelegy 100 (ICS/LABA/LAMA) -Albuterol as needed (has nebulized and MDI forms) Assessment & Plan (06/15/2022 9:03 AM EDT): COPD/emphysema. Former smoker, quit in 2016. PFTs from 04/2021 are consistent with mild COPD (normal FEV1). There was evidence of hyperinflation and air trapping in addition to a mildly impaired diffusion capacity. CT chest from 02/2021 with mild, diffuse centrilobular emphysematous changes. It is possible that her episodic chest tightness and shortness of breath is related to her COPD +/- a GI issue (the chest pain is often associated with nausea and she was seen by cardiology with low suspicion that the chest pain is cardiac in origin). Previously, LABA/LAMA inhaler therapy was started with some improvement in her dyspnea (she no longer feels functionally limited by her breathing). However, she continues to have an intermittent sensation of chest tightness. -Trial of Trelegy 100 (ICS/LABA/LAMA)--patient was provided with a 14-day trial and was advised to rinse mouth after each use -Patient was instructed to let us know if the Trelegy improves her symptoms (if so, can prescribe Trelegy and if not, can revert back to Anoro)--if escalating to ICS/LABA/LAMA does not have any effect on her chest tightness, this would further argue that the chest tightness is not pulmonary in origin -Albuterol as needed (has a nebulizer) Assessment & Plan (08/03/2021 12:57 PM EDT): COPD/emphysema. Former smoker, quit in 2016. PFTs from 04/2021 are consistent with mild COPD (normal FEV1). There was evidence of hyperinflation and air trapping in addition to a mildly impaired diffusion capacity. CT chest from 02/2021 with mild, diffuse centrilobular emphysematous changes. It is possible that her episodic chest tightness and shortness of breath is related to her COPD +/- a GI issue (the chest pain is often associated with nausea and she was seen by cardiology with low suspicion that the chest pain is cardiac in origin). At last visit, LABA/LAMA inhaler therapy was started with some improvement in her dyspnea (currently, does not feel functionally limited by her breathing). -Continue Anoro (LABA/LAMA) -Albuterol as needed (has a nebulizer) Assessment & Plan (05/31/2021 4:37 PM EDT): , No signs or symptoms of exacerbation. She also has a history of REBECCA but does not use CPAP. I will continue her home inhalers as able according to our formulary Assessment & Plan (05/05/2021 11:55 AM EST): COPD/emphysema. Former smoker, quit in 2016. PFTs from 04/23/2021 are consistent with mild COPD (normal FEV1). There was evidence of hyperinflation and air trapping in addition to a mildly impaired diffusion capacity. CT chest with mild, diffuse centrilobular emphysematous changes. It is possible that her episodic chest tightness and shortness of breath is related to her COPD. We discussed changing her controller inhaler therapy from ICS to LABA/LAMA. -Start Anoro (LABA/LAMA) -Albuterol as needed (has a nebulizer) MS (multiple sclerosis) 07/15/2017 Assessment & Plan (05/31/2021 4:37 PM EDT): Patient follows with at [facility] and was seen recently for symptoms of right hand and arm tingling. She is expected to have more testing for this. We will order the brain MRI both with and without contrast as above As for the patient's records from [facility] where she states her last brain imaging was done Anxiety and depression 07/15/2017 Assessment & Plan (05/31/2021 4:36 PM EDT): Continue home medication regimen, reviewed med list with the patient, there are a few meds she was not sure of such as Cymbalta. I did check the PDMP and verified Klonopin Provigil and Lyrica Encounters Date Type Department Care Team Description 09/28/2024 Refill [facility] at [address] [address] Meng Otoole PA-C Medication Refill from Last 3 Months Immunizations Immunization Administration Dates Next Due COVID-19 (Pre-01/09) Pfizer Vaccine, mRNA, PF 12/31/2020 INFLUENZA, SPLIT VIRUS, TRIV ALENT W/ PRESERVATIVE IM 12/29/2020,12/04/2017,12/01/2016 Influenza High-Dose Trivalen t Preservative Free IM 11/11/2019 Influenza, Unspecified Formulation 12/29,11/11/2019,12/04/2017,12/01 Pneumococcal polysaccharide PPSV23 05/13/2015, Zoster recombinant 01/08/2021,10/31/2020 Social History Tobacco Use Types Packs/Day Years Used Date Smoking Tobacco: Former Cigarettes Q uit: 2017 Smokeless Tobacco: Never Tobacco Cessation:Counseling Given: Not Answered Alcohol Use Standard Drinks/Week Comments No 0 [...] Orientation Straight 07/14/2022 12 :21 PM EDT Last Filed Vital Signs Vital Sign Reading Time Taken Comments Blood Pressure 122/71 07/24/2024 9:07 PM EDT Pulse 65 07/24/2024 9:07 PM EDT Temperature 37.1 C (98.8 F) 07/24/2024 9:07 PM EDT Respiratory Rate 20 07/24/2024 9:07 PM EDT Oxygen Saturation 95% 07/24/2024 9:07 PM EDT Inhaled Oxygen Concentration - - Weight 64.4 kg (142 lb) 07/24/2024 7:01 PM EDT Height 157.5 cm (5' 2 ) 07/24/2024 7:01 PM EDT Body Mass Index 25.97 07/24/2024 7:01 PM EDT Plan of Treatment Health Maintenance Due Date Last Done Comments Adult Td,Tdap Booster 1954 DEPRESSION SCREENING 1966 SMOKING Hx and SMOKELESS TOBACCO SCREENING 06/28/1967 HEPATITIS C SCREENING 1972 MAMMOGRAM 1994 COLOGUARD 06/28/1999 COLONOSCOPY 06/28/1999 COLORECTAL CANCER SCREENING 06/28/1999 FIT TEST 06/28/1999 FOBT 06/28/1999 SIGMOIDOSCOPY 06/28/1999 VIRTUAL COLONOSCOPY 06/28/1999 RSV VACCINE (1 - Risk 60-74 years 1-dose series) 2014 PNEUMOCOCCAL VACCINES (50+ years) (2 of 2 - PCV) 05/13/2016 05/13/2015, 11/21/2012 OSTEOPOROSIS SCREENING INITIAL (ONE-TIME) 06/28/2019 CREATININE LEVEL 08/17/2024 08/18/2023, , 06/01/2021, Additional history exists INFLUENZA VACCINE (#1) 2024 , 12/29/2020, 11/11/2019, Additional history exists COVID-19 VACCINE ( season) 2024 07/13/2021, 12/31/2020, 04/11/2020, Additional history exists LIPID PANEL 06/01/2026 06/01/2021, 05/18, 09/04/2020, Additional history exists ZOSTER VACCINES Completed 01/08/2021, 10/31/2020 HEPATITIS A VACCINES Aged Out No long er eligible based on patient's age to complete this topic HIB VACCINES Aged Out No longer eligi ble based on patient's age to complete this topic MENINGOCOCCAL VACCINES (ACWY) Aged Out No longer eligible based on patient's age to complete this topic MENINGOCOCCAL VACCINES (B) Aged Out N o longer eligible based on patient's age to complete this topic Medical Devices Not on file Procedures Procedure Name Priority Date/Time Associated Diagnosis Comments BASIC METABOLIC PANEL STAT 08/18/2023 5:49 PM EDT LIPID PANEL Routine 06/01/2021 5:29 AM EDT from Last 3 Months or Most Recently Relevant to Health Maintenance Results * (ABNORMAL) Basic metabolic panel (08/18/2023 5:49 PM EDT) SODIUM 122(L) 133 - 146 mmol/L [facility] CHLORIDE 85(L) 96 - 108 mmol/L [facility] POTASSIUM 3.8 3.3 - 5.1 mmol/L [facility] CO2 25 21 - 35 mmol/L [facility] BUN 7 6 - 19 mg/dL [facility] CREATININE 0.60 0.5 - 1.5 mg/dL [facility] GLUCOSE 98 70 - 99 mg/dL [facility] CALCIUM 8.8 8.4 - 10.3 mg/dL [facility] EGFR 97 >59 mL/min/1.7 3m2 [facility] Comment:Estimated glomerular filtration rate calculated using the CKD-EPI refit equation. ANION GAP 16 10 - 20 mmol/L [facility] Blood 08/18/2023 5:49 PM EDT 08/18/2023 5:53 PM EDT us Kourtney Blackwell PA-C LAB BLOOD ORDERABLES Final Result Performing Organization Address [facility] Co de Phone Number [address] [address] * (ABNORMAL) Lipid panel (06/01/2021 5:29 AM EDT) HDL 66 mg/dL [facility] Comment: Interpretation <40 mg/dL: Low HDL cholesterol (major risk factor for CHD) Greater than or equal to 60 mg/dL: High HDL cholesterol ( negative risk factor for CHD) HDL - cholesterol is affected by a number of factors, e.g. smoking, excerise, hormones, sex and age. CHOLESTEROL 158 0 - 240 mg/dL [facility] TRIGLYCERIDES 93 30 - 160 mg/dL [facility] LDL 73 50 - 129 mg/dL [facility] Comment: LDL levels in terms of risk for coronary heart disease: <100 mg/dL: Optimal 100-129 mg/dL: Near or above optimal 130-159 mg/dL: Borderline high 160-189 mg/dL: High >190 mg/dL: Very High CARDIAC RISK RATIO 2.4(L) 3.3 - 4.4 C [facility] Blood 06/01/2021 5:29 AM EDT 06/01/2021 7:02 AM EDT us Tamara Ortega SCALE INSTALLER LAB BLOOD ORDERABLES Fi nal Result Performing Organization Address [facility]/ZIP Co de Phone Number [address] [address] from Last 3 Months or Most Recently Relevant to Health Maintenance Insurance [employer] MEDICARE PART A & B [facility] & [place] B [facility] MEDICARE PART A & [place] B [facility] MEDICARE PART A & B Advance Directives For more information, please contact: [phone] (9AM - 5PM [facility], Monday-Monday) Documents on File Type Date Recorded Patient Chain Tender Expl anation Healthcare Proxy 06/02/2021 2:35 PM MOLST 06/02/2021 2:35 PM Healthcare Proxy 07/18/2017 11:42 AM * Full Code (Latest Code Status on File) Date Activated Date Inactivated Comments 05/31/2021 5:17 PM Question Answer Comments Code Status Confirmed With: Patient Healthcare Agents on File Name Relationship Healthcare Agent [facility] Communication Anshu Torres Son .Primary Health Care Agent (Proxy form on file) Care Teams Bulb Grower Relationship Specialty Start Date End Date Meliton Jones MD [address] [address] PCP - General Internal Medicine 02/15/17 Additional Source Comments The information contained in this document represents components of the legal health record. It is not the complete legal health record.[facility]
--- OUTSIDE RECORDS SUMMARY | 2024-11-26 17:48 | XMS_ITS | Encounter Summary ---
Author Organization [facility] Address [address] [facility] [address] [place] [address] Phone Care Team Providers Care Operations Professional Name Role Phone Meliton Jones MD Primary Care Provider [phone] Encounter Details Date Type Department Care Team (Latest Contact Info) Description 06/21/2020 Transcribe Orders [facility] Specimen Processing [address] [place] [address] Ian Lynn MD [address] [place] [address] [place] [address] retirement (current) use of anticoagulants (Primary Dx) Social [...] of this encounter Results * (ABNORMAL) PT-INR (06/21/2020 9:44 AM EDT) PT 13.5(H) 10.2 - 12.9 sec [facility] INR 1.2(H) 0.9 - 1.1 [facility] Comment:Therapeutic range fo r oral Vitamin K antagonists: 2.0-3.5 Blood 06/21/2020 9:44 AM EDT 06/21/2020 9:54 AM EDT us Ian Lynn MD LAB BLOOD ORDERABLES Final Result [facility] [address] [place] [address] documented in this encounter Visit Diagnoses Diagnosis retirement (current) use of anticoagulants- Primary Long-term (current) [...] documented as of this encounter Care Teams Operations Professional Relationship Specialty Start Date End Date Meliton Jones MD [address] [place] [address] PCP - General Internal Medicine 02/15/17 documented as of this encounter Additional Source Comments The information contained in this document represents components of the legal health record. It is not the complete legal health record.[facility]
--- OUTSIDE RECORDS SUMMARY | 2024-11-26 17:48 | XMS_ITS | Encounter Summary ---
Author Organization [facility] Address [address] [facility] [address] [place] [address] Phone Care Team Providers Care Academy Director Name Role Phone Meliton Jones MD Primary Care Provider [phone] Encounter Details Date Type Department Care Team (Late st Contact Info) Description 04/04/2017 Transcribe Orders [facility] Specimen Processing [address] [place] [address] Meliton Jones MD 112 [facility] [address] [place] [address] Admission for long-term (current) use of anticoagulants [...] of this encounter Results * (ABNORMAL) PT-INR (04/04/2017 5:41 PM EST) PT 30.2(H) 10.2 - 12.9 sec [facility] INR 2.6(H) 0.9 - 1.1 [facility] Comment:Therapeutic range fo r oral Vitamin K antagonists: 2.0-3.5 Blood 04/04/2017 5:41 PM EST 04/04/2017 5:45 PM EST Meliton Jones MD LAB BLOOD ORDERABLES Final Resul t [facility] [address] [place] [address] documented in this encounter Visit Diagnoses Diagnosis [...] documented as of this encounter Care Teams Academy Director Relationship Specialty Start Date End Date Meliton Jones MD [address] [place] [address] [address] [place] [address] PCP - General Internal Medicine 02/15/17 documented as of this encounter Additional Source Comments The information contained in this document represents components of the legal health record. It is not the complete legal health record.[facility]
--- OUTSIDE RECORDS SUMMARY | 2024-11-26 17:48 | XMS_ITS | Encounter Summary ---
Author Organization [facility] Address [address] [employer] [facility] [address] [place] [address] Phone Care Team Providers Care Geotechnical Engineering Technician Name Role Phone Meliton Jones MD Primary Care Provider [phone] Encounter Details Date Type Department Care Team (Late st Contact Info) Description 03/21/2017 Transcribe Orders [facility] Specimen Processing 30 [place] [address] Meliton Jones MD 112 [facility] [address] [place] [address] Admission for long-term (current) use of anticoagulants [...] of this encounter Results * (ABNORMAL) PT-INR (03/21/2017 1:30 PM EST) PT 33.6(H) 10.2 - 12.9 sec [facility] INR 2.9(H) 0.9 - 1.1 [facility] Comment:Therapeutic range fo r oral Vitamin K antagonists: 2.0-3.5 Blood 03/21/2017 1:30 PM EST 03/21/2017 2:28 PM EST Meliton Jones MD LAB BLOOD ORDERABLES Final Resul t [facility] 30 [place] [address] documented in this encounter Visit Diagnoses Diagnosis [...] documented as of this encounter Care Teams Geotechnical Engineering Technician Relationship Specialty Start Date End Date Meliton Jones MD [address] [place] [address] 2 [place] [address] PCP - General Internal Medicine 02/15/17 documented as of this encounter Additional Source Comments The information contained in this document represents components of the legal health record. It is not the complete legal health record.[facility]
--- OUTSIDE RECORDS SUMMARY | 2024-11-26 17:49 | XMS_ITS | Encounter Summary ---
Author Organization [facility] Address [address] [employer] [facility] [address] [place] [address] Phone Care Team Providers Care Athletic Agent Name Role Phone Meliton Jones MD Primary Care Provider [phone] Encounter Details Date Type Department Care Team (Late st Contact Info) Description 07/12/2017 Transcribe Orders [facility] Specimen Processing 30 [place] [address] Meliton Jones MD 112 [facility] [address] [place] [address] Admission for long-term (current) use of anticoagulants [...] of this encounter Results * (ABNORMAL) PT-INR (07/12/2017 10:10 AM EDT) PT 26.5(H) 10.2 - 12.9 sec [facility] INR 2.3(H) 0.9 - 1.1 [facility] Comment:Therapeutic range fo r oral Vitamin K antagonists: 2.0-3.5 Blood 07/12/2017 10:1 0 AM EDT 07/12/2017 1:36 PM EDT Meliton Jones MD LAB BLOOD ORDERABLES Final Resul t [facility] 30 [place] [address] documented in this encounter Visit Diagnoses Diagnosis [...] documented as of this encounter Care Teams Athletic Agent Relationship Specialty Start Date End Date Meliton Jones MD [address] [place] [address] PCP - General Internal Medicine 02/15/17 documented as of this encounter Additional Source Comments The information contained in this document represents components of the legal health record. It is not the complete legal health record.[facility]
--- OUTSIDE RECORDS SUMMARY | 2024-11-26 17:49 | XMS_ITS | Encounter Summary ---
Author Organization [facility] Address [address] [employer] [facility] [address] [place] [address] Phone Care Team Providers Care Post Exchange Manager Name Role Phone Meliton Jones MD Primary Care Provider [phone] Encounter Details Date Type Department Care Team (Late st Contact Info) Description 08/18/2017 Transcribe Orders [facility] Specimen Processing 30 [place] [address] Meliton Jones MD 112 [facility] [address] [place] [address] Admission for long-term (current) use of anticoagulants [...] of this encounter Results * (ABNORMAL) PT-INR (08/18/2017 6:19 AM EDT) PT 28.6(H) 10.2 - 12.9 sec [facility] INR 2.5(H) 0.9 - 1.1 [facility] Comment:Therapeutic range fo r oral Vitamin K antagonists: 2.0-3.5 Blood 08/18/2017 6:19 AM EDT 08/18/2017 8:38 AM EDT Meliton Jones MD LAB BLOOD ORDERABLES Final Resul t [facility] 30 [place] [address] documented in this encounter Visit Diagnoses Diagnosis [...] documented as of this encounter Care Teams Post Exchange Manager Relationship Specialty Start Date End Date Meliton Jones MD [address] [place] [address] PCP - General Internal Medicine 02/15/17 documented as of this encounter Additional Source Comments The information contained in this document represents components of the legal health record. It is not the complete legal health record.[facility]
--- OUTSIDE RECORDS SUMMARY | 2024-11-26 17:49 | XMS_ITS | Encounter Summary ---
Author Organization [facility] Address [address] [place] [address] Care Team Providers Care Timber Inspector Name Role Phone Meliton Jones MD Primary Care Provider [phone] Encounter Details Date Type Department Care Team (Late Contact Info) Description 10/04/2024 Lab Requisition [facility] - Main Lab [address] [facility] [place] [phone] Geetha Guerrero MD [address] [address] Urinary tract infection, site not specified Social History Tobacco Use Types Packs/Day Years [...] 12/27/2024 1:30 PM EDT Office Visit [facility] [address] [facility] [address] [place] [address] Tatiana Rome PA [address] [facility] [address] [place] [address] documented as of this encounter Procedures Procedure Name Priority Date/Time Associated Diagnosis Comments CULTURE URINE Routine 10/04/2024 12:55 PM EDT Urinary tract infection, site not specified documented in this encounter Results * (ABNORMAL) Culture urine (10/04/2024 12:55 PM EDT) Culture, Urine >=100,000 CFU/mL Raoulthao planticola(A) MARY JO 10/06/2024 11:00 AM EDT [facility] Comment: This is an edited [...] JO <=16 ug/ml: Susceptible Raoultella planticola Trimethoprim/Sulfamethoxazole IA C <=20 ug/ml: Susceptible Geetha Guerrero MD LAB MICROBIOLOGY - G ENERAL ORDERABLES Final Result [facility] [address] [place] [address], documented in this encounter Visit Diagnoses Diagnosis Urinary tract infection, site not specified documented in this encounter Care Teams Timber Inspector Relationship Specialty Start Date End Date Meliton Jones MD [address] [place] [address] PCP - General 04/26/23 documented as of this encounter
--- OUTSIDE RECORDS SUMMARY | 2024-11-26 17:49 | XMS_ITS | Encounter Summary ---
Author Organization [facility] Address [address] 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) Social [...] of this encounter Results * (ABNORMAL) PT-INR (01/12/2018 7:00 AM EDT) PT 29.1(H) 10.2 - 12.9 sec [facility] INR 2.5(H) 0.9 - 1.1 [facility] Comment:Therapeutic range fo r oral Vitamin K antagonists: 2.0-3.5 Blood 01/12/2018 7:00 AM EDT 01/12/2018 8:32 AM EDT us Meliton Jones MD LAB BLOOD ORDERABLES Final Resul t [facility] 30 [place] [address] documented in this encounter Visit Diagnoses Diagnosis nursing home (current) use of anticoagulants- Primary Long-term (current) [...] documented as of this encounter Care Teams Roll Coating Machine Operator Relationship Specialty Start Date End Date Meliton Jones MD [address] [place] [address] 2 [place] [address] PCP - General Internal Medicine 02/15/17 documented as of this encounter Additional Source Comments The information contained in this document represents components of the legal health record. It is not the complete legal health record.[facility]
--- OUTSIDE RECORDS SUMMARY | 2024-11-26 17:49 | XMS_ITS | Encounter Summary ---
Author Organization [facility] Address 399 [facility] [address] [place] [address] Phone Care Team Providers Care Tobacco Drier Operator Name Role Phone Meliton Jones MD Primary Care Provider [phone] Reason for Referral * Physical Therapy (Routine) - Closed Specialty Diagnoses / Procedures Referred By Krystina varghese Referred To Contact Physical Therapy Diagnoses Encounter for rehabilitation Status Post Left Rotator Cuff Repair Procedures Evaluate & Treat Ian Lynn MD Phone: tel: fax: [address] [address] Phone: tel: Referral ID Status Reason Start Date Expiration Date Visits Re quested Visits Authorized [id number] Closed 08/26/2020 03/19/2021 99 [phone] Encounter Details Date Type Department Care Team (Latest Contact Info) Description 08/25/2020 Transcribe Orders [facility] 4 [place] [address] Ian Lynn MD [address] [place] [address] [place] [address] Encounter for rehabilitation (Primary Dx) Social History Tobacco Use Types [...] as of this encounter Plan of Treatment Scheduled Referrals Name Type Priority Associated Diagnoses Orde r Schedule Ambulatory referral to [facility] Physical Therapy Outpatient Referral Routine Encounter for rehabilitation Ordered: 08/25/2020 documented as of this encounter Visit Diagnoses Diagnosis Encounter for rehabilitation- Primary documented in this encounter Additional Health Concerns Infection Onset Date Last Indicated Resolved Time CoV-Risk 02/21/2021 02/21/2021 03/03/2021 1:22 AM EST CoV-Exposed 06/01/2021 06/07/2021 06/12/2021 1:22 AM EDT COVID-19 12/28/2022 12/28/2022 01/18/2023 1:21 AM EDT CoV-Risk 04/29/2024 04/29/2024 05/10/2024 1:23 AM EST Influenza A 04/29/2024 04/29/2024 05/06/2024 1:23 AM EST documented as of this encounter Care Teams Tobacco Drier Operator Relationship Specialty Start Date End Date Meliton Jones MD [address] [place] [address] PCP - General Internal Medicine 02/15/17 documented as of this encounter Additional Source Comments The information contained in this document represents components of the legal health record. It is not the complete legal health record.[facility]
--- OUTSIDE RECORDS SUMMARY | 2024-11-26 17:49 | XMS_ITS | Encounter Summary ---
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) Social [...] of this encounter Results * (ABNORMAL) PT-INR (09/18/2017 10:20 AM EDT) PT 29.0(H) 10.2 - 12.9 sec [facility] INR 2.6(H) 0.9 - 1.1 [facility] Comment:Therapeutic range fo r oral Vitamin K antagonists: 2.0-3.5 Blood 09/18/2017 10:2 0 AM EDT 09/18/2017 1:06 PM EDT us Meliton Jones MD LAB BLOOD ORDERABLES Final Resul t [facility] 30 [place] [address] documented in this encounter Visit Diagnoses Diagnosis 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 Long-term (current) use of anticoagulants documented in this encounter Additional Health Concerns Infection Onset Date Last Indicated Resolved Time CoV-Risk 02/21/2021 02/21/2021 03/03/2021 1:22 AM EST CoV-Exposed 06/01/2021 06/07/2021 06/12/2021 1:22 AM EDT COVID-19 12/28/2022 12/28/2022 01/18/2023 1:2 1 AM EDT CoV-Risk 04/29/2024 04/29/2024 05/10/2024 1:23 AM EST Influenza A 04/29/2024 04/29/2024 05/06/2024 1:23 AM EST documented as of this encounter Care Teams Youth Care Worker Relationship Specialty Start Date End Date Meliton Jones MD [address] [place] [address] 2 [place] [address] PCP - General Internal Medicine 02/15/17 documented as of this encounter Additional Source Comments The information contained in this document represents components of the legal health record. It is not the complete legal health record.[facility]
--- OUTSIDE RECORDS SUMMARY | 2024-11-26 17:49 | XMS_ITS | Encounter Summary ---
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 (Primary Dx) Social [...] of this encounter Results * (ABNORMAL) PT-INR (10/19/2017 11:00 AM EDT) PT 33.3(H) 10.2 - 12.9 sec [facility] INR 2.9(H) 0.9 - 1.1 [facility] Comment:Therapeutic range fo r oral Vitamin K antagonists: 2.0-3.5 Blood 10/19/2017 11:0 0 AM EDT 10/19/2017 11:29 AM EDT us Meliton Jones MD LAB BLOOD ORDERABLES Final Resul t [facility] 30 [place] [address] documented in this encounter Visit Diagnoses Diagnosis jail (current) use of anticoagulants- Primary Long-term (current) [...] documented as of this encounter Care Teams Stave Cutting Supervisor Relationship Specialty Start Date End Date Meliton Jones MD [address] [place] [address] 2 [place] [address] PCP - General Internal Medicine 02/15/17 documented as of this encounter Additional Source Comments The information contained in this document represents components of the legal health record. It is not the complete legal health record.[facility]
--- OUTSIDE RECORDS SUMMARY | 2024-11-26 17:49 | XMS_ITS | Encounter Summary ---
Author Organization [facility] Address [address] [facility] [address] [place] [address] Phone Care Team Providers Care Substation Design Draftsperson Name Role Phone Meliton Jones MD Primary Care Provider [phone] Encounter Details Date Type Department Care Team (Late st Contact Info) Description 06/14/2017 Transcribe Orders [facility] Specimen Processing 30 [place] [address] Meliton Jones MD 112 [facility] [address] [place] [address] Admission for long-term (current) use of anticoagulants [...] of this encounter Results * (ABNORMAL) PT-INR (06/14/2017 12:30 PM EDT) PT 27.7(H) 10.2 - 12.9 sec [facility] INR 2.4(H) 0.9 - 1.1 [facility] Comment:Therapeutic range fo r oral Vitamin K antagonists: 2.0-3.5 Blood 06/14/2017 12:3 0 PM EDT 06/14/2017 12:45 PM EDT Meliton Jones MD LAB BLOOD ORDERABLES Final Resul t [facility] 30 [place] [address] documented in this encounter Visit Diagnoses Diagnosis [...] documented as of this encounter Care Teams Substation Design Draftsperson Relationship Specialty Start Date End Date Meliton Jones MD [address] [place] [address] PCP - General Internal Medicine 02/15/17 documented as of this encounter Additional Source Comments The information contained in this document represents components of the legal health record. It is not the complete legal health record.[facility]
--- OUTSIDE RECORDS SUMMARY | 2024-11-26 17:50 | XMS_ITS | Encounter Summary ---
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 (Primary Dx) Social [...] of this encounter Results * (ABNORMAL) PT-INR (03/15/2018 7:00 AM EST) PT 18.0(H) 10.2 - 12.9 sec [facility] INR 1.6(H) 0.9 - 1.1 [facility] Comment:Therapeutic range fo r oral Vitamin K antagonists: 2.0-3.5 Blood 03/15/2018 7:00 AM EST 03/15/2018 7:36 AM EST Meliton Jones MD LAB BLOOD ORDERABLES Final Resul t [address] [address] documented in this encounter Visit Diagnoses Diagnosis senior living (current) use of anticoagulants- Primary Long-term (current) [...] documented as of this encounter Care Teams Chinchilla Machine Operator Relationship Specialty Start Date End Date Meliton Jones MD [address] [place] [address] 2 [place] [address] PCP - General Internal Medicine 02/15/17 documented as of this encounter Additional Source Comments The information contained in this document represents components of the legal health record. It is not the complete legal health record.[facility]
--- OUTSIDE RECORDS SUMMARY | 2024-11-26 17:50 | XMS_ITS | Encounter Summary ---
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) Social [...] of this encounter Results * (ABNORMAL) PT-INR (04/06/2018 6:50 AM EST) PT 36.1(H) 10.2 - 12.9 sec [facility] INR 3.1(H) 0.9 - 1.1 [facility] Comment:Therapeutic range fo r oral Vitamin K antagonists: 2.0-3.5 Blood 04/06/2018 6:50 AM EST 04/06/2018 8:49 AM EST Meliton Jones MD LAB BLOOD ORDERABLES Final Resul t [facility] 30 [place] [address] documented in this encounter Visit Diagnoses Diagnosis [facility] (current) use of anticoagulants- Primary Long-term (current) [...] documented as of this encounter Care Teams Clinical Services Manager Relationship Specialty Start Date End Date Meliton Jones MD [address] [place] [address] 2 [place] [address] PCP - General Internal Medicine 02/15/17 documented as of this encounter Additional Source Comments The information contained in this document represents components of the legal health record. It is not the complete legal health record.[facility]
--- OUTSIDE RECORDS SUMMARY | 2024-11-26 17:50 | XMS_ITS | Encounter Summary ---
Author Organization 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) Social [...] of this encounter Results * (ABNORMAL) PT-INR (03/30/2018 7:00 AM EST) PT 23.9(H) 10.2 - 12.9 sec [facility] INR 2.1(H) 0.9 - 1.1 [facility] Comment:Therapeutic range fo r oral Vitamin K antagonists: 2.0-3.5 Blood 03/30/2018 7:00 AM EST 03/30/2018 8:54 AM EST Meliton Jones MD LAB BLOOD ORDERABLES Final Resul t [facility] 30 [place] [address] documented in this encounter Visit Diagnoses Diagnosis group home (current) use of anticoagulants- Primary Long-term [...] documented as of this encounter Care Teams Health Unit Supervisor Relationship Specialty Start Date End Date Meliton Jones MD [address] [place] [address] 2 [place] [address] PCP - General Internal Medicine 02/15/17 documented as of this encounter Additional Source Comments The information contained in this document represents components of the legal health record. It is not the complete legal health record.[facility]
--- OUTSIDE RECORDS SUMMARY | 2024-11-26 17:50 | XMS_ITS | Encounter Summary ---
Author Organization [facility], Address [address] [place] [address] Phone Care Team Providers Care Tax Appraiser Name Role Phone Meliton Jones MD Primary Care Provider [phone] Encounter Details Date Type Department Care Team (Late st Contact Info) Description 12/07/2022 Documentation Only [facility] [address] [place] [phone] Scottie Hill MD [address] [place] [address] [place] [address] [place] [id number] Social History Tobacco Use Types Packs/Day Years [...] on filedocumented in this encounter Care Teams Tax Appraiser Relationship Specialty Start Date End Date Meliton Jones MD [address] [place] [address], [address] [place] [address] PCP - General Internal Medicine 12/05/22 documented as of this encounter
--- OUTSIDE RECORDS SUMMARY | 2024-11-26 17:50 | XMS_ITS | Encounter Summary ---
Author Organization [facility] Address [address] [employer] [facility] [address] [place] [address] Phone Care Team Providers Care Csr Technician Name Role Phone Meliton Jones MD Primary Care Provider [phone] Encounter Details Date Type Department Care Team (Late st Contact Info) Description 02/13/2018 Transcribe Orders [facility] Specimen Processing 30 [place] [address] Meliton Jones MD 112 [facility] [address] [place] [address] sight mounter (current) use of anticoagulants (Primary Dx) Social [...] of this encounter Results * (ABNORMAL) PT-INR (02/13/2018 6:30 AM EST) PT 24.5(H) 10.2 - 12.9 sec [facility] INR 2.1(H) 0.9 - 1.1 [facility] Comment:Therapeutic range fo r oral Vitamin K antagonists: 2.0-3.5 Blood 02/13/2018 6:30 AM EST 02/13/2018 7:27 AM EST Meliton Jones MD LAB BLOOD ORDERABLES Final Resul t [address] [address] documented in this encounter Visit Diagnoses Diagnosis intermediate (current) use of anticoagulants- Primary Long-term (current) [...] documented as of this encounter Care Teams Csr Technician Relationship Specialty Start Date End Date Meliton Jones MD [address] [place] [address] 2 [place] [address] PCP - General Internal Medicine 02/15/17 documented as of this encounter Additional Source Comments The information contained in this document represents components of the legal health record. It is not the complete legal health record.[facility]
--- OUTSIDE RECORDS SUMMARY | 2024-11-26 17:50 | XMS_ITS | Encounter Summary ---
Author Organization [facility] Address [address] [place] [address] Phone Care Team Providers Care Registered Representative Name Role Phone Meliton Jones MD Primary Care Provider [phone] Encounter Details Date Type Department Care Team (Late st Contact Info) Description 02/13/2018 Transcribe Orders [facility] Specimen Processing 30 [place] [address] Meliton Jones MD [address] [facility] [address] [place] [address] Social History Tobacco Use Types Packs/Day Years [...] documented as of this encounter Care Teams Registered Representative Relationship Specialty Start Date End Date Meliton Jones MD [address] [place] [address] PCP - General Internal Medicine 02/15/17 documented as of this encounter Additional Source Comments The information contained in this document represents components of the legal health record. It is not the complete legal health record.[facility]
--- OUTSIDE RECORDS SUMMARY | 2024-11-26 17:50 | XMS_ITS | Encounter Summary ---
Author Organization [facility], Address [address] [place] [address] Phone Care Team Providers Care Career Development Consultant Name Role Phone Meliton Jones MD Primary Care Provider [phone] Encounter Details Date Type Department Care Team (Late st Contact Info) Description 12/07/2022 Documentation Only [facility] [address] [place] [phone] Scottie Hill MD [address] [place] [address] [place] [address] [place] [phone] Social History Tobacco Use Types Packs/Day Years [...] on filedocumented in this encounter Care Teams Career Development Consultant Relationship Specialty Start Date End Date Meliton Jones MD [address] [place] [address], [address] [place] [address] PCP - General Internal Medicine 12/05/22 documented as of this encounter
--- OUTSIDE RECORDS SUMMARY | 2024-11-26 17:50 | XMS_ITS | Encounter Summary ---
Author Organization [facility] Address [address] [facility] [address] [place] [address] Phone Care Team Providers Care Sap Senior Developer Name Role Phone Meliton Jones MD Primary Care Provider [phone] Encounter Details Date Type Department Care Team (Late st Contact Info) Description 08/03/2021 Procedure Pass [facility], Ct Scan - [address] [address] Social History Tobacco Use Types Packs/Day Years [...] as of this encounter Care Teams Sap Senior Developer Relationship Specialty Start Date End Date Meliton Jones MD [address] [place] [address] PCP - General Internal Medicine 02/15/17 documented as of this encounter Additional Source Comments The information contained in this document represents components of the legal health record. It is not the complete legal health record.[facility]
--- OUTSIDE RECORDS SUMMARY | 2024-11-26 17:50 | XMS_ITS | Encounter Summary ---
Author Organization [facility], Address [address] [place] [address] Phone Care Team Providers Care Ice Plant Operator Name Role Phone Meliton Jones MD Primary Care Provider [phone] Encounter Details Date Type Department Care Team (Late st Contact Info) Description 12/07/2022 Documentation Only [facility] [address] [place] [phone] Scottie Hill MD [address] [place] [address] [place] [address] [place] [phone] Social History Tobacco Use Types Packs/Day Years [...] on filedocumented in this encounter Care Teams Ice Plant Operator Relationship Specialty Start Date End Date Meliton Jones MD [address] [place] [address], [address] [place] [address] PCP - General Internal Medicine 12/05/22 documented as of this encounter
--- OUTSIDE RECORDS SUMMARY | 2024-11-26 17:51 | XMS_ITS | Encounter Summary ---
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) Social [...] of this encounter Results * (ABNORMAL) PT-INR (04/20/2018 7:40 AM EST) PT 28.0(H) 10.2 - 12.9 sec [facility] INR 2.5(H) 0.9 - 1.1 [facility] Comment:Therapeutic range fo r oral Vitamin K antagonists: 2.0-3.5 Blood 04/20/2018 7:40 AM EST 04/20/2018 9:53 AM EST Meliton Jones MD LAB BLOOD ORDERABLES Final Resul t [facility] [address] [place] [address] documented in this encounter Visit Diagnoses Diagnosis 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 It is not the complete legal health record.[facility]
--- OUTSIDE RECORDS SUMMARY | 2024-11-26 17:51 | XMS_ITS | Encounter Summary ---
Author Organization [facility] Address [address] [facility] [address] [place] [address] Phone Care Team Providers Care Director Of Clinical Applications Name Role Phone Meliton Jones MD Primary Care Provider [phone] Encounter Details Date Type Department Care Team (Late st Contact Info) Description 02/21/2021 Procedure Pass [facility], Ct Scan - [address] [address] Social History Tobacco Use Types Packs/Day Years [...] Date of Assessment Author No Risk Indicated 02/21/2021 1:40 PM Nilda Godinez, RN * [employer] Suicide Severity Rating Scale (Screener/Recent Self-Report) Question Answer Date of Assessment Author 1. Wish to be (Past 1 Month) No 021 1:40 PM EST Nilda Kong RN 2. Non-Specific Active Suici diane Thoughts (Past 1 Month) No 02/21/2021 1:40 PM EST Kenton Kong RN 6. Suicidal Behavior (Lifetime) No 1:40 PM EST Nilda Kong RN documented as of this encounter Plan [...] of this encounter Care Teams Director Of Clinical Applications Relationship Specialty Start Date End Date Meliton Jones MD [address] [place] [address] PCP - General Internal Medicine 02/15/17 documented as of this encounter Additional Source Comments The information contained in this document represents components of the legal health record. It is not the complete legal health record.[facility]
--- OUTSIDE RECORDS SUMMARY | 2024-11-26 17:51 | XMS_ITS | Encounter Summary ---
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) [...] of this encounter Results * (ABNORMAL) PT-INR (04/13/2018 7:30 AM EST) PT 30.6(H) 10.2 - 12.9 sec [facility] INR 2.7(H) 0.9 - 1.1 [facility] Comment:Therapeutic range fo r oral Vitamin K antagonists: 2.0-3.5 Blood 04/13/2018 7:30 AM EST 04/13/2018 9:35 AM EST Melitno Jones MD LAB BLOOD ORDERABLES Final Resul t [facility] 30 [place] [address] documented in this encounter Visit Diagnoses Diagnosis halfway (current) use of anticoagulants- Primary Long-term (current) [...] documented as of this encounter Care Teams Product Development Actuary Relationship Specialty Start Date End Date Meliton Jones MD [address] [place] [address] 2 [place] [address] PCP - General Internal Medicine 02/15/17 documented as of this encounter Additional Source Comments The information contained in this document represents components of the legal health record. It is not the complete legal health record.[facility]
--- OUTSIDE RECORDS SUMMARY | 2024-11-26 17:51 | XMS_ITS | Encounter Summary ---
Author Organization [facility], Address [address] [place] [address] Phone Care Team Providers Care Piledriver Carpenter Name Role Phone Meliton Jones MD Primary Care Provider [phone] Encounter Details Date Type Department Care Team (Late st Contact Info) Description 12/29/2022 Documentation Only [facility], [facility] [address] [place] [phone] Scottie Hill MD [address] [place] [address] [place] [address] [place] [phone] Social History Tobacco Use Types Packs/Day Years [...] on filedocumented in this encounter Care Teams Piledriver Carpenter Relationship Specialty Start Date End Date Meliton Jones MD [address] [place] [address], [address] [place] [address] PCP - General Internal Medicine 12/05/22 documented as of this encounter
--- OUTSIDE RECORDS SUMMARY | 2024-11-26 17:52 | XMS_ITS | Encounter Summary ---
Author Organization [facility], Address [address] [place] [address] Phone Care Team Providers Care Cage Unloader Name Role Phone Meliton Jones MD Primary Care Provider [phone] Encounter Details Date Type Department Care Team (Late st Contact Info) Description 12/07/2022 Office Communication [facility], [facility] [address] [place] [phone] Scottie Hill MD [address] [place] [address] [place] [phone] Social History Tobacco Use Types Packs/Day Years [...] on filedocumented in this encounter Care Teams Cage Unloader Relationship Specialty Start Date End Date Meliton Jones MD [address] [place] [address], [address] [place] [address] PCP - General Internal Medicine 12/05/22 documented as of this encounter
--- OUTSIDE RECORDS SUMMARY | 2024-11-26 17:52 | XMS_ITS | Encounter Summary ---
Author Organization [facility] Address [address] [facility] [address] [place] [address] Phone Care Team Providers Care Paramedic Instructor Name Role Phone Meliton Jones MD Primary Care Provider [phone] Reason for Referral * Consultation (Elective) - Closed Specialty Diagnoses / Procedures Referred By Krystina t Referred To Contact Pulmonary Disease Meliton Jones MD Phone: tel: fax: [address] [address] Phone: tel: Referral ID Status Reason Start Date Expiration Date Visits Re quested Visits Authorized [id number] Closed 03/04/2021 03/04/2022 1 1 Encounter Details Date Type Department Care Team (Late st Contact Info) Description 03/04/2021 Transcribe Orders [facility] Pulmonary, Allergy and Critical Care Medicine [address] [facility] [place] [address] Meliton Jones MD 112 [facility] 2 [place] [address] Social History Tobacco Use Types Packs/Day Years [...] Associated Diagnoses Order Schedule Ambulatory referral to [facility] Pulmonology Outpatient Referral Routine Ordered: 03/04/2021 documented as of this encounter Visit Diagnoses Not on filedocumented in this encounter Additional Health Concerns Infection Onset Date Last Indicated Resolved Time CoV-Exposed 06/01/2021 06/07/2021 06/12/2021 1:22 AM EDT COVID-19 12/28/2022 12/28/2022 01/18/2023 1:21 AM EDT CoV-Risk 04/29/2024 04/29/2024 05/10/2024 1:23 AM EST Influenza A 04/29/2024 04/29/2024 05/06/2024 1:23 AM EST documented as of this encounter Care Teams Paramedic Instructor Relationship Specialty Start Date End Date Meliton Jones MD [address] [place] [address] PCP - General Internal Medicine 02/15/17 documented as of this encounter Additional Source Comments The information contained in this document represents components of the legal health record. It is not the complete legal health record.[facility]
--- OUTSIDE RECORDS SUMMARY | 2024-11-26 17:52 | XMS_ITS | Encounter Summary ---
Author Organization [facility] Address [address] [facility] [address] [place] [address] Phone Care Team Providers Care Senior Loss Control Specialist Name Role Phone Meliton Jones MD Primary Care Provider [phone] Encounter Details Date Type Department Care Team (Late st Contact Info) Description 04/27/2018 Transcribe Orders [facility] Specimen Processing 30 [place] [address] Meliton Jones MD 112 [facility] [address] [place] [address] Diagnosis unknown (Primary Dx) Social History Tobacco Use Types [...] of this encounter Results * (ABNORMAL) PT-INR (04/27/2018 7:15 AM EST) PT 33.8(H) 10.2 - 12.9 sec [facility] INR 2.9(H) 0.9 - 1.1 [facility] Comment:Therapeutic range fo r oral Vitamin K antagonists: 2.0-3.5 Blood 04/27/2018 7:15 AM EST 04/27/2018 9:06 AM EST Meliton Jones MD LAB BLOOD ORDERABLES Final Resul t [facility] 30 [place] [address] documented in this encounter Visit Diagnoses Diagnosis Diagnosis unknown- Primary documented in this encounter Additional Health Concerns Infection Onset Date Last Indicated Resolved Time CoV-Risk 02/21/2021 02/21/2021 03/03/2021 1:22 AM EST CoV-Exposed 06/01/2021 06/07/2021 06/12/2021 1:22 AM EDT COVID-19 12/28/2022 12/28/2022 01/18/2023 1:21 AM EDT CoV-Risk 04/29/2024 04/29/2024 05/10/2024 1:23 AM EST Influenza A 04/29/2024 04/29/2024 05/06/2024 1:23 AM EST documented as of this encounter Care Teams Senior Loss Control Specialist Relationship Specialty Start Date End Date Meliton Jones MD [address] [place] [address] PCP - General Internal Medicine 02/15/17 documented as of this encounter Additional Source Comments The information contained in this document represents components of the legal health record. It is not the complete legal health record.[facility]
--- OUTSIDE RECORDS SUMMARY | 2024-11-26 17:52 | XMS_ITS | Encounter Summary ---
Author Organization [facility] Address [address] [facility] [address] [place] [address] Phone Care Team Providers Care Line Up Examiner Name Role Phone Meliton Jones MD Primary Care Provider [phone] Encounter Details Date Type Department Care Team (Late st Contact Info) Description 04/19/2021 Transcribe Orders [facility] PFT Lab [address] [place] [address] Meliton Jones MD 112 [facility] 2 [place] [address] Social History Tobacco Use Types Packs/Day Years [...] documented as of this encounter Care Teams Line Up Examiner Relationship Specialty Start Date End Date Meliton Jones MD [address] [place] [address] PCP - General Internal Medicine 02/15/17 documented as of this encounter Additional Source Comments The information contained in this document represents components of the legal health record. It is not the complete legal health record.[facility]
--- OUTSIDE RECORDS SUMMARY | 2024-11-26 17:52 | XMS_ITS | Clinical Summary ---
Author Organization [facility], Address [address] [place] [address] Phone Care Team Providers Care Material Handling Technician Name Role Phone Meliton Jones MD Primary Care Provider [phone] Allergies Active Allergy Reactions Criticality Noted Date Comments Penicillins 12/07/2022 Medications amantadine (SYMMETREL) 100 MG capsule 11/25/2022 Active Eliquis 5 MG tablet 11/25/2022 Active atorvastatin (LIPITOR) 20 MG tablet 10/07/2022 Active Cholecalciferol (Vitamin D3) 1.25 MG (93063 UT) capsule 11/25/2022 Active citalopram (CeleXA) 20 [...] PCV) 05/13/2016 05/13/2015, 11/21/2012 Influenza Vaccine (#1) 2024 , 11/11/2019, 11/11/2019, Additional history exists Hepatitis B Vaccine Aged Out No longe r eligible based on patient's age to complete this topic Insurance Medicare Medicaid [place] Care Teams Material Handling Technician Relationship Specialty Start Date End Date Meliton Jones MD [address] [place] [address], [address] [place] [address] PCP - General Internal Medicine 12/05/22
--- OUTSIDE RECORDS SUMMARY | 2024-11-26 17:52 | XMS_ITS | Encounter Summary ---
Author Organization [facility], Address [address] [place] [address] Phone Care Team Providers Care Restaurant Assistant Name Role Phone Meliton Jones MD Primary Care Provider [phone] Encounter Details Date Type Department Care Team (Late st Contact Info) Description 12/29/2022 Documentation Only [facility], [facility] [address] [place] [phone] Scottie Hill MD [address] [place] [address] [place] [address] [place] [phone] Social History Tobacco Use Types Packs/Day Years [...] on filedocumented in this encounter Care Teams Restaurant Assistant Relationship Specialty Start Date End Date Meliton Jones MD [address] [place] [address], [address] [place] [address] PCP - General Internal Medicine 12/05/22 documented as of this encounter
== END 2024-11-26 16:23 | disposition home or self-care (01) ==
LOC: HO.RHES 15:38
PROVIDERS: PCP Internal Medicine; Visit Provider Student in an Organized Health Care Education/Training Program
DX: M06.00 Rheumatoid arthritis without rheumatoid factor, unspecified site (principal); Z51.81 Encounter for therapeutic drug level monitoring; Z79.620 Long term (current) use of immunosuppressive biologic
CPT/HCPCS: 99214; G2211

== ENCOUNTER → 2024-11-26 15:37 | Outpatient (BNVA) | payer MEDICARE, MEDICAID, SELFPAY | PROVIDERS: PCP Internal Medicine; Visit Provider Student in an Organized Health Care Education/Training Program | DX: M06.00 Rheumatoid arthritis without rheumatoid factor, unspecified site (principal); Z51.81 Encounter for therapeutic drug level monitoring; Z79.620 Long term (current) use of immunosuppressive biologic | CPT/HCPCS: 99212 ==

== ENCOUNTER 2025-02-20 12:16 | Outpatient (AMB) | payer MEDICARE, MEDICAID, SELFPAY ==
--- NOTE | 2025-02-20 12:44 | A.OFFVIS_ITS ---
Vital Signs 02/20/25 12:51 Height 5 ft 2 in Weight 139 lb 15.896 oz BMI 25.6 BP 132/80 Blood Pressure Location Lt brachial Position Sitting Pulse 95 Pulse Source Pulse Oximeter Pulse Oximetry (%) 98 Oxygen Delivery Method Room Air Intake Visit Reasons: follow up Intake Note: Patient presents today for Seronegative rheumatoid arthritis follow up. Court Specialist Required: No Accompanied by: Self / Same As Patient Allergies Penicillins Allergy (Severe, Verified 02/20/25 12:50) rash,hives Medication List - Last Reconciled 02/20/25 by Navya Sy MD acetaminophen 1,000 mg PO BID PRN albuterol sulfate mg inhalation PRN albuterol sulfate 90 mcg/actuation inhalation amantadine HCl mg PO apixaban (Eliquis) 5 mg PO BID atorvastatin 20 mg PO DAILY baclofen 20 mg PO TID cholecalciferol (vitamin D3) PO clonazepam 1 mg PO TID PRN clonidine HCl 0.1 mg PO TID diclofenac sodium 1% 4 grams topical QID dicyclomine 20 mg PO QID dimethyl fumarate (Tecfidera) 240 mg PO BID donepezil 5 mg PO DAILY duloxetine 60 mg PO DAILY bedagrjiqof-ckhvtpyyb-irauqjzo 100-62.5-25 mcg (Trelegy Ellipta) 1 ea inhalation DAILY furosemide 20 mg PO DAILY gabapentin mg PO magnesium oxide 1 tab PO DAILY melatonin 3 mg PO BEDTIME PRN modafinil 1 tab PO BID multivitamin 1 tab PO DAILY pantoprazole (Protonix) 20 mg PO DAILY peg-electrolyte soln 420 gram mL PO quetiapine 100 mg PO BEDTIME tizanidine 1 tab PO TID HPI Comments Details: Patient is a 69-year-old female with multiple sclerosis (relapsing and remitting type), hypertension, polyarticular osteoarthritis and seronegative rheumatoid arthritis here today for follow up Interval History: Patient last seen 11/26/24 with me - Discussed starting rituximab for her RA Today - On Rituximab 1000mg x 2 every 6 months - Received first series 01/02 and 01/15 - Had a flare: 02/05, received steroids - Still complaining of bilateral hand pain, right knee pain and right hip pain - Does not think the steroids are helping - Has not been using the topical diclofenac gel, does not think it helps. Was not using it as prescribed Rheumatologic History: Establish care 12/15/2023 for evaluation of polyarthralgias OA versus inflammatory arthritis RF and CCP negative, responds to prednisone. Plaquenil 12/2023 Methotrexate added to plaquenil 03/2024 - 11/2024. Not eefctive TNFs and IL6 contraindicated due to MS Rituximab 12/2024 Current Rheumatology Medication(s): Rituximab 1000mg x 2 every 6 months [facility] Medical History (Updated 10/18/24 @ 13:02 by Navya Sy MD) Polyarticular osteoarthritis Numbness and tingling in both hands Lumbar radiculopathy Rotator cuff syndrome of left shoulder Long-term use of hydroxychloroquine Seronegative rheumatoid arthritis Wears dentures REBECCA (obstructive sleep apnea) Arthritis Seizures Fatty liver GERD (gastroesophageal reflux disease) Anxiety Depression History of pulmonary embolism Elevated cholesterol Finger dislocation Bursitis of left shoulder Opioid dependence COPD (chronic obstructive pulmonary disease) Multiple sclerosis Surgical History Hx of repair of left rotator cuff Hx of colonoscopy History of toe surgery Family History Father CVD (cardiovascular disease) Mother No problems noted. Social History Household Members: Significant Other Housing: House Are you a primary medical care evaluation specialist to a significant other at home: No Do you presently have visiting nurse or other home services: No Alcohol intake: never Comment: baseline pain Patient Tobacco Use Status: Former Tobacco user Tobacco use type: Cigarette Current occupational status: unemployed Current occupation: Right Handed Review of Systems Narrative Review of Systems Constitutional: Denies fever, chills, weight loss ENT: Denies vision changes, eye pain or eye redness, dental caries, dry mouth GI: Denies nausea, vomiting, diarrhea, abdominal pain, change in BM Pulm: Denies SOB, GUY, hemoptysis, wheezing Cards: Denies chest pain, palpitations Skin: Denies Raynaud's, rash, nail changes, photosensitivity, CLERICAL CLERK: Denies headaches, weakness, paresthesias, recurrent falls MSK: as per HPI All other systems reviewed and are unremarkable except noted above Physical Exam Exam Exam: Vital signs reviewed Physical Examination CONSTITUITIONAL Patient alert and cooperative. Well appearing and in no apparent painful distress Facial droop on right side MSK Hands * Right Hand: Able to make a fist. No swelling but TTP of the 2nd and 3rd PIP (improved from last visit) * Left Hand: Able to make a fist. No swelling but TTP of the 2nd and 3rd PIP (improved from last visit) * Herbedens and Bouchards nodes noted bilaterally Wrists * Right Wrist: Full ROM to flexion and extension. No swelling or TTP * Left Wrist: Full ROM to flexion and extension. No swelling or TTP Elbows * Right Elbow: Full ROM. No swelling or TTP. No TTP of the medial epicondyle. No TTP of the lateral epicondyle * Left Elbow: Full ROM. No swelling or TTP. No TTP of the medial epicondyle. No TTP of the lateral epicondyle Shoulders * Right shoulder: No swelling noted. No TTP of the AC joint. No TTP of the subacromial bursa. No TTP of the posterior shoulder * Left shoulder: No swelling noted. No TTP of the AC joint. No TTP of the subacromial bursa. No TTP of the posterior shoulder Hip bursa: TTP on the right Knees * Right knee: No swelling noted. No TTP of the knee joint line. No TTP of pes anserine bursa * Left knee: No swelling noted. No TTP of the knee joint line. No TTP of pes anserine bursa. * Crepitations felt bilaterally Ankles * Right ankle: Good ankle dorsiflexion and plantar flexion. No swelling. No TTP of the ankle joint * Left ankle: Good ankle dorsiflexion and plantar flexion. No swelling. No TTP of the ankle joint Tender points? * No tenderness to palpation of the bilateral trapezius, supraspinatus, anterior costochondral junctions, bilateral suboccipital muscle insertions SKIN No rashes Vital Signs: Last Vital Signs Pulse 95 02/20/25 12:51 BP 132/80 02/20/25 12:51 Pulse Ox 98 02/20/25 12:51 Oxygen Delivery Method Room Air 02/20/25 12:51 BMI result Body Mass Index 25.6 Results Reviewed Results Reviewed: Laboratory Tests 06/21/24 11:00 WBC 8.0 RBC 4.78 Hgb 13.6 Hct 41.8 Plt Count 303 ESR 9 Sodium 141 Potassium 4.1 Chloride 103 Carbon Dioxide 29 BUN 8 L Creatinine 0.74 AST 19 ALT 11 C-Reactive Protein 0.86 H 25-OH Vitamin D Total 58 Laboratory Tests 12/15/23 15:50 Rheumatoid Factor < 13.0 Cycl Citrul Peptide IgG <16 Laboratory Tests 01/02/25 09:39 Hep Bs Antigen Negative Hep Bs Antibody NONREACTIVE Hep B Core Total Ab Nonreactive Hepatitis C Ab (EIA) Nonreactive HIV 1&2 Ab/P24 Ag 4thGn Nonreactive TB Test (QFT) Gold Plus NEGATIVE MR Right Hip 10/2024 FINDINGS: There is a focal bone marrow T2 fat-sat signal abnormality in the anterior superior right acetabulum and the anterior: Right coxofemoral joint. Subtle subchondral cyst formation and marginal osteophyte formation at the right acetabulum, right femoral head and greater trochanter. There is trace of joint effusion. The femoral head neck instability region and proximal diaphysis of the right femur are intact. There is difficulty region is intact. The symphysis post demonstrated degenerative changes without acute cortical disruption. There is a subtle hyperintense T2 fat-sat signal and the gluteus minor. The flow-void signal within the main vessels is normal. Prominent nonspecific right inguinal lymph nodes. Heterogeneous nodular uterus. No gross free fluid in the included pelvic peritoneal cavity. IMPRESSION: Osteoarthritis/osteoarthrosis, moderate, right coxofemoral joint with questionable bone contusions in the anterior superior right acetabulum and anterior: Right acetabulum. Multiple uterine fibroids. Assessment & Plan Assessment & Plan (1) Seronegative rheumatoid arthritis: Comment: Establish care 12/15/2023 for evaluation of polyarthralgias OA versus inflammatory arthritis RF and CCP negative, responds to prednisone. Plaquenil 12/2023 Methotrexate added to plaquenil 03/2024 Code(s): M06.00 - Rheumatoid arthritis without rheumatoid factor, unspecified site Category: Medical Plan: #Seronegative RA Patient is a 69-year-old female with seronegative rheumatoid arthritis here today for follow up. Currently stable on Ritux Still having symptoms but this may be attributed to her OA Recommending consistent use of topical diclofenac Plan - Rituximab 1000mg x 2 every 6 months. Next due in June 2025 - Labs today: CBC, CMP, ESR, CRP, immunoglobulins, CD19 - RTC 4 months - Labs before visit: CBC, CMP, ESR, CRP, immunoglobulins, CD19 (2) Screening for osteoporosis: Code(s): Z13.820 - Encounter for screening for osteoporosis Plan: #Screening for osteoporosis Will check DEXA (3) Encounter for monitoring rituximab therapy: Code(s): Z51.81 - Encounter for therapeutic drug level monitoring; Z79.620 - buttermaker helper (current) use of immunosuppressive biologic Plan: #Long-term Use of Rituxumab Discussed with this patient the risks and benefits of rituximab use to the management of the rheumatic condition Benefits include improved disease control and maintenance of remission Risks include hypogammaglobulinemia and increased risk of opportunistic infections, reactivation of hepatitis-B, infusion reactions Monitoring: ?Immunoglobulins, hepatitis-B serologies, CBC Plan I spent 30 minutes reviewing the record and labs, taking a history, examining the patient, discussing the treatment plan, ordering diagnostic work up, answering questions and documenting in the medical record Orders: Orders CD19 + CD20 Flow Cytometry 4 Months Z79.899 - Other termite control technician (current) drug therapy Comprehensive Met. Panel 4 Months Z79.899 - Other detention (current) drug therapy C Reactive Protein 4 Months Z79.899 - Other termite control technician (current) drug therapy Immunoglobulins,IgG IgA IgM 4 Months Z79.899 - Other termite control technician (current) drug therapy Complete Blood Count Auto Diff Today Z79.899 - Other detention (current) drug therapy Erythrocyte Sedimentation Rate Today Z79.899 - Other detention (current) drug therapy CD19 + CD20 Flow Cytometry Today Z79.899 - Other termite control technician (current) drug therapy Complete Blood Count Auto Diff 4 Months Z79.899 - Other detention (current) drug therapy Erythrocyte Sedimentation Rate 4 Months Z79.899 - Other detention (current) drug therapy Comprehensive Met. Panel Today Z79.899 - Other detention (current) drug therapy C Reactive Protein Today Z79.899 - Other termite control technician (current) drug therapy Immunoglobulins,IgG IgA IgM Today Z79.899 - Other termite control technician (current) drug therapy XR DEXA axial skeleton Today M81.0 - Age-related osteoporosis without current pathological fracture Medications: Discontinued prednisone Take 3 tablets for 10 days then 2 tablets for 10 days then 1 tablet for 10 days and stop Discontinued Reason: Patient Completed Course 5 mg PO DIRECTED 60 tabs 0RF M06.00 - Rheumatoid arthritis without rheumatoid factor, unspecified site Coding Level of Care Code Est Pt Level 4 (07414) Complex visit Add On G2211 Diagnoses Seronegative rheumatoid arthritis M06.00 Screening for osteoporosis Z13.820 Encounter for monitoring rituximab therapy Z51.81; Z79.620
[2025-02-20 12:51] VITALS: BP 132/80; PULSE 95; O2SAT 98; BMI 25.6
== END 2025-02-20 14:10 | disposition home or self-care (01) ==
LOC: HO.RHES 12:17
PROVIDERS: PCP Internal Medicine; Visit Provider Student in an Organized Health Care Education/Training Program
DX: M06.00 Rheumatoid arthritis without rheumatoid factor, unspecified site (principal); Z13.820 Encounter for screening for osteoporosis; Z51.81 Encounter for therapeutic drug level monitoring; Z79.620 Long term (current) use of immunosuppressive biologic
CPT/HCPCS: 99214; G2211

== ENCOUNTER 2025-02-20 12:16 | Outpatient (REF) | payer MEDICARE, MEDICAID, SELFPAY ==
[2025-02-20 17:45] LABS: MANUAL DIFF FLAG NO
[2025-02-20 18:07] LABS: Hematocrit 43.1 % (37.0-47.0); Hemoglobin 13.8 g/dl (12.0-16.0); Imm Gran Abs Auto 0.11 X10*3/uL (0.00-0.03); Imm Gran Pct Auto 0.8 % (0.0-0.4); Lymphocytes Absolute Auto 1.7 X10*3/uL (1.2-4.9); Mean Corpuscular HGB Conc 32.0 g/dl (31.0-35.0); Mean Corpuscular Hemoglobin 28.6 pg (27.0-33.0); Mean Corpuscular Volume 89.4 fL (80.0-98.0); NRBC Abs Auto 0.000 X10*3/uL (0.0-0.012); NRBC Pct Auto 0.0 /100WBC (0.0-0.2); Platelet Count 392 X10*3/uL (160-400); Red Blood Count 4.82 X10*6/uL (4.20-5.50); White Blood Count 14.3 X10*3/uL (4.8-10.8)
[2025-02-20 18:15] LABS: Alanine Aminotransferase 14 U/L (0-31); Albumin Level 4.8 g/dL (3.5-5.0); Alkaline Phosphatase 117 U/L (39-117); Anion Gap 12 (12-20); Aspartate Amino Transferase 20 U/L (5-31); Blood Urea Nitrogen 8 mg/dL (9-16); Calcium 9.8 mg/dL (8.4-10.2); Carbon Dioxide 29 mmol/L (22-29); Chloride 101 mmol/L (96-108); Estimated Glomerular Filt Rate > 60; Potassium 4.3 mmol/L (3.3-5.1); Sodium 138 mmol/L (135-145); Total Protein 7.5 g/dL (6.5-8.0)
[2025-02-20 18:47] LABS: Erythrocyte Sedimentation Rate 8 MM/HR (0-20)
== END 2025-02-20 12:17 | disposition home or self-care (01) ==
LOC: HO.HKASLDS 12:16
PROVIDERS: PCP Internal Medicine; Visit Provider Student in an Organized Health Care Education/Training Program
DX: Z51.81 Encounter for therapeutic drug level monitoring (principal); M06.00 Rheumatoid arthritis without rheumatoid factor, unspecified site; E55.9 Vitamin D deficiency, unspecified; M15.9 Polyosteoarthritis, unspecified; Z13.820 Encounter for screening for osteoporosis; Z79.620 Long term (current) use of immunosuppressive biologic; Z79.899 Other long term (current) drug therapy
CPT/HCPCS: 36415; 80053; 82784; 85025; 85652; 86140; 88184; 88185; 99212